=== PATIENT | male | born 1935 | race Caucasian/White ===

== ENCOUNTER 2018-05-31 12:31 | Day surgery (SDC) | payer MEDICARE, OTHER, SELFPAY ==
[2018-05-31] MEDS: PROPARACAINE 0.5% OPHTH SOL 2 DROPS EYE-OP (13:33)
[2018-05-31] MEDS: CATARACT EYE COMPOUND (10 DROPS/SYRINGE) 3 DROPS EYE-OP (13:35)
[2018-05-31 13:36] VITALS: BP 156/86; PULSE 64; RESP 16; TEMP 36.4; O2SAT 100; BMI 28.7
--- NOTE | 2018-05-31 13:58 | PM.PREOP ---
Pre-operative Note Interval Note Pre-op Check: Yes History & Physical Reviewed by Physician Changes: No
[2018-05-31] MEDS: CHONDROIDTIN/SOD HYALURONATE 1.05 ML SYRINGE INTRAOCULA (14:28)
[2018-05-31] MEDS: MOXIFLOXACIN OPHTH DROPS 3 ML BOTTLE 2 DROPS INJ (14:28)
[2018-05-31] MEDS: BALANCED SALT IRRIG SOLN NO.2 500 ML, EPINEPHrine 1 MG IRR (14:29)
[2018-05-31] MEDS: PHENYLEPHRINE/LIDOCAINE VIAL (OR) 0.2 ML EYE-OP (14:29)
--- NOTE | 2018-05-31 14:58 | PM.OP.1 ---
Procedure & Clinicians Procedure: Cataract extraction with intraocular lens implant, right Same procedure as scheduled: Yes Surgeon: Javier Tran Click Yes if Unassisted: Yes Anesthesia Type: MAC +/- Operative Notes Procedure in detail: The patient was brought to the operating suite. The correct patient, surgical site and lens were confirmed. 0.5 % tetracaine drops were placed in the right eye. Corneal markings were placed with a reference marker. The patient was prepped and draped in the typical sterile manner. A lid speculum was placed in the eye. A paracentesis port was created with a side-port blade. 0.1 mL of 1% preservative free lidocaine was injected into the anterior chamber. Viscoelastic was injected into the anterior chamber. A 2.6mm keratome was used to create a clear corneal temporal incision. Cystotome and Utrata forceps were used to create a continuous curvilinear capsulorrhexis. Balanced salt solution was used to hydrodissect the nucleus. Phacoemulsification was used to remove the lens. The capsular bag was inflated with viscoelastic. A Em [id number] +25.0 lens was inserted into the capsule and aligned at 005 degrees. Viscoelastic was removed. The edge of the iris prolapsed out of the wound. It was gently reduced. A 10-0 nylon suture was placed at the wound. The wound was found to be leak free and the eye was assessed to be at normal physiologic pressure. 0.1mL Vigamox was injected into the anterior chamber. The lid speculum was removed and the patient left the operating room in excellent condition. Complications: none Condition: stable Disposition: observation
[2018-05-31 15:02] VITALS: BP 152/73; PULSE 55; RESP 15; TEMP 36.1; O2SAT 99
--- NOTE | 2018-05-31 15:03 | P.OP_ITS ---
Procedure & Clinicians Procedure: Cataract extraction with intraocular lens implant, right Same procedure as scheduled: Yes Surgeon: Javier Tran Click Yes if Unassisted: Yes Anesthesia Type: MAC +/- Operative Notes Procedure in detail: The patient was brought to the operating suite. The correct patient, surgical site and lens were confirmed. 0.5 % tetracaine drops were placed in the right eye. Corneal markings were placed with a reference marker. The patient was prepped and draped in the typical sterile manner. A lid speculum was placed in the eye. A paracentesis port was created with a side- port blade. 0.1 mL of 1% preservative free lidocaine was injected into the anterior chamber. Viscoelastic was injected into the anterior chamber. A 2.6mm keratome was used to create a clear corneal temporal incision. Cystotome and Utrata forceps were used to create a continuous curvilinear capsulorrhexis. Balanced salt solution was used to hydrodissect the nucleus. Phacoemulsification was used to remove the lens. The capsular bag was inflated with viscoelastic. A Em [id number] +25.0 lens was inserted into the capsule and aligned at 005 degrees. Viscoelastic was removed. The edge of the iris prolapsed out of the wound. It was gently reduced. A 10-0 nylon suture was placed at the wound. The wound was found to be leak free and the eye was assessed to be at normal physiologic pressure. 0.1mL Vigamox was injected into the anterior chamber. The lid speculum was removed and the patient left the operating room in excellent condition. Complications: none Condition: stable Disposition: observation
[2018-05-31 15:20] VITALS: BP 162/72; PULSE 52; RESP 15; TEMP 36.1; O2SAT 99
== END 2018-05-31 15:35 ==
PROVIDERS: PCP Internal Medicine; Visit Provider Ophthalmology
DX: H25.11 Age-related nuclear cataract, right eye (principal); E11.9 Type 2 diabetes mellitus without complications; Z79.84 Long term (current) use of oral hypoglycemic drugs; I10 Essential (primary) hypertension; Z86.73 Personal history of transient ischemic attack (TIA), and cerebral infarction without residual deficits
CPT/HCPCS: J0171; J2250; J2704; V2787

== ENCOUNTER 2018-06-21 11:39 | Day surgery (SDC) | payer MEDICARE, OTHER, SELFPAY ==
[2018-06-21] MEDS: PROPARACAINE 0.5% OPHTH SOL 2 DROPS EYE-OP (12:02)
--- NOTE | 2018-06-21 12:08 | PM.PREOP ---
Pre-operative Note Interval Note Pre-op Check: Yes History & Physical Reviewed by Physician Changes: No
--- NOTE | 2018-06-21 12:09 | PM.OP.1 ---
Procedure & Clinicians Procedure: Cataract extraction with intraocular lens implant, left Same procedure as scheduled: Yes Indications: Visually significant cataract, Nuclear sclerosis, left Surgeon: Javier Tran Click Yes if Unassisted: Yes Anesthesia Type: MAC +/- Operative Notes Procedure in detail: The patient was brought to the operating suite. The correct patient, surgical site and lens were confirmed. 0.5 % tetracaine drops were placed in the left eye. The cornea was marked with a corneal reference marker. The patient was prepped and draped in the typical sterile manner. A lid speculum was placed in the eye. 3.5% lidocaine gel was placed on the eye. A paracentesis port was created with a side-port blade. 0.1 mL of 1% preservative free lidocaine was injected into the anterior chamber. Viscoelastic was injected into the anterior chamber. A 2.6mm keratome was used to create a clear corneal temporal incision. Cystotome and Utrata forceps were used to create a continuous curvilinear capsulorrhexis. Balanced salt solution was used to hydrodissect the nucleus. Phacoemulsification was used to remove the lens. At this point the iris began to contract. A Malyugin 6.2mm ring was inserted. The capsular bag was inflated with viscoelastic. A Em ACT [id number] +24.5 D lens was inserted into the capsule and rotated to 0 degrees. The Malyugin ring was removed. Viscoelastic was removed and the iris was found to prolapse out of the main wound. A 10-0 nylon suture was placed and knot burried. Myostat was injected into the anterior chamber. A second sideport incision was made to the right of the main wound. The iris was swept out of the wound through this incision and resure glue was used on the main wound and left sideport wound. The wounds were found to be leak free and the eye was assessed to be at normal physiologic pressure. 0.1mL Vigamox was injected into the anterior chamber. The lid speculum was removed and the patient left the operating room in excellent condition. Complications: none Condition: stable Disposition: same day surgery
[2018-06-21] MEDS: CATARACT EYE COMPOUND (10 DROPS/SYRINGE) 3 DROPS EYE-OP (12:10)
[2018-06-21 12:12] VITALS: BP 162/75; PULSE 49; RESP 16; TEMP 36.3; O2SAT 98; BMI 29.6
[2018-06-21] MEDS: CHONDROIDTIN/SOD HYALURONATE 1.05 ML SYRINGE INTRAOCULA (13:21)
[2018-06-21] MEDS: MOXIFLOXACIN OPHTH DROPS 3 ML BOTTLE 2 DROPS INJ (13:23)
[2018-06-21] MEDS: PHENYLEPHRINE/LIDOCAINE VIAL (OR) 0.2 ML EYE-OP (13:23)
[2018-06-21] MEDS: BALANCED SALT IRRIG SOLN NO.2 500 ML, EPINEPHrine 1 MG IRR (13:24)
[2018-06-21] MEDS: TETRACAINE 0.5% OPHTH DROPS 15 ML 2 DROPS EYE-LEFT (13:30)
[2018-06-21] MEDS: LIDOCAINE 2% INJ SDV 0.5 ML TOP (13:31)
[2018-06-21] MEDS: CARBACHOL 1.5 ML VIAL INJ (14:06)
[2018-06-21 14:52] VITALS: BP 171/80; PULSE 58; RESP 20; TEMP 36.7; O2SAT 97
== END 2018-06-21 14:55 | disposition home or self-care (01) ==
LOC: OR 11:40
PROVIDERS: PCP Internal Medicine; Visit Provider Ophthalmology
DX: H25.12 Age-related nuclear cataract, left eye (principal); E11.9 Type 2 diabetes mellitus without complications; Z79.84 Long term (current) use of oral hypoglycemic drugs; I10 Essential (primary) hypertension
CPT/HCPCS: J0171; J2250; J3010; V2787

== ENCOUNTER → 2018-08-17 13:07 | Outpatient (CLI) | payer MEDICARE, OTHER, SELFPAY ==
--- NOTE | 2018-08-17 | DI.RAD.S_ITS ---
PROCEDURE: FL BARIUM SWALLOW W SPEECH INDICATIONS: DYSPHAGIA TECHNIQUE: Examination was conducted in conjunction with speech pathology per standard protocol. In the lateral projection, filming was performed of the patient swallowing. AP projection filming may also be performed with patient swallowing. COMPARISON: None. FINDINGS: Function: The oral preparatory phase appears normal, with proper containment. The subsequent oral propulsive phase and pharyngeal phase demonstrated slight delay in transit of proffered substances. The esophageal phase of swallowing appeared normal with all proffered substances. There were episodes of laryngotracheal penetration with thin and nectar consistency liquids with delayed aspiration with thin and thick liquids. There was persistent vallecular pooling of contrast. Morphology: No cricopharyngeal bar is identified. No cervical esophageal webs. No Zenker's diverticulum. No strictures. IMPRESSION: Slight delay in transit of proferred substances during oral propulsive and pharyngeal phases with occasional episodes of laryngotracheal penetration and aspiration. Please see speech pathology report for further details. Dictated by: Everette Tay M.D. on 08/17/2018 at 14:38 Approved by: Everette Tay M.D. on 08/17/2018 at 14:44
== END ==
PROVIDERS: PCP Internal Medicine; Visit Provider Internal Medicine
DX: R13.10 Dysphagia, unspecified (principal)
CPT/HCPCS: 74230; 92611

== ENCOUNTER 2018-11-09 11:51 | Inpatient (IN) | payer MEDICARE, OTHER, SELFPAY ==
[2018-11-09] VITALS (13 sets, daily range): BP systolic 93–171; BP diastolic 52–81; PULSE 56–80; RESP 11–21; TEMP 36.3–36.4; O2SAT 95–99; BMI 20.6
--- NOTE | 2018-11-09 | DI.MRI.S_ITS ---
PROCEDURE: MR STROKE Pre- and post-contrast brain MRI, non-contrast brain MR angiogram, pre- and postcontrast neck MR angiogram INDICATIONS: TIA, prior CVA TECHNIQUE: Brain: Noncontrast axial T1 spin echo, axial T2 fast spin echo, sagittal and axial FLAIR, coronal T2 fast spin echo, axial gradient echo, axial diffusion and ADC through the brain. After the administration of contrast, axial 3D VIBE of the cranial vasculature and brain. Brain MRA: Non-contrast 3-D time of flight MR angiogram, with multiple sbjeprr-baaheztot-ahlxymecqp (MIP) reformats performed. Neck MRA: Axial and sagittal TruFISP through the neck. Coronal dynamic MR angiogram during administration of contrast in the arterial and venous phases, with 3-dimenstional hfklfdr-swtpijybx-glricztppg (MIP) reformats constructed from subtraction images. COMPARISON: None. FINDINGS: Image quality: Excellent. BRAIN: CSF spaces: Ventricles are prominent in size consistent with ex vacuo dilatation secondary to diffuse cerebral volume loss. Stable configuration of the ventricles.. Basal cisterns are patent. No extra-axial fluid collections. Brain: No intracranial bleeds or mass effects. Grey-white matter interface is normal. There are several small foci of diffusion restriction abnormalities with corresponding low signal on ADC map consistent with small foci of acute infarctions. There are 2 foci noted in the right parietal lobe near the centrum semi-ovale. The largest measures approximately 5 mm in size. A 7 mm focal infarction is noted in the left frontal lobe. There are 2 adjacent subcentimeter foci noted in the left cerebellar hemisphere. Brainstem appears normal. Normal intravascular flow voids are present. Numerous scattered T2/flair hyperintensities are noted in the bilateral periventricular white matter and subcortical white matter of the bilateral cerebral hemispheres compatible with sequela of chronic small vessel ischemic disease. No abnormal intracranial enhancement. Skull and face: Calvarial marrow signal is normal. Orbits appear normal. Sinuses: Sinuses and mastoids are clear. BRAIN MR ANGIOGRAM: Anterior circulation: Intracranial internal carotid arteries are normal in size and enhancement. Flow within the anterior cerebral artery is patent. There is normal variant diminutive versus absent right A1 segment. The anterior communicating artery appears to originate from the left A1 segment. The flow within the middle cerebral arteries is normal and symmetric. The anterior communicating artery is seen. No stenoses, occlusions, or aneurysms of the. Posterior circulation: The visualized portions of the vertebral arteries demonstrate normal caliber, and join to form a normal appearing basilar artery. The flow within the posterior cerebral arteries is normal and symmetric. No stenoses, occlusions, or aneurysms. NECK MR ANGIOGRAM: Carotids: Great vessels demonstrate a conventional anatomy as they arise from the aortic arch. The origins of the common carotid arteries appear patent. The calibers and courses of both common carotid arteries are normal. The bifurcation regions appear normal bilaterally. The internal carotid arteries demonstrate normal course and caliber. Posterior circulation: The origins of the right vertebral artery is patent. There is mild-moderate narrowing at the origin of the left vertebral artery. More superior portions of both vertebral arteries demonstrate normal course and caliber, and join to form a normal appearing basilar artery. Miscellaneous: Subclavian arteries appear patent. Pre-contrast images through the neck show no soft tissue abnormalities. There is a small superficial intradermal benign-appearing lesion in the left anterior scalp. 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 No evidence for adjacent vasogenic edema. No mass effect or midline shift of structures. No suspicious areas of enhancement. BRAIN MR ANGIOGRAM: Negative brain MRA for hemodynamically significant stenosis, occlusion, or aneurysm. NECK MR ANGIOGRAM: Mild-moderate stenosis at the origin of the left vertebral artery. Otherwise, negative MRA of the neck vessels for hemodynamically significant stenosis, occlusion, or aneurysm. Findings were relayed to the inpatient clinical team. Dictated by: Everette Tay M.D. on 11/10/2018 9:55 Approved by: Everette Tay M.D. on 11/10/2018 at 10:33
--- NOTE | 2018-11-09 12:07 | DI.RAD.S_ITS ---
PROCEDURE: XR CHEST 1V INDICATIONS: weakness TECHNIQUE: One view of the chest was acquired. COMPARISON: None. FINDINGS: Surgical changes and devices: None. Lungs and pleura: Lungs are clear. No pleural effusions or pneumothorax. Mediastinum: Mediastinal contours appear normal. Heart size is normal. Bones and chest wall: No suspicious bony lesions. Overlying soft tissues appear unremarkable. IMPRESSION: Normal for age, source of current weakness symptoms is not seen. Dictated by: Armen Guadarrama M.D. on 11/09/2018 at 12:41 Approved by: Armen Guadarrama M.D. on 11/09/2018 at 12:41
[2018-11-09 12:14] LABS: Hematocrit 39.8 % (41-53); Hemoglobin 13.1 g/dL (13.5-17.5); INR 1.1 (0.9-1.3); Mean Corpuscular Hemoglobin 28.4 PG (26-34); Platelet Count 340 X10^3/uL (150-400); Prothrombin Time 12.4 SECONDS (10.1-12.7); Red Blood Cell Count 4.63 X10^6/uL (4.5-5.9); Red Cell Distribution Width 13.4 % (11.6-14.8); White Blood Cell Count 10.3 X10^3/uL (4.5-11.0)
[2018-11-09 12:20] LABS: Alanine Aminotransferase 22 IU/L (21-72); Albumin 4.5 g/dL (3.5-5.0); Albumin Globulin Ratio 1.3 (1.0-2.8); Alkaline Phosphatase 111 U/L (38-126); Aspartate Aminotransferase 35 IU/L (17-59); BUN Creatinine Ratio 30.7 (6-22); Bilirubin Total 0.8 mg/dL (0.2-1.3); Blood Urea Nitrogen 43 mg/dL (9-20); Calcium 9.9 mg/dL (8.4-10.2); Carbon Dioxide 27 mmol/L (22-32); Chloride 99 mmol/L (98-107); Estimated Glomerular Filt Rate 48.6 mL/min (>60); Globulin 3.4 g/dL (1.7-4.1); Glucose 172 mg/dL (80-110); HEMOLYSIS < 15 (0-50); Potassium 4.9 mmol/L (3.4-5.1); Sodium 141 mmol/L (137-145); Total Protein 7.9 g/dL (6.3-8.2)
--- NOTE | 2018-11-09 12:35 | PC.NURSE ---
Patient states he woke in the middle of the night to urinate and felt mild chest pain 1/10 nothing I would take my medications for Patient was able to go back to sleep but states he slept poorly. Patient woke this morning feeling generalized weakness, SOB with exertion. Reports SOB at rest. states he didn't eat or dress himself like he normally does and was clammy and cool but states he felt hot. Patient denies chest pain at this time. reports pain at buttocks. Patient has known pressure ulcers that home health nurse changes 3x week
[2018-11-09 12:46] LABS: Neutrophils Absolute Manual 6592 /uL (3000-5900); Total Cells Counted 100
[2018-11-09 12:47] LABS: RBC Morphology Normal Morphology
[2018-11-09 12:51] LABS: Creatine Kinase 44 U/L (55-170)
[2018-11-09 13:02] LABS: B Type Natriuretic Peptide 181 (<100); Troponin I 0.032 ng/mL (0.01-0.034)
--- NOTE | 2018-11-09 14:48 | ED.WEAKNESS ---
HPI - Weakness General Chief complaint: Weakness Stated complaint: General Weakness Time Seen by Provider: 11/09/18 14:33 Source: patient and family Mode of arrival: EMS Limitations: no limitations History of Present Illness HPI Narrative: This is an 83-year-old male comes to the emergency department after not feeling well. Patient states that this morning when he got up he had gotten up to change his depends, he just sort of sat on the chair and did move or do much. His states that she noticed that he was very sweaty and clammy. He states that he was not able to get his words out for a period of time and could not talk. They both stated that he seemed a little bit weaker on his left side. He has known left-sided deficit from a prior stroke. They both state he seems like he is doing better at this time. He was feeling a little short of breath. He denies any active chest pain. They are both unclear if he had any episode of chest pain or pressure earlier today or last night. Patient denies any nausea, no vomiting. he has not been eating well for the last several days. He has not had a bowel movement for 2 or 3 days. Patient is on Plavix. His primary care physician is Dr. Duran. Related Data Home Medications Medication Instructions Recorded Confirmed clopidogrel [Plavix] 75 mg PO DAILY 05/31/18 11/09/18 lisinopril 10 mg PO BEDTIME 05/31/18 11/09/18 metformin 500 mg PO BID 05/31/18 11/09/18 tamsulosin [Flomax] 0.4 mg PO DAILY 05/31/18 11/09/18 Vitamin C 1 tab PO DAILY 11/09/18 11/09/18 Vitamin D3 1 cap PO DAILY 11/09/18 11/09/18 acetaminophen [Tylenol] 1 dose PO DAILY 11/09/18 11/09/18 atorvastatin 40 mg PO BEDTIME 11/09/18 11/09/18 fluoride (sodium) [PreviDent 5000 1 applic DENTAL DIRECTED 11/09/18 11/09/18 Dry Mouth] metoprolol tartrate 25 mg PO BID 11/09/18 11/09/18 multivitamin 1 tab PO DAILY 11/09/18 11/09/18 nitroglycerin 0.4 mg SUBLINGUAL PRN PRN 11/09/18 11/09/18 vit C,B-Yi-oxfuv-lutein-zeaxan 1 cap PO BID 11/09/18 11/09/18 [PreserVision AREDS-2] Allergies Allergy/AdvReac Type Severity Reaction Status Date / Time No Known Allergies Allergy Uncoded 11/09/18 12:04 Review of Systems Review of Systems ROS Unobtainable: All systems reviewed & are unremarkable except as noted in HPI and below Constitutional Denies chills, Reports fatigue, Denies fever(s), Denies headache(s), Denies lethargy and Denies weakness ENT Ears, Nose, Mouth, and Throat: Denies headache(s) Cardiovascular Reports chest pain (maybe, pt unclear), Denies syncope, Denies irregular heart rhythm, Denies lightheadedness, Denies palpitations, Reports dyspnea and Denies orthopnea Respiratory Denies chest congestion, Denies cough, Reports dyspnea and Denies wheezing Gastrointestinal Gastrointestinal: Denies abdominal pain, Denies change in bowel habits, Reports constipation, Denies diarrhea, Denies nausea and Denies vomiting Musculoskeletal Reports muscle weakness and Denies numbness Neurologic Reports as per HPI, Reports abnormal speech, Denies confusion, Denies syncope, Denies headache(s), Reports focal weakness (Worse from usable left-sided weakness), Denies numbness and Denies weakness Psychiatric Denies confusion Endocrine Reports fatigue and Denies palpitations Allergic/Immunologic Denies wheezing [facility] Medical History (Updated 11/09/18 @ 19:48 by Beatriz Anguiano RN) Oral cancer (Acute) CVA (cerebral vascular accident) (Chronic) Dyslipidemia (Chronic) Hypertension (Chronic) Social History household members: spouse Smoking Status: Never smoker alcohol intake: former Social History household members: spouse Smoking Status: Never smoker alcohol intake: former Exam Narrative Exam Narrative: GEN: well nourished, well appearing elderly male, alert and oriented x 3, patient appears to be in mild distress. HEENT: Atraumatic, pupils are equal round reactive to light, extraocular movements are intact, no clear facial droop HEART: Regular rate and rhythm without murmur, clicks, rubs. No carotid bruits, pulses are equal in upper and lower extremities LUNGS:Lungs clear to auscultation, no wheezes, rales, crackles, chest moves symmetrically ABD:bowel sounds normal, soft, non-tender, no guarding, rebound, rigidity, no masses noted, no hepatosplenomegaly :No CVA tenderness MSCL: Non-tender, no muscle atrophy, see NIH NEURO:CN 2-12 intact, sensation normal, gmzwih-akxy-vrilag test normal bilaterally, heel-baeza patient has more difficulty with his left foot. No dysarthria or aphasia. Initial Vital Signs Initial Vital Signs: Vital Signs Temperature 97.5 F L 11/09/18 11:57 Pulse Rate 69 11/09/18 11:57 Respiratory Rate 16 11/09/18 11:57 Blood Pressure 121/66 11/09/18 11:57 Pulse Oximetry 95 11/09/18 11:57 Scores NIH Stroke Scale Level of Conciousness: Alert, keenly responsive Ask month/age: Answers both questions correctly. Open/close eyes, close hand: Performs both tasks correctly Best gaze horizontal: Normal Visual tillman: No visual loss Facial palsy: Minor paralysis, flattened nasolabial fold, asymmetry on smiling (very mild) Left arm drift: No drift for full 10 sec Right arm drift: No drift for full 10 sec Left leg drift: No drift for full 10 sec Right leg drift: No drift for full 10 sec Limb ataxia: Present in one limb Sensory on face/arms/legs: Normal, no sensory loss Best language: No aphasia, normal Dysarthria: Normal Extinction or inattention: No abnormality Total NIH Stroke scale score: 2 Course Orders Ordered: ED Orders 11/09/18 12:07 Chest [XR chest 1V] Stat 11/09/18 12:10 BNP [B Type Natriuretic Peptide] Stat Troponin & CK Cardiac Panel Stat 11/09/18 15:07 CT head/brain wo con Stat 11/09/18 15:08 Urine Microscopic Stat 11/09/18 15:38 EKG-12 Lead Stat 11/09/18 15:45 Troponin & CK Cardiac Panel Stat 11/09/18 19:08 Consult to Dietitian, Adult Routine 11/09/18 19:15 Consult to Dietitian, Adult Routine Discontinued Medications Aspirin (Aspirin Chew) 324 mg PO NOW ONE Stop: 11/09/18 18:22 Vital Signs - 8 hr 11/09/18 12:45 11/09/18 13:00 11/09/18 13:30 Temperature Pulse Rate 56 L 65 74 Respiratory Rate 11 L 15 21 Blood Pressure Blood Pressure [Left Arm] 93/52 L 100/64 122/54 L Pulse Oximetry 98 99 97 11/09/18 14:00 11/09/18 14:30 11/09/18 15:00 Temperature Pulse Rate 69 70 76 Respiratory Rate 21 21 18 Blood Pressure Blood Pressure [Left Arm] 129/68 138/68 144/71 H Pulse Oximetry 95 96 99 11/09/18 16:10 11/09/18 16:30 11/09/18 17:00 Temperature Pulse Rate 75 73 71 Respiratory Rate 15 18 Blood Pressure Blood Pressure [Left Arm] 128/70 125/73 144/71 H Pulse Oximetry 97 98 97 11/09/18 17:40 11/09/18 18:19 11/09/18 18:35 Temperature 97.3 F L Pulse Rate 80 72 76 Respiratory Rate 18 17 Blood Pressure 141/65 H 163/81 H Blood Pressure [Left Arm] 171/80 H Pulse Oximetry 99 98 97 MDM - Weakness Lab Data Attestation: I reviewed the patient's lab results. Result diagrams: 11/09/18 Unknown 11/09/18 Unknown Lab Results 11/09/18 11/09/18 11/09/18 Range/Units 12:10 12:10 15:08 WBC (4.5-11.0) X10^3/uL RBC (4.5-5.9) X10^6/uL Hgb (13.5-17.5) g/dL Hct (41-53) % MCV (80-100) fL MCH (26-34) PG MCHC (30-36) % RDW (11.6-14.8) % Plt Count (150-400) X10^3/uL Total Counted Seg Neutrophils % (38-70) % Band Neutrophils % (3-7) % Lymphocytes % (Manual) (25-45) % Monocytes % (Manual) (2-11) % Eosinophils % (Manual) (2-4) % Basophils % (Manual) (0-1) % Neutrophils # (Manual) (6089-4852) /uL RBC Morphology PT (10.1-12.7) SECONDS INR (0.9-1.3) Sodium (137-145) mmol/L Potassium (3.4-5.1) mmol/L Chloride (98-107) mmol/L Carbon Dioxide (22-32) mmol/L BUN (9-20) mg/dL Creatinine (0.66-1.25) mg/dL Estimated GFR (>60) mL/min BUN/Creatinine Ratio (6-22) Glucose (80-110) mg/dL Calcium (8.4-10.2) mg/dL Total Bilirubin (0.2-1.3) mg/dL AST (17-59) IU/L ALT (21-72) IU/L Alkaline Phosphatase (38-126) U/L Total Creatine Kinase 44 L (55-170) U/L CK-MB (CK-2) TNP CK-MB (CK-2) Rel Index TNP Troponin I 0.032 (0.01-0.034) ng/mL B-Natriuretic Peptide 181 H (<100) Total Protein (6.3-8.2) g/dL Albumin (3.5-5.0) g/dL Globulin (1.7-4.1) g/dL Albumin/Globulin Ratio (1.0-2.8) Urine Color Cancelled Urine Appearance Cancelled Urine pH Cancelled Ur Specific [place] Cancelled Urine Protein Cancelled Urine Glucose (UA) Cancelled Urine Ketones Cancelled Urine Occult Blood Cancelled Urine Nitrate Cancelled Urine Bilirubin Cancelled Urine Urobilinogen Cancelled Ur Leukocyte Esterase Cancelled Urine RBC None seen (0-5/HPF) Urine WBC None seen (0-5/HPF) Urine Bacteria None seen (None) Hyaline Casts 1-5/lpf (None) Ur Culture Indicated? Cult not indicated 11/09/18 11/09/18 11/09/18 Range/Units 15:45 Unknown Unknown WBC 10.3 (4.5-11.0) X10^3/uL RBC 4.63 (4.5-5.9) X10^6/uL Hgb 13.1 L (13.5-17.5) g/dL Hct 39.8 L (41-53) % MCV 86.0 (80-100) fL MCH 28.4 (26-34) PG MCHC 33.0 (30-36) % RDW 13.4 (11.6-14.8) % Plt Count 340 (150-400) X10^3/uL Total Counted 100 Seg Neutrophils % 63.0 (38-70) % Band Neutrophils % 1.0 L (3-7) % Lymphocytes % (Manual) 25.0 (25-45) % Monocytes % (Manual) 7.0 (2-11) % Eosinophils % (Manual) 3.0 (2-4) % Basophils % (Manual) 1.0 (0-1) % Neutrophils # (Manual) 6592 H (9700-6012) /uL RBC Morphology Normal morphology PT 12.4 (10.1-12.7) SECONDS INR 1.1 (0.9-1.3) Sodium (137-145) mmol/L Potassium (3.4-5.1) mmol/L Chloride (98-107) mmol/L Carbon Dioxide (22-32) mmol/L BUN (9-20) mg/dL Creatinine (0.66-1.25) mg/dL Estimated GFR (>60) mL/min BUN/Creatinine Ratio (6-22) Glucose (80-110) mg/dL Calcium (8.4-10.2) mg/dL Total Bilirubin (0.2-1.3) mg/dL AST (17-59) IU/L ALT (21-72) IU/L Alkaline Phosphatase (38-126) U/L Total Creatine Kinase 41 L (55-170) U/L CK-MB (CK-2) TNP CK-MB (CK-2) Rel Index TNP Troponin I 0.034 (0.01-0.034) ng/mL B-Natriuretic Peptide (<100) Total Protein (6.3-8.2) g/dL Albumin (3.5-5.0) g/dL Globulin (1.7-4.1) g/dL Albumin/Globulin Ratio (1.0-2.8) Urine Color Urine Appearance Urine pH Ur Specific [place] Urine Protein Urine Glucose (UA) Urine Ketones Urine Occult Blood Urine Nitrate Urine Bilirubin Urine Urobilinogen Ur Leukocyte Esterase Urine RBC (0-5/HPF) Urine WBC (0-5/HPF) Urine Bacteria (None) Hyaline Casts (None) Ur Culture Indicated? 11/09/18 Range/Units Unknown WBC (4.5-11.0) X10^3/uL RBC (4.5-5.9) X10^6/uL Hgb (13.5-17.5) g/dL Hct (41-53) % MCV (80-100) fL MCH (26-34) PG MCHC (30-36) % RDW (11.6-14.8) % Plt Count (150-400) X10^3/uL Total Counted Seg Neutrophils % (38-70) % Band Neutrophils % (3-7) % Lymphocytes % (Manual) (25-45) % Monocytes % (Manual) (2-11) % Eosinophils % (Manual) (2-4) % Basophils % (Manual) (0-1) % Neutrophils # (Manual) (1629-7730) /uL RBC Morphology PT (10.1-12.7) SECONDS INR (0.9-1.3) Sodium 141 (137-145) mmol/L Potassium 4.9 (3.4-5.1) mmol/L Chloride 99 (98-107) mmol/L Carbon Dioxide 27 (22-32) mmol/L BUN 43 H (9-20) mg/dL Creatinine 1.40 H (0.66-1.25) mg/dL Estimated GFR 48.6 L (>60) mL/min BUN/Creatinine Ratio 30.7 H (6-22) Glucose 172 H (80-110) mg/dL Calcium 9.9 (8.4-10.2) mg/dL Total Bilirubin 0.8 (0.2-1.3) mg/dL AST 35 (17-59) IU/L ALT 22 (21-72) IU/L Alkaline Phosphatase 111 (38-126) U/L Total Creatine Kinase (55-170) U/L CK-MB (CK-2) CK-MB (CK-2) Rel Index Troponin I (0.01-0.034) ng/mL B-Natriuretic Peptide (<100) Total Protein 7.9 (6.3-8.2) g/dL Albumin 4.5 (3.5-5.0) g/dL Globulin 3.4 (1.7-4.1) g/dL Albumin/Globulin Ratio 1.3 (1.0-2.8) Urine Color Urine Appearance Urine pH Ur Specific [place] Urine Protein Urine Glucose (UA) Urine Ketones Urine Occult Blood Urine Nitrate Urine Bilirubin Urine Urobilinogen Ur Leukocyte Esterase Urine RBC (0-5/HPF) Urine WBC (0-5/HPF) Urine Bacteria (None) Hyaline Casts (None) Ur Culture Indicated? Urine Dip Bedside Urine Glucose Negative Bedside Urine Bilirubin - Negative Bedside Urine Ketone - Negative Urine Specific [place] 1.020 Bedside Urine Occult Blood - Negative Bedside Urine pH 6.0 Bedside Urine Protein + 30 Bedside Urine Urobilinogen - Negative Bedside Urine Nitrite - Negative Bedside Urine Leukocytes - Negative Esterase Imaging Data Chest x-ray: Radiologist's impression: MauricioShania sanchez Gary Koki M [address] [address] XRay Report Signed Patient: Shania Mauricio RMR#: [id number] : 1935cct:[id number] Age/Sex: 83 / MDate of Service: 11/09/18 Loc: ED Accession Number: [id number] Procedure: XR chest 1V Ordering Provider: Kenia Echeverria D.O. PROCEDURE: XR CHEST 1V INDICATIONS: weakness TECHNIQUE: One view of the chest was acquired. COMPARISON: None. FINDINGS: Surgical changes and devices: None. Lungs and pleura: Lungs are clear. No pleural effusions or pneumothorax. Mediastinum: Mediastinal contours appear normal. Heart size is normal. Bones and chest wall: No suspicious bony lesions. Overlying soft tissues appear unremarkable. IMPRESSION: Normal for age, source of current weakness symptoms is not seen. Dictated by: Armen Guadarrama M.D. on 11/09/2018 at 12:41 Approved by: Armen Guadarrama M.D. on 11/09/2018 at 12:41 CT scan - head: Radiologist's impression: [facility] DATE TYPE STATUS AUTHOR Hx 11/09/18 15:07 Armen Guadarrama 11/09/18 12:07 Armen Guadarrama 08/17/18 00:00 Everette Tay Jeralex Vega 83, 1935 ADM [facility], ED.LOC - Main ED: R05 182.88cm 69kg BMI: 20.6kg/m? Search Chart NF - Not included in interaction checking ONSET Today 18:19 Shania Mauricio 83 M [address] [address] [address] Scan Report Signed Patient: Shania Mauricio RMR#: [id number] : 7Acct:[id number] Age/Sex: 83 / MDate of Service: 11/09/18 Loc: ED Accession Number: [id number] Procedure: CT head/brain wo con Ordering Provider: Kenia Echeverria D.O. PROCEDURE: CT HEAD/BRAIN WO CON INDICATIONS: ? left sided weakness recurred, not sure if new/old hx cva TECHNIQUE: Noncontrast 4.5 mm thick angled axial sections acquired from the foramen magnum to the vertex, with coronal and sagittal reformats. For radiation dose reduction, the following was used: automated exposure control, adjustment of mA and/or kV according to patient size. COMPARISON: [facility], CT, HEAD WITHOUT CONTRAST, 11/08/2017, 12:51. FINDINGS: Image quality: Excellent. CSF spaces: Basal cisterns are patent. No extra-axial fluid collections. The ventricles are symmetric in size and shape. Brain: No intracranial bleeds or masses. There is cerebral volume loss for age, with resultant ventricular and sulcal prominence. There are periventricular and deep white matter chronic small vessel ischemic changes. There is intracranial internal carotid artery atherosclerosis. Skull and face: Calvarium and visualized facial bones appear intact, without suspicious lesions. Sinuses: Visualized sinuses and mastoids are clear. IMPRESSION: Moderate brain parenchymal atrophy, no hemorrhage or mass is seen. Dictated by: Armen Guadarrama M.D. on 11/09/2018 at 15:49 Approved by: Armen Guadarrama M.D. on 11/09/2018 at 15:49 ECG Data Attestation: I personally reviewed and interpreted this ECG as follows: Prior ECG tracings: not available for review Interpretation: A EKG shows sinus rhythm rate of 74 P are 0202 QRS of 114 QTC of 405. Patient has Q-wave in 3 and AVF. EKG number shows a sinus rhythm with 1st degree AV block, rate of 68 P are 211, QRS of 117 and QTC of 412. Patient continues to have Q-wave, no other ST elevation appreciated. [facility] Narrative Medical decision making narrative: 83-year-old male who comes in with complaint of increased weakness and some expressive aphasia which has resolved. Patient has some chronic left-sided weakness/deficit from prior stroke. He never admits to chest pain clearly but states ?something may have happened?. Some I do not have any prior EKGs for comparison but he does have Q-waves and some ST change on EKG 1 and Q-waves on EKG 2. Patient's troponin is negative x2 but on the high end of normal with a slight increased from 0.032-0.034. He has not had any chest pain or shortness of breath in the ED. Head CT is negative for acute change. He is on Plavix daily. His lab work does show that his renal function has decreased and his BUN is elevated, hemoglobin has a baseline at 13 glucose is 172. BNP is 181 but with no acute shortness of breath or major changes to chest x-ray CHF is unlikely. Patient was apprehensive about observation overnight in the hospital asked for an ambulation trial and had some further discussion. Patient is a little bit more willing to be observed overnight. I think this would be prudent with his history. Aspirin Spoke with Dr. Ram who accepts for observation. Discharge Plan Departure Patient Disposition: Admitted as Observation Clinical Impression: Brain TIA Discharge Date/Time: 11/09/18 18:19 Interventions: ED Discharge Assessment Last Done: 11/09/18 18:19 Referrals: Lex Duran MD [Primary Care Provider] - Admit Date/Time: 11/09/18 18:30 Admit Provider: Genny Ram
--- NOTE | 2018-11-09 15:09 | ED_ITS ---
HPI - Weakness General Chief complaint: Weakness Stated complaint: General Weakness Time Seen by Provider: 11/09/18 14:33 Source: patient and family Mode of arrival: EMS Limitations: no limitations History of Present Illness HPI Narrative: This is an 83-year-old male comes to the emergency department after not feeling well. Patient states that this morning when he got up he had gotten up to change his depends, he just sort of sat on the chair and did move or do much. His states that she noticed that he was very sweaty and clammy. He states that he was not able to get his words out for a period of time and could not talk. They both stated that he seemed a little bit weaker on his left side. He has known left-sided deficit from a prior stroke. They both state he seems like he is doing better at this time. He was feeling a little short of breath. He denies any active chest pain. They are both unclear if he had any episode of chest pain or pressure earlier today or last night. Patient denies any nausea, no vomiting. he has not been eating well for the last several days. He has not had a bowel movement for 2 or 3 days. Patient is on Plavix. His primary care physician is Dr. Duran. Related Data Home Medications Medication Instructions Recorded Confirmed clopidogrel [Plavix] 75 mg PO DAILY 05/31/18 11/09/18 lisinopril 10 mg PO BEDTIME 05/31/18 11/09/18 metformin 500 mg PO BID 05/31/18 11/09/18 tamsulosin [Flomax] 0.4 mg PO DAILY 05/31/18 11/09/18 Vitamin C 1 tab PO DAILY 11/09/18 11/09/18 Vitamin D3 1 cap PO DAILY 11/09/18 11/09/18 acetaminophen [Tylenol] 1 dose PO DAILY 11/09/18 11/09/18 atorvastatin 40 mg PO BEDTIME 11/09/18 11/09/18 fluoride (sodium) [PreviDent 5000 1 applic DENTAL DIRECTED 11/09/18 11/09/18 Dry Mouth] metoprolol tartrate 25 mg PO BID 11/09/18 11/09/18 multivitamin 1 tab PO DAILY 11/09/18 11/09/18 nitroglycerin 0.4 mg SUBLINGUAL PRN PRN 11/09/18 11/09/18 vit C,C-Vv-hyvvm-lutein-zeaxan 1 cap PO BID 11/09/18 11/09/18 [PreserVision AREDS-2] Allergies Allergy/AdvReac Type Severity Reaction Status Date / Time No Known Allergies Allergy Uncoded 11/09/18 12:04 Review of Systems Review of Systems ROS Unobtainable: All systems reviewed & are unremarkable except as noted in HPI and below Constitutional Denies chills, Reports fatigue, Denies fever(s), Denies headache(s), Denies lethargy and Denies weakness ENT Ears, Nose, Mouth, and Throat: Denies headache(s) Cardiovascular Reports chest pain (maybe, pt unclear), Denies syncope, Denies irregular heart rhythm, Denies lightheadedness, Denies palpitations, Reports dyspnea and Denies orthopnea Respiratory Denies chest congestion, Denies cough, Reports dyspnea and Denies wheezing Gastrointestinal Gastrointestinal: Denies abdominal pain, Denies change in bowel habits, Reports constipation, Denies diarrhea, Denies nausea and Denies vomiting Musculoskeletal Reports muscle weakness and Denies numbness Neurologic Reports as per HPI, Reports abnormal speech, Denies confusion, Denies syncope, Denies headache(s), Reports focal weakness (Worse from usable left-sided weakness), Denies numbness and Denies weakness Psychiatric Denies confusion Endocrine Reports fatigue and Denies palpitations Allergic/Immunologic Denies wheezing [facility] Medical History (Updated 11/09/18 @ 19:48 by Beatriz Anguiano RN) Oral cancer (Acute) CVA (cerebral vascular accident) (Chronic) Dyslipidemia (Chronic) Hypertension (Chronic) Social History household members: spouse Smoking Status: Never smoker alcohol intake: former Social History household members: spouse Smoking Status: Never smoker alcohol intake: former Exam Narrative Exam Narrative: GEN: well nourished, well appearing elderly male, alert and oriented x 3, patient appears to be in mild distress. HEENT: Atraumatic, pupils are equal round reactive to light, extraocular movements are intact, no clear facial droop HEART: Regular rate and rhythm without murmur, clicks, rubs. No carotid bruits, pulses are equal in upper and lower extremities LUNGS:Lungs clear to auscultation, no wheezes, rales, crackles, chest moves symmetrically ABD:bowel sounds normal, soft, non-tender, no guarding, rebound, rigidity, no masses noted, no hepatosplenomegaly :No CVA tenderness MSCL: Non-tender, no muscle atrophy, see NIH NEURO:CN 2-12 intact, sensation normal, rpgqha-hqoj-qoebor test normal bilaterally, heel-baeza patient has more difficulty with his left foot. No dysarthria or aphasia. Initial Vital Signs Initial Vital Signs: Vital Signs Temperature 97.5 F L 11/09/18 11:57 Pulse Rate 69 11/09/18 11:57 Respiratory Rate 16 11/09/18 11:57 Blood Pressure 121/66 11/09/18 11:57 Pulse Oximetry 95 11/09/18 11:57 Scores NIH Stroke Scale Level of Conciousness: Alert, keenly responsive Ask month/age: Answers both questions correctly. Open/close eyes, close hand: Performs both tasks correctly Best gaze horizontal: Normal Visual tillman: No visual loss Facial palsy: Minor paralysis, flattened nasolabial fold, asymmetry on smiling (very mild) Left arm drift: No drift for full 10 sec Right arm drift: No drift for full 10 sec Left leg drift: No drift for full 10 sec Right leg drift: No drift for full 10 sec Limb ataxia: Present in one limb Sensory on face/arms/legs: Normal, no sensory loss Best language: No aphasia, normal Dysarthria: Normal Extinction or inattention: No abnormality Total NIH Stroke scale score: 2 Course Orders Ordered: ED Orders 11/09/18 12:07 Chest [XR chest 1V] Stat 11/09/18 12:10 BNP [B Type Natriuretic Peptide] Stat Troponin & CK Cardiac Panel Stat 11/09/18 15:07 CT head/brain wo con Stat 11/09/18 15:08 Urine Microscopic Stat 11/09/18 15:38 EKG-12 Lead Stat 11/09/18 15:45 Troponin & CK Cardiac Panel Stat 11/09/18 19:08 Consult to Dietitian, Adult Routine 11/09/18 19:15 Consult to Dietitian, Adult Routine Discontinued Medications Aspirin (Aspirin Chew) 324 mg PO NOW ONE Stop: 11/09/18 18:22 Vital Signs - 8 hr 11/09/18 12:45 11/09/18 13:00 11/09/18 13:30 Temperature Pulse Rate 56 L 65 74 Respiratory Rate 11 L 15 21 Blood Pressure Blood Pressure [Left Arm] 93/52 L 100/64 122/54 L Pulse Oximetry 98 99 97 11/09/18 14:00 11/09/18 14:30 11/09/18 15:00 Temperature Pulse Rate 69 70 76 Respiratory Rate 21 21 18 Blood Pressure Blood Pressure [Left Arm] 129/68 138/68 144/71 H Pulse Oximetry 95 96 99 11/09/18 16:10 11/09/18 16:30 11/09/18 17:00 Temperature Pulse Rate 75 73 71 Respiratory Rate 15 18 Blood Pressure Blood Pressure [Left Arm] 128/70 125/73 144/71 H Pulse Oximetry 97 98 97 11/09/18 17:40 11/09/18 18:19 11/09/18 18:35 Temperature 97.3 F L Pulse Rate 80 72 76 Respiratory Rate 18 17 Blood Pressure 141/65 H 163/81 H Blood Pressure [Left Arm] 171/80 H Pulse Oximetry 99 98 97 MDM - Weakness Lab Data Attestation: I reviewed the patient's lab results. Result diagrams: 11/09/18 Unknown 11/09/18 Unknown Lab Results 11/09/18 11/09/18 11/09/18 Range/Units 12:10 12:10 15:08 WBC (4.5-11.0) X10^3/uL RBC (4.5-5.9) X10^6/uL Hgb (13.5-17.5) g/dL Hct (41-53) % MCV (80-100) fL MCH (26-34) PG MCHC (30-36) % RDW (11.6-14.8) % Plt Count (150-400) X10^3/uL Total Counted Seg Neutrophils % (38-70) % Band Neutrophils % (3-7) % Lymphocytes % (Manual) (25-45) % Monocytes % (Manual) (2-11) % Eosinophils % (Manual) (2-4) % Basophils % (Manual) (0-1) % Neutrophils # (Manual) (0143-5488) /uL RBC Morphology PT (10.1-12.7) SECONDS INR (0.9-1.3) Sodium (137-145) mmol/L Potassium (3.4-5.1) mmol/L Chloride (98-107) mmol/L Carbon Dioxide (22-32) mmol/L BUN (9-20) mg/dL Creatinine (0.66-1.25) mg/dL Estimated GFR (>60) mL/min BUN/Creatinine Ratio (6-22) Glucose (80-110) mg/dL Calcium (8.4-10.2) mg/dL Total Bilirubin (0.2-1.3) mg/dL AST (17-59) IU/L ALT (21-72) IU/L Alkaline Phosphatase (38-126) U/L Total Creatine Kinase 44 L (55-170) U/L CK-MB (CK-2) TNP CK-MB (CK-2) Rel Index TNP Troponin I 0.032 (0.01-0.034) ng/mL B-Natriuretic Peptide 181 H (<100) Total Protein (6.3-8.2) g/dL Albumin (3.5-5.0) g/dL Globulin (1.7-4.1) g/dL Albumin/Globulin Ratio (1.0-2.8) Urine Color Cancelled Urine Appearance Cancelled Urine pH Cancelled Ur Specific [place] Cancelled Urine Protein Cancelled Urine Glucose (UA) Cancelled Urine Ketones Cancelled Urine Occult Blood Cancelled Urine Nitrate Cancelled Urine Bilirubin Cancelled Urine Urobilinogen Cancelled Ur Leukocyte Esterase Cancelled Urine RBC None seen (0-5/HPF) Urine WBC None seen (0-5/HPF) Urine Bacteria None seen (None) Hyaline Casts 1-5/lpf (None) Ur Culture Indicated? Cult not indicated 11/09/18 11/09/18 11/09/18 Range/Units 15:45 Unknown Unknown WBC 10.3 (4.5-11.0) X10^3/uL RBC 4.63 (4.5-5.9) X10^6/uL Hgb 13.1 L (13.5-17.5) g/dL Hct 39.8 L (41-53) % MCV 86.0 (80-100) fL MCH 28.4 (26-34) PG MCHC 33.0 (30-36) % RDW 13.4 (11.6-14.8) % Plt Count 340 (150-400) X10^3/uL Total Counted 100 Seg Neutrophils % 63.0 (38-70) % Band Neutrophils % 1.0 L (3-7) % Lymphocytes % (Manual) 25.0 (25-45) % Monocytes % (Manual) 7.0 (2-11) % Eosinophils % (Manual) 3.0 (2-4) % Basophils % (Manual) 1.0 (0-1) % Neutrophils # (Manual) 6592 H (3452-3979) /uL RBC Morphology Normal morphology PT 12.4 (10.1-12.7) SECONDS INR 1.1 (0.9-1.3) Sodium (137-145) mmol/L Potassium (3.4-5.1) mmol/L Chloride (98-107) mmol/L Carbon Dioxide (22-32) mmol/L BUN (9-20) mg/dL Creatinine (0.66-1.25) mg/dL Estimated GFR (>60) mL/min BUN/Creatinine Ratio (6-22) Glucose (80-110) mg/dL Calcium (8.4-10.2) mg/dL Total Bilirubin (0.2-1.3) mg/dL AST (17-59) IU/L ALT (21-72) IU/L Alkaline Phosphatase (38-126) U/L Total Creatine Kinase 41 L (55-170) U/L CK-MB (CK-2) TNP CK-MB (CK-2) Rel Index TNP Troponin I 0.034 (0.01-0.034) ng/mL B-Natriuretic Peptide (<100) Total Protein (6.3-8.2) g/dL Albumin (3.5-5.0) g/dL Globulin (1.7-4.1) g/dL Albumin/Globulin Ratio (1.0-2.8) Urine Color Urine Appearance Urine pH Ur Specific [place] Urine Protein Urine Glucose (UA) Urine Ketones Urine Occult Blood Urine Nitrate Urine Bilirubin Urine Urobilinogen Ur Leukocyte Esterase Urine RBC (0-5/HPF) Urine WBC (0-5/HPF) Urine Bacteria (None) Hyaline Casts (None) Ur Culture Indicated? 11/09/18 Range/Units Unknown WBC (4.5-11.0) X10^3/uL RBC (4.5-5.9) X10^6/uL Hgb (13.5-17.5) g/dL Hct (41-53) % MCV (80-100) fL MCH (26-34) PG MCHC (30-36) % RDW (11.6-14.8) % Plt Count (150-400) X10^3/uL Total Counted Seg Neutrophils % (38-70) % Band Neutrophils % (3-7) % Lymphocytes % (Manual) (25-45) % Monocytes % (Manual) (2-11) % Eosinophils % (Manual) (2-4) % Basophils % (Manual) (0-1) % Neutrophils # (Manual) (0813-0487) /uL RBC Morphology PT (10.1-12.7) SECONDS INR (0.9-1.3) Sodium 141 (137-145) mmol/L Potassium 4.9 (3.4-5.1) mmol/L Chloride 99 (98-107) mmol/L Carbon Dioxide 27 (22-32) mmol/L BUN 43 H (9-20) mg/dL Creatinine 1.40 H (0.66-1.25) mg/dL Estimated GFR 48.6 L (>60) mL/min BUN/Creatinine Ratio 30.7 H (6-22) Glucose 172 H (80-110) mg/dL Calcium 9.9 (8.4-10.2) mg/dL Total Bilirubin 0.8 (0.2-1.3) mg/dL AST 35 (17-59) IU/L ALT 22 (21-72) IU/L Alkaline Phosphatase 111 (38-126) U/L Total Creatine Kinase (55-170) U/L CK-MB (CK-2) CK-MB (CK-2) Rel Index Troponin I (0.01-0.034) ng/mL B-Natriuretic Peptide (<100) Total Protein 7.9 (6.3-8.2) g/dL Albumin 4.5 (3.5-5.0) g/dL Globulin 3.4 (1.7-4.1) g/dL Albumin/Globulin Ratio 1.3 (1.0-2.8) Urine Color Urine Appearance Urine pH Ur Specific [place] Urine Protein Urine Glucose (UA) Urine Ketones Urine Occult Blood Urine Nitrate Urine Bilirubin Urine Urobilinogen Ur Leukocyte Esterase Urine RBC (0-5/HPF) Urine WBC (0-5/HPF) Urine Bacteria (None) Hyaline Casts (None) Ur Culture Indicated? Urine Dip Bedside Urine Glucose Negative Bedside Urine Bilirubin - Negative Bedside Urine Ketone - Negative Urine Specific [place] 1.020 Bedside Urine Occult Blood - Negative Bedside Urine pH 6.0 Bedside Urine Protein + 30 Bedside Urine Urobilinogen - Negative Bedside Urine Nitrite - Negative Bedside Urine Leukocytes - Negative Esterase Imaging Data Chest x-ray: Radiologist's impression: MauricioShania sanchez Gary Koki M [address] [address] XRay Report Signed Patient: Shania Mauricio RMR#: [id number] : 1935cct:[id number] Age/Sex: 83 / MDate of Service: 11/09/18 Loc: ED Accession Number: [id number] Procedure: XR chest 1V Ordering Provider: Kenia Echeverria D.O. PROCEDURE: XR CHEST 1V INDICATIONS: weakness TECHNIQUE: One view of the chest was acquired. COMPARISON: None. FINDINGS: Surgical changes and devices: None. Lungs and pleura: Lungs are clear. No pleural effusions or pneumothorax. Mediastinum: Mediastinal contours appear normal. Heart size is normal. Bones and chest wall: No suspicious bony lesions. Overlying soft tissues appear unremarkable. IMPRESSION: Normal for age, source of current weakness symptoms is not seen. Dictated by: Armen Guadarrama M.D. on 11/09/2018 at 12:41 Approved by: Armen Guadarrama M.D. on 11/09/2018 at 12:41 CT scan - head: Radiologist's impression: [facility] DATE TYPE STATUS AUTHOR Hx 11/09/18 15:07 Armen Guadarrama 11/09/18 12:07 Armen Guadarrama 08/17/18 00:00 Everette Tay Jeralex Vega 83, 1935 ADM [facility], ED.LOC - Main ED: R05 182.88cm 69kg BMI: 20.6kg/m? Search Chart NF - Not included in interaction checking ONSET Today 18:19 Shania Mauricio 83 M [address] [address] [address] Scan Report Signed Patient: Shania Mauricio RMR#: [id number] : 7Acct:[id number] Age/Sex: 83 / MDate of Service: 11/09/18 Loc: ED Accession Number: [id number] Procedure: CT head/brain wo con Ordering Provider: Kenia Echeverria D.O. PROCEDURE: CT HEAD/BRAIN WO CON INDICATIONS: ? left sided weakness recurred, not sure if new/old hx cva TECHNIQUE: Noncontrast 4.5 mm thick angled axial sections acquired from the foramen magnum to the vertex, with coronal and sagittal reformats. For radiation dose reduction, the following was used: automated exposure control, adjustment of mA and/or kV according to patient size. COMPARISON: [facility], CT, HEAD WITHOUT CONTRAST, 11/08/2017, 12:51. FINDINGS: Image quality: Excellent. CSF spaces: Basal cisterns are patent. No extra-axial fluid collections. The ventricles are symmetric in size and shape. Brain: No intracranial bleeds or masses. There is cerebral volume loss for age, with resultant ventricular and sulcal prominence. There are periventricular and deep white matter chronic small vessel ischemic changes. There is intracranial internal carotid artery atherosclerosis. Skull and face: Calvarium and visualized facial bones appear intact, without suspicious lesions. Sinuses: Visualized sinuses and mastoids are clear. IMPRESSION: Moderate brain parenchymal atrophy, no hemorrhage or mass is seen. Dictated by: Armen Guadarrama M.D. on 11/09/2018 at 15:49 Approved by: Armen Guadarrama M.D. on 11/09/2018 at 15:49 ECG Data Attestation: I personally reviewed and interpreted this ECG as follows: Prior ECG tracings: not available for review Interpretation: A EKG shows sinus rhythm rate of 74 P are 0202 QRS of 114 QTC of 405. Patient has Q-wave in 3 and AVF. EKG number shows a sinus rhythm with 1st degree AV block, rate of 68 P are 211, QRS of 117 and QTC of 412. Patient continues to have Q-wave, no other ST elevation appreciated. [facility] Narrative Medical decision making narrative: 83-year-old male who comes in with complaint of increased weakness and some expressive aphasia which has resolved. Patient has some chronic left-sided weakness/deficit from prior stroke. He never admits to chest pain clearly but states ?something may have happened?. Some I do not have any prior EKGs for comparison but he does have Q-waves and some ST change on EKG 1 and Q-waves on EKG 2. Patient's troponin is negative x2 but on the high end of normal with a slight increased from 0.032-0.034. He has not had any chest pain or shortness of breath in the ED. Head CT is negative for acute change. He is on Plavix daily. His lab work does show that his renal function has decreased and his BUN is elevated, hemoglobin has a baseline at 13 glucose is 172. BNP is 181 but with no acute shortness of breath or major changes to chest x-ray CHF is unlikely. Patient was apprehensive about observation overnight in the hospital asked for an ambulation trial and had some further discussion. Patient is a little bit more willing to be observed overnight. I think this would be prudent with his history. Aspirin Spoke with Dr. Ram who accepts for observation. Discharge Plan Departure Patient Disposition: Admitted as Observation Clinical Impression: Brain TIA Discharge Date/Time: 11/09/18 18:19 Interventions: ED Discharge Assessment Last Done: 11/09/18 18:19 Referrals: Lex Duran MD [Primary Care Provider] - Admit Date/Time: 11/09/18 18:30 Admit Provider: Genny Ram
[2018-11-09 15:35] LABS: Bacteria Urine None Seen; RBC Urine None Seen (0-5/HPF); WBC Urine None Seen (0-5/HPF)
[2018-11-09 15:43] LABS: Culture Indicated Urine Cult Not Indicated; Hyaline Casts Urine 1-5/LPF
[2018-11-09 16:01] LABS: Creatine Kinase 41 U/L (55-170)
[2018-11-09 16:14] LABS: Troponin I 0.034 ng/mL (0.01-0.034)
--- NOTE | 2018-11-09 17:40 | PC.NURSE ---
Patient tolerated ambulation well. Denied dizziness. Denies SOB reports feeling much better than this morning.
[2018-11-09 21:22] LABS: Cholesterol 122 mg/dL (140-199); HDL Cholesterol 24 mg/dL (40-60); LDL Cholesterol Calculated 54 mg/dL (<100); Triglycerides 221 mg/dL (35-150)
[2018-11-09] MEDS: SODIUM CHLORIDE 0.9% 1,000 ML 84 ML IV (21:32)
[2018-11-09] MEDS: SENNOSIDES 8.6 MG TABLET 17.2 MG PO (21:42)
[2018-11-09] MEDS: DOCUSATE 100 MG CAPSULE PO (21:42)
[2018-11-09 22:20] LABS: Hemoglobin A1C% w Est Avg Glu 5.9 % (4.0-6.0)
--- NOTE | 2018-11-09 23:07 | PM.HP.1 ---
History of Present Illness Date Patient Seen: 11/09/18 Time Patient Seen: 19:39 Chief complaint: General Weakness Narrative: Shania Mauricio is an 83-year-old male patient with a history hypertension, hyperlipidemia, diabetes, BPH, prior CVA with left hemiparesis who presents today for complaints of acute onset of weakness. The patient reports that he got up this morning sat in a chair when he became diaphoretic and felt weak and was unable to speak. He reports associated shortness of breath at rest but denies chest pain or palpitations. Does acknowledge that he had had some left chest discomfort last night that reports as related to indigestion for which he does not typically take his nitroglycerin. The patient has had prior CVA 1 year ago with resultant left leg weakness followed by recurrent episodes of neurological deficits in May of 2018 and then again last month. He has had intermittent shortness of breath and has a known history dysphagia and has had recent swallow evaluation demonstrating motility dysfunction and will cough when eating and on liquids. Patient has been using thickener at home which he does not like using and therefore consumes little liquid. He reports a poor appetite. He currently is receiving care from [facility]. Patient denies headaches or dizziness and has no visual changes. Denies cold or flu symptoms and has had no fevers how ever he will report episodic episodes of diaphoresis. Denies complaints of chest pain or palpitations and does not report dyspnea on exertion ambulates minimally using a walker. He can all edges heartburn which he takes Tums but reports no nausea or vomiting. Denies diarrhea but it currently has constipation not having a bowel movement for the last 2-3 days. Reports no difficulty urinating in the ER the patient underwent CT exam weight was negative demonstrating cerebral atrophy without hemorrhage or mass. His chest x-ray was negative and described as normal for age without evidence of aspiration pneumonia. His CBC is unremarkable as is his electrolytes. On renal function has a BUN of 43 and a creatinine of 1.4 with an EGFR of 48.6 and BUN creatinine ratio of 30.7. The patient is admitted for further evaluation and neurological and physiological monitoring. Patient History Medical History (Updated 11/09/18 @ 23:38 by DEDRA Alfaro) Diabetes (Acute) Hyperlipidemia (Acute) Oral cancer (Acute) Presence of stent in coronary artery in patient with coronary artery disease (Acute) Prostate cancer (Acute) CVA (cerebral vascular accident) (Chronic) Dyslipidemia (Chronic) Hypertension (Chronic) Surgical History History of back surgery (Acute) History of prostate surgery (Acute) History of repair of aneurysm of abdominal aorta (Acute) History of surgical procedure on mouth (Acute) S/P total knee arthroplasty (Acute) Social History household members: spouse Smoking Status: Never smoker alcohol intake: former Family & Social History Social History: household members spouse Prior Living Arrangements House Safety & Behavioral: Feels Safe in Current Yes Environment Been Physically Hurt or No Threatened By a Person Suicidal Ideation Description None Suicide Plan Description No Plan Tobacco & Substance use: Smoking Status Never smoker alcohol intake former alcohol intake frequency 0-2 drinks per day Substance Use Type does not use Comment: The patient lives in a single family home with his to whom he has been for 25 years. The patient has been 2 times previously. His parents are both both the passing away from myocardial infarction. He has 2 daughters who are in good health. Smoking: Patient smoked 1-2 packs per day for 50 years and quit 15 years ago Alcohol: Patient had been a daily drinker and quit 1 year ago. Substance use: Patient denies recreation pharmaceuticals herbal or cannabis products Advanced directive patient states he has to be DO NOT RESUSCITATE. He designates his to be surrogate decision maker. [facility] Home Medications Medication Instructions Recorded Confirmed Type clopidogrel [Plavix] 75 mg PO DAILY 05/31/18 11/09/18 History lisinopril 10 mg PO BEDTIME 05/31/18 11/09/18 History metformin 500 mg PO BID 05/31/18 11/09/18 History tamsulosin [Flomax] 0.4 mg PO DAILY 05/31/18 11/09/18 History Vitamin C 1 tab PO DAILY 11/09/18 11/09/18 History Vitamin D3 1 cap PO DAILY 11/09/18 11/09/18 History acetaminophen [Tylenol] 1 dose PO DAILY 11/09/18 11/09/18 History atorvastatin 40 mg PO BEDTIME 11/09/18 11/09/18 History fluoride (sodium) [PreviDent 5000 1 applic DENTAL DIRECTED 11/09/18 11/09/18 History Dry Mouth] metoprolol tartrate 25 mg PO BID 11/09/18 11/09/18 History multivitamin 1 tab PO DAILY 11/09/18 11/09/18 History nitroglycerin 0.4 mg SUBLINGUAL PRN PRN 11/09/18 11/09/18 History vit C,Q-Kj-xnske-lutein-zeaxan 1 cap PO BID 11/09/18 11/09/18 History [PreserVision AREDS-2] Allergies Allergy/AdvReac Type Severity Reaction Status Date / Time No Known Drug Allergies Allergy Verified 11/09/18 20:53 Review of Systems Review of Systems All systems reviewed & are unremarkable except as noted in HPI and below Exam Vital Signs (past 8 hours): - 11/09/18 16:10 11/09/18 16:30 11/09/18 17:00 Temperature Pulse Rate 75 73 71 Respiratory Rate 15 18 Blood Pressure Blood Pressure [Left Arm] 128/70 125/73 144/71 H Pulse Oximetry 97 98 97 11/09/18 17:40 11/09/18 18:19 11/09/18 18:35 Temperature 97.3 F L Pulse Rate 80 72 76 Respiratory Rate 18 17 Blood Pressure 141/65 H 163/81 H Blood Pressure [Left Arm] 171/80 H Pulse Oximetry 99 98 97 Oxygen Delivery Method Room Air Narrative Exam Narrative: GENERAL APPEARANCE: well developed, well nourished, in no acute distress. HEAD: Normocephalic, atraumatic, no scalp lesions. EYES: pupils equal, round, reactive to light and accommodation, sclera non-icteric, extraocular movement intact without nystagmus . EARS: normal external structures, no ear pain NOSE: sinuses non tender to percussion, no rhinorrhea ORAL CAVITY: mucosa dry without lesions or exudate, palate normal, tongue in midline. THROAT: Mild dysarthria (residual from prior stroke), no erythema, no exudate, uvula midline. NECK/THYROID: Well-healed low left anterior surgical scar, neck supple, no jugular venous distention, no carotid bruit, no thyromegaly, trachea midline. LYMPH NODES: no cervical or supraclavicular lymphadenopathy. SKIN: warm and dry, no suspicious lesions, no rashes HEART: regular rate and rhythm, S1-S2, 1/6 systolic murmur, no rubs or gallops, brisk capillary refill, no edema LUNGS: clear to auscultation bilaterally, no coarseness crackles or wheezing, no cough present CHEST: Symmetrical movement, no accessory muscle use, no pain to AP and lateral compression. ABDOMEN: Well-healed low midline abdominal surgical scar, soft, no distention, no epigastric or abdominal tenderness on palpation, no guarding or peritoneal signs, no organomegaly, no flank or suprapubic tenderness BACK: Normal curvature, nontender to palpation, no CVA tenderness on percussion EXTREMITIES: moves all extremities, strength is 5/5, slightly reduced strength left leg, no drift, well perfused. NEUROLOGIC: AAO x4, slight left facial droop (reported as residual affective prior CVA), no ptosis, motor strength is 5/5 bilateral upper extremities, hands 5/5 bilateral lower extremities however asymmetry noted with weakness left leg, sensory exam intact to light touch PSYCH: alert, cognitive function intact, good eye contact, stable mood with congruent affect, patient does report thoughts of suicide and does have guns in the house. Objective Labs Result Diagrams: 11/09/18 Unknown 11/09/18 Unknown Labs: Laboratory Results - last 24 hr 11/09/18 11/09/18 11/09/18 12:10 12:10 12:10 WBC RBC Hgb Hct MCV MCH MCHC RDW Plt Count Total Counted Seg Neutrophils % Band Neutrophils % Lymphocytes % (Manual) Monocytes % (Manual) Eosinophils % (Manual) Basophils % (Manual) Neutrophils # (Manual) RBC Morphology PT INR Sodium Potassium Chloride Carbon Dioxide BUN Creatinine Estimated GFR BUN/Creatinine Ratio Glucose Hemoglobin A1c 5.9 Calcium Total Bilirubin AST ALT Alkaline Phosphatase Total Creatine Kinase 44 L CK-MB (CK-2) TNP CK-MB (CK-2) Rel Index TNP Troponin I 0.032 B-Natriuretic Peptide 181 H Total Protein Albumin Globulin Albumin/Globulin Ratio Triglycerides Cholesterol LDL Cholesterol, Calc HDL Cholesterol Urine Color Urine Appearance Urine pH Ur Specific [place] Urine Protein Urine Glucose (UA) Urine Ketones Urine Occult Blood Urine Nitrate Urine Bilirubin Urine Urobilinogen Ur Leukocyte Esterase Urine RBC Urine WBC Urine Bacteria Hyaline Casts Ur Culture Indicated? 11/09/18 11/09/18 11/09/18 15:08 15:45 15:45 WBC RBC Hgb Hct MCV MCH MCHC RDW Plt Count Total Counted Seg Neutrophils % Band Neutrophils % Lymphocytes % (Manual) Monocytes % (Manual) Eosinophils % (Manual) Basophils % (Manual) Neutrophils # (Manual) RBC Morphology PT INR Sodium Potassium Chloride Carbon Dioxide BUN Creatinine Estimated GFR BUN/Creatinine Ratio Glucose Hemoglobin A1c Calcium Total Bilirubin AST ALT Alkaline Phosphatase Total Creatine Kinase 41 L CK-MB (CK-2) TNP CK-MB (CK-2) Rel Index TNP Troponin I 0.034 B-Natriuretic Peptide Total Protein Albumin Globulin Albumin/Globulin Ratio Triglycerides 221 H Cholesterol 122 L LDL Cholesterol, Calc 54 HDL Cholesterol 24 L Urine Color Cancelled Urine Appearance Cancelled Urine pH Cancelled Ur Specific [place] Cancelled Urine Protein Cancelled Urine Glucose (UA) Cancelled Urine Ketones Cancelled Urine Occult Blood Cancelled Urine Nitrate Cancelled Urine Bilirubin Cancelled Urine Urobilinogen Cancelled Ur Leukocyte Esterase Cancelled Urine RBC None seen Urine WBC None seen Urine Bacteria None seen Hyaline Casts 1-5/lpf Ur Culture Indicated? Cult not indicated 11/09/18 11/09/18 11/09/18 Unknown Unknown Unknown WBC 10.3 RBC 4.63 Hgb 13.1 L Hct 39.8 L MCV 86.0 MCH 28.4 MCHC 33.0 RDW 13.4 Plt Count 340 Total Counted 100 Seg Neutrophils % 63.0 Band Neutrophils % 1.0 L Lymphocytes % (Manual) 25.0 Monocytes % (Manual) 7.0 Eosinophils % (Manual) 3.0 Basophils % (Manual) 1.0 Neutrophils # (Manual) 6592 H RBC Morphology Normal morphology PT 12.4 INR 1.1 Sodium 141 Potassium 4.9 Chloride 99 Carbon Dioxide 27 BUN 43 H Creatinine 1.40 H Estimated GFR 48.6 L BUN/Creatinine Ratio 30.7 H Glucose 172 H Hemoglobin A1c Calcium 9.9 Total Bilirubin 0.8 AST 35 ALT 22 Alkaline Phosphatase 111 Total Creatine Kinase CK-MB (CK-2) CK-MB (CK-2) Rel Index Troponin I B-Natriuretic Peptide Total Protein 7.9 Albumin 4.5 Globulin 3.4 Albumin/Globulin Ratio 1.3 Triglycerides Cholesterol LDL Cholesterol, Calc HDL Cholesterol Urine Color Urine Appearance Urine pH Ur Specific Denison Urine Protein Urine Glucose (UA) Urine Ketones Urine Occult Blood Urine Nitrate Urine Bilirubin Urine Urobilinogen Ur Leukocyte Esterase Urine RBC Urine WBC Urine Bacteria Hyaline Casts Ur Culture Indicated? Assessment & Plan Assessment & Plan narrative: Mr. Mauricio is an 83 year old male with recurrent neurological events starting with CVA 1 year ago with residual left weakness. 1. Transitory ischemic attack, not present on admission, acute -patient describes symptoms of increased weakness left side, dysarthria and diaphoresis this morning. Symptoms have resolved and patient reports being at baseline at time of exam -head CT is negative finding only atrophy and no hemorrhage or mass -patient has been on anti hyperlipidemic therapy with atorvastatin 40 mg daily with lipid panel showing total cholesterol of 122, triglycerides of 221, LDL 54, HDL 24. -history of hypertension adequately controlled with blood pressure on arrival in the ER 121/66. -continue lisinopril 10 mg and metoprolol 25 mg twice daily -continue patient's clopidogrel 75 mg daily -will obtain an echocardiogram and MR stroke protocol -residual dysphagia, patient is on diabetic dysphagia diet, nectar consistency 2. Chronic kidney disease stage 3, present on admission, unknown if acute or chronic -last available renal function testing was July of 2017 feeling a creatinine of 0.7, BUN creatinine ratio is 30.7:1. -patient does endorse little oral fluid intake related to dysphagia and use of thickener to prevent aspiration -elevated creatinine appears to be related to dehydration, will rehydrate the patient with normal saline at 84 cc/hour. -will re-evaluate renal function in the morning 3. Hypertension, chronic -blood pressure adequately controlled on home medications of lisinopril 10 mg of metoprolol 25 mg twice daily. 4. Diabetes type 2 without complications, chronic -patient is taking metformin 500 mg twice daily. Glucose on admission was 172. -patient reports drinking orange juice in the morning demonstrating knowledge deficits of diabetes. -will check glucose ACHS and cover with sliding scale insulin low range. -will obtain hemoglobin A1c to identify adequacy of management -request dietary consult to address food content as well as ways to improve oral fluid intake 5. Suicidal statement, acute -patient casually endorses thoughts of suicide also stating that he has multiple firearms in the house, denies prior suicidal gestures -will request addiction social worker consult 6. Hyperlipidemia, chronic -lipids are adequately controlled, continue atorvastatin 40 mg daily. Patient is admitted to the hospital due to severity symptoms and risk complications. Patient is admitted as observation status expected length of stay less than 2 midnights. Quality VTE Deep Vein Thrombosis/Pulmonary Embolism Present on Admission: No
[2018-11-10] VITALS (12 sets, daily range): BP systolic 124–151; BP diastolic 69–85; PULSE 56–81; RESP 16–18; TEMP 36.1–36.8; O2SAT 93–98
--- NOTE | 2018-11-10 | DI.ECHO.S_ITS ---
[facility] +---------+ : : [address] [place] : : : : [id number] : : : : Phone: [phone]+ Echocardiogram Report + + :Name: SABINE SERNA Study Date: 11/10/2018 Height: 72 in : :[facility] Weight: 152 lb : : Gender: Male BSA: 1.9 m2 : :: 1935 Age: 83 yrs BP: 161/83 mmHg: :Reason For Study: TIA : :Ordering Physician: Monika : :Hospitalist Performed By: Mark Suero : :Referring: ROBIN HERRERA : + + Interpretation Summary The left ventricle is normal in size. Left ventricular systolic function is normal without focal wall motion abnormalities. The ejection fraction is estimated to be 65-70%. The right ventricle is normal in size and function. The right ventricular systolic pressure is estimated to be at least 27 mmHg based on an estimated right atrial pressure of 3 mm Hg. The left atrium is mildly dilated. The right atrium is normal in size. There is mild to moderate mitral annular calcification. There is mild mitral regurgitation. The aortic root is normal size. No obvious source for TIA. Procedure: A two-dimensional transthoracic echocardiogram with color flow and Doppler was performed. The study quality was technically adequate. There is no prior echocardiogram noted for this patient. The patient was in normal sinus rhythm during the exam. The heart rate ranged between 56-68 bpm during the study. Left Ventricle: The left ventricle is normal in size. There is normal left ventricular wall thickness. Left ventricular systolic function is normal without focal wall motion abnormalities. The ejection fraction is estimated to be 65-70%. Right Ventricle: The right ventricle is normal in size and function. Atria: The left atrium is mildly dilated. The right atrium is normal in size. There is no Doppler evidence for an interatrial shunt. Mitral Valve: The mitral valve leaflets are mildly calcified. There is mild to moderate mitral annular calcification. The mitral valve chordae are thickened and/or calcified. There is mild mitral regurgitation. Aortic Valve: The aortic valve is trileaflet. The aortic valve is moderately calcified. There is no hemodynamically significant valvular aortic stenosis. No aortic regurgitation is present. Tricuspid Valve: The tricuspid valve is normal. There is mild tricuspid regurgitation. The right ventricular systolic pressure is estimated to be at least 27 mmHg based on an estimated right atrial pressure of 3 mm Hg. Pulmonic Valve: The pulmonic valve is not well visualized. There is mild pulmonic regurgitation. Great Vessels: The aortic root is normal size. The ascending aorta could not be visualized. The pulmonary artery is not well visualized, but is probably normal size. The IVC is of normal diameter and collapses greater than 50% with a sniff. This suggests a low right atrial pressure of 3 mm Hg. Pericardium/ Pleura There is no pericardial effusion. There is no pleural effusion. MMode/2D Measurements & Calculations LA A2 area: 20.8 cm2 RA long axis: 4.8 cm LA A4 area: 22.8 cm2 RA area: 13.1 cm2 LA length (vol): 5.4 cm RA vol: 30.3 ml LA vol: 74.5 ml RA : 16.0 ml/m2 LA vol index: 39.3 ml/m2 TAPSE: 2.5 cm Doppler Measurements & Calculations Ao V2 max: 194.2 cm/sec LVOT Max Raphael: 84.6 cm/sec Ao V2 mean: 138.0 cm/sec LV V1 max P.9 mmHg Ao max P.1 mmHg LV V1 VTI: 16.5 cm Ao mean P.3 mmHg sev ratio: 0.45 Ao V2 VTI: 36.7 cm MV E max raphael: 74.8 cm/sec TR max raphael: 246.8 cm/sec MV A max raphael: 69.8 cm/sec TR max P.4 mmHg MV E/A: 1.1 Med Peak E' Raphael: 4.0 cm/sec E/E' med: 18.7 Lat Peak E' Raphael: 5.6 cm/sec E/E' lat: 13.4 E/e' average: 16.0 MV dec time: 0.21 sec Reading Physician:01:12 PM
[2018-11-10] MEDS: LISINOPRIL 10 MG TABLET PO ×2 (00:30→21:41)
[2018-11-10] MEDS: ATORVASTATIN 20 MG TABLET 40 MG PO ×2 (00:30→21:40)
[2018-11-10] MEDS: METOPROLOL IR 25 MG TABLET PO ×3 (00:31→21:42)
--- NOTE | 2018-11-10 00:52 | PC.NURSE ---
Patient is alert and oriented with NIH of 2 for weakness in left extremities (drift in left leg) and slight slurring of words which he states is residual from previous CVA. Breath sounds CTA with RA sat of 93%. HRR and was SR on 0000 telemetry reading. BP elevated at 148/82; administered ordered Metoprolol and Lisinopril. Denies nausea. BT present and abdomen is soft. Up to BSC with 1-2 assist + walker and was continent/incontinent of loose stool + urine. Allevyn dressing to stage 2 pressure area on coccyx. Is able to assist in repositioning; waffle cushion being used to relieve pressure. Wearing bilateral SCD's. Denies pain. Fall risk score is high and bed alarm is activated. At baseline is on dysphagia diet with nectar thick liquids and able to use straw; no difficulty noted with swallowing, no coughing when taking meds/thickened water.
[2018-11-10 06:23] LABS: BUN Creatinine Ratio 30.9 (6-22); Blood Urea Nitrogen 34 mg/dL (9-20); Carbon Dioxide 26 mmol/L (22-32); Chloride 105 mmol/L (98-107); Estimated Glomerular Filt Rate > 60.0 mL/min (>60); Glucose 105 mg/dL (80-110); HEMOLYSIS < 15 (0-50); Potassium 4.2 mmol/L (3.4-5.1); Sodium 141 mmol/L (137-145)
--- NOTE | 2018-11-10 08:08 | PC.NURSE ---
Patient alert, oriented, denies pain. Speech is clear, NIH 1. Patient one assist to chair, alarm placed. Pt taken to MRI.
[2018-11-10] MEDS: DOCUSATE 100 MG CAPSULE PO (08:53)
[2018-11-10] MEDS: CLOPIDOGREL 75 MG TABLET PO (08:53)
[2018-11-10] MEDS: TAMSULOSIN 0.4 MG CAPSULE PO (08:53)
[2018-11-10] MEDS: VIT C/E/ZN/COPPR/LUTEIN/ZEAXAN CAPSULE 1 CAP PO ×2 (08:53→21:42)
--- NOTE | 2018-11-10 11:08 | CM.IDA ---
Addendum entered by DINORA Zamora 11/10/18 16:17: Pt being DC on Citalopram Original Note: Addendum entered by Sheridan Gage NUT ROASTER HELPER 11/10/18 16:04: Dr Calhoun is discharging pt home this evening, he would like [facility] for pt (new order needed). RN/PT/OT/MANAGER UROLOGY/SHUTDOWN COORDINATOR/NUT ROASTER HELPER. Pt and spouse are agreeable to this plan. This NUT ROASTER HELPER able to ask pt about suicidal ideation and he denies stating he would never use his guns on himself, he states he was talking about Physician Assisted Suicide. Denies suicidal ideation today and feels safe returning home w/spouse Faxed referral packet to [facility], alerting them that pt was going home today. JW Original Note: Initial DCP Assessment Note: Pt is an 83 yo resident of [facility] under obs today for presenting w/symptoms of a TIA vs CVA. PCP: Dr Lex Duran Payer: Medicare/[facility] According to Dr Calhoun, pt may be able to DC back home today w/outpt f/u. SW consult requested d/t statements from patient last night that he had firearms in the house and wanted to use them to kill himself. No h/o attempts per H+P. Visited room to find spouse Marissa ordering lunch, pt sleeping soundly. Pt did not stir during our lengthy conversation. According to our discussion: Pt and spouse have been for 21 years. They have both had multiple prior marriages and have 6 daughters between them, no children together. Pt and spouse retired at 52 and have traveled the world. 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 Marissa explains pt has been in a slow functional decline for quite some time and subsequently, his quality of life has diminished. Pt remains mentally sharp w/some short term memory loss . Pt rarely leaves their home and spends most of his time watching TV and uses a FWW to slowly get around their [address] home. Pt has [facility] home [facility]. Marissa admits pt has stated many times he doesn't feel he has meaning or purpose in his life. He denies being depressed . Pt does not like to eat out w/his or family any longer because he has swallowing issues and has a tendency to choke and also drool at times. Marissa has heard pt say he just wants to be shot but he denies a suicidal plan. Pt has stated interest in Physician Assisted Suicide. Pt does have firearms located in his home, Marissa says pt tells her I'm too chicken to use those (to kill myself). Marissa is not concerned about the firearms in her home and risk of pt using them on himself. No h/o suicidal ideation, depression/anxiety or suicidal attempts. Marissa further explains that she, pt and pt's two dtrs have decided on pt moving into [facility] starting November 21 next month into an indp. apt. w/some assist. Marissa will stay in their home. After much deliberation, they decided on this because they felt pt's quality of life might improve w/more socialization and more physical assistance to get up and be more active. Marissa admits this will be a huge adjustment for both of them but she hopes it will bring pt more nav in life. Upon finishing up this note: learned from spouse Marissa that Dr Calhoun has confirmed pt suffered from 3 strokes yesterday and will remain here tonight. NUT ROASTER HELPER able to introduce self to pt but pt explains he is very exhausted and hoping to get some sleep now. NUT ROASTER HELPER team will follow closely, address suicidal ideation w/pt directly before DC, and further assess DC needs as medical POC is clarified. DINORA Zamora Discharge Planning/Care Management CM Discharge Assessment Start: 11/10/18 11:05 Freq: Status: Active Protocol: Document 11/10/18 11:05 ALESSANDRA (Rec: 11/10/18 11:08 ALESSANDRA [id number]) Discharge Planning Assessment Assigned Admissions Clinician DINORA Lora DPOA/Assigned Designee Name Marissa Mauricio, spouse Contact Information [phone] Advance Directives? No: Directive to Physicians History Provided By Significant Other Medical Record Prior Living Arrangements House Household Members spouse Type of transporation used prior to Relies on Others admit Independent with ADL's No Is patient alert and oriented? Yes Barriers to Discharge No Discharge Plan Home Transportation Arrangement Spouse Referrals Initiated None needed Whiteboard Updated in Patient Room with Yes name and ext. # of Admissions Clinician Review Status In Process
[2018-11-10] MEDS: INSULIN ASPART 100 UNIT/ML INSULN PEN SUBCUT (12:26)
--- NOTE | 2018-11-10 15:27 | PT.IIE ---
Surgical History (Last Reviewed 11/09/18 @ 23:41 by DEDRA Alfaro) History of back surgery (Acute) History of prostate surgery (Acute) History of repair of aneurysm of abdominal aorta (Acute) History of surgical procedure on mouth (Acute) S/P total knee arthroplasty (Acute) Medical History (Last Updated 11/09/18 @ 23:38 by DEDRA Alfaro) Diabetes (Acute) Hyperlipidemia (Acute) Oral cancer (Acute) Presence of stent in coronary artery in patient with coronary artery disease (Acute) Prostate cancer (Acute) CVA (cerebral vascular accident) (Chronic) Dyslipidemia (Chronic) Hypertension (Chronic) Physical Therapy Inpatient Evaluation/Re-Eval M1 PT/OT-IP Prior Functional Status Start: 11/10/18 14:46 Freq: NEEDED Status: Active Protocol: Document 11/10/18 14:47 NFW (Rec: 11/10/18 15:27 NFW [id number]) Medical Review Prior Functional Status Medical History Reviewed Yes Mobility and Gait Prior to recent admittance patient utilized a FWW for ambulation around his home. He seldom went outside of the house but had another FWW in the trunk of their car. Previously he used two canes in ambulation but fell x2 then switched to using FWW. Activities of Daily Living and IADL's Patient reports independence in dressing with the exception of his socks. He chooses not to wear socks and wears slip on shoes. He receives assist with bathing from home health BIW. Prior Functional Level (Other details) Patient states that his activity level is quite limited and mainly stays within the house. He requires assist from friend or neighbors to get into his house due to the five steps to get in. Social History Household Members spouse Living Arrangements House Number of Floors (Floors) One Floor Number of Stairs To Enter/Railing? 5 stairs to enter home with handrail on right. Calls for help from friends or neighbors for assistance into the house . Patient is planning on moving into a half-way home in [facility] on 11/19/18. His will stay in their home and hopefully move in with him at a later date. Home Environment High Toilet Walk in Shower Home Equipment Front Wheel Walker Straight Cane Raised Toilet Seat w/Armrests Hand Held Shower Grab Bars Near Toilet Grab Bars In Shower Employment Status Retired M2 PT-IP Current Condition Start: 11/10/18 14:46 Freq: NEEDED Status: Active Protocol: Document 11/10/18 14:47 NFW (Rec: 11/10/18 15:27 NFW [id number]) Physical Therapy Current Condition Current Condition Evaluation Date 11/10/18 Treatment Diagnosis Generalized weakness secondary to TIA, multiple medical complications Weight Bearing Status Weight Bearing Status Full Weight Bearing M3 PT-IP Subjective Start: 11/10/18 14:46 Freq: NEEDED Status: Active Protocol: Document 11/10/18 14:47 NFW (Rec: 11/10/18 15:27 NFW [id number]) Subjective Physical Therapy Visit Type Type Initial Evaluation Visit Start Time 14:07 Visit Stop Time 14:45 Total Visit Minutes 38 Number of CONCRETE LABORER Visits 0 Physical Therapy Visit Comments Patient Comments Patient in urgent need of using urninal. Patient Goals Plan to go to [facility] in [facility] on 11/19/18. Therapy Pain Assessment Pain When Pain Assessed After Treatment Pain Present Pain Present Denied Pain M4 PT-IP Mobility and Gait Start: 11/10/18 14:46 Freq: NEEDED Status: Active Protocol: Document 11/10/18 14:47 NFW (Rec: 11/10/18 15:27 NFW [id number]) PT-Bed Mobility Assessment Rolling Type of Rolling Roll to Left Level of Assist Minimal Assistance 1 Person Assistance Supine to Sit Supine to Sit Moderate Assistance 1 Person Assistance Sit to Supine Sit to Supine Minimal Assistance 1 Person Assistance Scooting Scooting to Edge of Bed Minimal Assistance PT-Transfer Assessment Sit to and From Stand Sit to and from Stand Minimal Assistance 1 Person Assistance Equipment Transfer Assistive Device Gait Belt Front Wheeled Walker Orthotic/Prosthetic Devices or Brace: No Transfers Transfer Destination Bed Chair Transfer Technique Stand Step Pivot Transfer Ability Level of Assist Minimal Assistance 1 Person Assistance Comments Mobility Comments Patient weak with low endurance. Cuing needed for proper sequence in going from supine to sitting. Gait Assessment Gait Gait Assistance Required: Minimum Assistance Distance (Feet) 16 Able to Maintain Weight Bearing Status Yes During Gait Assistive Devices Assistive Device Gait Belt Front Wheeled Walker Orthotic/Prosthetic Devices or Brace: No Gait Deviations General Gait Pattern Ataxic Decreased Stride Length Decreased Feet Clearance Festinating Flexed Trunk Narrow Based Gait Factors Limiting Gait Function Factors Limiting Gait Function Abnormal Tonal Influences Decreased Activity Tolerance Decreased Strength Incoordination Poor Balance Poor Safety Awareness Comments Gait Comments Cuing for upright posture as patient progressively flexes forward in ambulation. Cuing to stay with task. BP at end of treatment 139/78, Pulse 71, O2 96. PT-Balance Assessment Sitting Balance and Reactions Static Sitting Balance Ability Good Dynamic Sitting Balance Ability Good Standing Balance and Reactions Static Standing Balance Ability Good Dynamic Standing Balance Ability Poor M5 PT-IP Objective Assessments Start: 11/10/18 14:46 Freq: NEEDED Status: Active Protocol: Document 11/10/18 14:47 NFW (Rec: 11/10/18 15:27 NF [id number]) Orientation Orientation/Cognition Level of Alertness Alert Orientation Name Date Place Situation Language Function Ability Garbled Speech Safety Awareness Decreased Safety Awareness Comments Patient pleasant offering information of home life. Answered questions appropriately. Gross Range of Motion Upper Extremity ROM Assessment Bilaterally Impaired Impairments Has a previous rotator cuff injury right. LOM R GHJ by 75 %. LOM L by 40%. Lower Extremity ROM Assessment Left Impaired Strength Lower Extremity Strength Assessment Left Impaired Comments Strength Comments L EHL and AT decreased compared to R. Grade 4/5 Coordination Assessment Assessment Coordination Comments Decrease coordination LLE compared to RLE. Muscle Tone Muscle Tone WNL Yes M7 PT-IP Assessment and Plan Start: 11/10/18 14:46 Freq: NEEDED Status: Active Protocol: Document 11/10/18 14:47 NFW (Rec: 11/10/18 15:27 NF [id number]) PT Summary Assessment and Plan Potential Rehabilitation Potential Excellent Status of Condition at Evaluation Evolving Summary Impairments ROM Strength Balance Coordination Bed Mobility Transfers Gait Activity Tolerance Progress Towards Goals Progressing Toward Goals Assessment Summary Patient with recent decrease of strength and associated decrease in balance and coordination. Endurance also limited and needs cuing to remain at task. Goals Bed Mobility Goal Independent Transfer Goal Contact Guard Assistance Gait Goal Standby Assistance Front Wheel Walker Days to Meet Goals 2 Frequency of Treatment Frequency Of Treatment Twice a Day Treatment Plan Physical Therapy Treatment Plan Bed Mobility Training Transfer Training Gait Training Therapeutic Exercise Balance Retraining Neuromuscular Re-ed Coordination Retraining Recommendations To Nursing Amount of Assist Needed 1 Person Assist Discharge Recommendations PT Discharge Recommendations Home with Assistance Other Discharge Recommendations Patient will be moving into a half-way center in [facility] on 11/19/18. If discharged prior to that time and sent home will need to resume assist with bathing.
--- NOTE | 2018-11-10 15:53 | PM.DS.1 ---
History of Present Illness Date Patient Seen: 11/10/18 Time Patient Seen: 15:54 Chief complaint: General Weakness Narrative: Shania Mauricio is an 83-year-old male patient with a history hypertension, hyperlipidemia, diabetes, BPH, prior CVA with left hemiparesis who presents today for complaints of acute onset of weakness. The patient reports that he got up this morning sat in a chair when he became diaphoretic and felt weak and was unable to speak. He reports associated shortness of breath at rest but denies chest pain or palpitations. Does acknowledge that he had had some left chest discomfort last night that reports as related to indigestion for which he does not typically take his nitroglycerin. The patient has had prior CVA 1 year ago with resultant left leg weakness followed by recurrent episodes of neurological deficits in May of 2018 and then again last month. He has had intermittent shortness of breath and has a known history dysphagia and has had recent swallow evaluation demonstrating motility dysfunction and will cough when eating and on liquids. Patient has been using thickener at home which he does not like using and therefore consumes little liquid. He reports a poor appetite. He currently is receiving care from [facility]. Patient denies headaches or dizziness and has no visual changes. Denies cold or flu symptoms and has had no fevers how ever he will report episodic episodes of diaphoresis. Denies complaints of chest pain or palpitations and does not report dyspnea on exertion ambulates minimally using a walker. He can all edges heartburn which he takes Tums but reports no nausea or vomiting. Denies diarrhea but it currently has constipation not having a bowel movement for the last 2-3 days. Reports no difficulty urinating in the ER the patient underwent CT exam weight was negative demonstrating cerebral atrophy without hemorrhage or mass. His chest x-ray was negative and described as normal for age without evidence of aspiration pneumonia. His CBC is unremarkable as is his electrolytes. On renal function has a BUN of 43 and a creatinine of 1.4 with an EGFR of 48.6 and BUN creatinine ratio of 30.7. The patient is admitted for further evaluation and neurological and physiological monitoring. Discharge Providers Date of admission: 11/09/18 18:30 Primary care physician: Lex Duran MD Consults: 11/09/18 19:08 Consult to Dietitian, Adult Routine Comment: Dysphagia, poor oral fluid intake, dehydration Reason For Exam: weight loss, poor appetite, swallowing issues,DMT2 11/09/18 19:15 Consult to Dietitian, Adult Routine Comment: Reason For Exam: weight loss, poor appetite, swallow issues. 11/09/18 20:48 Consult to Occupational Therapy Evaluate & Treat Comment: TIA, prior CVA, left salomon w/general weakness Physician Instructions: Evaluate and treat Consult to Physical Therapy Evaluate & Treat Comment: TIA, prior CVA, left salomon w/general weakness Physician Instructions: Evaluate and Treat 11/09/18 20:49 Consult to Commercial Airline Pilot Routine Comment: Thoughs of suicide, requests info on Adv Directive 11/10/18 08:46 Consult to Speech Therapy Evaluate & Treat Comment: Physician Instructions: Evaluate and treat Discharge provider: Meghna Calhoun MD Summary Discharge Diagnosis: 1. Transitory ischemic attack, not present on admission, acute -patient describes symptoms of increased weakness left side, dysarthria and diaphoresis this morning. Symptoms have resolved and patient reports being at baseline at time of exam -head CT is negative finding only atrophy and no hemorrhage or mass -patient has been on anti hyperlipidemic therapy with atorvastatin 40 mg daily with lipid panel showing total cholesterol of 122, triglycerides of 221, LDL 54, HDL 24. -history of hypertension adequately controlled with blood pressure on arrival in the ER 121/66. -continue lisinopril 10 mg and metoprolol 25 mg twice daily -continue patient's clopidogrel 75 mg daily -will obtain an echocardiogram and MR stroke protocol -residual dysphagia, patient is on diabetic dysphagia diet, nectar consistency 2. Chronic kidney disease stage 3, present on admission, unknown if acute or chronic -last available renal function testing was July of 2017 feeling a creatinine of 0.7, BUN creatinine ratio is 30.7:1. -patient does endorse little oral fluid intake related to dysphagia and use of thickener to prevent aspiration -elevated creatinine appears to be related to dehydration, will rehydrate the patient with normal saline at 84 cc/hour. -will re-evaluate renal function in the morning 3. Hypertension, chronic -blood pressure adequately controlled on home medications of lisinopril 10 mg of metoprolol 25 mg twice daily. 4. Diabetes type 2 without complications, chronic -patient is taking metformin 500 mg twice daily. Glucose on admission was 172. -patient reports drinking orange juice in the morning demonstrating knowledge deficits of diabetes. -will check glucose ACHS and cover with sliding scale insulin low range. -will obtain hemoglobin A1c to identify adequacy of management -request dietary consult to address food content as well as ways to improve oral fluid intake 5. Depression -patient casually endorses thoughts of suicide also stating that he has multiple firearms in the house, denies prior suicidal gestures -will request social science instructor consult 6. Hyperlipidemia, chronic -lipids are adequately controlled, continue atorvastatin 40 mg daily. Hospital Course: 1. Transitory ischemic attack, not present on admission, acute -patient describes symptoms of increased weakness left side, dysarthria and diaphoresis this morning. Symptoms have resolved and patient reports being at baseline at time of exam -head CT is negative finding only atrophy and no hemorrhage or mass -patient has been on anti hyperlipidemic therapy with atorvastatin 40 mg daily with lipid panel showing total cholesterol of 122, triglycerides of 221, LDL 54, HDL 24. -history of hypertension adequately controlled with blood pressure on arrival in the ER 121/66. -continue lisinopril 10 mg and metoprolol 25 mg twice daily -continue patient's clopidogrel 75 mg daily -will obtain an echocardiogram and MR stroke protocol -residual dysphagia, patient is on diabetic dysphagia diet, nectar consistency 2. Chronic kidney disease stage 3, present on admission, unknown if acute or chronic -last available renal function testing was July of 2017 feeling a creatinine of 0.7, BUN creatinine ratio is 30.7:1. -patient does endorse little oral fluid intake related to dysphagia and use of thickener to prevent aspiration -elevated creatinine appears to be related to dehydration, will rehydrate the patient with normal saline at 84 cc/hour. -will re-evaluate renal function in the morning 3. Hypertension, chronic -blood pressure adequately controlled on home medications of lisinopril 10 mg of metoprolol 25 mg twice daily. 4. Diabetes type 2 without complications, chronic -patient is taking metformin 500 mg twice daily. Glucose on admission was 172. -patient reports drinking orange juice in the morning demonstrating knowledge deficits of diabetes. -will check glucose ACHS and cover with sliding scale insulin low range. -will obtain hemoglobin A1c to identify adequacy of management -request dietary consult to address food content as well as ways to improve oral fluid intake 5. Depression -patient casually endorses thoughts of suicide also stating that he has multiple firearms in the house, denies prior suicidal gestures -will request social science instructor consult 6. Hyperlipidemia, chronic -lipids are adequately controlled, continue atorvastatin 40 mg daily. Exam Vital Signs (past 8 hours): - 11/10/18 08:00 11/10/18 08:36 11/10/18 12:00 Temperature 97.2 F L 98.1 F Pulse Rate 69 59 L Respiratory Rate 17 16 Blood Pressure 124/77 138/69 Pulse Oximetry 98 98 98 11/10/18 13:26 Temperature Pulse Rate 74 Respiratory Rate Blood Pressure Pulse Oximetry Oxygen Delivery Method Room Air Oxygen Flow Rate 0 Objective Labs Result Diagrams: 11/09/18 Unknown 11/10/18 05:40 Labs: Laboratory Results - last 24 hr 11/09/18 11/09/18 11/09/18 12:10 15:45 15:45 Sodium Potassium Chloride Carbon Dioxide BUN Creatinine Estimated GFR BUN/Creatinine Ratio Glucose Hemoglobin A1c 5.9 Calcium Total Creatine Kinase 41 L CK-MB (CK-2) TNP CK-MB (CK-2) Rel Index TNP Troponin I 0.034 Triglycerides 221 H Cholesterol 122 L LDL Cholesterol, Calc 54 HDL Cholesterol 24 L 11/10/18 05:40 Sodium 141 Potassium 4.2 Chloride 105 Carbon Dioxide 26 BUN 34 H Creatinine 1.10 Estimated GFR > 60.0 BUN/Creatinine Ratio 30.9 H Glucose 105 Hemoglobin A1c Calcium 9.0 Total Creatine Kinase CK-MB (CK-2) CK-MB (CK-2) Rel Index Troponin I Triglycerides Cholesterol LDL Cholesterol, Calc HDL Cholesterol Discharge Plan Discharge Plan Patient Disposition: Home Discharge comment: Resume Home Health Nurse and PT visits for this new Stroke Follow up with Dr. Duran next week Take the new Depression medicine please Remember that thickened liquids are best for you. Use the swallowing techniques that the Speech Therapist taught you today. Discharge Med Rec/Prescriptions Prescriptions: New citalopram 10 mg tablet 10 mg PO DAILY Qty: 30 RF: 0 Continued metformin 500 mg Tablet 500 mg PO BID RF: 0 tamsulosin [Flomax] 0.4 mg Capsule 0.4 mg PO DAILY RF: 0 lisinopril 10 mg Tablet 10 mg PO BEDTIME RF: 0 clopidogrel [Plavix] 75 mg Tablet 75 mg PO DAILY RF: 0 atorvastatin 40 mg tablet 40 mg PO BEDTIME RF: 0 nitroglycerin 0.4 mg tablet, sublingual 0.4 mg Sublingual PRN PRN (Reason: Chest Pain) RF: 0 fluoride (sodium) 1.1 % gel 1 applic Dental DIRECTED RF: 0 metoprolol tartrate 25 mg tablet 25 mg PO BID RF: 0 acetaminophen [Tylenol] 325 mg Tablet 1 dose PO DAILY RF: 0 multivitamin Tablet 1 tab PO DAILY RF: 0 PreserVision AREDS-2 [id number] Capsule 1 cap PO BID RF: 0 Vitamin C 1 tab PO DAILY RF: 0 Vitamin D3 1 cap PO DAILY RF: 0 Follow up/Referrals: Lex Duran MD [Primary Care Provider] - Discharge Data Primary Care Provider: Lex Duran Attending Provider: Genny Ram Admit Date/Time: 11/09/18 18:30 Quality VTE Deep Vein Thrombosis/Pulmonary Embolism Present on Admission: No
--- NOTE | 2018-11-10 16:48 | PM.PN.1 ---
Subjective Date Patient Seen: 11/10/18 Time Patient Seen: 16:56 Interval history: He is seen multiple times today to follow-up his new parietal stroke, evident depression, hyperlipidemia, hypertension and progressive weakness. The echocardiogram is relatively normal without signs of arrhythmia or vegetation to cause this somewhat odd bilateral parietal stroke. The MRI shows several subcentimeter foci of acute infarction involving the right parietal lobe, left parietal lobe and left cerebellar hemisphere. He initially thought that he was strong enough to go home and physical therapy/occupational therapy and speech therapy worked with him this afternoon to try to assess that. At 1st it appeared that he was back to his baseline of walking around his home but then his described that he would need to climb 5 steps to get into the home, something that he does not even do at baseline. Usually he has friends come over and lift him up. Physical therapy and occupational therapy tried to work with him on steps and found very quickly that he was unable to navigate steps. He will now need to be admitted as an inpatient and then undergo further rehab with potential for [facility] rehab/another attempt to return home with reinforcements, friends, relatives who can help him up those 5 steps. That is his current wish/plan. His is more realistic. He also exhibited significant dysphagia, choking with thin liquids but refused to modify his diet as recommended by speech therapy. Exam Vital Signs (past 8 hours): - 11/10/18 12:00 11/10/18 13:26 11/10/18 15:00 Temperature 98.1 F Pulse Rate 59 L 74 Respiratory Rate 16 Blood Pressure 138/69 Pulse Oximetry 98 95 11/10/18 15:40 Temperature 97.0 F L Pulse Rate 69 Respiratory Rate 18 Blood Pressure 142/85 H Pulse Oximetry 95 Oxygen Delivery Method Room Air Oxygen Flow Rate 0 Narrative Exam Narrative: He is alert and oriented x3. No apparent distress. He is globally weak and exhibits choking with thin liquids in my presence and in front of the speech therapist. He had earlier mentioned being suicidal and having guns at home. His encouraged him when I suggest that he take an antidepressant and it sounds like he may agree. Heart is regular rate and rhythm with a 2/6 systolic ejection murmur. Lungs are clear to auscultation bilaterally. Extremities have no ankle edema. There is no lateralizing deficits. He is globally weak at 3/5. Objective Labs Result Diagrams: 11/09/18 Unknown 11/10/18 05:40 Labs: Laboratory Results - last 24 hr 11/09/18 11/09/18 11/10/18 12:10 15:45 05:40 Sodium 141 Potassium 4.2 Chloride 105 Carbon Dioxide 26 BUN 34 H Creatinine 1.10 Estimated GFR > 60.0 BUN/Creatinine Ratio 30.9 H Glucose 105 Hemoglobin A1c 5.9 Calcium 9.0 Triglycerides 221 H Cholesterol 122 L LDL Cholesterol, Calc 54 HDL Cholesterol 24 L Assessment & Plan Assessment & Plan narrative: 1. Right Parietal, Left Parietal, Left Cerebellar Stroke -patient describes symptoms of increased weakness left side, dysarthria and diaphoresis yesterday. Symptoms have resolved and patient reports being at baseline today. -head CT is negative finding only atrophy and no hemorrhage or mass -patient has been on anti hyperlipidemic therapy with atorvastatin 40 mg daily with lipid panel showing total cholesterol of 122, triglycerides of 221, LDL 54, HDL 24. -history of hypertension adequately controlled with blood pressure on arrival in the ER 121/66. -continue lisinopril 10 mg and metoprolol 25 mg twice daily -continue patient's clopidogrel 75 mg daily -the MRI scan confirmed the acute CVA. The echocardiogram shows no explanatory abnormality. -residual dysphagia, patient is on diabetic dysphagia diet, nectar consistency, which he says he will refuse to follow at home. 2. Chronic kidney disease stage 3, present on admission, unknown if acute or chronic -last available renal function testing was July of 2017 a creatinine of 0.7, BUN creatinine ratio is 30.7:1. -patient does endorse little oral fluid intake related to dysphagia and use of thickener to prevent aspiration -resolving back to baseline. 3. Hypertension, chronic -blood pressure adequately controlled on home medications of lisinopril 10 mg and metoprolol 25 mg twice daily. 4. Diabetes type 2 without complications, chronic -patient is taking metformin 500 mg twice daily. Glucose on admission was 172. -patient reports drinking orange juice in the morning demonstrating knowledge deficits of diabetes. -continue glucose ACHS and cover with sliding scale insulin low range. -still pending hemoglobin A1c to identify adequacy of management -request dietary consult to address food content as well as ways to improve oral fluid intake 5. Depression -Start on Citalopram -patient casually endorses thoughts of suicide also stating that he has multiple firearms in the house, denies prior suicidal gestures, denies depression -transition social worker consult was limited today due to the patient sleeping whenever therapy was not in the room working with him quite a bit of the time 6. Hyperlipidemia, chronic -lipids are adequately controlled, continue atorvastatin 40 mg daily Total time today of 50 minutes. Disposition. Early this afternoon the patient was actually going to be discharged until it became clear that because of the steps he could not get into his own home and so would have to return to the hospital anyway. He is now admitted based on his recent stroke and will undergo further evaluation/strengthening in the hospital and potential transfer to [facility]. He is still hopeful that he will have some friends and relatives come over and help him up the stairs to his house as soon as tomorrow. Quality VTE Deep Vein Thrombosis/Pulmonary Embolism Present on Admission: No
--- NOTE | 2018-11-10 17:13 | PT.IIE ---
Surgical History (Last Reviewed 11/09/18 @ 23:41 by DEDRA Alfaro) History of back surgery (Acute) History of prostate surgery (Acute) History of repair of aneurysm of abdominal aorta (Acute) History of surgical procedure on mouth (Acute) S/P total knee arthroplasty (Acute) Medical History (Last Updated 11/09/18 @ 23:38 by DEDRA Alfaro) Diabetes (Acute) Hyperlipidemia (Acute) Oral cancer (Acute) Presence of stent in coronary artery in patient with coronary artery disease (Acute) Prostate cancer (Acute) CVA (cerebral vascular accident) (Chronic) Dyslipidemia (Chronic) Hypertension (Chronic) Physical Therapy Inpatient Evaluation/Re-Eval M1 PT/OT-IP Prior Functional Status Start: 11/10/18 14:46 Freq: NEEDED Status: Active Protocol: Document 11/10/18 14:47 NFW (Rec: 11/10/18 15:27 NFW [id number]) Medical Review Prior Functional Status Medical History Reviewed Yes Mobility and Gait Prior to recent admittance patient utilized a FWW for ambulation around his home. He seldom went outside of the house but had another FWW in the trunk of their car. Previously he used two canes in ambulation but fell x2 then switched to using FWW. Activities of Daily Living and IADL's Patient reports independence in dressing with the exception of his socks. He chooses not to wear socks and wears slip on shoes. He receives assist with bathing from home health BIW. Prior Functional Level (Other details) Patient states that his activity level is quite limited and mainly stays within the house. He requires assist from friend or neighbors to get into his house due to the five steps to get in. Social History Household Members spouse Living Arrangements House Number of Floors (Floors) One Floor Number of Stairs To Enter/Railing? 5 stairs to enter home with handrail on right. Calls for help from friends or neighbors for assistance into the house . Patient is planning on moving into a skilled nursing home in [facility] on 11/19/18. His will stay in their home and hopefully move in with him at a later date. Home Environment High Toilet Walk in Shower Home Equipment Front Wheel Walker Straight Cane Raised Toilet Seat w/Armrests Hand Held Shower Grab Bars Near Toilet Grab Bars In Shower Employment Status Retired M2 PT-IP Current Condition Start: 11/10/18 14:46 Freq: NEEDED Status: Active Protocol: Document 11/10/18 14:47 NFW (Rec: 11/10/18 15:27 NFW [id number]) Physical Therapy Current Condition Current Condition Evaluation Date 11/10/18 Treatment Diagnosis Generalized weakness secondary to TIA, multiple medical complications Weight Bearing Status Weight Bearing Status Full Weight Bearing M3 PT-IP Subjective Start: 11/10/18 14:46 Freq: NEEDED Status: Active Protocol: Document 11/10/18 14:47 NFW (Rec: 11/10/18 15:27 NFW [id number]) Subjective Physical Therapy Visit Type Type Initial Evaluation Visit Start Time 14:07 Visit Stop Time 14:45 Total Visit Minutes 38 Number of FILM SPLICER Visits 0 Physical Therapy Visit Comments Patient Comments Patient in urgent need of using urninal. Patient Goals Plan to go to [facility] in [facility] on 11/19/18. Therapy Pain Assessment Pain When Pain Assessed After Treatment Pain Present Pain Present Denied Pain M4 PT-IP Mobility and Gait Start: 11/10/18 14:46 Freq: NEEDED Status: Active Protocol: Document 11/10/18 14:47 NFW (Rec: 11/10/18 15:27 NFW [id number]) PT-Bed Mobility Assessment Rolling Type of Rolling Roll to Left Level of Assist Minimal Assistance 1 Person Assistance Supine to Sit Supine to Sit Moderate Assistance 1 Person Assistance Sit to Supine Sit to Supine Minimal Assistance 1 Person Assistance Scooting Scooting to Edge of Bed Minimal Assistance PT-Transfer Assessment Sit to and From Stand Sit to and from Stand Minimal Assistance 1 Person Assistance Equipment Transfer Assistive Device Gait Belt Front Wheeled Walker Orthotic/Prosthetic Devices or Brace: No Transfers Transfer Destination Bed Chair Transfer Technique Stand Step Pivot Transfer Ability Level of Assist Minimal Assistance 1 Person Assistance Comments Mobility Comments Patient weak with low endurance. Cuing needed for proper sequence in going from supine to sitting. Gait Assessment Gait Gait Assistance Required: Minimum Assistance Distance (Feet) 16 Able to Maintain Weight Bearing Status Yes During Gait Assistive Devices Assistive Device Gait Belt Front Wheeled Walker Orthotic/Prosthetic Devices or Brace: No Gait Deviations General Gait Pattern Ataxic Decreased Stride Length Decreased Feet Clearance Festinating Flexed Trunk Narrow Based Gait Factors Limiting Gait Function Factors Limiting Gait Function Abnormal Tonal Influences Decreased Activity Tolerance Decreased Strength Incoordination Poor Balance Poor Safety Awareness Comments Gait Comments Cuing for upright posture as patient progressively flexes forward in ambulation. Cuing to stay with task. BP at end of treatment 139/78, Pulse 71, O2 96. PT-Balance Assessment Sitting Balance and Reactions Static Sitting Balance Ability Good Dynamic Sitting Balance Ability Good Standing Balance and Reactions Static Standing Balance Ability Good Dynamic Standing Balance Ability Poor M5 PT-IP Objective Assessments Start: 11/10/18 14:46 Freq: NEEDED Status: Active Protocol: Document 11/10/18 14:47 NFW (Rec: 11/10/18 15:27 NF [id number]) Orientation Orientation/Cognition Level of Alertness Alert Orientation Name Date Place Situation Language Function Ability Garbled Speech Safety Awareness Decreased Safety Awareness Comments Patient pleasant offering information of home life. Answered questions appropriately. Gross Range of Motion Upper Extremity ROM Assessment Bilaterally Impaired Impairments Has a previous rotator cuff injury right. LOM R GHJ by 75 %. LOM L by 40%. Lower Extremity ROM Assessment Left Impaired Strength Lower Extremity Strength Assessment Left Impaired Comments Strength Comments L EHL and AT decreased compared to R. Grade 4/5 Coordination Assessment Assessment Coordination Comments Decrease coordination LLE compared to RLE. Muscle Tone Muscle Tone WNL Yes M7 PT-IP Assessment and Plan Start: 11/10/18 14:46 Freq: NEEDED Status: Active Protocol: Document 11/10/18 14:47 NFW (Rec: 11/10/18 15:27 NF [id number]) PT Summary Assessment and Plan Potential Rehabilitation Potential Excellent Status of Condition at Evaluation Evolving Summary Impairments ROM Strength Balance Coordination Bed Mobility Transfers Gait Activity Tolerance Progress Towards Goals Progressing Toward Goals Assessment Summary Patient with recent decrease of strength and associated decrease in balance and coordination. Endurance also limited and needs cuing to remain at task. Goals Bed Mobility Goal Independent Transfer Goal Contact Guard Assistance Gait Goal Standby Assistance Front Wheel Walker Days to Meet Goals 2 Frequency of Treatment Frequency Of Treatment Twice a Day Treatment Plan Physical Therapy Treatment Plan Bed Mobility Training Transfer Training Gait Training Therapeutic Exercise Balance Retraining Neuromuscular Re-ed Coordination Retraining Recommendations To Nursing Amount of Assist Needed 1 Person Assist Discharge Recommendations PT Discharge Recommendations SNF Rehab Other Discharge Recommendations Patient has plans to move to a skilled nursing center in [facility] on 11/19/18.
--- NOTE | 2018-11-10 17:23 | OT.IP.EVAL ---
Past Medical History (Last Updated 11/09/18 @ 23:38 by DEDRA Alfaro) Diabetes (Acute) Hyperlipidemia (Acute) Oral cancer (Acute) Presence of stent in coronary artery in patient with coronary artery disease (Acute) Prostate cancer (Acute) CVA (cerebral vascular accident) (Chronic) Dyslipidemia (Chronic) Hypertension (Chronic) Surgical History (Last Reviewed 11/09/18 @ 23:41 by DEDRA Alfaro) History of back surgery (Acute) History of prostate surgery (Acute) History of repair of aneurysm of abdominal aorta (Acute) History of surgical procedure on mouth (Acute) S/P total knee arthroplasty (Acute) Occupational Therapy Inpatient Evaluation/Re-Eval M1 PT/OT-IP Prior Functional Status Start: 11/10/18 14:46 Freq: NEEDED Status: Active Protocol: Document 11/10/18 17:02 CGR (Rec: 11/10/18 17:23 CGR [email or web address]) Medical Review Prior Functional Status Medical History Reviewed Yes Mobility and Gait Prior to recent admittance patient utilized a FWW for ambulation around his home. He seldom went outside of the house but had another FWW in the trunk of their car. Previously he used two canes in ambulation but fell x2 then switched to using FWW. Activities of Daily Living and IADL's Patient reports independence in dressing with the exception of his socks. He chooses not to wear socks and wears slip on shoes. He receives assist with bathing from home health BIW. Prior Functional Level (Other details) Patient states that his activity level is quite limited and mainly stays within the house. He requires assist from friend or neighbors to get into his house due to the five steps to get in. Social History Household Members spouse Living Arrangements House Number of Floors (Floors) 3 or More Floors Number of Stairs To Enter/Railing? 3 story home but pt is able to stay on the main floor. 5 stairs to enter home with B handrail. Calls for help from friends or neighbors for assistance into the house. Patient is planning on moving into a long term home in [facility] on 11/19/18. His will stay in their home and hopefully move in with him at a later date. Home Environment High Toilet Walk in Shower Home Equipment Four Wheel Walker Straight Cane Raised Toilet Seat w/Armrests Hand Held Shower Grab Bars Near Toilet Grab Bars In Shower Employment Status Retired Additional Social History Comment Pt has a flat bed with rail to assist with getting up and down. M2 OT-IP Current Condition Start: 11/10/18 17:02 Freq: Status: Active Protocol: Document 11/10/18 17:02 CGR (Rec: 11/10/18 17:23 CGR [email or web address]) Occupational Therapy Current Condition Current Condition Evaluation Date 11/10/18 Treatment Diagnosis New onset CVA Diagnosis Onset Date 11/09/18 M3 OT- IP Subjective and Pain Start: 11/10/18 17:02 Freq: Status: Active Protocol: Document 11/10/18 17:02 CGR (Rec: 11/10/18 17:23 CGR [email or web address]) OT- Subjective Occupational Therapy Visit Type Type Initial Evaluation Visit Start Time 15:50 Visit Stop Time 16:45 Total Visit Minutes 55 Notes Partial co-treat with P.T. Occupational Therapy Visit Comments Patient Comments I can get up the stairs at home but I can't do them here. Patient/Caregiver Goals : He works really hard but I am worried that he wont be able to do things on his own anymore. OT Pain Assessment Pain Present Pain Present Denied Pain M4 OT- IP ADL's Start: 11/10/18 17:02 Freq: Status: Active Protocol: Document 11/10/18 17:02 CGR (Rec: 11/10/18 17:23 CGR [email or web address]) OT ADL-Grooming Comments OT Grooming Comments Not performed OT ADL-Oral Care Comments Oral Care Comments Pt declined OT ADL-Dressing General Eval Lower Body Dressing Ability Moderate Assistance Maximum Assistance Areas Needing Assistance Underpants/Brief Socks OT ADL-Toileting General Evaluation Toileting Ability Moderate Assistance Areas Needing Assistance Manage Clothing Devices Toileting Assistive Devices Grab Bars Comments OT Toileting Comments Pt stood at toilet for urination. Pt urinated on brief and floor requiring clothing change. Pt needed help with management of brief and VC for safety. M5 OT- IP IADL's Start: 11/10/18 17:02 Freq: Status: Active Protocol: Document 11/10/18 17:02 CGR (Rec: 11/10/18 17:23 CGR [email or web address]) OT-Instrumental Activities of Daily Living Home Safety Awareness Awareness of Need for Assistance at Home Decreased Awareness Home Safety Comments Pt states that the fire house is close by if he has a fall. M6 OT- IP Functional Cognition Start: 11/10/18 17:02 Freq: Status: Active Protocol: Document 11/10/18 17:02 CGR (Rec: 11/10/18 17:23 CGR [email or web address]) Cognitive Factors Limiting Selfcare Function Cognitive Ability Level of Alertness Alert Patient Orientation Name Age Birthday Month Date Year Day of Week Place Situation Attention Span Ability Capable of Focused Attention Ability to Follow Commands Able to Follow One Step Commands with Repetition Memory Description No Deficits Noted Safety Awareness Underestimates Need for Assistance OT- Vision and Hearing OT- Hearing Assessment OT- Hearing Assessment WFL OT- Vision Assessment Visual Acuity WFL M7 OT- IP Mobility and Balance Start: 11/10/18 17:02 Freq: Status: Active Protocol: Document 11/10/18 17:02 CGR (Rec: 11/10/18 17:23 CGR [email or web address]) OT- Bed Mobility Assessment Rolling Type of Rolling Roll to Right Level of Assistance Moderate Assistance Supine to Sit Supine to Sit Assist Moderate Assistance Sit to Supine Sit to Supine Assist Minimal Assistance OT-Transfer Assessment Sit to and From Stand Sit to and from Stand Minimal Assistance Transfers Transfer Ability Minimal Assistance Technique Transfer Destination Bed Chair Devices Transfer Assistive Devices Gait Belt Front Wheeled Walker Comments Mobility Comments Pt needs VC for proper use of walker and for safe transfers. OT- Gait Assessment Gait Gait Assistance Required: Minimum Assistance Assistive Devices Assistive Device Front Wheeled Walker OT- Balance Assessment Sitting Balance and Reactions Static Sitting Balance Ability Normal Dynamic Sitting Balance Ability Fair M8 OT- IP Objective Assessments Start: 11/10/18 17:02 Freq: Status: Active Protocol: Document 11/10/18 17:02 CGR (Rec: 11/10/18 17:23 CGR [email or web address]) OT Gross Range of Motion Upper Extremity Range of Motion ROM Impairments Pt with B shld restrictions. Pt states at baseline. OT Strength Upper Extremity Strength Assessment Within Functional Limits Comments Strength Comments WFL except shlds. OT- Coordination Assessment Upper Extremity Finger to Nose Test Within Functional Limits Finger Tapping Test Within Functional Limits Comments Coordination Comments Slow but WFL for every day ADLs. OT Sensation Assessment Comments Summary Comments Pt states typical sensation. Edema Edema Absent M9 OT- IP Assessment and Plan Start: 04/20/19 17:02 Freq: Status: Active Protocol: Document 11/10/18 17:02 CGR (Rec: 11/10/18 17:23 CGR [email or web address]) OT Summary Assessment and Plan Potential Rehabilitation Potential Good Analytic Complexity at Evaluation Moderate Summary OT Impairments Strength Balance Coordination Functional Mobility Grooming Dressing Toileting Bathing Toilet Transfers Shower Transfers Assessment Summary Pt presents below his baseline for functional mobility and ADLs. Pt will benefit from continued OT services. Goals Grooming Goal Independent Dressing Goal Minimal Assistance Toileting Goal Independent Bathing Goal Moderate Assistance Grab Bars Toilet Transfer Goal Independent Shower Transfer Goal Minimal Assistance Days to Meet Goals 5 Frequency of Treatment Frequency Of Treatment Once a Day Treatment Plan OT Treatment Plan ADL Training Functional Mobility IADL Training Patient/Family Education Discharge Planning Discharge Recommendations OT Discharge Recommendations Home with 13/02 Assist Other Discharge Recommendations Pt planned for moving into an assisted living 11/19/18. Will need increased care at home or increased strength before discharge home. Home Equipment Needs TBD
--- NOTE | 2018-11-10 17:35 | ST.IPCSEOM ---
Care Team Visit Care Team Role Provider Type Lex Duran MD Primary Care Provider Physician Specialty: Internal Medicine Address: [address] [place] [address], [id number] Email: Kenia Echeverria DO Emergency Provider Physician Specialty: Emergency Medicine Address: [address] [place] [address], [id number] Email: Genny Ram DO Admit Provider Physician Attending Provider Specialty: Internal Medicine Address: [address] [place] [address], [id number] Email: Past Medical History (Last Updated 11/09/18 @ 23:38 by DEDRA Alfaro) Diabetes (Acute Medical) Hyperlipidemia (Acute Medical) Oral cancer (Acute Medical) 2014 Surgery followed by radiation therapy. Presence of stent in coronary artery in patient with coronary artery disease (Acute Medical) Prostate cancer (Acute Medical) CVA (cerebral vascular accident) (Chronic Medical) Dyslipidemia (Chronic Medical) Hypertension (Chronic Medical) Speech-Language Pathology Swallow Evaluation MANAGER MOTOR Clinical Swallow Evaluation Start: 11/10/18 16:50 Freq: Status: Active Protocol: Document 11/10/18 16:50 LNK (Rec: 11/10/18 17:34 LNK [email or web address]) Clinical Swallow Evaluation Session Time Visit Start Time 15:00 Visit Stop Time 15:45 Total Visit Minutes 45 Referral Referring Physician Yo Setting Assessment Location Acute Care Visit Type Note Type Initial Evaluation Patient Information Identification Type Name ID Wristband History Shania Mauricio is an 83-year- old male patient with a history hypertension, hyperlipidemia, diabetes, BPH, prior CVA with left hemiparesis who presents today for complaints of acute onset of weakness. The patient reports that he got up this morning sat in a chair when he became diaphoretic and felt weak and was unable to speak. He reports associated shortness of breath at rest but denies chest pain or palpitations. Does acknowledge that he had had some left chest discomfort last night that reports as related to indigestion for which he does not typically take his nitroglycerin. The patient has had prior CVA 1 year ago with resultant left leg weakness followed by recurrent episodes of neurological deficits in May of 2018 and then again last month. He has had intermittent shortness of breath and has a known history dysphagia and has had recent swallow evaluation demonstrating motility dysfunction and will cough when eating and on liquids. Patient has been using thickener at home which he does not like using and therefore consumes little liquid. He reports a poor appetite. He currently is receiving care from [facility]. BRAIN MRI: Several subcentimeter foci of acute infarction involving the right parietal lobe, left parietal lobe, and left cerebellar hemisphere. No evidence for adjacent vasogenic edema. No mass effect or midline shift of structures. No suspicious areas of enhancement. Subjective Observations Pt was in his bed alert and oriented. was not present Evaluation Liquids Trialed Ice Chips Thin Solids Trialed Dysphagia Advanced Mechanical Soft Regular Administration Type Tea Spoon Cup Single Sip Controlled Cup Sip Straw Self-Feeding Dependent Feeding Oral Impairment Mildly Impaired Oral Strategies Upright at 90 degrees Double Swallow Controlled Bite/Sip Size Oral Phase Comments Oral phase was mildly impaired . Dentition was in good condition and adequate for mastication. OME demonstrated good lip and jaw strength and ROM. Weakened tongue strength and reduced ROM. Bolus formation and control was reduced with all textures trialed. As a result, the pt's swallow response was delayed with tongue rocking indicating reduced A-P transition of the bolus to the pharyngeal cavity . However there was minimal oral residue observed post- swallow. Pharyngeal Impairment Moderately Impaired Pharyngeal Strategies Sitting Upright (90 deg) Chin Tuck Double Swallow Effortful Swallow Supraglottic Swallow Small Bites and Sips Pharyngeal Phase Comments Pt's hyolaryngeal elevation and forward excursion was limited. As a result, pt's swallow was audible with liquids indicating poor airway seal. Pt coughed and choked on thin liquids with a wedt vocal quality following swallows of liquids. Safe swallow strategies were trialed as pt is refusing recommended nectarn thick liquids (based on MBS July 2018). Reduced cough/choke were observed with Supraglottic swallow strategy ( hold breath, push tongue up to roof of mouth swallow hard, swallow second time) combined with a chin tuck. These strategies were practiced several time with the pt to this MANAGER MOTOR's satisfaction. Findings Dysphagia Type Charly-pharyngeal dysphagia Rehabilitation Potential Poor Impressions Pt would cough/choke with thin liquids. He has made it clear he will not drink nectar thick liquids as was recommended following his MBS in July 2018. Safe swallow strategies were prescribed and practiced by the pt (as described above). He was able to complete the strategies with a reduction of choke/cough/wet voicing. He remains a very high risk for aspiration. This ST spent a lot of time with the pt and his discussing the risks of continuing to drink thin liquids: risk for aspiration, risk for choking on liquids/ solids, risk of recurrent aspiration pneumonia, etc. The patient indicated he was aware of these risks and still wanted to eat and drink what he wants. His was in attendance and noted that she also understands the risks and has been unable to get him to follow the recommended nectar thick liquids at home. informed of the above discussion between this ST and the pt/his . Diet Recommendations Liquids Order Thin Diet Order Regular Medication Recommendations As Tolerated Comments Pt's diet as listed are based on pt request despite risk for aspiration Aspiration Precautions Recommended Precautions Upright at 90 Degrees Small Bites/Sips Chin Tuck Effortful Swallow Double Swallow Supraglottic Swallow Treatment Plan Placement Recommendations after Home with Home Health Discharge Appropriate for Therapy No: Pt refusal to comply with ST recommendations
[2018-11-10] MEDS: ASPIRIN EC 81 MG TABLET PO (21:40)
[2018-11-11] VITALS (8 sets, daily range): BP systolic 149–169; BP diastolic 72–97; PULSE 51–76; RESP 17–18; TEMP 35.9–36.8; O2SAT 96–98
--- NOTE | 2018-11-11 01:29 | PC.NURSE ---
Patient is oriented. NIH currently 4 for increased slurred speech and increased left LE weakness/ataxia; DEDRA Aeyrs, informed with no change in orders. Breath sounds CTA with RA sat of 96%. HRR but bradycardic in 50's; telemetry reading was SB (rate 51) with 1st degree AVB and occasional PVC's. BP also still elevated at 148/76. Denies nausea. BT present and abdomen is soft. Has been getting up at bedside with 1 assist and walker to use urinal; denies dysuria, frequency or urgency. Can assist to reposition; staff turning q2h. Allevyn dressing to coccyx/right inner buttock is CDI. Denies pain. Wearing bilateral SCD's. Fall risk score is high and bed alarm is activated
[2018-11-11] MEDS: CLOPIDOGREL 75 MG TABLET PO (08:24)
[2018-11-11] MEDS: TAMSULOSIN 0.4 MG CAPSULE PO (08:24)
[2018-11-11] MEDS: DOCUSATE 100 MG CAPSULE PO ×2 (08:24→21:04)
[2018-11-11] MEDS: ASPIRIN EC 81 MG TABLET PO (08:24)
[2018-11-11] MEDS: CITALOPRAM 10 MG TABLET PO (08:24)
[2018-11-11] MEDS: SODIUM CHLORIDE 0.9% FLUSH 10 ML IV ×2 (08:25→21:09)
[2018-11-11] MEDS: VIT C/E/ZN/COPPR/LUTEIN/ZEAXAN CAPSULE 1 CAP PO ×2 (08:25→21:04)
--- NOTE | 2018-11-11 12:35 | PT.IPTN ---
Physical Therapy Treatment Note M2 PT-IP Current Condition Start: 11/10/18 14:46 Freq: NEEDED Status: Active Protocol: Document 11/10/18 14:47 NFW (Rec: 11/10/18 15:27 NFW [id number]) Physical Therapy Current Condition Current Condition Evaluation Date 11/10/18 Treatment Diagnosis Generalized weakness secondary to TIA, multiple medical complications Weight Bearing Status Weight Bearing Status Full Weight Bearing M3 PT-IP Subjective Start: 11/10/18 14:46 Freq: NEEDED Status: Active Protocol: Document 11/11/18 11:40 CLB (Rec: 11/11/18 12:35 CLB [id number]) Subjective Physical Therapy Visit Type Type Treatment Note Visit Start Time 11:40 Visit Stop Time 12:05 Total Visit Minutes 25 Number of BRACELET AND BROOCH MAKER Visits 1 Therapy Pain Assessment Pain Present Pain Present Denied Pain M4 PT-IP Mobility and Gait Start: 11/10/18 14:46 Freq: NEEDED Status: Active Protocol: Document 11/11/18 11:40 CLB (Rec: 11/11/18 12:35 CLB [id number]) PT-Bed Mobility Assessment Rolling Type of Rolling Roll to Left Level of Assist Minimal Assistance 1 Person Assistance Supine to Sit Supine to Sit Moderate Assistance 1 Person Assistance Scooting Scooting to Edge of Bed Moderate Assistance PT-Transfer Assessment Sit to and From Stand Sit to and from Stand Minimal Assistance 1 Person Assistance Equipment Transfer Assistive Device Gait Belt Front Wheeled Walker Orthotic/Prosthetic Devices or Brace: No Transfers Transfer Destination Bed Chair Transfer Technique Stand Step Pivot Transfer Ability Level of Assist Minimal Assistance 1 Person Assistance Comments Mobility Comments Pt continues to require cues for sequencing log roll and Mod A supine to sit. Gait Assessment Gait Gait Assistance Required: Minimum Assistance Distance (Feet) 25 Able to Maintain Weight Bearing Status Yes During Gait Assistive Devices Assistive Device Gait Belt Front Wheeled Walker Orthotic/Prosthetic Devices or Brace: No Gait Deviations General Gait Pattern Ataxic Decreased Stride Length Decreased Feet Clearance Festinating Flexed Trunk Narrow Based Gait Factors Limiting Gait Function Factors Limiting Gait Function Abnormal Tonal Influences Decreased Activity Tolerance Decreased Strength Incoordination Poor Balance Poor Safety Awareness Comments Gait Comments Pt requires cues for jose c during gait. M5 PT-IP Objective Assessments Start: 11/10/18 14:46 Freq: NEEDED Status: Active Protocol: Document 11/10/18 14:47 NFW (Rec: 11/10/18 15:27 NFW [id number]) Orientation Orientation/Cognition Level of Alertness Alert Orientation Name Date Place Situation Language Function Ability Garbled Speech Safety Awareness Decreased Safety Awareness Comments Patient pleasant offering information of home life. Answered questions appropriately. Gross Range of Motion Upper Extremity ROM Assessment Bilaterally Impaired Impairments Has a previous rotator cuff injury right. LOM R GHJ by 75 %. LOM L by 40%. Lower Extremity ROM Assessment Left Impaired Strength Lower Extremity Strength Assessment Left Impaired Comments Strength Comments L EHL and AT decreased compared to R. Grade 4/5 Coordination Assessment Assessment Coordination Comments Decrease coordination LLE compared to RLE. Muscle Tone Muscle Tone WNL Yes M7 PT-IP Assessment and Plan Start: 11/10/18 14:46 Freq: NEEDED Status: Active Protocol: Document 11/11/18 11:40 CLB (Rec: 11/11/18 12:35 CLB [id number]) PT Summary Assessment and Plan Summary Impairments ROM Strength Balance Coordination Bed Mobility Transfers Gait Activity Tolerance Progress Towards Goals Progressing Toward Goals Assessment Summary Pt continues to need cues to remain on task during ambulation. Pt required Mod A supine-sit. Pt able to increase gait distance to ~ 25ft in room. May be able to ambulate further with chair follow. Goals Bed Mobility Goal Independent Transfer Goal Contact Guard Assistance Gait Goal Standby Assistance Front Wheel Walker Days to Meet Goals 2 Frequency of Treatment Frequency Of Treatment Twice a Day Treatment Plan Physical Therapy Treatment Plan Bed Mobility Training Transfer Training Gait Training Therapeutic Exercise Balance Retraining Neuromuscular Re-ed Coordination Retraining Recommendations To Nursing Amount of Assist Needed 1 Person Assist Discharge Recommendations PT Discharge Recommendations SNF Rehab
--- NOTE | 2018-11-11 12:55 | CM.DPC ---
DCP SNF Planning Per MD, pt became more unsteady as the day went on yesterday and was not able to participate with PT/OT later in the day yesterday and therefore his discharge home with HH was cancelled. Pt met medical criteria for Inpt Status 11/10/18 and current recommendation is SNF due to CVA. Per MD, pt and spouse now agreeable to SNF rehab prior to safe return home. Pt discussed becoming more frustrated with his increasing limits to his independence as he was previously very active in traveling and participating in community events. Pt motivated to participate in therapies to increase his independence. KIANNA met bedside with pt, spouse, and close friend and explained role and discussed current SNF recommendation. Pt and spouse confirm that they do not have any hx with SNF and SW provided the SNF Choice List and discussed MCR coverage at [facility]. Pt and spouse state that their first preference is [facility] even though they are in [place] [facility] [place] [facility]. Pt and spouse agreeable to referral to [facility] to see if they can accept when pt medically stable to discharge. KIANNA faxed pt referral to [facility] and left ms requesting review. PASRR done. Plan: SW to follow for [facility] review to determine if [facility] can accept at d/c. DINORA Root
--- NOTE | 2018-11-11 15:02 | PM.PN.1 ---
Subjective Date Patient Seen: 11/11/18 Interval history: Patient is 83-year-old male admitted with bilateral acute CVA. He feels quite weak in general, unable to stand or walk unassisted, and not at his previous baseline. Also endorses lack of hope, requests physician assisted suicide? and apparently has been depressed for significant length of time prior to admission. Exam Vital Signs (past 8 hours): - 11/11/18 08:00 11/11/18 08:39 11/11/18 11:48 Temperature 96.7 F L 97.4 F L Pulse Rate 54 L 51 L Respiratory Rate 18 18 Blood Pressure 149/72 H 160/84 H Pulse Oximetry 96 97 96 Oxygen Delivery Method Room Air Oxygen Flow Rate 0 Narrative Exam Narrative: GENERAL: Patient is in no acute distress HEENT: Pupils equal and reactive CHEST: Clear to auscultation bilaterally. CARDIAC: Regular rate and rhythm. ABDOMEN: Nondistended, soft, nontender EXTREMITIES: no edema. NEUROLOGICAL: Diminished affect, well oriented, no facial droop, no pronator drift, right of way appraiser 3/5 bilaterally, finger to nose okay bilaterally, lower extremity strength 4-out of 5 bilaterally, per PT unable to sit, stand or walk unassisted SKIN: Warm, dry, no petechiae, no rash Objective Labs Result Diagrams: 11/09/18 Unknown 11/10/18 05:40 Assessment & Plan Assessment & Plan narrative: 1. Acute CVA, ischemic, multi focal -requires SNF rehab due to impaired balance, coordination, gait, requiring assist to sit, stand and ambulate which is all worse from his prior baseline -on MRI has acute ischemia and distribution of right parietal x1 foci, left parietal x 1 foci and left cerebellar x 1 foci -MRA not significant except 50% left vertebral occlusion -echo unremarkable, normal LV and RV, mild MR -telemetry without evidence of AFib -patient presented with acute weakness, diaphoresis and unable to speak -patient has history of prior CVA and has been on anti hyperlipidemic therapy with atorvastatin 40 mg daily with lipid panel showing total cholesterol of 122, triglycerides of 221, LDL 54, HDL 24. -history of hypertension adequately controlled with blood pressure on arrival in the ER 121/66. -continue lisinopril 10 mg and metoprolol 12.5 mg twice daily -continue patient's clopidogrel 75 mg daily -added aspirin 81 mg daily which should be continued for a month for dual anti-platelet therapy -diet regular, thin liquids with aspiration precautions per ST -continue PT, OT and ST 2. Acute kidney injury, resolved -BUN 43, creatinine 1.40 on admit--improved with IV fluids to BUN 34 and creatinine 1.10 indicating some dehydration 3. Hypertension, chronic -blood pressure adequately controlled on home medications of lisinopril 10 mg and metoprolol 12.5 mg twice daily. 4. Diabetes type 2 without complications, chronic -well controlled, A1c 5.9 -patient is taking metformin 500 mg twice daily. Glucose on admission was 172. -patient reports drinking orange juice in the morning demonstrating knowledge deficits of diabetes. -continue glucose ACHS and cover with sliding scale insulin low range. -request dietary consult to address food content as well as ways to improve oral fluid intake 5. Depression, severe -started on Citalopram this admission -patient with firearms at home, vague suicidal ideation, no clear intent or plan to harm self at this time -spouse present in room and has been very supportive and endorses patient has been depressed for a long time but has not accepted treatment until now Patient with acute CVA with significant impairment of mobility. We are arranging alf rehab, likely discharge on MondayNovember 13. Discharge medications have been reconciled but need to be reviewed once more prior to discharge. Quality VTE Deep Vein Thrombosis/Pulmonary Embolism Present on Admission: No
--- NOTE | 2018-11-11 15:23 | P.PN_ITS ---
Subjective Date Patient Seen: 11/11/18 Interval history: Patient is 83-year-old male admitted with bilateral acute CVA. He feels quite weak in general, unable to stand or walk unassisted, and not at his previous baseline. Also endorses lack of hope, requests physician assisted suicide? and apparently has been depressed for significant length of time prior to admission. Exam Vital Signs (past 8 hours): - 11/11/18 08:00 11/11/18 08:39 11/11/18 11:48 Temperature 96.7 F L 97.4 F L Pulse Rate 54 L 51 L Respiratory Rate 18 18 Blood Pressure 149/72 H 160/84 H Pulse Oximetry 96 97 96 Oxygen Delivery Method Room Air Oxygen Flow Rate 0 Narrative Exam Narrative: GENERAL: Patient is in no acute distress HEENT: Pupils equal and reactive CHEST: Clear to auscultation bilaterally. CARDIAC: Regular rate and rhythm. ABDOMEN: Nondistended, soft, nontender EXTREMITIES: no edema. NEUROLOGICAL: Diminished affect, well oriented, no facial droop, no pronator drift, abstract manager 3/5 bilaterally, finger to nose okay bilaterally, lower extremity strength 4-out of 5 bilaterally, per PT unable to sit, stand or walk unassisted SKIN: Warm, dry, no petechiae, no rash Objective Labs Result Diagrams: 11/09/18 Unknown 11/10/18 05:40 Assessment & Plan Assessment & Plan narrative: 1. Acute CVA, ischemic, multi focal -requires SNF rehab due to impaired balance, coordination, gait, requiring assist to sit, stand and ambulate which is all worse from his prior baseline -on MRI has acute ischemia and distribution of right parietal x1 foci, left parietal x 1 foci and left cerebellar x 1 foci -MRA not significant except 50% left vertebral occlusion -echo unremarkable, normal LV and RV, mild MR -telemetry without evidence of AFib -patient presented with acute weakness, diaphoresis and unable to speak -patient has history of prior CVA and has been on anti hyperlipidemic therapy with atorvastatin 40 mg daily with lipid panel showing total cholesterol of 122, triglycerides of 221, LDL 54, HDL 24. -history of hypertension adequately controlled with blood pressure on arrival in the ER 121/66. -continue lisinopril 10 mg and metoprolol 12.5 mg twice daily -continue patient's clopidogrel 75 mg daily -added aspirin 81 mg daily which should be continued for a month for dual anti- platelet therapy -diet regular, thin liquids with aspiration precautions per ST -continue PT, OT and ST 2. Acute kidney injury, resolved -BUN 43, creatinine 1.40 on admit--improved with IV fluids to BUN 34 and creatinine 1.10 indicating some dehydration 3. Hypertension, chronic -blood pressure adequately controlled on home medications of lisinopril 10 mg and metoprolol 12.5 mg twice daily. 4. Diabetes type 2 without complications, chronic -well controlled, A1c 5.9 -patient is taking metformin 500 mg twice daily. Glucose on admission was 172. -patient reports drinking orange juice in the morning demonstrating knowledge deficits of diabetes. -continue glucose ACHS and cover with sliding scale insulin low range. -request dietary consult to address food content as well as ways to improve oral fluid intake 5. Depression, severe -started on Citalopram this admission -patient with firearms at home, vague suicidal ideation, no clear intent or plan to harm self at this time -spouse present in room and has been very supportive and endorses patient has been depressed for a long time but has not accepted treatment until now Patient with acute CVA with significant impairment of mobility. We are arranging [facility] rehab, likely discharge on MondayNovember 13. Discharge medications have been reconciled but need to be reviewed once more prior to discharge. Quality VTE Deep Vein Thrombosis/Pulmonary Embolism Present on Admission: No
--- NOTE | 2018-11-11 16:08 | PT.IPTN ---
Physical Therapy Treatment Note M2 PT-IP Current Condition Start: 11/10/18 14:46 Freq: NEEDED Status: Active Protocol: Document 11/11/18 15:57 NFW (Rec: 11/11/18 16:08 NFW [id number]) Physical Therapy Current Condition Current Condition Evaluation Date 11/11/18 M3 PT-IP Subjective Start: 11/10/18 14:46 Freq: NEEDED Status: Active Protocol: Document 11/11/18 15:57 NFW (Rec: 11/11/18 16:08 NFW [id number]) Subjective Physical Therapy Visit Type Type Treatment Note Visit Start Time 15:39 Visit Stop Time 15:58 Total Visit Minutes 19 Number of BID MANAGER Visits 0 Physical Therapy Visit Comments Patient Comments Patient seen resting in bed and sleeping at window bed. Patient commenting that he feels weak. Therapy Pain Assessment Pain Present Pain Present Denied Pain M4 PT-IP Mobility and Gait Start: 11/10/18 14:46 Freq: NEEDED Status: Active Protocol: Document 11/11/18 15:57 NFW (Rec: 11/11/18 16:08 NFW [id number]) PT-Bed Mobility Assessment Rolling Type of Rolling Roll to Right Level of Assist Minimal Assistance 1 Person Assistance Supine to Sit Supine to Sit Moderate Assistance 1 Person Assistance Scooting Scooting to Edge of Bed Minimal Assistance PT-Transfer Assessment Sit to and From Stand Sit to and from Stand Minimal Assistance 1 Person Assistance Equipment Transfer Assistive Device Gait Belt Front Wheeled Walker Orthotic/Prosthetic Devices or Brace: No Transfers Transfer Destination Chair Transfer Ability Level of Assist Minimal Assistance 1 Person Assistance Comments Mobility Comments Verbal cuing for log roll right then to sitting. Mod assist of 1 for sitting from sd lying. Gait Assessment Gait Gait Assistance Required: Minimum Assistance Distance (Feet) 120 Able to Maintain Weight Bearing Status Yes During Gait Assistive Devices Assistive Device Gait Belt Front Wheeled Walker Orthotic/Prosthetic Devices or Brace: No Gait Deviations General Gait Pattern Ataxic Decreased Stride Length Decreased Feet Clearance Festinating Flexed Trunk Narrow Based Gait Factors Limiting Gait Function Factors Limiting Gait Function Abnormal Tonal Influences Decreased Activity Tolerance Decreased Strength Incoordination Poor Balance Poor Safety Awareness Comments Gait Comments Patient ambulated 60' with wc follow, rested then 60' back to his room. Improved posture with ambulation. Cuing for pacing of his walk. Improved turning to sit at chair. M5 PT-IP Objective Assessments Start: 11/10/18 14:46 Freq: NEEDED Status: Active Protocol: Document 11/10/18 14:47 NFW (Rec: 11/10/18 15:27 NFW [id number]) Orientation Orientation/Cognition Level of Alertness Alert Orientation Name Date Place Situation Language Function Ability Garbled Speech Safety Awareness Decreased Safety Awareness Comments Patient pleasant offering information of home life. Answered questions appropriately. Gross Range of Motion Upper Extremity ROM Assessment Bilaterally Impaired Impairments Has a previous rotator cuff injury right. LOM R GHJ by 75 %. LOM L by 40%. Lower Extremity ROM Assessment Left Impaired Strength Lower Extremity Strength Assessment Left Impaired Comments Strength Comments L EHL and AT decreased compared to R. Grade 4/5 Coordination Assessment Assessment Coordination Comments Decrease coordination LLE compared to RLE. Muscle Tone Muscle Tone WNL Yes M7 PT-IP Assessment and Plan Start: 11/10/18 14:46 Freq: NEEDED Status: Active Protocol: Document 11/11/18 15:57 NFW (Rec: 11/11/18 16:08 NFW [id number]) PT Summary Assessment and Plan Summary Impairments ROM Strength Balance Coordination Bed Mobility Transfers Gait Activity Tolerance Progress Towards Goals Progressing Toward Goals Assessment Summary Patient required less assistance in going between sitting and standing. Followed instructions nicely with transition activities. Determined to walk a longer distance and succeeded. Goals Bed Mobility Goal Independent Transfer Goal Contact Guard Assistance Gait Goal Standby Assistance Front Wheel Walker Days to Meet Goals 2 Frequency of Treatment Frequency Of Treatment Twice a Day Treatment Plan Physical Therapy Treatment Plan Bed Mobility Training Transfer Training Gait Training Therapeutic Exercise Balance Retraining Neuromuscular Re-ed Coordination Retraining Recommendations To Nursing Amount of Assist Needed 1 Person Assist Discharge Recommendations PT Discharge Recommendations SNF Rehab
[2018-11-11] MEDS: INSULIN ASPART 100 UNIT/ML INSULN PEN SUBCUT (17:17)
[2018-11-11] MEDS: ATORVASTATIN 20 MG TABLET 40 MG PO (21:04)
[2018-11-11] MEDS: SENNOSIDES 8.6 MG TABLET 17.2 MG PO (21:04)
[2018-11-11] MEDS: METOPROLOL IR 25 MG TABLET 12.5 MG PO (21:06)
[2018-11-11] MEDS: LISINOPRIL 10 MG TABLET PO (21:06)
[2018-11-12] VITALS (10 sets, daily range): BP systolic 135–149; BP diastolic 72–92; PULSE 57–84; RESP 15–18; TEMP 36.3–36.7; O2SAT 94–97; BMI 25.9
[2018-11-12] MEDS: ASPIRIN EC 81 MG TABLET PO (09:25)
[2018-11-12] MEDS: CITALOPRAM 10 MG TABLET PO (09:26)
[2018-11-12] MEDS: CLOPIDOGREL 75 MG TABLET PO (09:26)
[2018-11-12] MEDS: DOCUSATE 100 MG CAPSULE PO (09:27)
[2018-11-12] MEDS: TAMSULOSIN 0.4 MG CAPSULE PO (09:28)
[2018-11-12] MEDS: SODIUM CHLORIDE 0.9% FLUSH 10 ML IV ×2 (09:28→20:36)
[2018-11-12] MEDS: METOPROLOL IR 25 MG TABLET 12.5 MG PO ×2 (09:28→20:35)
[2018-11-12] MEDS: VIT C/E/ZN/COPPR/LUTEIN/ZEAXAN CAPSULE 1 CAP PO ×2 (09:29→20:35)
--- NOTE | 2018-11-12 10:52 | PC.NURSE ---
Day shift: Pt weak but improving. One person assist w/ FWW to BSC. Pt has a small Allyven patch on his upper inner rt coccyx area. Need to ask MD for dressing change orders. Spouse at bedside for spport. Pt did eat his breakfast. Also went over the swallow precautions with Pt and spouse.
--- NOTE | 2018-11-12 11:32 | CM.DPC ---
DCP/continued: Received notification from Brie at [facility] that they can accept patient tomorrow 11-13-18. P: [facility] when medically stable. DINORA Leo
--- NOTE | 2018-11-12 11:33 | PC.NURSE ---
Day shift: Pt had small BM and it looked like there could be some blood. Guiac performed and positive for blood. Will inform MD.
[2018-11-12] MEDS: INSULIN ASPART 100 UNIT/ML INSULN PEN SUBCUT ×2 (11:40→17:01)
--- NOTE | 2018-11-12 11:42 | PT.IPTN ---
Physical Therapy Treatment Note M2 PT-IP Current Condition Start: 11/10/18 14:46 Freq: NEEDED Status: Active Protocol: Document 11/11/18 15:57 NFW (Rec: 11/11/18 16:08 NFW [id number]) Physical Therapy Current Condition Current Condition Evaluation Date 11/11/18 M3 PT-IP Subjective Start: 11/10/18 14:46 Freq: NEEDED Status: Active Protocol: Document 11/12/18 11:42 CLB (Rec: 11/12/18 11:42 CLB [id number]) Subjective Physical Therapy Visit Type Type Patient Unavailable Notes Pt unavailable due to visit from [facility] at this time. Will check back with pt later today . M4 PT-IP Mobility and Gait Start: 11/10/18 14:46 Freq: NEEDED Status: Active Protocol: Document 11/11/18 15:57 NFW (Rec: 11/11/18 16:08 NFW [id number]) PT-Bed Mobility Assessment Rolling Type of Rolling Roll to Right Level of Assist Minimal Assistance 1 Person Assistance Supine to Sit Supine to Sit Moderate Assistance 1 Person Assistance Scooting Scooting to Edge of Bed Minimal Assistance PT-Transfer Assessment Sit to and From Stand Sit to and from Stand Minimal Assistance 1 Person Assistance Equipment Transfer Assistive Device Gait Belt Front Wheeled Walker Orthotic/Prosthetic Devices or Brace: No Transfers Transfer Destination Chair Transfer Ability Level of Assist Minimal Assistance 1 Person Assistance Comments Mobility Comments Verbal cuing for log roll right then to sitting. Mod assist of 1 for sitting from sd lying. Gait Assessment Gait Gait Assistance Required: Minimum Assistance Distance (Feet) 120 Able to Maintain Weight Bearing Status Yes During Gait Assistive Devices Assistive Device Gait Belt Front Wheeled Walker Orthotic/Prosthetic Devices or Brace: No Gait Deviations General Gait Pattern Ataxic Decreased Stride Length Decreased Feet Clearance Festinating Flexed Trunk Narrow Based Gait Factors Limiting Gait Function Factors Limiting Gait Function Abnormal Tonal Influences Decreased Activity Tolerance Decreased Strength Incoordination Poor Balance Poor Safety Awareness Comments Gait Comments Patient ambulated 60' with wc follow, rested then 60' back to his room. Improved posture with ambulation. Cuing for pacing of his walk. Improved turning to sit at chair. M5 PT-IP Objective Assessments Start: 11/10/18 14:46 Freq: NEEDED Status: Active Protocol: Document 11/10/18 14:47 NFW (Rec: 11/10/18 15:27 [facility] [id number]) Orientation Orientation/Cognition Level of Alertness Alert Orientation Name Date Place Situation Language Function Ability Garbled Speech Safety Awareness Decreased Safety Awareness Comments Patient pleasant offering information of home life. Answered questions appropriately. Gross Range of Motion Upper Extremity ROM Assessment Bilaterally Impaired Impairments Has a previous rotator cuff injury right. LOM R GHJ by 75 %. LOM L by 40%. Lower Extremity ROM Assessment Left Impaired Strength Lower Extremity Strength Assessment Left Impaired Comments Strength Comments L EHL and AT decreased compared to R. Grade 4/5 Coordination Assessment Assessment Coordination Comments Decrease coordination LLE compared to RLE. Muscle Tone Muscle Tone WNL Yes M7 PT-IP Assessment and Plan Start: 11/10/18 14:46 Freq: NEEDED Status: Active Protocol: Document 11/11/18 15:57 [facility] (Rec: 11/11/18 16:08 [facility] [id number]) PT Summary Assessment and Plan Summary Impairments ROM Strength Balance Coordination Bed Mobility Transfers Gait Activity Tolerance Progress Towards Goals Progressing Toward Goals Assessment Summary Patient required less assistance in going between sitting and standing. Followed instructions nicely with transition activities. Determined to walk a longer distance and succeeded. Goals Bed Mobility Goal Independent Transfer Goal Contact Guard Assistance Gait Goal Standby Assistance Front Wheel Walker Days to Meet Goals 2 Frequency of Treatment Frequency Of Treatment Twice a Day Treatment Plan Physical Therapy Treatment Plan Bed Mobility Training Transfer Training Gait Training Therapeutic Exercise Balance Retraining Neuromuscular Re-ed Coordination Retraining Recommendations To Nursing Amount of Assist Needed 1 Person Assist Discharge Recommendations PT Discharge Recommendations SNF Rehab
--- NOTE | 2018-11-12 11:54 | ST.IPDYTX ---
Care Team Visit Care Team Role Provider Type Lex Duran MD Primary Care Provider Physician Specialty: Internal Medicine Address: [address] [place] [address], [id number] Email: Kenia Echeverria DO Emergency Provider Physician Specialty: Emergency Medicine Address: [address] [place] [address], [id number] Email: Genny Ram DO Admit Provider Physician Attending Provider Specialty: Internal Medicine Address: [address] [place] [address], [id number] Email: AUTOMATIC BUFFING WHEEL FORMER Dysphagia Treatment AUTOMATIC BUFFING WHEEL FORMER Dysphagia Treatment Start: 11/10/18 16:50 Freq: Status: Active Protocol: Document 11/12/18 11:42 LNK (Rec: 11/12/18 11:53 LNK [id number]) Dysphagia Treatment Session Time Visit Start Time 10:00 Visit Stop Time 10:20 Visit Information Visit Number 20 Setting Assessment Location Acute Care Visit Type Note Type Discharge Summary Patient Information Identification Type Name ID Wristband Subjective Observations Pt was seated in his bedside chair eating breakfast. His is also present. Treatment Liquids Trialed Thin Solids Trialed Regular Administration Type Self-Feeding Oral Strategies Upright at 90 degrees Double Swallow Controlled Bite/Sip Size Pharyngeal Strategies Sitting Upright (90 deg) Double Swallow Supraglottic Swallow Small Bites and Sips Assessment Patient Response to Treatment Good Rehab Potential Fair Assessment of Improvement Pt was observed drinking coffee and eating eggs. He was observed to use the supraglottic swallow strategy with a double swallow while eating/drinking without cuing. Instructions are posted in pt 's room under the TV. Pt and pt's reported that he seems to be coughing less using this safe swallow strategy. Reviewed risks and potential consequences of continuing his current diet despite the aspiration risk. Pt again indicated he is aware and wants to stay with current diet. ST to discharge skilled services at this time. Diet Recommendations Recommendations Continue Current Diet Liquids Order Thin Diet Order Regular Medication Recommendations As Tolerated Aspiration Precautions Recommended Precautions Upright at 90 Degrees Effortful Swallow Double Swallow Supraglottic Swallow Treatment Plan Placement Recommendation after Discharge Assisted Facility
--- NOTE | 2018-11-12 12:10 | PC.NURSE ---
Day shift: Dr Dodson informed about blood in stool. Verbal order to change dressing buttox area PRN placed.
--- NOTE | 2018-11-12 12:23 | OT.IP.TRT ---
Occupational Therapy Treatment Note M2 OT-IP Current Condition Start: 11/10/18 17:02 Freq: Status: Active Protocol: Document 11/10/18 17:02 CGR (Rec: 11/10/18 17:23 CGR [id number]) Occupational Therapy Current Condition Current Condition Evaluation Date 11/10/18 Treatment Diagnosis New onset CVA Diagnosis Onset Date 11/09/18 M3 OT- IP Subjective and Pain Start: 11/10/18 17:02 Freq: Status: Active Protocol: Document 11/10/18 17:02 CGR (Rec: 11/10/18 17:23 CGR [id number]) OT- Subjective Occupational Therapy Visit Type Type Initial Evaluation Visit Start Time 15:50 Visit Stop Time 16:45 Total Visit Minutes 55 Notes Partial co-treat with P.T. Occupational Therapy Visit Comments Patient Comments I can get up the stairs at home but I can't do them here. Patient/Caregiver Goals : He works really hard but I am worried that he wont be able to do things on his own anymore. OT Pain Assessment Pain Present Pain Present Denied Pain M4 OT- IP ADL's Start: 11/10/18 17:02 Freq: Status: Active Protocol: Document 11/12/18 12:17 CCC (Rec: 11/12/18 12:23 CCC [email or web address]) OT OIL-Tvhn-Aywzmfb General Evaluation Self-Feeding Ability Standby Assistance Comments OT Self-Feeding Comments Occasional vc to swallow hrad but overall doing well for self feeding. OT ADL-Dressing General Eval Lower Body Dressing Ability Maximum Assistance Areas Needing Assistance Socks M5 OT- IP IADL's Start: 11/10/18 17:02 Freq: Status: Active Protocol: Document 11/10/18 17:02 CGR (Rec: 11/10/18 17:23 CGR [email or web address]) OT-Instrumental Activities of Daily Living Home Safety Awareness Awareness of Need for Assistance at Home Decreased Awareness Home Safety Comments Pt states that the fire house is close by if he has a fall. M6 OT- IP Functional Cognition Start: 11/10/18 17:02 Freq: Status: Active Protocol: Document 11/12/18 12:17 CCC (Rec: 11/12/18 12:23 CCC [email or web address]) Cognitive Factors Limiting Selfcare Function Cognitive Ability Level of Alertness Alert Patient Orientation Name Age Birthday Month Date Year Day of Week Place Situation Attention Span Ability Capable of Focused Attention Ability to Follow Commands Able to Follow One Step Commands Memory Description No Deficits Noted Safety Awareness Underestimates Need for Assistance Cognitive Comments Cognitive Assessment Comments Pt able to follow commands but needing increased time to follow directions. M7 OT- IP Mobility and Balance Start: 11/10/18 17:02 Freq: Status: Active Protocol: Document 11/12/18 12:17 [facility] (Rec: 11/12/18 12:23 [facility] [email or web address]) OT- Bed Mobility Assessment Rolling Type of Rolling Roll to Left Supine to Sit Supine to Sit Assist Minimal Assistance OT-Transfer Assessment Sit to and From Stand Sit to and from Stand Minimal Assistance Transfers Transfer Ability Minimal Assistance Technique Transfer Destination Chair Devices Transfer Assistive Devices Gait Belt Front Wheeled Walker M8 OT- IP Objective Assessments Start: 11/10/18 17:02 Freq: Status: Active Protocol: Document 11/10/18 17:02 CGR (Rec: 11/10/18 17:23 CGR [email or web address]) OT Gross Range of Motion Upper Extremity Range of Motion ROM Impairments Pt with B shld restrictions. Pt states at baseline. OT Strength Upper Extremity Strength Assessment Within Functional Limits Comments Strength Comments WFL except shlds. OT- Coordination Assessment Upper Extremity Finger to Nose Test Within Functional Limits Finger Tapping Test Within Functional Limits Comments Coordination Comments Slow but WFL for every day ADLs. OT Sensation Assessment Comments Summary Comments Pt states typical sensation. Edema Edema Absent M9 OT- IP Assessment and Plan Start: 11/10/18 17:02 Freq: Status: Active Protocol: Document 11/12/18 12:17 [facility] (Rec: 11/12/18 12:23 [facility] [email or web address]) OT Summary Assessment and Plan Potential Rehabilitation Potential Good Summary OT Impairments Strength Balance Coordination Functional Mobility Grooming Dressing Toileting Bathing Toilet Transfers Shower Transfers Progress Towards Goals Progressing Toward Goals Assessment Summary Pt will continue to benefit from skilled rehab to help get back to baseline prior to going home. Goals Grooming Goal Independent Dressing Goal Minimal Assistance Toileting Goal Independent Bathing Goal Moderate Assistance Grab Bars Toilet Transfer Goal Independent Shower Transfer Goal Minimal Assistance Days to Meet Goals 4 Frequency of Treatment Frequency Of Treatment Once a Day Treatment Plan OT Treatment Plan ADL Training Functional Mobility IADL Training Patient/Family Education Discharge Planning Other Treatment Recommendations and Next shower Treatment Focus Discharge Recommendations OT Discharge Recommendations SNF Rehab
--- NOTE | 2018-11-12 14:54 | PT.IPTN ---
Physical Therapy Treatment Note M2 PT-IP Current Condition Start: 11/10/18 14:46 Freq: NEEDED Status: Active Protocol: Document 11/11/18 15:57 NFW (Rec: 11/11/18 16:08 NFW [id number]) Physical Therapy Current Condition Current Condition Evaluation Date 11/11/18 M3 PT-IP Subjective Start: 11/10/18 14:46 Freq: NEEDED Status: Active Protocol: Document 11/12/18 11:58 CLB (Rec: 11/12/18 14:54 CLB [id number]) Subjective Physical Therapy Visit Type Type Treatment Note Visit Start Time 11:58 Visit Stop Time 12:10 Number of CEMENT FINISHER HELPER Visits 1 Physical Therapy Visit Comments Patient Comments Pt in bed willing to transfer to chair for lunch. Therapy Pain Assessment Pain Present Pain Present Denied Pain M4 PT-IP Mobility and Gait Start: 11/10/18 14:46 Freq: NEEDED Status: Active Protocol: Document 11/12/18 11:58 CLB (Rec: 11/12/18 14:54 CLB [id number]) PT-Bed Mobility Assessment Supine to Sit Supine to Sit Minimal Assistance 1 Person Assistance Head of Bed Elevated Bedrails Scooting Scooting to Edge of Bed Moderate Assistance PT-Transfer Assessment Sit to and From Stand Sit to and from Stand Minimal Assistance 1 Person Assistance Equipment Transfer Assistive Device Gait Belt Front Wheeled Walker Orthotic/Prosthetic Devices or Brace: No Transfers Transfer Destination Chair Transfer Ability Level of Assist Minimal Assistance 1 Person Assistance M5 PT-IP Objective Assessments Start: 11/10/18 14:46 Freq: NEEDED Status: Active Protocol: Document 11/10/18 14:47 NFW (Rec: 11/10/18 15:27 NFW [id number]) Orientation Orientation/Cognition Level of Alertness Alert Orientation Name Date Place Situation Language Function Ability Garbled Speech Safety Awareness Decreased Safety Awareness Comments Patient pleasant offering information of home life. Answered questions appropriately. Gross Range of Motion Upper Extremity ROM Assessment Bilaterally Impaired Impairments Has a previous rotator cuff injury right. LOM R GHJ by 75 %. LOM L by 40%. Lower Extremity ROM Assessment Left Impaired Strength Lower Extremity Strength Assessment Left Impaired Comments Strength Comments L EHL and AT decreased compared to R. Grade 4/5 Coordination Assessment Assessment Coordination Comments Decrease coordination LLE compared to RLE. Muscle Tone Muscle Tone WNL Yes M7 PT-IP Assessment and Plan Start: 11/10/18 14:46 Freq: NEEDED Status: Active Protocol: Document 11/12/18 11:58 CLB (Rec: 11/12/18 14:54 CLB [id number]) PT Summary Assessment and Plan Summary Progress Towards Goals Progressing Toward Goals Assessment Summary Pt transferred to chair for lunch requiring less assistance for supine-sit. Goals Bed Mobility Goal Independent Transfer Goal Contact Guard Assistance Gait Goal Standby Assistance Front Wheel Walker Days to Meet Goals 2 Frequency of Treatment Frequency Of Treatment Twice a Day Treatment Plan Physical Therapy Treatment Plan Bed Mobility Training Transfer Training Gait Training Therapeutic Exercise Balance Retraining Neuromuscular Re-ed Coordination Retraining Recommendations To Nursing Amount of Assist Needed 1 Person Assist Discharge Recommendations PT Discharge Recommendations SNF Rehab
--- NOTE | 2018-11-12 16:17 | PT.IPTN ---
Physical Therapy Treatment Note M2 PT-IP Current Condition Start: 11/10/18 14:46 Freq: NEEDED Status: Active Protocol: Document 11/11/18 15:57 NFW (Rec: 11/11/18 16:08 NFW [id number]) Physical Therapy Current Condition Current Condition Evaluation Date 11/11/18 M3 PT-IP Subjective Start: 11/10/18 14:46 Freq: NEEDED Status: Active Protocol: Document 11/12/18 15:30 CLB (Rec: 11/12/18 16:17 CLB [id number]) Subjective Physical Therapy Visit Type Type Treatment Note Visit Start Time 15:30 Visit Stop Time 15:55 Total Visit Minutes 25 Number of COAL HANDLER Visits 2 Physical Therapy Visit Comments Patient Comments Pt eager to ambulate in cuellar. Therapy Pain Assessment Pain Present Pain Present Denied Pain M4 PT-IP Mobility and Gait Start: 11/10/18 14:46 Freq: NEEDED Status: Active Protocol: Document 11/12/18 15:30 CLB (Rec: 11/12/18 16:17 CLB [id number]) PT-Bed Mobility Assessment Supine to Sit Supine to Sit Minimal Assistance 1 Person Assistance Head of Bed Elevated Bedrails Scooting Scooting to Edge of Bed Moderate Assistance PT-Transfer Assessment Sit to and From Stand Sit to and from Stand Minimal Assistance 1 Person Assistance Equipment Transfer Assistive Device Gait Belt Front Wheeled Walker Orthotic/Prosthetic Devices or Brace: No Transfers Transfer Destination Chair Transfer Ability Level of Assist Minimal Assistance 1 Person Assistance Comments Mobility Comments Pt able to sit up in bed but requires Min A to scoot to EOB with use of draw sheet. Gait Assessment Gait Gait Assistance Required: Minimum Assistance Distance (Feet) 120 Able to Maintain Weight Bearing Status Yes During Gait Assistive Devices Assistive Device Gait Belt Front Wheeled Walker Gait Deviations General Gait Pattern Ataxic Decreased Stride Length Decreased Feet Clearance Festinating Flexed Trunk Narrow Based Gait Factors Limiting Gait Function Factors Limiting Gait Function Abnormal Tonal Influences Decreased Activity Tolerance Decreased Strength Incoordination Poor Balance Poor Safety Awareness Comments Gait Comments Pt ambulated in cuellar ~120ft with wc follow. Pt required one standing rest break. Pt required cues for pacing and foot clearance. M5 PT-IP Objective Assessments Start: 11/10/18 14:46 Freq: NEEDED Status: Active Protocol: Document 11/10/18 14:47 NFW (Rec: 11/10/18 15:27 NF [id number]) Orientation Orientation/Cognition Level of Alertness Alert Orientation Name Date Place Situation Language Function Ability Garbled Speech Safety Awareness Decreased Safety Awareness Comments Patient pleasant offering information of home life. Answered questions appropriately. Gross Range of Motion Upper Extremity ROM Assessment Bilaterally Impaired Impairments Has a previous rotator cuff injury right. LOM R GHJ by 75 %. LOM L by 40%. Lower Extremity ROM Assessment Left Impaired Strength Lower Extremity Strength Assessment Left Impaired Comments Strength Comments L EHL and AT decreased compared to R. Grade 4/5 Coordination Assessment Assessment Coordination Comments Decrease coordination LLE compared to RLE. Muscle Tone Muscle Tone WNL Yes M7 PT-IP Assessment and Plan Start: 11/10/18 14:46 Freq: NEEDED Status: Active Protocol: Document 11/12/18 15:30 CLB (Rec: 11/12/18 16:17 CLB [id number]) PT Summary Assessment and Plan Summary Progress Towards Goals Progressing Toward Goals Assessment Summary Pt continues to improve with bed mobility needing less assist. Pt able to ambulate 120ft w/FWW/Min A with one standing rest break. Pt is motivated to do therapy and will benefit from SNF rehab to improve overall strength and function. Goals Bed Mobility Goal Independent Transfer Goal Contact Guard Assistance Gait Goal Standby Assistance Front Wheel Walker Days to Meet Goals 2 Frequency of Treatment Frequency Of Treatment Twice a Day Treatment Plan Physical Therapy Treatment Plan Bed Mobility Training Transfer Training Gait Training Therapeutic Exercise Balance Retraining Neuromuscular Re-ed Coordination Retraining Recommendations To Nursing Amount of Assist Needed 1 Person Assist Discharge Recommendations PT Discharge Recommendations SNF Rehab
--- NOTE | 2018-11-12 17:11 | PM.PN.1 ---
Subjective Date Patient Seen: 11/12/18 Interval history: The patient is an 83-year-old male with a history of a CVA who presented with confusion and found to have multiple infarcts involving the parietal temporal and cerebellar lobes. His echocardiogram did not reveal any embolic focus. His telemetry here has not shown any evidence of arrhythmia. The patient is unsteady on his feet. He will require rehab following admission. The patient's is somewhat concerned about transferring to soon. We discussed the possibility of an event monitor at discharge and whether a WAGNER will be needed. I will discuss with Cardiology and make further recommendations. Exam Vital Signs (past 8 hours): - 11/12/18 13:29 11/12/18 16:00 Temperature 97.6 F 98.0 F Pulse Rate 68 76 Respiratory Rate 18 15 Blood Pressure 135/72 143/91 H Pulse Oximetry 95 97 Oxygen Delivery Method Room Air Oxygen Flow Rate 0 Narrative Exam Narrative: Ill appearing elderly male Lungs: Clear to auscultation Cardiac exam: Regular rate and rhythm normal S1-S2 Abdomen: Soft nontender nondistended Extremities: No edema Objective Labs Result Diagrams: 11/09/18 Unknown 11/10/18 05:40 Quality VTE Deep Vein Thrombosis/Pulmonary Embolism Present on Admission: No
[2018-11-12] MEDS: ATORVASTATIN 20 MG TABLET 40 MG PO (20:34)
[2018-11-12] MEDS: LISINOPRIL 10 MG TABLET PO (20:34)
[2018-11-13 00:20] VITALS: BP 146/86; PULSE 70; RESP 20; TEMP 36.2; O2SAT 96
[2018-11-13 04:50] VITALS: BP 152/85; PULSE 78; RESP 18; TEMP 36.6; O2SAT 92
[2018-11-13 07:25] VITALS: BP 148/91; PULSE 73; RESP 16; TEMP 36.6; O2SAT 94
[2018-11-13 08:20] VITALS: O2SAT 95
[2018-11-13] MEDS: CITALOPRAM 10 MG TABLET PO (09:28)
[2018-11-13] MEDS: ASPIRIN EC 81 MG TABLET PO (09:28)
[2018-11-13] MEDS: CLOPIDOGREL 75 MG TABLET PO (09:28)
[2018-11-13] MEDS: METOPROLOL IR 25 MG TABLET 12.5 MG PO (09:29)
[2018-11-13] MEDS: TAMSULOSIN 0.4 MG CAPSULE PO (09:30)
[2018-11-13] MEDS: VIT C/E/ZN/COPPR/LUTEIN/ZEAXAN CAPSULE 1 CAP PO (09:30)
[2018-11-13] MEDS: SODIUM CHLORIDE 0.9% FLUSH 10 ML IV (09:31)
--- NOTE | 2018-11-13 11:12 | PC.NURSE ---
Day shift: Pt to d/c to [facility] today at 1530. Pt to remain on tele until he leaves today. Will also leave IV in place just prior to Pt leaving.
[2018-11-13 11:44] VITALS: BP 101/60; PULSE 69; RESP 18
--- NOTE | 2018-11-13 11:45 | CM.DPC ---
DCP/continued: Reviewed chart. Received notification from MD that patient okay to transfer to SNF today. First SNF choice is [facility] and they have accepted. PUBLIC ADDRESS SYSTEM OPERATOR called admit at [facility] informing them that patient will discharge today. Asked MIKA/Patricia to fax clinicals, orders, and PASRR to facility. process control supervisor scheduled for approximately 3:30pm. RN updated and patient, family aware and agreeable. P: [facility] today. DINORA Leo
[2018-11-13] MEDS: INSULIN ASPART 100 UNIT/ML INSULN PEN SUBCUT (12:04)
--- NOTE | 2018-11-13 12:23 | PC.NURSE ---
Day shift: report given to Leslie at [facility].
--- NOTE | 2018-11-13 14:22 | PT.IPTN ---
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 (11/10/18) Physical Therapy Treatment Note M2 PT-IP Current Condition Start: 11/10/18 14:46 Freq: NEEDED Status: Active Protocol: Document 11/11/18 15:57 NFW (Rec: 11/11/18 16:08 NFW [id number]) Physical Therapy Current Condition Current Condition Evaluation Date 11/11/18 M3 PT-IP Subjective Start: 11/10/18 14:46 Freq: NEEDED Status: Active Protocol: Document 11/13/18 11:25 CLB (Rec: 11/13/18 14:22 CLB [id number]) Subjective Physical Therapy Visit Type Type Treatment Note Visit Start Time 11:25 Visit Stop Time 12:05 Total Visit Minutes 30 Number of [employer] Visits 3 Physical Therapy Visit Comments Patient Comments Pt willing to work with therapy. Therapy Pain Assessment Pain Present Pain Present Denied Pain M4 PT-IP Mobility and Gait Start: 11/10/18 14:46 Freq: NEEDED Status: Active Protocol: Document 11/13/18 11:25 CLB (Rec: 11/13/18 14:22 CLB [id number]) PT-Transfer Assessment Sit to and From Stand Sit to and from Stand Minimal Assistance 1 Person Assistance Equipment Transfer Assistive Device Gait Belt Front Wheeled Walker Orthotic/Prosthetic Devices or Brace: No Transfers Transfer Destination Chair Transfer Ability Level of Assist Minimal Assistance 1 Person Assistance Comments Mobility Comments Pt performed sit<>stand x3 with good control of descent. Gait Assessment Gait Gait Assistance Required: Minimum Assistance Distance (Feet) 60 Able to Maintain Weight Bearing Status Yes During Gait Assistive Devices Assistive Device Gait Belt Front Wheeled Walker Gait Deviations General Gait Pattern Ataxic Decreased Stride Length Decreased Feet Clearance Festinating Flexed Trunk Narrow Based Gait Factors Limiting Gait Function Factors Limiting Gait Function Abnormal Tonal Influences Decreased Activity Tolerance Decreased Strength Incoordination Poor Balance Poor Safety Awareness Comments Gait Comments Pt fatigued quickly today requiring seated rest break for 4 minutes before wanting to ambulate back to room. M5 PT-IP Objective Assessments Start: 11/10/18 14:46 Freq: NEEDED Status: Active Protocol: Document 11/10/18 14:47 NFW (Rec: 11/10/18 15:27 NFW [id number]) Orientation Orientation/Cognition Level of Alertness Alert Orientation Name Date Place Situation Language Function Ability Garbled Speech Safety Awareness Decreased Safety Awareness Comments Patient pleasant offering information of home life. Answered questions appropriately. Gross Range of Motion Upper Extremity ROM Assessment Bilaterally Impaired Impairments Has a previous rotator cuff injury right. LOM R GHJ by 75 %. LOM L by 40%. Lower Extremity ROM Assessment Left Impaired Strength Lower Extremity Strength Assessment Left Impaired Comments Strength Comments L EHL and AT decreased compared to R. Grade 4/5 Coordination Assessment Assessment Coordination Comments Decrease coordination LLE compared to RLE. Muscle Tone Muscle Tone WNL Yes M6 PT-IP Treatment Start: 11/10/18 14:46 Freq: NEEDED Status: Active Protocol: Document 11/13/18 11:25 CLB (Rec: 11/13/18 14:22 CLB [id number]) Physical Therapy Treatment Other Treatments Other Treatment Performed sit-stand x4 M7 PT-IP Assessment and Plan Start: 11/10/18 14:46 Freq: NEEDED Status: Active Protocol: Document 11/13/18 11:25 CLB (Rec: 11/13/18 14:22 CLB [id number]) PT Summary Assessment and Plan Summary Assessment Summary Pt improving with sit<>stand but had increased fatigue with ambulation and was unable to ambulate as far today. Pt continues to require Min A with gait and cues for jose c and walker use. Goals Bed Mobility Goal Independent Transfer Goal Contact Guard Assistance Gait Goal Standby Assistance Front Wheel Walker Days to Meet Goals 2 Frequency of Treatment Frequency Of Treatment Twice a Day Treatment Plan Physical Therapy Treatment Plan Bed Mobility Training Transfer Training Gait Training Therapeutic Exercise Balance Retraining Neuromuscular Re-ed Coordination Retraining Recommendations To Nursing Amount of Assist Needed 1 Person Assist Discharge Recommendations PT Discharge Recommendations SNF Rehab
--- NOTE | 2018-11-13 14:39 | OT.IP.TRT ---
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 (11/10/18) Occupational Therapy Treatment Note M2 OT-IP Current Condition Start: 11/10/18 17:02 Freq: Status: Active Protocol: Document 11/10/18 17:02 [facility] (Rec: 11/10/18 17:23 [facility] [id number]) Occupational Therapy Current Condition Current Condition Evaluation Date 11/10/18 Treatment Diagnosis New onset CVA Diagnosis Onset Date 11/09/18 M3 OT- IP Subjective and Pain Start: 11/10/18 17:02 Freq: Status: Active Protocol: Document 11/13/18 14:28 [facility] (Rec: 11/13/18 14:39 [facility] [id number]) OT- Subjective Occupational Therapy Visit Type Type Treatment Note Visit Start Time 13:35 Visit Stop Time 14:22 Total Visit Minutes 47 Occupational Therapy Visit Comments Patient Comments Pt wanting to shower. OT Pain Assessment Pain When Pain Assessed At Rest Pain Present Pain Present Denied Pain M4 OT- IP ADL's Start: 11/10/18 17:02 Freq: Status: Active Protocol: Document 11/13/18 14:28 [facility] (Rec: 11/13/18 14:39 [facility] [id number]) OT ADL-Dressing General Eval Lower Body Dressing Ability Moderate Assistance Areas Needing Assistance Underpants/Brief Socks Comments OT Dressing Comments Pt able to doff socks and brief, needing assist to kaylan socks and brief initially over his hips. OT ADL-Bathing Bathing Type Bathing Type Shower General Evaluation Bathing Ability Moderate Assistance Areas Needing Assistance Wash/Dry Back Wash/Dry Lower Extremities Comments OT Bathing Comments Pt able to stand with use of grab bars to wash pericare areas and CGA for balance at times, otherwise able to sit for the rest of the shower. Pt mainly needing assist to for his feet and back. M5 OT- IP IADL's Start: 11/10/18 17:02 Freq: Status: Active Protocol: Document 11/10/18 17:02 [facility] (Rec: 11/10/18 17:23 [facility] [id number]) OT-Instrumental Activities of Daily Living Home Safety Awareness Awareness of Need for Assistance at Home Decreased Awareness Home Safety Comments Pt states that the fire house is close by if he has a fall. M6 OT- IP Functional Cognition Start: 11/10/18 17:02 Freq: Status: Active Protocol: Document 11/13/18 14:28 [facility] (Rec: 11/13/18 14:39 [facility] [id number]) Cognitive Factors Limiting Selfcare Function Cognitive Ability Level of Alertness Alert Patient Orientation Name Age Birthday Month Date Year Day of Week Place Situation Attention Span Ability Capable of Focused Attention Unable to Sustain Attention Ability to Follow Commands Able to Follow One Step Commands Safety Awareness Underestimates Need for Assistance Cognitive Comments Cognitive Assessment Comments Pt needs cues to help initiate task and continue task for shower, vc and cues to wash next body part. M7 OT- IP Mobility and Balance Start: 11/10/18 17:02 Freq: Status: Active Protocol: Document 11/13/18 14:28 [facility] (Rec: 11/13/18 14:39 [facility] [id number]) OT-Transfer Assessment Sit to and From Stand Sit to and from Stand Contact Guard Assistance Transfers Transfer Ability Contact Guard Assistance Minimal Assistance Technique Transfer Destination Bed Chair Shower Stall Devices Transfer Assistive Devices Gait Belt Front Wheeled Walker Comments Mobility Comments [place] with FWW over threshold of the shower. pt states wants to be able to use cane, educated pt on the importance of getting his strength and balance back before progressing to a cane and that skilled PT would help him during rehab as pt progresses. OT- Balance Assessment Sitting Balance and Reactions Static Sitting Balance Ability Normal Dynamic Sitting Balance Ability Good Standing Balance and Reactions Static Standing Balance Ability Fair M8 OT- IP Objective Assessments Start: 11/10/18 17:02 Freq: Status: Active Protocol: Document 11/10/18 17:02 [facility] (Rec: 11/10/18 17:23 [facility] [id number]) OT Gross Range of Motion Upper Extremity Range of Motion ROM Impairments Pt with B shld restrictions. Pt states at baseline. OT Strength Upper Extremity Strength Assessment Within Functional Limits Comments Strength Comments WFL except shlds. OT- Coordination Assessment Upper Extremity Finger to Nose Test Within Functional Limits Finger Tapping Test Within Functional Limits Comments Coordination Comments Slow but WFL for every day ADLs. OT Sensation Assessment Comments Summary Comments Pt states typical sensation. Edema Edema Absent M9 OT- IP Assessment and Plan Start: 11/10/18 17:02 Freq: Status: Active Protocol: Document 11/13/18 14:28 [facility] (Rec: 11/13/18 14:39 [facility] [id number]) OT Summary Assessment and Plan Potential Rehabilitation Potential Good Summary OT Impairments Strength Balance Coordination Functional Mobility Grooming Dressing Toileting Bathing Toilet Transfers Shower Transfers Progress Towards Goals Progressing Toward Goals Assessment Summary Pt going to skilled rehab this afternoon. Discharge Recommendations OT Discharge Recommendations SNF Rehab
--- NOTE | 2018-11-13 15:45 | DS_ITS ---
ADDENDUM This discharge is for November 13, 2018 Addendum Documented By: Bronwyn Dodson MD 12/06/18 1121 Addendum Signed By: <Electronically signed by Bronwyn Dodson MD > 12/06/18 1121 History of Present Illness Date Patient Seen: 11/13/18 Chief complaint: Confusion Narrative: Shania Mauricio is an 83-year-old male patient with a history hypertension, hyperlipidemia, diabetes, BPH, prior CVA with left hemiparesis who presents today for complaints of acute onset of weakness. The patient reports that he got up this morning sat in a chair when he became diaphoretic and felt weak and was unable to speak. He reports associated shortness of breath at rest but denies chest pain or palpitations. Does acknowledge that he had had some left chest discomfort last night that reports as related to indigestion for which he does not typically take his nitroglycerin. The patient has had prior CVA 1 year ago with resultant left leg weakness followed by recurrent episodes of neurological deficits in May of 2018 and then again last month. He has had intermittent shortness of breath and has a known history dysphagia and has had recent swallow evaluation demonstrating motility dysfunction and will cough when eating and on liquids. Patient has been using thickener at home which he does not like using and therefore consumes little liquid. He reports a poor appetite. He currently is receiving care from [facility]. Patient denies headaches or dizziness and has no visual changes. Denies cold or flu symptoms and has had no fevers how ever he will report episodic episodes of diaphoresis. Denies complaints of chest pain or palpitations and does not report dyspnea on exertion ambulates minimally using a walker. He can all edges heartburn which he takes Tums but reports no nausea or vomiting. Denies diarrhea but it currently has constipation not having a bowel movement for the last 2-3 days. Reports no difficulty urinating in the ER the patient underwent CT exam weight was negative demonstrating cerebral atrophy without hemorrhage or mass. His chest x-ray was negative and described as normal for age without evidence of aspiration pneumonia. His CBC is unremarkable as is his electrolytes. On renal function has a BUN of 43 and a creatinine of 1.4 with an EGFR of 48.6 and BUN creatinine ratio of 30.7. The patient is admitted for further evaluation and neurological and physiological monitoring. Discharge Providers Date of admission: 12/04/18 14:51 Discharge Date: 12/13/18 Primary care physician: Lex Duran MD Consults: 12/04/18 17:20 Consult to General Surgery Routine Comment: Consulting Provider: Rocio Reyes Reason for consultation: GI bleed Has provider been notified: Yes 12/05/18 16:05 Consult to Dietitian, Adult Routine Comment: Reason For Exam: H/o CVA Discharge provider: Bronwyn Dodson MD Summary Discharge Diagnosis: Bilateral CVA, Multifocal Acute Kidney Injury Hypertension Diabetes Depression Hospital Course: Patient was admitted to the hospital for evaluation of confusion. He underwent Head MRI which revealed multiple acute CVA's. Given the multiple events it was discussed with Teleneurology the need for further work up. They recommended arranging for an event monitor and WAGNER. Unfortunately, we were unable to arrange for the WAGNER but discharged the patient to follow up with Cardiology for the event monitor. The patient had improvement in his clinical symptoms and was deemed appropriate for discharge home. Status at Discharge Cognitive/behavioral status at discharge: oriented Functional status at discharge: uses cane/walker Overall status at discharge: patient is back to baseline Time Spent with Patient Less than 30 minutes Exam Vital Signs (past 8 hours): - 12/06/18 00:08 12/06/18 06:20 Temperature 97.7 F 97.9 F Pulse Rate 50 L 78 Respiratory Rate 16 16 Blood Pressure 130/68 185/95 H Pulse Oximetry 95 92 Oxygen Delivery Method Room Air Oxygen Flow Rate 0 Narrative Exam Narrative: pleasant male Lungs: clear to auscultation CV: RRR nl Sl S2 2/6 MARGRET Abd: Soft/ non tender/ non distended Ext: no edema Objective Labs Result Diagrams: 12/05/18 02:40 12/05/18 18:45 Labs: Laboratory Results - last 24 hr 12/05/18 12/05/18 14:05 18:45 Sodium 138 Potassium 4.0 Chloride 102 Carbon Dioxide 26 BUN 18 Creatinine 0.90 Estimated GFR > 60.0 BUN/Creatinine Ratio 20.0 Glucose 130 H Calcium 9.1 Magnesium 1.8 Troponin I 0.261 H* Discharge Plan Discharge Med Rec/Prescriptions Prescriptions: No Action metformin 500 mg Tablet 500 mg PO BID RF: 0 tamsulosin [Flomax] 0.4 mg Capsule 0.4 mg PO DAILY RF: 0 lisinopril 10 mg Tablet 10 mg PO BEDTIME RF: 0 clopidogrel [Plavix] 75 mg Tablet 75 mg PO DAILY RF: 0 atorvastatin 40 mg tablet 40 mg PO BEDTIME RF: 0 nitroglycerin 0.4 mg tablet, sublingual 0.4 mg Sublingual PRN PRN (Reason: Chest Pain) RF: 0 metoprolol tartrate 25 mg tablet 12.5 mg PO BID RF: 0 acetaminophen [Tylenol] 325 mg Tablet 650 mg PO Q6H PRN (Reason: Fever Or Pain) RF: 0 multivitamin Tablet 1 tab PO DAILY RF: 0 ascorbic acid (vitamin C) 500 mg Tablet 500 mg PO DAILY Qty: 0 RF: 0 PreserVision AREDS-2 [id number]-[id number]-mg Capsule 1 cap PO BID RF: 0 citalopram 10 mg tablet 10 mg PO DAILY Qty: 30 RF: 0 fluoride (sodium) 1.1 % gel 1 applic Dental QPM RF: 0 sennosides [senna] 8.6 mg Tablet 8.6 mg PO BID RF: 0 loperamide 2 mg Capsule 2 mg PO Q4H PRN (Reason: Diarrhea) RF: 0 magnesium hydroxide [Milk of Magnesia] 400 mg/5 mL Suspension 30 ml PO PRN PRN (Reason: Constipation) RF: 0 bisacodyl 10 mg Suppository 10 mg TX PRN PRN (Reason: Constipation) RF: 0 Fleet Enema 19-7 gram/118 mL Enema 1 ea TX PRN PRN (Reason: Constipation) RF: 0 nystatin 100,000 unit/gram Powder 1 applic topical BID RF: 0 Lactobacillus acidophilus [Acidophilus] Capsule 1 cap PO DAILY PRN (Reason: rebuild gut stephanie) RF: 0 simethicone 80 mg Tablet,Chewable 80 mg PO BID RF: 0 bisacodyl 5 mg Tablet 5 - 10 mg PO PRN PRN (Reason: Constipation) RF: 0 Boost 0.04 gram- 1 kcal/mL Liquid 1 ea PO PC RF: 0 pantoprazole 40 mg Tablet,Delayed Release (Dr/Ec) 40 mg PO 0700 Qty: 30 RF: 0 Follow up/Referrals: Lex Duran MD [Primary Care Provider] - Discharge Orders: Discharge (Order); Ordered 12/06/18 Ordered By: Bronwyn Dodson Discharge Data Primary Care Provider: Lex Duran Attending Provider: Genny Ram Admit Date/Time: 12/04/18 14:51 Quality VTE Deep Vein Thrombosis/Pulmonary Embolism Present on Admission: No Signed By:<Electronically signed by Bronwyn Dodson MD>12/06/18 0819
--- NOTE | 2018-11-13 20:18 | PC.NURSE ---
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 VSS. All documentation/DC packet given to [facility] transporter. All belongings given to pt and pt. assisted pt to WC.
== END 2018-11-13 15:45 | DRG 65 ==
LOC: ED 18:03 → AC 18:31
PROVIDERS: Nurse Practitioner Adult Health; Admitting Provider Internal Medicine; Emergency Provider Emergency Medicine; PCP Internal Medicine; Visit Provider Internal Medicine
DX: I63.512 Cerebral infarction due to unspecified occlusion or stenosis of left middle cerebral artery (principal); G81.94 Hemiplegia, unspecified affecting left nondominant side; R45.851 Suicidal ideations; N17.9 Acute kidney failure, unspecified; Z86.73 Personal history of transient ischemic attack (TIA), and cerebral infarction without residual deficits; F32.9 Major depressive disorder, single episode, unspecified; R47.1 Dysarthria and anarthria; I10 Essential (primary) hypertension; E78.5 Hyperlipidemia, unspecified; E11.9 Type 2 diabetes mellitus without complications; N40.0 Benign prostatic hyperplasia without lower urinary tract symptoms; Z87.891 Personal history of nicotine dependence; Z79.84 Long term (current) use of oral hypoglycemic drugs
CPT/HCPCS: 36415; 70450; 70548; 70553; 71045; 80048; 80053; 80061; 81003; 81015; 82550; 82962; 83036; 83880; 84484; 85025; 85610; 92526; 92610; 93005; 93010; 93041; 93306; 97110; 97116; 97162; 97166; 97530; 97535; 99285; G0378

== ENCOUNTER → 2018-11-16 09:29 | Outpatient (REF) | payer MEDICARE, OTHER, SELFPAY ==
[2018-11-09 18:46] VITALS: BMI 20.6
== END ==
LOC: LAB 09:29
PROVIDERS: PCP Internal Medicine; Visit Provider Hospitalist
DX: E11.9 Type 2 diabetes mellitus without complications (principal)
CPT/HCPCS: 83036

== ENCOUNTER 2018-11-28 12:39 | Inpatient (IN) | payer MEDICARE, OTHER, SELFPAY ==
[2018-11-09 18:46] VITALS: BMI 20.6
[2018-11-28] VITALS (11 sets, daily range): BP systolic 112–135; BP diastolic 48–79; PULSE 53–91; RESP 13–18; TEMP 36.5–36.9; O2SAT 93–98; BMI 25.7
--- NOTE | 2018-11-28 | DI.RAD.S_ITS ---
PROCEDURE: XR ABDOMEN 1V INDICATIONS: Abdominal pain, fecal impaction TECHNIQUE: One view of the abdomen acquired. COMPARISON: None. FINDINGS: Surgical changes and devices: None. Bowel: Bowel gas pattern is normal. Mild rectal fecal debris. Moderate right colonic fecal debris. Soft tissues: No suspicious abdominal calcifications. Visualized solid organ contours appear normal in size. Left renal artery stent. Bilateral common iliac artery stents. Bones: No suspicious bony lesions. IMPRESSION: Mild amount of fecal debris in the rectum. Normal bowel gas pattern. Dictated by: Rakesh Woodward M.D. on 11/28/2018 at 20:40 Approved by: Rakesh Woodward M.D. on 11/28/2018 at 20:41
--- NOTE | 2018-11-28 13:21 | ED_ITS ---
HPI - GI Bleed <Kenia Belcher, SPORTS INTERN-BC - Last Filed: 11/28/18 18:15> General Chief complaint: GI Bleed Stated complaint: Lower GI bleed Time Seen by Provider: 11/28/18 12:43 Source: patient and EMS Mode of arrival: EMS Limitations: no limitations History of Present Illness HPI Narrative: Patient is an 83-year-old male resident of [facility] who presents with a chief complaint of bright red blood per rectum combined with multiple black tarry stools over the past month. He was inpatient at this facility for CVA, started on Plavix and since then noted black tarry stools. He complains of generalized weakness. He states that I should stop his blood thinner and then he will feel better. He denies any fevers, nausea vomiting. he states he was up all last night with bloody stools. He denies any chest pain shortness of breath. he denies any abdominal pain. he denies any falls or trauma. he denies any abdominal pain. he states that he has had black tarry stools before, even prior to his CVAs, but they generally resolve if he stops blood thinners. Upon inquiry of records from [facility], it was found that the patient has received double dose of Plavix for several days. Related Data Home Medications Medication Instructions Recorded Confirmed clopidogrel [Plavix] 75 mg PO DAILY 05/31/18 11/28/18 lisinopril 10 mg PO BEDTIME 05/31/18 11/28/18 metformin 500 mg PO BID 05/31/18 11/28/18 tamsulosin [Flomax] 0.4 mg PO DAILY 05/31/18 11/28/18 PreserVision AREDS-2 1 cap PO BID 11/09/18 11/28/18 acetaminophen [Tylenol] 650 mg PO Q6H PRN 11/09/18 11/28/18 ascorbic acid (vitamin C) 500 mg PO DAILY #0 11/09/18 11/28/18 atorvastatin 40 mg PO BEDTIME 11/09/18 11/28/18 cholecalciferol (vitamin D3) 1,000 unit PO DAILY #0 11/09/18 11/28/18 [Vitamin D3] metoprolol tartrate 12.5 mg PO BID 11/09/18 11/28/18 multivitamin 1 tab PO DAILY 11/09/18 11/28/18 nitroglycerin 0.4 mg SUBLINGUAL PRN PRN 11/09/18 11/28/18 Lactobacillus acidophilus 1 cap PO DAILY PRN 11/28/18 11/28/18 [Acidophilus] bisacodyl 5 - 10 mg PO PRN PRN 11/28/18 11/28/18 bisacodyl 10 mg MD PRN PRN 11/28/18 11/28/18 fluoride (sodium) [PreviDent 5000 1 applic DENTAL QPM 11/28/18 11/28/18 Dry Mouth] food supplemt, lactose-reduced 1 ea PO PC 11/28/18 11/28/18 [Boost] loperamide 2 mg PO Q4H PRN 11/28/18 11/28/18 magnesium hydroxide [Milk of 30 ml PO PRN PRN 11/28/18 11/28/18 Magnesia] nystatin 1 applic TOPICAL BID 11/28/18 11/28/18 omeprazole 20 mg PO DAILY 11/28/18 11/28/18 sennosides [senna] 8.6 mg PO BID 11/28/18 11/28/18 simethicone 80 mg PO BID 11/28/18 11/28/18 sodium phosphates [Fleet Enema] 1 ea MD PRN PRN 11/28/18 11/28/18 Previous Rx's Medication Instructions Recorded aspirin 81 mg PO DAILY #30 tab 11/11/18 citalopram 10 mg PO DAILY #30 tab 11/11/18 Allergies Allergy/AdvReac Type Severity Reaction Status Date / Time No Known Drug Allergies Allergy Verified 11/09/18 20:53 Review of Systems <CHIDI Ernst - Last Filed: 11/28/18 18:15> Review of Systems GENERAL: See HPI HEENT: Denies sinus pain, ear pain, sore throat, difficulty swallowing, dizziness. RESPIRATORY: Denies dyspnea, cough, wheezing, hemoptysis, sputum. CARDIOVASCULAR: Denies chest pain, palpitations, orthopnea, edema, GASTROINTESTINAL: See HPI : Denies dysuria, frequency, incontinence, hematuria, urinary retention. MUSCULOSKELETAL: denies weakness, joint pain, or bony pain SKIN: Denies rash, skin lesions, or other NEUROLOGIC: Denies weakness, headache, numbness, change in speech, confusion, seizures, incoordination. PSYCHIATRIC: No concerning psychosocial issues. 12 point review of systems is negative except for those stated above PFSH <Kenia Belcher NEYMAR-SEPIDEH - Last Filed: 11/28/18 18:15> Medical History Diabetes (Acute) Hyperlipidemia (Acute) Oral cancer (Acute) Presence of stent in coronary artery in patient with coronary artery disease (Acute) Prostate cancer (Acute) CVA (cerebral vascular accident) (Chronic) Dyslipidemia (Chronic) Hypertension (Chronic) Social History household members: spouse Smoking Status: Never smoker alcohol intake: former Exam <Kenia BelcherCHIDI - Last Filed: 11/28/18 18:15> Narrative Exam Narrative: GENERAL: Chronically ill elderly male lying on stretcher HEAD: Atraumatic. Normocephalic. No temporal or scalp tenderness. EYES: Pupils equal round and reactive. Extraocular motions intact. No scleral icterus. No injection or drainage. ENT: Nose without bleeding, purulent drainage or septal hematoma. Throat without erythema, tonsillar hypertrophy or exudate. Uvula midline. Airway patent. NECK: Trachea midline. No JVD or lymphadenopathy. Supple, nontender, no meningeal signs. CARDIOVASCULAR: Regular rate and rhythm RESPIRATORY: Clear to auscultation. Breath sounds equal bilaterally. No wheezes, rales, or rhonchi. No cough. No increased respiratory effort. GASTROINTESTINAL: Abdomen soft, non-tender, nondistended. No hepato- splenomegaly, or palpable masses. No guarding. active bowel sounds all 4 quadrants EXTREMITIES: No clubbing, cyanosis, or edema. No joint tenderness, effusion, or edema noted. BACK: Nontender without deformity or crepitance. No flank tenderness. NEURO: AOx3. SKIN: No rash or erythema. Rectal exam performed with Yumiko COLMENARES as principal accounts clerk. Bloody stool per rectum. Heme occult positive. Initial Vital Signs Initial Vital Signs: Vital Signs Temperature 97.7 F 11/28/18 12:38 Pulse Rate 57 L 11/28/18 12:38 Respiratory Rate 18 11/28/18 12:38 Blood Pressure 129/65 11/28/18 12:38 Pulse Oximetry 94 11/28/18 12:38 <Sukhdev Gamble DO - Last Filed: 11/29/18 08:47> Initial Vital Signs Initial Vital Signs: Vital Signs Temperature 97.7 F 11/28/18 12:38 Pulse Rate 57 L 11/28/18 12:38 Respiratory Rate 18 11/28/18 12:38 Blood Pressure 129/65 11/28/18 12:38 Pulse Oximetry 94 11/28/18 12:38 Procedures <CHIDI Ernst - Last Filed: 11/28/18 18:15> Stool Hemoccult Procedural Steps Taken: stool placed in appropriate test area, developer placed on stool and control areas and controls appropriately positive and negative Hemoccult result: positive Course <CHIDI Ernst - Last Filed: 11/28/18 18:15> Orders Ordered: ED Orders 11/29/18 00:35 GI Panel (Film Array) Urgent 11/29/18 05:26 Basic Metabolic Panel Routine Complete Blood Count AUTO DIFF Routine Magnesium Routine Acetaminophen (Tylenol) 650 mg PO Q6HR PRN PRN Reason: As Needed for Fever/Mild Pain Atorvastatin Calcium (Lipitor) 40 mg PO BEDTIME [facility] Last Admin: 11/28/18 21:13 Dose: 40 mg Citalopram Hydrobromide (Celexa) 10 mg PO DAILY [facility] Dextrose (D50w) 25 gm IV PRN PRN; Protocol PRN Reason: Hypoglycemia Sodium Chloride (Normal Saline 0.9%) 1,000 mls @ 100 mls/hr IV CONT [facility] Last Admin: 11/29/18 00:40 Dose: 100 mls/hr Infusion: 11/29/18 00:40 Dose: 100 mls/hr Admin: 11/28/18 20:52 Dose: 100 mls/hr Insulin Aspart (Novolog Flexpen) 0 unit SUBCUT ACHS [facility]; Protocol Last Admin: 11/28/18 22:30 Dose: Not Given Lisinopril (Zestril) 10 mg PO BEDTIME [facility] Last Admin: 11/28/18 21:10 Dose: 10 mg Lutein (Ocuvite/Lutein) 1 cap PO BID [facility] Last Admin: 11/28/18 21:13 Dose: Not Given Metoprolol Tartrate (Lopressor) 12.5 mg PO BID [facility] Last Admin: 11/28/18 21:11 Dose: 12.5 mg Nitroglycerin (Nitrostat) 0.4 mg SL PRN PRN PRN Reason: Chest Pain Pantoprazole Sodium (Protonix) 40 mg IV DAILY [facility] Tamsulosin HCl (Flomax) 0.4 mg PO DAILY [facility] Discontinued Medications Sodium Chloride (Normal Saline 0.9%) 1,000 mls @ 150 mls/hr IV CONT [facility] Last Admin: 11/28/18 16:20 Dose: Not Given Sodium Chloride (Normal Saline 0.9%) 1,000 mls @ 125 mls/hr IV CONT [facility] Last Admin: 11/28/18 16:20 Dose: 125 mls/hr Non-Formulary Medication (Fluoride (Sodium)) 1 applictn Dental QPM [facility] Nystatin (Nystop) 1 applic TOP BID [facility] Last Admin: 11/28/18 21:12 Dose: 1 applic Pantoprazole Sodium (Protonix) 40 mg IV NOW ONE Stop: 11/28/18 16:06 Last Admin: 11/28/18 16:20 Dose: 40 mg Pantoprazole Sodium (Protonix) 20 mg PO 0600 [facility] Consultations Consultation #1: Spoke with Dr. Flanagan who states that the patient needs to be admitted on the medical service. Time: 14:10 Consultation #2: Dr. Yo gillette Consultation #3: I spoke with Dr. lara, who kindly accepted the patient for admission at 16:45 Patient is were updated. Agree with plan of care. Vital Signs - 8 hr 11/29/18 04:41 11/29/18 07:46 Temperature 97.4 F L 98.4 F Pulse Rate 71 73 Respiratory Rate 16 17 Blood Pressure 138/83 141/75 H Pulse Oximetry 95 98 <Sukhdev Gamble, DO - Last Filed: 11/29/18 08:47> Orders Ordered: ED Orders 11/29/18 00:35 GI Panel (Film Array) Urgent 11/29/18 05:26 Basic Metabolic Panel Routine Complete Blood Count AUTO DIFF Routine Magnesium Routine Acetaminophen (Tylenol) 650 mg PO Q6HR PRN PRN Reason: As Needed for Fever/Mild Pain Atorvastatin Calcium (Lipitor) 40 mg PO BEDTIME [facility] Last Admin: 11/28/18 21:13 Dose: 40 mg Citalopram Hydrobromide (Celexa) 10 mg PO DAILY [facility] Dextrose (D50w) 25 gm IV PRN PRN; Protocol PRN Reason: Hypoglycemia Sodium Chloride (Normal Saline 0.9%) 1,000 mls @ 100 mls/hr IV CONT [facility] Last Admin: 11/29/18 00:40 Dose: 100 mls/hr Infusion: 11/29/18 00:40 Dose: 100 mls/hr Admin: 11/28/18 20:52 Dose: 100 mls/hr Insulin Aspart (Novolog Flexpen) 0 unit SUBCUT ACHS [facility]; Protocol Last Admin: 11/28/18 22:30 Dose: Not Given Lisinopril (Zestril) 10 mg PO BEDTIME [facility] Last Admin: 11/28/18 21:10 Dose: 10 mg Lutein (Ocuvite/Lutein) 1 cap PO BID [facility] Last Admin: 11/28/18 21:13 Dose: Not Given Metoprolol Tartrate (Lopressor) 12.5 mg PO BID [facility] Last Admin: 11/28/18 21:11 Dose: 12.5 mg Nitroglycerin (Nitrostat) 0.4 mg SL PRN PRN PRN Reason: Chest Pain Pantoprazole Sodium (Protonix) 40 mg IV DAILY [facility] Tamsulosin HCl (Flomax) 0.4 mg PO DAILY [facility] Discontinued Medications Sodium Chloride (Normal Saline 0.9%) 1,000 mls @ 150 mls/hr IV CONT [facility] Last Admin: 11/28/18 16:20 Dose: Not Given Sodium Chloride (Normal Saline 0.9%) 1,000 mls @ 125 mls/hr IV CONT [facility] Last Admin: 11/28/18 16:20 Dose: 125 mls/hr Non-Formulary Medication (Fluoride (Sodium)) 1 applictn Dental QPM [facility] Nystatin (Nystop) 1 applic TOP BID [facility] Last Admin: 11/28/18 21:12 Dose: 1 applic Pantoprazole Sodium (Protonix) 40 mg IV NOW ONE Stop: 11/28/18 16:06 Last Admin: 11/28/18 16:20 Dose: 40 mg Pantoprazole Sodium (Protonix) 20 mg PO 0600 [facility] Vital Signs - 8 hr 11/29/18 04:41 11/29/18 07:46 Temperature 97.4 F L 98.4 F Pulse Rate 71 73 Respiratory Rate 16 17 Blood Pressure 138/83 141/75 H Pulse Oximetry 95 98 MDM - GI Bleed <Kenia Belcher, SPORTS INTERN-BC - Last Filed: 11/28/18 18:15> Lab Data Result diagrams: 11/29/18 05:26 11/29/18 05:26 Lab Results 11/28/18 11/28/18 11/28/18 Range/Units 12:55 12:55 12:55 WBC 10.1 (4.5-11.0) X10^3/uL RBC 3.96 L (4.5-5.9) X10^6/uL Hgb 11.1 L (13.5-17.5) g/dL Hct 33.8 L (41-53) % MCV 85.5 (80-100) fL MCH 28.1 (26-34) PG MCHC 32.8 (30-36) % RDW 13.7 (11.6-14.8) % Plt Count 288 (150-400) X10^3/uL Neut % (Auto) 71.6 (50-75) % Lymph % (Auto) 17.1 L (25-40) % [place] % (Auto) 7.9 (3-14) % Eos % (Auto) 2.5 (2-4) % Baso % (Auto) 0.9 (0-2) % Neut # (Auto) 7200 H (9219-6118) /uL Lymph # (Auto) 1700 (1992-5188) /uL [place] # (Auto) 800 (0-900) /uL Eos # (Auto) 300 (0-450) /uL Baso # (Auto) 100 (0-100) /uL PT 11.8 (10.1-12.7) SECONDS INR 1.0 (0.9-1.3) APTT 24 L (26.4-36.2) SECONDS Sodium 139 (137-145) mmol/L Potassium 4.9 (3.4-5.1) mmol/L Chloride 101 (98-107) mmol/L Carbon Dioxide 28 (22-32) mmol/L BUN 43 H (9-20) mg/dL Creatinine 1.10 (0.66-1.25) mg/dL Estimated GFR > 60.0 (>60) mL/min BUN/Creatinine Ratio 39.1 H (6-22) Glucose 107 (80-110) mg/dL Calcium 9.6 (8.4-10.2) mg/dL Magnesium (1.6-2.3) mg/dL Total Bilirubin 0.7 (0.2-1.3) mg/dL AST 48 (17-59) IU/L ALT 33 (21-72) IU/L Alkaline Phosphatase 156 H (38-126) U/L Total Protein 7.7 (6.3-8.2) g/dL Albumin 4.1 (3.5-5.0) g/dL Globulin 3.6 (1.7-4.1) g/dL Albumin/Globulin Ratio 1.1 (1.0-2.8) Blood Type Antibody Screen 11/28/18 11/28/18 11/29/18 Range/Units 12:55 22:00 05:26 WBC (4.5-11.0) X10^3/uL RBC (4.5-5.9) X10^6/uL Hgb 10.5 L (13.5-17.5) g/dL Hct 32.1 L (41-53) % MCV (80-100) fL MCH (26-34) PG MCHC (30-36) % RDW (11.6-14.8) % Plt Count (150-400) X10^3/uL Neut % (Auto) (50-75) % Lymph % (Auto) (25-40) % [place] % (Auto) (3-14) % Eos % (Auto) (2-4) % Baso % (Auto) (0-2) % Neut # (Auto) (9074-4316) /uL Lymph # (Auto) (1049-9488) /uL [place] # (Auto) (0-900) /uL Eos # (Auto) (0-450) /uL Baso # (Auto) (0-100) /uL PT (10.1-12.7) SECONDS INR (0.9-1.3) APTT (26.4-36.2) SECONDS Sodium 138 (137-145) mmol/L Potassium 4.7 (3.4-5.1) mmol/L Chloride 105 (98-107) mmol/L Carbon Dioxide 25 (22-32) mmol/L BUN 36 H (9-20) mg/dL Creatinine 1.00 (0.66-1.25) mg/dL Estimated GFR > 60.0 (>60) mL/min BUN/Creatinine Ratio 36.0 H (6-22) Glucose 87 (80-110) mg/dL Calcium 9.1 (8.4-10.2) mg/dL Magnesium (1.6-2.3) mg/dL Total Bilirubin (0.2-1.3) mg/dL AST (17-59) IU/L ALT (21-72) IU/L Alkaline Phosphatase (38-126) U/L Total Protein (6.3-8.2) g/dL Albumin (3.5-5.0) g/dL Globulin (1.7-4.1) g/dL Albumin/Globulin Ratio (1.0-2.8) Blood Type A Positive Antibody Screen Negative 11/29/18 11/29/18 Range/Units 05:26 05:26 WBC 9.2 (4.5-11.0) X10^3/uL RBC 3.68 L (4.5-5.9) X10^6/uL Hgb 10.4 L (13.5-17.5) g/dL Hct 31.9 L (41-53) % MCV 86.7 (80-100) fL MCH 28.3 (26-34) PG MCHC 32.7 (30-36) % RDW 13.5 (11.6-14.8) % Plt Count 279 (150-400) X10^3/uL Neut % (Auto) 73.4 (50-75) % Lymph % (Auto) 14.3 L (25-40) % [place] % (Auto) 8.5 (3-14) % Eos % (Auto) 3.1 (2-4) % Baso % (Auto) 0.7 (0-2) % Neut # (Auto) 6700 (2662-2481) /uL Lymph # (Auto) 1300 (3845-5426) /uL [place] # (Auto) 800 (0-900) /uL Eos # (Auto) 300 (0-450) /uL Baso # (Auto) 100 (0-100) /uL PT (10.1-12.7) SECONDS INR (0.9-1.3) APTT (26.4-36.2) SECONDS Sodium (137-145) mmol/L Potassium (3.4-5.1) mmol/L Chloride (98-107) mmol/L Carbon Dioxide (22-32) mmol/L BUN (9-20) mg/dL Creatinine (0.66-1.25) mg/dL Estimated GFR (>60) mL/min BUN/Creatinine Ratio (6-22) Glucose (80-110) mg/dL Calcium (8.4-10.2) mg/dL Magnesium 1.8 (1.6-2.3) mg/dL Total Bilirubin (0.2-1.3) mg/dL AST (17-59) IU/L ALT (21-72) IU/L Alkaline Phosphatase (38-126) U/L Total Protein (6.3-8.2) g/dL Albumin (3.5-5.0) g/dL Globulin (1.7-4.1) g/dL Albumin/Globulin Ratio (1.0-2.8) Blood Type Antibody Screen Point of Care Testing Glucose POC 93 MDM Narrative Medical decision making narrative: The patient is an 83-year-old male who presents with GI bleed. He is Hemoccult positive. his hemoglobin and hematocrit are slowly downtrending since his previous admission here. The patient was given PPI. Given that the patient is having a GI bleed, is on Plavix the patient was accepted for admission by Dr. lara. Patient is were in accordance a plan of care. He remained hemodynamically stable throughout his stay in the emergency department. <Sukhdev Gamble DO - Last Filed: 11/29/18 08:47> Lab Data Lab Results 11/28/18 11/28/18 11/28/18 Range/Units 12:55 12:55 12:55 WBC 10.1 (4.5-11.0) X10^3/uL RBC 3.96 L (4.5-5.9) X10^6/uL Hgb 11.1 L (13.5-17.5) g/dL Hct 33.8 L (41-53) % MCV 85.5 (80-100) fL MCH 28.1 (26-34) PG MCHC 32.8 (30-36) % RDW 13.7 (11.6-14.8) % Plt Count 288 (150-400) X10^3/uL Neut % (Auto) 71.6 (50-75) % Lymph % (Auto) 17.1 L (25-40) % [place] % (Auto) 7.9 (3-14) % Eos % (Auto) 2.5 (2-4) % Baso % (Auto) 0.9 (0-2) % Neut # (Auto) 7200 H (1233-3444) /uL Lymph # (Auto) 1700 (5080-3078) /uL [place] # (Auto) 800 (0-900) /uL Eos # (Auto) 300 (0-450) /uL Baso # (Auto) 100 (0-100) /uL PT 11.8 (10.1-12.7) SECONDS INR 1.0 (0.9-1.3) APTT 24 L (26.4-36.2) SECONDS Sodium 139 (137-145) mmol/L Potassium 4.9 (3.4-5.1) mmol/L Chloride 101 (98-107) mmol/L Carbon Dioxide 28 (22-32) mmol/L BUN 43 H (9-20) mg/dL Creatinine 1.10 (0.66-1.25) mg/dL Estimated GFR > 60.0 (>60) mL/min BUN/Creatinine Ratio 39.1 H (6-22) Glucose 107 (80-110) mg/dL Calcium 9.6 (8.4-10.2) mg/dL Magnesium (1.6-2.3) mg/dL Total Bilirubin 0.7 (0.2-1.3) mg/dL AST 48 (17-59) IU/L ALT 33 (21-72) IU/L Alkaline Phosphatase 156 H (38-126) U/L Total Protein 7.7 (6.3-8.2) g/dL Albumin 4.1 (3.5-5.0) g/dL Globulin 3.6 (1.7-4.1) g/dL Albumin/Globulin Ratio 1.1 (1.0-2.8) Blood Type Antibody Screen 11/28/18 11/28/18 11/29/18 Range/Units 12:55 22:00 05:26 WBC (4.5-11.0) X10^3/uL RBC (4.5-5.9) X10^6/uL Hgb 10.5 L (13.5-17.5) g/dL Hct 32.1 L (41-53) % MCV (80-100) fL MCH (26-34) PG MCHC (30-36) % RDW (11.6-14.8) % Plt Count (150-400) X10^3/uL Neut % (Auto) (50-75) % Lymph % (Auto) (25-40) % [place] % (Auto) (3-14) % Eos % (Auto) (2-4) % Baso % (Auto) (0-2) % Neut # (Auto) (9639-6575) /uL Lymph # (Auto) (0791-5161) /uL [place] # (Auto) (0-900) /uL Eos # (Auto) (0-450) /uL Baso # (Auto) (0-100) /uL PT (10.1-12.7) SECONDS INR (0.9-1.3) APTT (26.4-36.2) SECONDS Sodium 138 (137-145) mmol/L Potassium 4.7 (3.4-5.1) mmol/L Chloride 105 (98-107) mmol/L Carbon Dioxide 25 (22-32) mmol/L BUN 36 H (9-20) mg/dL Creatinine 1.00 (0.66-1.25) mg/dL Estimated GFR > 60.0 (>60) mL/min BUN/Creatinine Ratio 36.0 H (6-22) Glucose 87 (80-110) mg/dL Calcium 9.1 (8.4-10.2) mg/dL Magnesium (1.6-2.3) mg/dL Total Bilirubin (0.2-1.3) mg/dL AST (17-59) IU/L ALT (21-72) IU/L Alkaline Phosphatase (38-126) U/L Total Protein (6.3-8.2) g/dL Albumin (3.5-5.0) g/dL Globulin (1.7-4.1) g/dL Albumin/Globulin Ratio (1.0-2.8) Blood Type A Positive Antibody Screen Negative 11/29/18 11/29/18 Range/Units 05:26 05:26 WBC 9.2 (4.5-11.0) X10^3/uL RBC 3.68 L (4.5-5.9) X10^6/uL Hgb 10.4 L (13.5-17.5) g/dL Hct 31.9 L (41-53) % MCV 86.7 (80-100) fL MCH 28.3 (26-34) PG MCHC 32.7 (30-36) % RDW 13.5 (11.6-14.8) % Plt Count 279 (150-400) X10^3/uL Neut % (Auto) 73.4 (50-75) % Lymph % (Auto) 14.3 L (25-40) % [place] % (Auto) 8.5 (3-14) % Eos % (Auto) 3.1 (2-4) % Baso % (Auto) 0.7 (0-2) % Neut # (Auto) 6700 (5094-0401) /uL Lymph # (Auto) 1300 (0060-0277) /uL [place] # (Auto) 800 (0-900) /uL Eos # (Auto) 300 (0-450) /uL Baso # (Auto) 100 (0-100) /uL PT (10.1-12.7) SECONDS INR (0.9-1.3) APTT (26.4-36.2) SECONDS Sodium (137-145) mmol/L Potassium (3.4-5.1) mmol/L Chloride (98-107) mmol/L Carbon Dioxide (22-32) mmol/L BUN (9-20) mg/dL Creatinine (0.66-1.25) mg/dL Estimated GFR (>60) mL/min BUN/Creatinine Ratio (6-22) Glucose (80-110) mg/dL Calcium (8.4-10.2) mg/dL Magnesium 1.8 (1.6-2.3) mg/dL Total Bilirubin (0.2-1.3) mg/dL AST (17-59) IU/L ALT (21-72) IU/L Alkaline Phosphatase (38-126) U/L Total Protein (6.3-8.2) g/dL Albumin (3.5-5.0) g/dL Globulin (1.7-4.1) g/dL Albumin/Globulin Ratio (1.0-2.8) Blood Type Antibody Screen Point of Care Testing Glucose POC 93 Discharge Plan Departure Patient Disposition: Admitted as Observation Clinical Impression: Acute GI bleeding Discharge Date/Time: 11/28/18 17:50 Interventions: ED Discharge Assessment Last Done: 11/28/18 17:47 Admit Date/Time: 11/28/18 16:11 Admit Provider: Genny Lara <Sukhdev Gamble DO - Last Filed: 11/29/18 08:47> Cosign ED Attending Yani Attestation: I was immediately available in the department for consultation. Documentation has been reviewed. I agree with assessment and plan.
[2018-11-28 13:25] LABS: Add Manual Diff / Slide Review NO; Basophils Absolute Auto 100 /uL (0-100); Basophils Percent Auto 0.9 % (0-2); Eosinophils Absolute Auto 300 /uL (0-450); Eosinophils Percent Auto 2.5 % (2-4); Hematocrit 33.8 % (41-53); Hemoglobin 11.1 g/dL (13.5-17.5); Lymphocytes Absolute Auto 1700 /uL (1100-4500); Lymphocytes Percent Auto 17.1 % (25-40); Mean Corpuscular HGB Conc 32.8 % (30-36); Mean Corpuscular Hemoglobin 28.1 PG (26-34); Mean Corpuscular Volume 85.5 fL (80-100); Monocytes Absolute Auto 800 /uL (0-900); Monocytes Percent Auto 7.9 % (3-14); Neutrophils Absolute Auto 7200 /uL (1500-7000); Neutrophils Percent Auto 71.6 % (50-75); Platelet Count 288 X10^3/uL (150-400); Red Blood Cell Count 3.96 X10^6/uL (4.5-5.9); Red Cell Distribution Width 13.7 % (11.6-14.8); White Blood Cell Count 10.1 X10^3/uL (4.5-11.0)
[2018-11-28 13:26] LABS: Prothrombin Time 11.8 SECONDS (10.1-12.7)
[2018-11-28 13:29] LABS: PTT Partial Thromboplastin Tim 24 SECONDS (26.4-36.2)
[2018-11-28 13:30] LABS: Alanine Aminotransferase 33 IU/L (21-72); Albumin 4.1 g/dL (3.5-5.0); Albumin Globulin Ratio 1.1 (1.0-2.8); Alkaline Phosphatase 156 U/L (38-126); Aspartate Aminotransferase 48 IU/L (17-59); BUN Creatinine Ratio 39.1 (6-22); Bilirubin Total 0.7 mg/dL (0.2-1.3); Blood Urea Nitrogen 43 mg/dL (9-20); Calcium 9.6 mg/dL (8.4-10.2); Carbon Dioxide 28 mmol/L (22-32); Chloride 101 mmol/L (98-107); Estimated Glomerular Filt Rate > 60.0 mL/min (>60); Globulin 3.6 g/dL (1.7-4.1); Glucose 107 mg/dL (80-110); HEMOLYSIS < 15 (0-50); Potassium 4.9 mmol/L (3.4-5.1); Sodium 139 mmol/L (137-145); Total Protein 7.7 g/dL (6.3-8.2)
[2018-11-28] MEDS: PANTOPRAZOLE 40 MG VIAL IV (16:20)
[2018-11-28] MEDS: SODIUM CHLORIDE 0.9% 1,000 ML 125 ML IV (16:20)
--- NOTE | 2018-11-28 17:28 | PC.NURSE ---
Report given to Rn at [facility].
--- NOTE | 2018-11-28 17:36 | PC.NURSE ---
Urinalysis not completed at this time as patient is incontinent and has not provided a urine specimen. Per Ye COLMENARES, no in and out catheter is to be done due to bleeding from plavix and the non necessary nature of the urinalysis vs risk of infection. If patient is able to provide urine specimen at a later time it can be sent to lab for testing.
[2018-11-28] MEDS: SODIUM CHLORIDE 0.9% 1,000 ML 100 ML IV (20:52)
[2018-11-28] MEDS: LISINOPRIL 10 MG TABLET PO (21:10)
[2018-11-28] MEDS: METOPROLOL IR 25 MG TABLET 12.5 MG PO (21:11)
--- NOTE | 2018-11-28 21:11 | PM.HP.1 ---
History of Present Illness Date Patient Seen: 11/28/18 Time Patient Seen: 19:00 Chief complaint: Lower GI bleed Narrative: Shania Mauricio is an 83-year-old male patient with a history hypertension, hyperlipidemia, diabetes, BPH, prior CVA with left hemiparesis who presents today for complaints of acute onset of bright red blood per rectum. The patient was recently discharged from [facility] to [facility] post CVA now involving both temporal lobes and cerebellum. The patient had been on aspirin and Plavix at the facility and there is a question or the patient inadvertently received double doses of Plavix. The patient further reports melena stool while taking aspirin and Plavix prior to his recent admission that has continued since. The patient reports having frequent loose stool that today contained red blood. He has also experienced increasing weakness since being at [facility]. At time of discharge he was able to walk a very short distance with a walker and now is unable to ambulate. He has a history of oral surgery which is impaired his swallowing and has been intolerant of dysphagia diet and opts not to drink water due to the thickening agent. He denies recent fevers or chills, headaches or dizziness. Does report soreness on the left side of his mouth but no change in his chewing or swallowing. Denies chest pain or palpitations, shortness of breath and has a chronic cough related to upper airway phlegm. He denies abdominal pain, nausea vomiting and has had frequent diarrhea as above. He is nonambulatory at this time. In the ER the patient is found to be afebrile with temperature 97.7?, heart rate of 57, blood pressure of 129/65, respiratory rate of 18 with a room air saturation 94%. He has a normal white count and his H&H is 11.1 and 33.8 with adequate platelets of 288. His INR is normal and he has a low APTT at 24. His electrolytes are within normal range and his renal function is consistent with dehydration with a BUN of 43 and creatinine 1.1 with a BUN creatinine ratio of 39.1:1. Dr. Pandya was called by the ER provider and he referred the patient to the medicine service. Patient History Medical History Diabetes (Acute) Hyperlipidemia (Acute) Oral cancer (Acute) Presence of stent in coronary artery in patient with coronary artery disease (Acute) Prostate cancer (Acute) CVA (cerebral vascular accident) (Chronic) Dyslipidemia (Chronic) Hypertension (Chronic) Family & Social History Social History: household members spouse Safety & Behavioral: Feels Safe in Current Yes Environment Been Physically Hurt or No Threatened By a Person Suicidal Ideation Description None Suicide Plan Description No Plan Tobacco & Substance use: Smoking Status Never smoker alcohol intake former alcohol intake frequency 0-2 drinks per day Substance Use Type does not use Comment: Comment: The patient has been for 25 years and is presently residing at [facility] for rehabilitation. The patient has been 2 times previously. His parents are both both the passing away from myocardial infarction. He has 2 daughters who are in good health. Smoking: Patient smoked 1-2 packs per day for 50 years and quit 15 years ago Alcohol: Patient had been a daily drinker and quit 1 year ago. Substance use: Patient denies recreation pharmaceuticals herbal or cannabis products Advanced directive patient states he has to be DO NOT RESUSCITATE. He designates his to be surrogate decision maker. [facility] Home Medications Medication Instructions Recorded Confirmed Type clopidogrel [Plavix] 75 mg PO DAILY 05/31/18 11/28/18 History lisinopril 10 mg PO BEDTIME 05/31/18 11/28/18 History metformin 500 mg PO BID 05/31/18 11/28/18 History tamsulosin [Flomax] 0.4 mg PO DAILY 05/31/18 11/28/18 History PreserVision AREDS-2 1 cap PO BID 11/09/18 11/28/18 History acetaminophen [Tylenol] 650 mg PO Q6H PRN 11/09/18 11/28/18 History ascorbic acid (vitamin C) 500 mg PO DAILY #0 11/09/18 11/28/18 History atorvastatin 40 mg PO BEDTIME 11/09/18 11/28/18 History cholecalciferol (vitamin D3) 1,000 unit PO DAILY #0 11/09/18 11/28/18 History [Vitamin D3] metoprolol tartrate 12.5 mg PO BID 11/09/18 11/28/18 History multivitamin 1 tab PO DAILY 11/09/18 11/28/18 History nitroglycerin 0.4 mg SUBLINGUAL PRN PRN 11/09/18 11/28/18 History aspirin 81 mg PO DAILY #30 tab 11/11/18 11/28/18 Rx citalopram 10 mg PO DAILY #30 tab 11/11/18 11/28/18 Rx Lactobacillus acidophilus 1 cap PO DAILY PRN 11/28/18 11/28/18 History [Acidophilus] bisacodyl 5 - 10 mg PO PRN PRN 11/28/18 11/28/18 History bisacodyl 10 mg TX PRN PRN 11/28/18 11/28/18 History fluoride (sodium) [PreviDent 5000 1 applic DENTAL QPM 11/28/18 11/28/18 History Dry Mouth] food supplemt, lactose-reduced 1 ea PO PC 11/28/18 11/28/18 History [Boost] loperamide 2 mg PO Q4H PRN 11/28/18 11/28/18 History magnesium hydroxide [Milk of 30 ml PO PRN PRN 11/28/18 11/28/18 History Magnesia] nystatin 1 applic TOPICAL BID 11/28/18 11/28/18 History omeprazole 20 mg PO DAILY 11/28/18 11/28/18 History sennosides [senna] 8.6 mg PO BID 11/28/18 11/28/18 History simethicone 80 mg PO BID 11/28/18 11/28/18 History sodium phosphates [Fleet Enema] 1 ea TX PRN PRN 11/28/18 11/28/18 History Allergies Allergy/AdvReac Type Severity Reaction Status Date / Time No Known Drug Allergies Allergy Verified 11/09/18 20:53 Review of Systems Review of Systems All systems reviewed & are unremarkable except as noted in HPI and below Exam Vital Signs (past 8 hours): - 11/28/18 14:00 11/28/18 15:01 11/28/18 16:00 Temperature Pulse Rate 73 73 85 Respiratory Rate 16 13 16 Blood Pressure Blood Pressure [Left Arm] 112/61 125/48 L 124/60 Blood Pressure [Right Arm] Pulse Oximetry 98 93 11/28/18 17:08 11/28/18 17:30 11/28/18 18:10 Temperature 98.4 F Pulse Rate 91 H 82 87 Respiratory Rate 16 14 18 Blood Pressure 135/68 Blood Pressure [Left Arm] 120/54 L Blood Pressure [Right Arm] 126/56 L Pulse Oximetry 98 95 96 Oxygen Delivery Method Room Air Oxygen Flow Rate 0 Narrative Exam Narrative: GENERAL APPEARANCE: well developed, well nourished, in no acute distress. HEAD: Normocephalic, atraumatic, no scalp lesions. EYES: pupils equal, round, reactive to light and accommodation, sclera non-icteric, extraocular movement intact without nystagmus . EARS: normal external structures, no ear pain NOSE: sinuses non tender to percussion, no rhinorrhea ORAL CAVITY: mucosa dry without lesions or exudate, stomatitis base left tongue, tongue in midline. THROAT: Mild dysarthria (residual from prior stroke), no erythema, no exudate NECK/THYROID: Well-healed low left anterior surgical scar, neck supple, no jugular venous distention, no carotid bruit, no thyromegaly, trachea midline. LYMPH NODES: no cervical or supraclavicular lymphadenopathy. SKIN: warm and dry, no suspicious lesions, no rashes HEART: regular rate and rhythm, S1-S2, 1/6 systolic murmur, no rubs or gallops, brisk capillary refill, no edema LUNGS: clear to auscultation bilaterally, no coarseness crackles or wheezing, no cough present CHEST: Symmetrical movement, no accessory muscle use, no retractions ABDOMEN: Well-healed low midline abdominal surgical scar, soft, no distention, mild epigastric tenderness and left side abdominal tenderness on palpation, no guarding or peritoneal signs, no flank or suprapubic tenderness BACK: Normal curvature, nontender to palpation EXTREMITIES: moves all extremities, left leg weaker than right, strength is 4-5/5, well perfused. NEUROLOGIC: AAO x4, slight left facial droop (reported as residual affective prior CVA), no ptosis, motor strength is 5/5 bilateral upper extremities, tree and shrub technician equal, sensory exam intact to light touch PSYCH: alert, cognitive function intact, good eye contact, stable mood with congruent affect Objective Labs Result Diagrams: 11/28/18 12:55 11/28/18 12:55 Labs: Laboratory Results - last 24 hr 11/28/18 11/28/18 11/28/18 12:55 12:55 12:55 WBC 10.1 RBC 3.96 L Hgb 11.1 L Hct 33.8 L MCV 85.5 MCH 28.1 MCHC 32.8 RDW 13.7 Plt Count 288 Neut % (Auto) 71.6 Lymph % (Auto) 17.1 L [place] % (Auto) 7.9 Eos % (Auto) 2.5 Baso % (Auto) 0.9 Neut # (Auto) 7200 H Lymph # (Auto) 1700 [place] # (Auto) 800 Eos # (Auto) 300 Baso # (Auto) 100 PT 11.8 INR 1.0 APTT 24 L Sodium 139 Potassium 4.9 Chloride 101 Carbon Dioxide 28 BUN 43 H Creatinine 1.10 Estimated GFR > 60.0 BUN/Creatinine Ratio 39.1 H Glucose 107 Calcium 9.6 Total Bilirubin 0.7 AST 48 ALT 33 Alkaline Phosphatase 156 H Total Protein 7.7 Albumin 4.1 Globulin 3.6 Albumin/Globulin Ratio 1.1 Blood Type Antibody Screen 11/28/18 12:55 WBC RBC Hgb Hct MCV MCH MCHC RDW Plt Count Neut % (Auto) Lymph % (Auto) [place] % (Auto) Eos % (Auto) Baso % (Auto) Neut # (Auto) Lymph # (Auto) [place] # (Auto) Eos # (Auto) Baso # (Auto) PT INR APTT Sodium Potassium Chloride Carbon Dioxide BUN Creatinine Estimated GFR BUN/Creatinine Ratio Glucose Calcium Total Bilirubin AST ALT Alkaline Phosphatase Total Protein Albumin Globulin Albumin/Globulin Ratio Blood Type A Positive Antibody Screen Negative Assessment & Plan Assessment & Plan narrative: Mr. Mauricio is an 83 year old male with recurrent neurological events starting with CVA 1 year ago with residual left weakness. 1. Gastrointestinal bleeding, present on admission, acute -reports melena for over a month previously resolved with stopping anticoagulant therapy of Plavix and aspirin. -report of new onset bright red blood per rectum at [facility] today -possible question of receiving double dosing of clopidogrel, facility reports only 1 medication card for clopidogrel indicating low likelihood of dosing error. -H&H on admission is 11.1 and 33.8 with platelets of 288 -patient with a decrease in hemoglobin of 0.5 g in 2 days, hemoglobin likely lower related to state of dehydration -aspirin and Plavix are held -Protonix 40 mg IV daily -normal saline at 100 mL per hour -thank you Dr. Pandya, general surgery, for your consult. -patient is NPO pending possible EGD tomorrow afternoon. -patient is NPO 2. Left-sided abdominal pain, present on admission, acute -identified left-sided abdominal pain on exam elicited by palpation -patient with history of diarrhea -will obtain an abdominal x-ray to rule out fecal impaction -will obtain a GI panel 2. Generalized Weakness, present on admission, acute. -multifactorial including bitemporal and cerebellar CVA and acute dehydration. -patient does endorse little oral fluid intake related to dysphagia and use of thickener to prevent aspiration. -dry oral mucous membranes, BUN creatinine ratio is 39.1:1, will rehydrate the patient with normal saline at 100 cc/hour. -PT, OT, ST to consult. -will follow chemistries. 3. Hypertension, chronic -blood pressure adequately controlled on home medications of lisinopril 10 mg of metoprolol 25 mg twice daily. 4. Diabetes type 2 without complications, chronic -patient is taking metformin 500 mg twice daily. Glucose on admission was 172. -patient reports drinking orange juice in the morning demonstrating knowledge deficits of diabetes. -will check glucose ACHS and cover with sliding scale insulin low range. -will obtain hemoglobin A1c to identify adequacy of management. -request dietary consult to address food content as well as ways to improve oral fluid intake. 5. Hyperlipidemia, chronic -lipids are adequately controlled, continue atorvastatin 40 mg daily. Patient is admitted to the hospital due to severity symptoms and risk complications. Patient is admitted as observation status expected length of stay less than 2 midnights. Time Spent With Patient Time with patient: 25 - 35 minutes Scores GCS [place] coma scale eye opening: Spontaneous [place] coma scale verbal response: Orientated [place] coma scale motor response: Obey commands Janay coma scale total score: 15 CHADS-VASc Congestive heart failure: no Hypertension: yes Age 75 years or older: yes Diabetes mellitus: yes Stroke, TIA, or TE: yes Vascular disease: yes Age 65 to 74 years: yes Sex category (female): Male CHADS-VASc Score: 8 Quality VTE Deep Vein Thrombosis/Pulmonary Embolism Present on Admission: No
[2018-11-28] MEDS: NYSTATIN POWDER 30 GM 1 APPLIC TOP (21:12)
[2018-11-28] MEDS: ATORVASTATIN 20 MG TABLET 40 MG PO (21:13)
--- NOTE | 2018-11-28 21:26 | P.HP_ITS ---
History of Present Illness Date Patient Seen: 11/28/18 Time Patient Seen: 19:00 Chief complaint: Lower GI bleed Narrative: Shania Mauricio is an 83-year-old male patient with a history hyperten jorden, hyperlipidemia, diabetes, BPH, prior CVA with left hemiparesis who presents today for complaints of acute onset of bright red blood per rectum. The patient was recently discharged from [facility] to [facility] post CVA now involving both temporal lobes and cerebellum. The patient had been on aspirin and Plavix at the facility and there is a question or the patient inadvertently received double doses of Plavix. The patient further reports melena stool while taking aspirin and Plavix prior to his recent admission that has continued since. The patient reports having frequent loose stool that today contained red blood. He has also experienced increasing weakness since being at [facility]. At time of discharge he was able to walk a very short distance with a walker and now is unable to ambulate. He has a history of oral surgery which is impaired his swallowing and has been intolerant of dysphagia diet and opts not to drink water due to the thickening agent. He denies recent fevers or chills, headaches or dizziness. Does report soreness on the left side of his mouth but no change in his chewing or swallowing. Denies chest pain or palpitations, shortness of breath and has a chronic cough related to upper airway phlegm. He denies abdominal pain, nausea vomiting and has had frequent diarrhea as above. He is nonambulatory at this time. In the ER the patient is found to be afebrile with temperature 97.7?, heart rate of 57, blood pressure of 129/65, respiratory rate of 18 with a room air saturation 94%. He has a normal white count and his H&H is 11.1 and 33.8 with adequate platelets of 288. His INR is normal and he has a low APTT at 24. His electrolytes are within normal range and his renal function is consistent with dehydration with a BUN of 43 and creatinine 1.1 with a BUN creatinine ratio of 39.1:1. Dr. Pandya was called by the ER provider and he referred the patient to the medicine service. Patient History Medical History Diabetes (Acute) Hyperlipidemia (Acute) Oral cancer (Acute) Presence of stent in coronary artery in patient with coronary artery disease (Acute) Prostate cancer (Acute) CVA (cerebral vascular accident) (Chronic) Dyslipidemia (Chronic) Hypertension (Chronic) Family & Social History Social History: household members spouse Safety & Behavioral: Feels Safe in Current Yes Environment Been Physically Hurt or No Threatened By a Person Suicidal Ideation Description None Suicide Plan Description No Plan Tobacco & Substance use: Smoking Status Never smoker alcohol intake former alcohol intake frequency 0-2 drinks per day Substance Use Type does not use Comment: Comment: The patient has been for 25 years and is presently residing at [facility] for rehabilitation. The patient has been mar ried 2 times previously. His parents are both both the passing away from myocardial infarction. He has 2 daughters who are in good health. Smoking: Patient smoked 1-2 packs per day for 50 years and quit 15 years ago Alcohol: Patient had been a daily drinker and quit 1 year ago. Substance use: Patient denies recreation pharmaceuticals herbal or cannabis products Advanced directive patient states he has to be DO NOT RESUSCITATE. He designates his to be surrogate decision maker. [facility] Home Medications Medication Instructions Recorded Confirmed Type clopidogrel [Plavix] 75 mg PO DAILY 05/31/18 11/28/18 History lisinopril 10 mg PO BEDTIME 05/31/18 11/28/18 History metformin 500 mg PO BID 05/31/18 11/28/18 History tamsulosin [Flomax] 0.4 mg PO DAILY 05/31/18 11/28/18 History PreserVision AREDS-2 1 cap PO BID 11/09/18 11/28/18 History acetaminophen [Tylenol] 650 mg PO Q6H PRN 11/09/18 11/28/18 History ascorbic acid (vitamin C) 500 mg PO DAILY #0 11/09/18 11/28/18 History atorvastatin 40 mg PO BEDTIME 11/09/18 11/28/18 History cholecalciferol (vitamin D3) 1,000 unit PO DAILY #0 11/09/18 11/28/18 History [Vitamin D3] metoprolol tartrate 12.5 mg PO BID 11/09/18 11/28/18 History multivitamin 1 tab PO DAILY 11/09/18 11/28/18 History nitroglycerin 0.4 mg SUBLINGUAL PRN PRN 11/09/18 11/28/18 History aspirin 81 mg PO DAILY #30 tab 11/11/18 11/28/18 Rx citalopram 10 mg PO DAILY #30 tab 11/11/18 11/28/18 Rx Lactobacillus acidophilus 1 cap PO DAILY PRN 11/28/18 11/28/18 History [Acidophilus] bisacodyl 5 - 10 mg PO PRN PRN 11/28/18 11/28/18 History bisacodyl 10 mg SC PRN PRN 11/28/18 11/28/18 History fluoride (sodium) [PreviDent 5000 1 applic DENTAL QPM 11/28/18 11/28/18 History Dry Mouth] food supplemt, lactose-reduced 1 ea PO PC 11/28/18 11/28/18 History [Boost] loperamide 2 mg PO Q4H PRN 11/28/18 11/28/18 History magnesium hydroxide [Milk of 30 ml PO PRN PRN 11/28/18 11/28/18 History Magnesia] nystatin 1 applic TOPICAL BID 11/28/18 11/28/18 History omeprazole 20 mg PO DAILY 11/28/18 11/28/18 History sennosides [senna] 8.6 mg PO BID 11/28/18 11/28/18 History simethicone 80 mg PO BID 11/28/18 11/28/18 History sodium phosphates [Fleet Enema] 1 ea SC PRN PRN 11/28/18 11/28/18 History Allergies Allergy/AdvReac Type Severity Reaction Status Date / Time No Known Drug Allergies Allergy Verified 11/09/18 20:53 Review of Systems Review of Systems All systems reviewed & are unremarkable except as noted in HPI and below Exam Vital Signs (past 8 hours): - 11/28/18 14:00 11/28/18 15:01 11/28/18 16:00 Temperature Pulse Rate 73 73 85 Respiratory Rate 16 13 16 Blood Pressure Blood Pressure [Left Arm] 112/61 125/48 L 124/60 Blood Pressure [Right Arm] Pulse Oximetry 98 93 11/28/18 17:08 11/28/18 17:30 11/28/18 18:10 Temperature 98.4 F Pulse Rate 91 H 82 87 Respiratory Rate 16 14 18 Blood Pressure 135/68 Blood Pressure [Left Arm] 120/54 L Blood Pressure [Right Arm] 126/56 L Pulse Oximetry 98 95 96 Oxygen Delivery Method Room Air Oxygen Flow Rate 0 Narrative Exam Narrative: GENERAL APPEARANCE: well developed, well nourished, in no acute distress. HEAD: Normocephalic, atraumatic, no scalp lesions. EYES: pupils equal, round, reactive to light and accommodation, sclera non- icteric, extraocular movement intact without nystagmus . EARS: normal external structures, no ear pain NOSE: sinuses non tender to percussion, no rhinorrhea ORAL CAVITY: mucosa dry without lesions or exudate, stomatitis base left tongue, tongue in midline. THROAT: Mild dysarthria (residual from prior stroke), no erythema, no exudate NECK/THYROID: Well-healed low left anterior surgical scar, neck supple, no ju gular venous distention, no carotid bruit, no thyromegaly, trachea midline. LYMPH NODES: no cervical or supraclavicular lymphadenopathy. SKIN: warm and dry, no suspicious lesions, no rashes HEART: regular rate and rhythm, S1-S2, 1/6 systolic murmur, no rubs or gallops, brisk capillary refill, no edema LUNGS: clear to auscultation bilaterally, no coarseness crackles or wheezing, no cough present CHEST: Symmetrical movement, no accessory muscle use, no retractions ABDOMEN: Well-healed low midline abdominal surgical scar, soft, no distention, mild epigastric tenderness and left side abdominal tenderness on palpation, no guarding or peritoneal signs, no flank or suprapubic tenderness BACK: Normal curvature, nontender to palpation EXTREMITIES: moves all extremities, left leg weaker than right, strength is 4- 5/5, well perfused. NEUROLOGIC: AAO x4, slight left facial droop (reported as residual affective prior CVA), no ptosis, motor strength is 5/5 bilateral upper extremities, dye feeder equal, sensory exam intact to light touch PSYCH: alert, cognitive function intact, good eye contact, stable mood with congruent affect Objective Labs Result Diagrams: 11/28/18 12:55 11/28/18 12:55 Labs: Laboratory Results - last 24 hr 11/28/18 11/28/18 11/28/18 12:55 12:55 12:55 WBC 10.1 RBC 3.96 L Hgb 11.1 L Hct 33.8 L MCV 85.5 MCH 28.1 MCHC 32.8 RDW 13.7 Plt Count 288 Neut % (Auto) 71.6 Lymph % (Auto) 17.1 L [place] % (Auto) 7.9 Eos % (Auto) 2.5 Baso % (Auto) 0.9 Neut # (Auto) 7200 H Lymph # (Auto) 1700 [place] # (Auto) 800 Eos # (Auto) 300 Baso # (Auto) 100 PT 11.8 INR 1.0 APTT 24 L Sodium 139 Potassium 4.9 Chloride 101 Carbon Dioxide 28 BUN 43 H Creatinine 1.10 Estimated GFR > 60.0 BUN/Creatinine Ratio 39.1 H Glucose 107 Calcium 9.6 Total Bilirubin 0.7 AST 48 ALT 33 Alkaline Phosphatase 156 H Total Protein 7.7 Albumin 4.1 Globulin 3.6 Albumin/Globulin Ratio 1.1 Blood Type Antibody Screen 11/28/18 12:55 WBC RBC Hgb Hct MCV MCH MCHC RDW Plt Count Neut % (Auto) Lymph % (Auto) [place] % (Auto) Eos % (Auto) Baso % (Auto) Neut # (Auto) Lymph # (Auto) [place] # (Auto) Eos # (Auto) Baso # (Auto) PT INR APTT Sodium Potassium Chloride Carbon Dioxide BUN Creatinine Estimated GFR BUN/Creatinine Ratio Glucose Calcium Total Bilirubin AST ALT Alkaline Phosphatase Total Protein Albumin Globulin Albumin/Globulin Ratio Blood Type A Positive Antibody Screen Negative Assessment & Plan Assessment & Plan narrative: Mr. Mauricio is an 83 year old male with recurrent neurological events starting with CVA 1 year ago with residual left weakness. 1. Gastrointestinal bleeding, present on admission, acute -reports melena for over a month previously resolved with stopping anticoagulant therapy of Plavix and aspirin. -report of new onset bright red blood per rectum at [facility] today -possible question of receiving double dosing of clopidogrel, facility reports only 1 medication card for clopidogrel indicating low likelihood of dosing error. -H&H on admission is 11.1 and 33.8 with platelets of 288 -patient with a decrease in hemoglobin of 0.5 g in 2 days, hemoglobin likely lower related to state of dehydration -aspirin and Plavix are held -Protonix 40 mg IV daily -normal saline at 100 mL per hour -thank you Dr. Pandya, general surgery, for your consult. -patient is NPO pending possible EGD tomorrow afternoon. -patient is NPO 2. Left-sided abdominal pain, present on admission, acute -identified left-sided abdominal pain on exam elicited by palpation -patient with history of diarrhea -will obtain an abdominal x-ray to rule out fecal impaction -will obtain a GI panel 2. Generalized Weakness, present on admission, acute. -multifactorial including bitemporal and cerebellar CVA and acute dehydration. -patient does endorse little oral fluid intake related to dysphagia and use of thickener to prevent aspiration. -dry oral mucous membranes, BUN creatinine ratio is 39.1:1, will rehydrate the patient with normal saline at 100 cc/hour. -PT, OT, ST to consult. -will follow chemistries. 3. Hypertension, chronic -blood pressure adequately controlled on home medications of lisinopril 10 mg of metoprolol 25 mg twice daily. 4. Diabetes type 2 without complications, chronic -patient is taking metformin 500 mg twice daily. Glucose on admission was 172. -patient reports drinking orange juice in the morning demonstrating knowledge deficits of diabetes. -will check glucose ACHS and cover with sliding scale insulin low range. -will obtain hemoglobin A1c to identify adequacy of management. -request dietary consult to address food content as well as ways to improve oral fluid intake. 5. Hyperlipidemia, chronic -lipids are adequately controlled, continue atorvastatin 40 mg daily. Patient is admitted to the hospital due to severity symptoms and risk compl ications. Patient is admitted as observation status expected length of stay less than 2 midnights. Time Spent With Patient Time with patient: 25 - 35 minutes Scores GCS Baldwin coma scale eye opening: Spontaneous Baldwin coma scale verbal response: Orientated Baldwin coma scale motor response: Obey commands Baldwin coma scale total score: 15 CHADS-VASc Congestive heart failure: no Hypertension: yes Age 75 years or older: yes Diabetes mellitus: yes Stroke, TIA, or TE: yes Vascular disease: yes Age 65 to 74 years: yes Sex category (female): Male CHADS-VASc Score: 8 Quality VTE Deep Vein Thrombosis/Pulmonary Embolism Present on Admission: No
--- NOTE | 2018-11-28 22:11 | PC.NURSE ---
Pt admitted from ER at 1800. Pt is alert and oriented, but weak, talks with a soft voice. History of recent CVA (two weeks ago and was transferred from [facility] to [facility] for rehab). When pt left , he was able to walk but now too weak to do so. C/of blood in stool for last few days. Sent to ER for work up. Only a smear of stool observed this shift - noted yang reddishpurple colored stool. Pt is diabetic - last CBG = 145. Pt is NPO and is able to take meds with sips of water. Pt has history of oral cancer treated with radiation and surgery. Has swallowing difficulties and was placed on a dysphagia diet. However spouse states this was not adhered to as her does not like it. Dawit is aware of need to sit up straight, take small bites and double swallow his food. O2 sats = 96% on RA. Lungs sound clear. Noted that on taking sips of water with meds, he had a wet sounding cough but was able to clear it. ST ordered for the am. Pt has reddened sacrum but no skin breakdown observed. Estela-care and barrier cream applied. Pt keep off back by turning from side to side. Pt remains NPO for now - states that he is not hungry. Dawit needs help using the urinal but can maintain continence if assistance is there. He is able to use the call light. Spouse lives in [facility] [place] and has gone home for the evening - able to assist in providing information.
[2018-11-28 22:30] LABS: Hematocrit 32.1 % (41-53); Hemoglobin 10.5 g/dL (13.5-17.5)
[2018-11-29] VITALS (9 sets, daily range): BP systolic 115–142; BP diastolic 63–83; PULSE 63–84; RESP 15–18; TEMP 36.3–37.3; O2SAT 91–98
--- NOTE | 2018-11-29 | DI.RAD.S_ITS ---
PROCEDURE: XR CHEST 1V INDICATIONS: h/o aspiration TECHNIQUE: One view of the chest was acquired. COMPARISON: [facility], CR, XR CHEST 1V, 11/09/2018, 12:17. FINDINGS: Surgical changes and devices: None. Lungs and pleura: Lungs are clear. No pleural effusions or pneumothorax. Mediastinum: Mediastinal contours appear normal. Heart size is normal. Bones and chest wall: No suspicious bony lesions. Overlying soft tissues appear unremarkable. IMPRESSION: No acute cardiopulmonary findings. Dictated by: Kimberly Sheets M.D. on 11/29/2018 at 12:44 Approved by: Kimberly Sheets M.D. on 11/29/2018 at 12:45
[2018-11-29] MEDS: SODIUM CHLORIDE 0.9% 1,000 ML 100 ML IV ×3 (00:40→20:41)
[2018-11-29 05:59] LABS: Blood Urea Nitrogen 36 mg/dL (9-20); Calcium 9.1 mg/dL (8.4-10.2); Carbon Dioxide 25 mmol/L (22-32); Chloride 105 mmol/L (98-107); Estimated Glomerular Filt Rate > 60.0 mL/min (>60); Glucose 87 mg/dL (80-110); HEMOLYSIS < 15 (0-50); Potassium 4.7 mmol/L (3.4-5.1); Sodium 138 mmol/L (137-145)
[2018-11-29 06:06] LABS: Add Manual Diff / Slide Review NO; Basophils Absolute Auto 100 /uL (0-100); Basophils Percent Auto 0.7 % (0-2); Eosinophils Absolute Auto 300 /uL (0-450); Eosinophils Percent Auto 3.1 % (2-4); Hematocrit 31.9 % (41-53); Hemoglobin 10.4 g/dL (13.5-17.5); Lymphocytes Absolute Auto 1300 /uL (1100-4500); Lymphocytes Percent Auto 14.3 % (25-40); Mean Corpuscular HGB Conc 32.7 % (30-36); Mean Corpuscular Hemoglobin 28.3 PG (26-34); Mean Corpuscular Volume 86.7 fL (80-100); Monocytes Absolute Auto 800 /uL (0-900); Monocytes Percent Auto 8.5 % (3-14); Neutrophils Absolute Auto 6700 /uL (1500-7000); Neutrophils Percent Auto 73.4 % (50-75); Platelet Count 279 X10^3/uL (150-400); Red Blood Cell Count 3.68 X10^6/uL (4.5-5.9); Red Cell Distribution Width 13.5 % (11.6-14.8); White Blood Cell Count 9.2 X10^3/uL (4.5-11.0)
[2018-11-29 06:17] LABS: Magnesium 1.8 mg/dL (1.6-2.3)
[2018-11-29] MEDS: TAMSULOSIN 0.4 MG CAPSULE PO (09:17)
[2018-11-29] MEDS: CITALOPRAM 10 MG TABLET PO (09:17)
[2018-11-29] MEDS: VIT C/E/ZN/COPPR/LUTEIN/ZEAXAN CAPSULE 1 CAP PO ×2 (09:18→20:41)
[2018-11-29] MEDS: METOPROLOL IR 25 MG TABLET 12.5 MG PO ×2 (09:22→20:42)
[2018-11-29] MEDS: PANTOPRAZOLE 40 MG VIAL IV (09:25)
--- NOTE | 2018-11-29 09:33 | P.CONS_ITS ---
History of Present Illness Date Patient Seen: 11/29/18 Time Patient Seen: 09:28 Chief complaint: Lower GI bleed Reason for consult: GI bleeding probable upper GI. Narrative: 83-year-old white male has had 3 strokes and is on Plavix in the long term. There is some confusion as to whether he may have been receiving double dose Plavix with confusion over the generic nomenclature and proprietary nomenclature. He has had melena for the last month intermittently. This is happened to him before and stops when he stops his Plavix. Patient is totally asymptomatic. 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 Mother Heart disease Daughter In good health Social History household members: spouse Smoking Status: Never smoker alcohol intake: former Family History Father No problems noted. Mother Heart disease Daughter In good health Social History household members: spouse Smoking Status: Never smoker alcohol intake: former Meds Home Medications Medication Instructions Recorded Confirmed Type clopidogrel [Plavix] 75 mg PO DAILY 05/31/18 11/28/18 History lisinopril 10 mg PO BEDTIME 05/31/18 11/28/18 History metformin 500 mg PO BID 05/31/18 11/28/18 History tamsulosin [Flomax] 0.4 mg PO DAILY 05/31/18 11/28/18 History PreserVision AREDS-2 1 cap PO BID 11/09/18 11/28/18 History acetaminophen [Tylenol] 650 mg PO Q6H PRN 11/09/18 11/28/18 History ascorbic acid (vitamin C) 500 mg PO DAILY #0 11/09/18 11/28/18 History atorvastatin 40 mg PO BEDTIME 11/09/18 11/28/18 History cholecalciferol (vitamin D3) 1,000 unit PO DAILY #0 11/09/18 11/28/18 History [Vitamin D3] metoprolol tartrate 12.5 mg PO BID 11/09/18 11/28/18 History multivitamin 1 tab PO DAILY 11/09/18 11/28/18 History nitroglycerin 0.4 mg SUBLINGUAL PRN PRN 11/09/18 11/28/18 History aspirin 81 mg PO DAILY #30 tab 11/11/18 11/28/18 Rx citalopram 10 mg PO DAILY #30 tab 11/11/18 11/28/18 Rx Lactobacillus acidophilus 1 cap PO DAILY PRN 11/28/18 11/28/18 History [Acidophilus] bisacodyl 5 - 10 mg PO PRN PRN 11/28/18 11/28/18 History bisacodyl 10 mg NC PRN PRN 11/28/18 11/28/18 History fluoride (sodium) [PreviDent 5000 1 applic DENTAL QPM 11/28/18 11/28/18 History Dry Mouth] food supplemt, lactose-reduced 1 ea PO PC 11/28/18 11/28/18 History [Boost] loperamide 2 mg PO Q4H PRN 11/28/18 11/28/18 History magnesium hydroxide [Milk of 30 ml PO PRN PRN 11/28/18 11/28/18 History Magnesia] nystatin 1 applic TOPICAL BID 11/28/18 11/28/18 History omeprazole 20 mg PO DAILY 11/28/18 11/28/18 History sennosides [senna] 8.6 mg PO BID 11/28/18 11/28/18 History simethicone 80 mg PO BID 11/28/18 11/28/18 History sodium phosphates [Fleet Enema] 1 ea NC PRN PRN 11/28/18 11/28/18 History Allergies Allergy/AdvReac Type Severity Reaction Status Date / Time No Known Drug Allergies Allergy Verified 11/09/18 20:53 Exam Vital Signs (past 8 hours): - 11/29/18 04:41 11/29/18 07:46 Temperature 97.4 F L 98.4 F Pulse Rate 71 73 Respiratory Rate 16 17 Blood Pressure 138/83 141/75 H Pulse Oximetry 95 98 Oxygen Delivery Method Room Air Oxygen Flow Rate 0 Narrative Exam Narrative: Patient is alert and oriented hemodynamically stable. Heart rate in the 70s. Blood pressure normal. Abdominal exam reveals no tenderness no masses. Rectal was done in the emergency room which showed no masses but does show guaiac-positive melena. Objective Labs Result Diagrams: 11/29/18 05:26 11/29/18 05:26 Labs: Laboratory Results - last 24 hr 11/28/18 11/28/18 11/28/18 12:55 12:55 12:55 WBC 10.1 RBC 3.96 L Hgb 11.1 L Hct 33.8 L MCV 85.5 MCH 28.1 MCHC 32.8 RDW 13.7 Plt Count 288 Neut % (Auto) 71.6 Lymph % (Auto) 17.1 L [place] % (Auto) 7.9 Eos % (Auto) 2.5 Baso % (Auto) 0.9 Neut # (Auto) 7200 H Lymph # (Auto) 1700 [place] # (Auto) 800 Eos # (Auto) 300 Baso # (Auto) 100 PT 11.8 INR 1.0 APTT 24 L Sodium 139 Potassium 4.9 Chloride 101 Carbon Dioxide 28 BUN 43 H Creatinine 1.10 Estimated GFR > 60.0 BUN/Creatinine Ratio 39.1 H Glucose 107 Calcium 9.6 Magnesium Total Bilirubin 0.7 AST 48 ALT 33 Alkaline Phosphatase 156 H Total Protein 7.7 Albumin 4.1 Globulin 3.6 Albumin/Globulin Ratio 1.1 Blood Type Antibody Screen 11/28/18 11/28/18 11/29/18 12:55 22:00 05:26 WBC RBC Hgb 10.5 L Hct 32.1 L MCV MCH MCHC RDW Plt Count Neut % (Auto) Lymph % (Auto) [place] % (Auto) Eos % (Auto) Baso % (Auto) Neut # (Auto) Lymph # (Auto) [place] # (Auto) Eos # (Auto) Baso # (Auto) PT INR APTT Sodium 138 Potassium 4.7 Chloride 105 Carbon Dioxide 25 BUN 36 H Creatinine 1.00 Estimated GFR > 60.0 BUN/Creatinine Ratio 36.0 H Glucose 87 Calcium 9.1 Magnesium Total Bilirubin AST ALT Alkaline Phosphatase Total Protein Albumin Globulin Albumin/Globulin Ratio Blood Type A Positive Antibody Screen Negative 11/29/18 11/29/18 05:26 05:26 WBC 9.2 RBC 3.68 L Hgb 10.4 L Hct 31.9 L MCV 86.7 MCH 28.3 MCHC 32.7 RDW 13.5 Plt Count 279 Neut % (Auto) 73.4 Lymph % (Auto) 14.3 L [place] % (Auto) 8.5 Eos % (Auto) 3.1 Baso % (Auto) 0.7 Neut # (Auto) 6700 Lymph # (Auto) 1300 [place] # (Auto) 800 Eos # (Auto) 300 Baso # (Auto) 100 PT INR APTT Sodium Potassium Chloride Carbon Dioxide BUN Creatinine Estimated GFR BUN/Creatinine Ratio Glucose Calcium Magnesium 1.8 Total Bilirubin AST ALT Alkaline Phosphatase Total Protein Albumin Globulin Albumin/Globulin Ratio Blood Type Antibody Screen Assessment & Plan Assessment & Plan narrative: Patient has what would appear to be upper GI bleeding. hemoglobin has drifted down from 11-1/2 to 10. He is not hemodynamically affected. He has no pain. he may be on double dose Plavix We are not certain of that. Patient is also on low-dose aspirin. Have discussed this case with the hospitalist who agrees that he would be important to do an upper endoscopy however that we should wait a few days for the Plavix to dissipate particularly since he may have had double dosing. Patient is very stable. Furthermore when endoscopy is done it should be done with the anesthesiologist present because the patient has had previous oral cancer and likely has some alteration of his anatomy. Has also had radiation to the oropharynx.
--- NOTE | 2018-11-29 10:46 | PT.IIE ---
Surgical History (Last Reviewed 11/29/18 @ 09:30 by Pierce Pandya MD) History of back surgery (Acute) History of prostate surgery (Acute) History of repair of aneurysm of abdominal aorta (Acute) History of surgical procedure on mouth (Acute) S/P total knee arthroplasty (Acute) Medical History (Last Reviewed 11/29/18 @ 09:30 by Pierce Pandya MD) Diabetes (Acute) Hyperlipidemia (Acute) Oral cancer (Acute) Presence of stent in coronary artery in patient with coronary artery disease (Acute) Prostate cancer (Acute) CVA (cerebral vascular accident) (Chronic) Dyslipidemia (Chronic) Hypertension (Chronic) Physical Therapy Inpatient Evaluation/Re-Eval M1 PT/OT-IP Prior Functional Status Start: 11/29/18 12:05 Freq: NEEDED Status: Active Protocol: Document 11/29/18 10:46 AB (Rec: 11/29/18 12:16 AB [id number]) Medical Review Prior Functional Status Medical History Reviewed Yes Communication able to make needs known Mobility and Gait prior to recent CVA: pt stated that he was mod I with all mobilities and occasionally uses a SPC Prior Functional Level (Other details) pt with recent CVA last october 2018 and was d/c'd to [facility] for rehab. pt admitted again here in the hospital for GI bleed Social History Number of Stairs To Enter/Railing? pt stated that he is plans to go to [facility] after SNF rehab. pt does not know his apartment set up and available assistance for him. 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 M2 PT-IP Current Condition Start: 11/29/18 12:05 Freq: NEEDED Status: Active Protocol: Document 11/29/18 10:46 AB (Rec: 11/29/18 12:16 AB [id number]) Physical Therapy Current Condition Current Condition Evaluation Date 11/29/18 Treatment Diagnosis GI bleed; difficulty in walking Onset Date 11/28/18 Precautions Other Precautions Falls M3 PT-IP Subjective Start: 11/29/18 12:05 Freq: NEEDED Status: Active Protocol: Document 11/29/18 10:46 AB (Rec: 11/29/18 12:16 AB [id number]) Subjective Physical Therapy Visit Type Type Initial Evaluation Visit Start Time 10:46 Visit Stop Time 11:20 Total Visit Minutes 34 Number of LEAD INFORMATICA DEVELOPER Visits 0 Physical Therapy Visit Comments Patient Comments I cannot walk M4 PT-IP Mobility and Gait Start: 11/29/18 12:05 Freq: NEEDED Status: Active Protocol: Document 11/29/18 10:46 AB (Rec: 11/29/18 12:16 AB [id number]) PT-Bed Mobility Assessment Supine to Sit Supine to Sit Maximum Assistance 1 Person Assistance Scooting Scooting to Edge of Bed Maximum Assistance PT-Transfer Assessment Sit to and From Stand Sit to and from Stand Maximum Assistance 1 Person Assistance 2 Person Assistance Use of Upper Extremities Equipment Transfer Assistive Device Gait Belt Front Wheeled Walker Orthotic/Prosthetic Devices or Brace: No Transfers Transfer Destination Chair Transfer Technique Stand Step Pivot Transfer Ability Level of Assist Maximum Assistance 2 Person Assistance Use of Upper Extremities Gait Assessment Gait Gait Assistance Required: Maximum Assistance 1 Person Assist 2 Person Assist Distance (Feet) 5 Able to Maintain Weight Bearing Status Yes During Gait Assistive Devices Assistive Device Gait Belt Front Wheeled Walker Orthotic/Prosthetic Devices or Brace: No Gait Deviations General Gait Pattern Antalgic Decreased Stride Length Decreased Feet Clearance Step-to Gait Factors Limiting Gait Function Factors Limiting Gait Function Decreased Activity Tolerance Decreased Strength Difficulty Following Directions Limited Range of Motion Poor Balance Poor Safety Awareness PT-Balance Assessment Sitting Balance and Reactions Static Sitting Balance Ability Good Dynamic Sitting Balance Ability Fair Standing Balance and Reactions Static Standing Balance Ability Poor Dynamic Standing Balance Ability Poor Device Used FWW M5 PT-IP Objective Assessments Start: 11/29/18 12:05 Freq: NEEDED Status: Active Protocol: Document 11/29/18 10:46 AB (Rec: 11/29/18 12:16 AB [id number]) Orientation Orientation/Cognition Level of Alertness Alert Orientation Name Place Situation Memory Description Short Term Impaired Gross Range of Motion Lower Extremity ROM Assessment Within Functional Limits Strength Lower Extremity Strength Assessment Bilaterally Impaired Comments Strength Comments LLE: 3-/5 RLE: 3+/5 Muscle Tone Muscle Tone WNL Yes M6 PT-IP Treatment Start: 11/29/18 12:05 Freq: NEEDED Status: Active Protocol: Document 11/29/18 10:46 AB (Rec: 11/29/18 12:16 AB [id number]) Physical Therapy Treatment Education Education Provided Precautions Weight Bearing Status Safety M7 PT-IP Assessment and Plan Start: 11/29/18 12:05 Freq: NEEDED Status: Active Protocol: Document 11/29/18 10:46 AB (Rec: 11/29/18 12:16 AB [id number]) PT Summary Assessment and Plan Potential Rehabilitation Potential Fair Status of Condition at Evaluation Evolving Summary Impairments Pain ROM Strength Balance Coordination Sensation Tone Cognition Bed Mobility Transfers Gait Activity Tolerance Assessment Summary pt requiring 2 person assist with mobility and unable to tolerate much activity. pt will require SNF rehab to improve strength and function. Goals Bed Mobility Goal Minimal Assistance Transfer Goal Minimal Assistance Front Wheeled Walker Gait Goal Minimal Assistance Front Wheel Walker Gait Distance 100 Days to Meet Goals 5 Frequency of Treatment Frequency Of Treatment Twice a Day Treatment Plan Physical Therapy Treatment Plan Bed Mobility Training Transfer Training Gait Training Therapeutic Exercise Balance Retraining Discharge Planning Hot or Cold Pack Neuromuscular Re-ed Coordination Retraining Manual Therapy Recommendations To Nursing Amount of Assist Needed 2 Person Assist Discharge Recommendations PT Discharge Recommendations SNF Rehab
--- NOTE | 2018-11-29 10:56 | PC.NURSE ---
Patient A+O, denies ABD pain, continues to have small amounts of blood in stool. Denies dizziness. BG 107, held AM insulin per protocol. Coarse in right lower lobe per auscultation, a-febrile. 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 Also states has had difficulty with swallow and im supposed to put thickner in my fluid but I do not, and often get fluid in my lung. Alerted Dr. Ram with Primary RN Julianna.
[2018-11-29 12:52] LABS: Procalcitonin 0.07 ng/mL (<0.5)
--- NOTE | 2018-11-29 13:39 | PC.NURSE ---
Pt is A&Ox3. He denies pain. Had a small bloody stool. He is incontinent of stool and dribbles in brief. Up with 2 person max assist. Sat up in chair for a couple of hours and tolerated well. Pt was npo for breakfast and lunch. He is now on a regular diet with thin liquids per speech therapist. Pt does not have pnuemonia after xray done earlier. Visiting with now. BS 101. Pt given a protein shake and is comfortable after being changed.
--- NOTE | 2018-11-29 14:52 | OT.IP.EVAL ---
Surgery Performed Operation Date: 11/30/18 07:45 <No data on this case meets the specified criteria> Past Medical History (Last Reviewed 11/29/18 @ 09:30 by Pierce Pandya MD) Diabetes (Acute) Hyperlipidemia (Acute) Oral cancer (Acute) Presence of stent in coronary artery in patient with coronary artery disease (Acute) Prostate cancer (Acute) CVA (cerebral vascular accident) (Chronic) Dyslipidemia (Chronic) Hypertension (Chronic) Surgical History (Last Reviewed 11/29/18 @ 09:30 by Pierce Pandya MD) History of back surgery (Acute) History of prostate surgery (Acute) History of repair of aneurysm of abdominal aorta (Acute) History of surgical procedure on mouth (Acute) S/P total knee arthroplasty (Acute) Occupational Therapy Inpatient Evaluation/Re-Eval M1 PT/OT-IP Prior Functional Status Start: 11/29/18 12:05 Freq: NEEDED Status: Active Protocol: Document 11/29/18 14:52 MARTY (Rec: 11/29/18 17:37 LEIDY [id number]) Medical Review Prior Functional Status Medical History Reviewed Yes Communication able to make needs known Mobility and Gait prior to recent stroke 10/2018, pt stated that he was mod I with all mobilities and occasionally uses a SPC Activities of Daily Living and IADL's prior to recent stroke, pt was independent with self care Prior Functional Level (Other details) Pt S/P recent CVA 10/2018 with d/c to [facility] for rehab services. Pt re-admitted here for GI bleed with general weakness. Social History Household Members spouse Living Arrangements House Number of Floors (Floors) 3 or More Floors Number of Stairs To Enter/Railing? Pt/ state that plan is for pt to go to [facility] after SNF rehab. 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 M2 OT-IP Current Condition Start: 11/29/18 17:11 Freq: Status: Active Protocol: Document 11/29/18 14:52 MARTY (Rec: 11/29/18 17:37 LEIDY [email or web address]) Occupational Therapy Current Condition Current Condition Evaluation Date 11/29/18 Treatment Diagnosis decreased functional mobility, self care s/p recent stroke , GI bleed Diagnosis Onset Date 11/28/18 Post Operative Precautions Other Precautions 2 PA with mobility/transfers, fall risk M3 OT- IP Subjective and Pain Start: 11/29/18 17:11 Freq: Status: Active Protocol: Document 11/29/18 14:52 PJM (Rec: 11/29/18 17:37 PJ [id number]) OT- Subjective Occupational Therapy Visit Type Type Initial Evaluation Visit Start Time 14:31 Visit Stop Time 14:52 Total Visit Minutes 21 Notes providing some hx re: prior level of function this session. Occupational Therapy Visit Comments Patient Comments I am really tired. I can't get up again. Patient/Caregiver Goals to go back to rehab and eventually get to [facility] (?[facility]) OT Pain Assessment Pain When Pain Assessed After Treatment Pain Present Pain Present Denied Pain M4 OT- IP ADL's Start: 11/29/18 17:11 Freq: Status: Active Protocol: Document 11/29/18 14:52 PJM (Rec: 11/29/18 17:37 PJ [id number]) OT CPA-[id number]-[id number] General Evaluation Self-Feeding Ability Independent Areas Needing Assistance Cutting Food Opening Containers Comments OT Self-Feeding Comments Pt independent with self feeding after set up by his/ 's report. OT ADL-Grooming General Evaluation Grooming Ability Minimal Assistance Areas Needing Assistance Face Washing Comments OT Grooming Comments for thoroughness, pt reports L facial numbness from radiation tx for mouth CA OT ADL-Oral Care Comments Oral Care Comments did not occur this session, to be assessed OT ADL-Dressing General Eval Upper Body Dressing Ability Maximum Assistance Lower Body Dressing Ability Total Assistance OT ADL-Toileting General Evaluation Toileting Ability Total Assistance OT ADL-Bathing Bathing Type Bathing Type Bed Bath General Evaluation Bathing Ability Maximal Assistance M5 OT- IP IADL's Start: 11/29/18 17:11 Freq: Status: Active Protocol: Document 11/29/18 14:52 PJM (Rec: 11/29/18 17:37 [facility] [id number]) OT-Instrumental Activities of Daily Living Deficits IADL Deficits Identified Deficits Medication Management Medication Management Caregiver Administers Medication Management Comments total assist Money Management Money Management Caregiver Provides Assistance Money Management Comments managing finances Meal Preparation Meal Preparation Comments total assist Technical Administrative Assistant Technical Administrative Assistant Comments total assist Driving Driving Comments pt no longer drives M6 OT- IP Functional Cognition Start: 11/29/18 17:11 Freq: Status: Active Protocol: Document 11/29/18 14:52 PJM (Rec: 11/29/18 17:37 PJM [id number]) Cognitive Factors Limiting Selfcare Function Cognitive Ability Level of Alertness Drowsy Patient Orientation Name Month Date Year Place Attention Span Ability Capable of Focused Attention Unable to Sustain Attention Ability to Follow Commands Able to Follow One Step Commands Cognitive Comments Cognitive Assessment Comments Pt drowsy this session due to fatigue but oriented and follows one step commands consistently. Further observations to follow. reports that pt recalls day to day events. OT- Vision and Hearing OT- Hearing Assessment OT- Hearing Assessment WFL OT- Vision Assessment Visual Acuity WFL Glasses For Reading Occular Pursuits WFL Vision Assessment Comments Pt s/p B cataract sx 06/2018 and wears reading glasses only . M7 OT- IP Mobility and Balance Start: 11/29/18 17:11 Freq: Status: Active Protocol: Document 11/29/18 14:52 PJM (Rec: 11/29/18 17:37 PJM [id number]) OT-Transfer Assessment Comments Mobility Comments Pt declined OOB due to fatigue this session, he requires 2 person assist for mobility per P.T. notes. OT- Gait Assessment Comments Gait Ability Comments pt non ambulatory at present due to weakness OT- Balance Assessment Comments Other Balance Tests/Deviations/Treatment see P.T. notes : M8 OT- IP Objective Assessments Start: 11/29/18 17:11 Freq: Status: Active Protocol: Document 11/29/18 14:52 PJM (Rec: 11/29/18 17:37 PJ [id number]) OT Gross Range of Motion Upper Extremity Range of Motion Assessment Right Impaired ROM Impairments RUE active scaption limited to 45 degrees by old rotator cuff tear per pt. PROM to 90 scaption without pain. Distal AROM WFL LUE WFL except scaption to 90 due to stiffness. OT Strength Upper Extremity Strength Assessment Bilaterally Impaired Shoulder L 3+/5 R 3-/5 Elbow L 4/5 R 4/5 flex/ext Wrist L 4-/5 R 4-/5 ext Hand L canal boat operator 3+/5 R canal boat operator 3+/5 Hand Welder Boilermaker Strength Hand Dominance Right Comments Strength Comments generalized weakness in BUE's OT- Coordination Assessment Comments Coordination Comments WFL in BUE OT-Muscle Tone Assessment Muscle Tone WNL Yes OT Sensation Assessment Comments Summary Comments Pt denies sensory deficits in BUE's Edema Edema Absent Edema Comments in BUE's M9 OT- IP Assessment and Plan Start: 11/29/18 17:11 Freq: Status: Active Protocol: Document 11/29/18 14:52 PJJayme (Rec: 11/29/18 17:37 PJM [id number]) OT Summary Assessment and Plan Potential Analytic Complexity at Evaluation Moderate Summary OT Impairments Strength Balance Functional Mobility Grooming Dressing Toileting Bathing Toilet Transfers Shower Transfers Assessment Summary Moderate complexity OT assessment completed due to multiple comorbidities on this 83 yr old pt admitted with GI bleed after recent stroke 2018. Pt came from [facility] where he was receiving rehab services. Pt currently has very low activity tolerance and requires 2 person assist with bed mobility and transfers. He was unable to ambulate with P.T. today. Pt can participate in seated self feeding and grooming after set up but requires max to total assist with dressing, bathing and toileting. Pt will need further rehab services at SNF when medically stable with termite control technician goal of transition to [facility] per . See acute care OT goals below. Goals Grooming Goal Standby Assistance Dressing Goal Minimal Assistance Moderate Assistance Toileting Goal Moderate Assistance Bathing Goal Minimal Assistance Toilet Transfer Goal Moderate Assistance Bedside Commode Patient/Caregiver Education Goal Demonstrate Energy Conservation and Pacing OT-Other Goals Pt to be min assist with upper body dressing and mod assist with lower body dressing. Pt to be min assist with seated upper body sponge bath. Days to Meet Goals 7 Frequency of Treatment Frequency Of Treatment Once a Day Treatment Plan OT Treatment Plan ADL Training Functional Mobility Patient/Family Education Discharge Planning Discharge Recommendations OT Discharge Recommendations SNF Rehab
--- NOTE | 2018-11-29 15:05 | ST.IPCSEOM ---
Care Team Visit Care Team Role Provider Type Lex Duran MD Primary Care Provider Physician Specialty: Internal Medicine Address: [address] [place] [address], [facility] Email: Pierce Pandya MD Other Providers Physician Specialty: General Surgery Address: [address] [place] [address] Email: Kenia Belcher [facility] Emergency Provider Advanced Leather Shaver Specialty: Emergency Medicine Address: [address] [place] [address], [phone] Email: Genny Ram DO Admit Provider Physician Attending Provider Specialty: Internal Medicine Address: [address] [place] [address] Email: Past Medical History (Last Reviewed 11/29/18 @ 09:30 by Pierce Pandya MD) Diabetes (Acute Medical) Hyperlipidemia (Acute Medical) Oral cancer (Acute Medical) 2015 Surgery followed by radiation therapy. Presence of stent in coronary artery in patient with coronary artery disease (Acute Medical) Prostate cancer (Acute Medical) CVA (cerebral vascular accident) (Chronic Medical) Dyslipidemia (Chronic Medical) Hypertension (Chronic Medical) Speech-Language Pathology Swallow Evaluation SALES ORDER COORDINATOR Clinical Swallow Evaluation Start: 11/29/18 13:43 Freq: Status: Active Protocol: Document 11/29/18 14:23 SALINAK (Rec: 11/29/18 15:04 SARA [email or web address]) Clinical Swallow Evaluation Session Time Visit Start Time 12:00 Visit Stop Time 13:00 Total Visit Minutes 60 Setting Assessment Location Acute Care Visit Type Note Type Initial Evaluation Next Note Type Next Note Type Treatment Note Patient Information Identification Type Name ID Wristband History Shania Mauricio is an 83-year- old male patient with a history hypertension, hyperlipidemia, diabetes, BPH, prior CVA with left hemiparesis who presents today for complaints of acute onset of bright red blood per rectum. The patient was recently discharged from [facility] to [facility] post CVA now involving both temporal lobes and cerebellum. Pt has a history of oral surgery which is impaired his swallowing and has been intolerant of dysphagia diet and opts not to drink water due to the thickening agent. Pt had a MBS on 08/17/18 and was also seen last on 11/12/18 for swallowing therapy. Pt has been adamantly refusing thickened liquids or any altered diet textures. He is well known to this ST. Reviewed risks and potential consequences of continuing his current diet despite the aspiration risk. Pt again indicated he is aware and wants to stay with current diet of Regular texture, thin liquids. Subjective Observations Pt in bedside chair in room. Pt's was not present. Pt remembered me and greeted me. Evaluation Liquids Trialed Thin Solids Trialed Regular Administration Type Self-Feeding Oral Impairment Mildly Impaired Oral Strategies Upright at 90 degrees Oral Phase Comments pt continues to demonstrate mild oral phase dysphagia with slow mastication, reduced lingual ROM and tongue-rocking pre swallow. Minimal oral residue observed after swallowing. Pharyngeal Phase Comments Limited elevation of the hyolaryngeal structures with delayed swallow initiation continues. Pt was able to demonstrate the Supraglottic safe swallow strategy (hold breath , take sip, push tongue against palate and swallow hard) taught at last admit. pt did not cough or choke. Mild wet voicing observed. Pt was able to clear with subsequent swallow. Pt and report that the pt is using safe swallow strategy and following aspiration precautions consistently at home. Chest x-ray today indicated that lungs are clear. WBC was WNL. Findings Impressions pt has a history of dysphagia as well as refusal of recommended diet. he has been on a regular diet and thin liquids and is using safe swallow strategy and following aspiration precautions at home. No further therapy is recommended at this time. Diet Recommendations Liquids Order Thin Diet Order Regular Medication Recommendations As Tolerated Additional Dietary Needs Reminders to Use Strategies Aspiration Precautions Recommended Precautions Upright at 90 Degrees Supraglottic Swallow Treatment Plan Placement Recommendations after Home Discharge Appropriate for Therapy No
--- NOTE | 2018-11-29 15:36 | PT.IPTN ---
Surgery Performed Operation Date: 11/30/18 07:45 <No data on this case meets the specified criteria> Physical Therapy Treatment Note M2 PT-IP Current Condition Start: 11/29/18 12:05 Freq: NEEDED Status: Active Protocol: Document 11/29/18 10:46 AB (Rec: 11/29/18 12:16 AB [id number]) Physical Therapy Current Condition Current Condition Evaluation Date 11/29/18 Treatment Diagnosis GI bleed; difficulty in walking Onset Date 11/28/18 Precautions Other Precautions Falls M3 PT-IP Subjective Start: 11/29/18 12:05 Freq: NEEDED Status: Active Protocol: Document 11/29/18 15:36 AB (Rec: 11/29/18 15:36 AB [id number]) Subjective Physical Therapy Visit Type Type Patient Refusal Notes checked on pt multiple time but pt refused PT. stated that he just tired and weak but agrees to try again tomorrow.
--- NOTE | 2018-11-29 20:01 | PM.PN.1 ---
Subjective Date Patient Seen: 11/29/18 Interval history: Shania Mauricio is an 83-year-old male patient with a past medical history significant for hypertension, hyperlipidemia, diabetes mellitus type 2, non-insulin using, BPH, prior CVA with left hemiparesis who presented for complaints of acute onset of bright red blood per rectum. The patient is resting in bed comfortably. He reports he had a bowel movement. When the WOOD FUEL PELLETIZER came to change patient there was bright red blood per rectum personally viewed. He endorses weak cough. When he is asked to cough he is able to expectorate some sputum, however, he then swallowed it. Encouraged patient to spit sputum out. He has no complaints and denies headache, vision changes, lightheadedness or dizziness, chest pain, shortness of breath, abdominal pain, nausea, vomiting, fever, chills, dysuria, or constipation. He has had chronic diarrhea for the last month likely related to indolent GI bleed. He is voiding and eliminating without difficulty. Patient has declined in his ambulatory status at group home facility and is predominantly bed bound. Exam Vital Signs (past 8 hours): - 11/29/18 15:25 11/29/18 16:12 11/29/18 19:26 Temperature 98.5 F 99.1 F Pulse Rate 78 84 Respiratory Rate 18 15 Blood Pressure 115/63 140/74 Pulse Oximetry 91 93 Oxygen Delivery Method Room Air Oxygen Flow Rate 0 Narrative Exam Narrative: General: Elderly gentleman lying in bed and in no acute distress, well-developed, well-nourished, slow mentation likely due to stroke with flat affect but appropriately interactive. HEENT: Normocephalic, atraumatic. External ears without defect. Pupils equal, round, and reactive to light. Anicteric sclerae, moist conjunctivae, and no lid lag. Neck: Supple with full range of motion. No jugular venous distension. No bruits. No lymphadenopathy or thyromegaly. Cardiovascular: Regular rate and rhythm without murmurs, rubs, or gallops appreciated Pulmonary: Clear to auscultation bilaterally with upper airway rhonchi. No crackles or wheezes. Normal respiratory effort with no use of accessory muscles. Abdomen: Soft, bowel sounds present, nontender, nondistended. No hepatosplenomegaly or masses appreciated. Genitourinary: Patient had bright red blood per rectum visualized with mild sacral/coccyx superficial skin breakdown. Extremities: No clubbing, cyanosis, or edema. Mild left-sided hemiparesis. Skin: Normal temperature, turgor, and texture; no rash, ulcers, or subcutaneous nodules appreciated. Neurological: Cranial nerves grossly intact. Psychiatric: Flat affect with blank stare. Slow mentation. Appears alert and oriented x3. Objective Labs Result Diagrams: 11/29/18 05:26 11/29/18 05:26 Labs: Laboratory Results - last 24 hr 11/28/18 11/29/18 11/29/18 22:00 05:26 05:26 WBC 9.2 RBC 3.68 L Hgb 10.5 L 10.4 L Hct 32.1 L 31.9 L MCV 86.7 MCH 28.3 MCHC 32.7 RDW 13.5 Plt Count 279 Neut % (Auto) 73.4 Lymph % (Auto) 14.3 L [place] % (Auto) 8.5 Eos % (Auto) 3.1 Baso % (Auto) 0.7 Neut # (Auto) 6700 Lymph # (Auto) 1300 [place] # (Auto) 800 Eos # (Auto) 300 Baso # (Auto) 100 Sodium 138 Potassium 4.7 Chloride 105 Carbon Dioxide 25 BUN 36 H Creatinine 1.00 Estimated GFR > 60.0 BUN/Creatinine Ratio 36.0 H Glucose 87 Calcium 9.1 Magnesium Procalcitonin 11/29/18 11/29/18 05:26 05:26 WBC RBC Hgb Hct MCV MCH MCHC RDW Plt Count Neut % (Auto) Lymph % (Auto) [place] % (Auto) Eos % (Auto) Baso % (Auto) Neut # (Auto) Lymph # (Auto) [place] # (Auto) Eos # (Auto) Baso # (Auto) Sodium Potassium Chloride Carbon Dioxide BUN Creatinine Estimated GFR BUN/Creatinine Ratio Glucose Calcium Magnesium 1.8 Procalcitonin 0.07 Assessment & Plan Assessment & Plan narrative: Shania Mauricio is an 83-year-old male patient with a past medical history significant for hypertension, hyperlipidemia, diabetes mellitus type 2, non-insulin using, BPH, prior CVA with left hemiparesis who presented for complaints of acute onset of bright red blood per rectum. 1. Acute GI bleed, present on admission. Active. -[facility] now episode of hematochezia and bright red blood per rectum also witnessed today. Previously resolved with stopping of anticoagulant therapy of Plavix and aspirin. -Patient had left-sided abdominal pain on admitting providers exam that was not apparent today. Abdominal film demonstrated mild amount of fecal debris in the rectum with normal bowel gas pattern. -Possible question of receiving double dosing of clopidogrel, facility reports only 1 medication card but documentation lists clopidogrel and Plavix dosed. -Initial H&H on admission is 11.1 and 33.8. Review of medical records demonstrate slow drifting down over the last month. -Held aspirin and Plavix. -Continue Protonix 40 mg IV daily. -Continue normal saline at 100 mL/hr. -Dr. Padnya, of general surgery has been consulted and plans to perform EGD tomorrow morning. Patient is NPO at midnight. 2. Acute on chronic generalized weakness, present on admission. Active. -Multifactorial including bitemporal and cerebellar CVA and acute dehydration. -Patient does endorse little oral fluid intake related to dysphagia and use of thickener as he does not like to use this to prevent aspiration. -Continue normal saline at 100 mL/hr. -Continue physical, occupational, and speech evaluation and treatment. 3. Hypertension, chronic, present on admission. Stable. -Continue home medications of lisinopril 10 mg of metoprolol 25 mg twice daily. 4. Diabetes mellitus type 2, non-insulin using, present on admission. Stable. -Hemoglobin A1c 6.0% 11/09. -Held metformin. -Continue blood glucose checks ACHS and low-dose correctional scale insulin. -Request dietary consult to address food content as well as ways to improve oral fluid intake. 5. Hyperlipidemia, chronic, present on admission. Stable. -Continue atorvastatin 40 mg daily. Disposition: Likely to discharge in 1-2 days depending upon identification of GI bleed and management. Quality VTE Deep Vein Thrombosis/Pulmonary Embolism Present on Admission: No
--- NOTE | 2018-11-29 20:04 | P.PN_ITS ---
Subjective Date Patient Seen: 11/29/18 Interval history: Shania Mauricio is an 83-year-old male patient with a past medical history significant for hypertension, hyperlipidemia, diabetes mellitus type 2, non-insulin using, BPH, prior CVA with left hemiparesis who presented for complaints of acute onset of bright red blood per rectum. The patient is resting in bed comfortably. He reports he had a bowel movement. When the AGENT BASED MODELER came to change patient there was bright red blood per rectum personally viewed. He endorses weak cough. When he is asked to cough he is able to expectorate some sputum, however, he then swallowed it. Encouraged patient to spit sputum out. He has no complaints and denies headache, vision changes, lightheadedness or dizziness, chest pain, shortness of breath, abdominal pain, nausea, vomiting, fever, chills, dysuria, or constipation. He has had chronic diarrhea for the last month likely related to indolent GI bleed. He is voiding and eliminating without difficulty. Patient has declined in his ambulatory status at custodial facility and is predominantly bed bound. Exam Vital Signs (past 8 hours): - 11/29/18 15:25 11/29/18 16:12 11/29/18 19:26 Temperature 98.5 F 99.1 F Pulse Rate 78 84 Respiratory Rate 18 15 Blood Pressure 115/63 140/74 Pulse Oximetry 91 93 Oxygen Delivery Method Room Air Oxygen Flow Rate 0 Narrative Exam Narrative: General: Elderly gentleman lying in bed and in no acute distress, well- developed, well-nourished, slow mentation likely due to stroke with flat affect but appropriately interactive. HEENT: Normocephalic, atraumatic. External ears without defect. Pupils equal, round, and reactive to light. Anicteric sclerae, moist conjunctivae, and no lid lag. Neck: Supple with full range of motion. No jugular venous distension. No bruits. No lymphadenopathy or thyromegaly. Cardiovascular: Regular rate and rhythm without murmurs, rubs, or gallops appreciated Pulmonary: Clear to auscultation bilaterally with upper airway rhonchi. No crackles or wheezes. Normal respiratory effort with no use of accessory muscles. Abdomen: Soft, bowel sounds present, nontender, nondistended. No hepatosplenomegaly or masses appreciated. Genitourinary: Patient had bright red blood per rectum visualized with mild sacral/coccyx superficial skin breakdown. Extremities: No clubbing, cyanosis, or edema. Mild left-sided hemiparesis. Skin: Normal temperature, turgor, and texture; no rash, ulcers, or subcutaneous nodules appreciated. Neurological: Cranial nerves grossly intact. Psychiatric: Flat affect with blank stare. Slow mentation. Appears alert and oriented x3. Objective Labs Result Diagrams: 11/29/18 05:26 11/29/18 05:26 Labs: Laboratory Results - last 24 hr 11/28/18 11/29/18 11/29/18 22:00 05:26 05:26 WBC 9.2 RBC 3.68 L Hgb 10.5 L 10.4 L Hct 32.1 L 31.9 L MCV 86.7 MCH 28.3 MCHC 32.7 RDW 13.5 Plt Count 279 Neut % (Auto) 73.4 Lymph % (Auto) 14.3 L [place] % (Auto) 8.5 Eos % (Auto) 3.1 Baso % (Auto) 0.7 Neut # (Auto) 6700 Lymph # (Auto) 1300 [place] # (Auto) 800 Eos # (Auto) 300 Baso # (Auto) 100 Sodium 138 Potassium 4.7 Chloride 105 Carbon Dioxide 25 BUN 36 H Creatinine 1.00 Estimated GFR > 60.0 BUN/Creatinine Ratio 36.0 H Glucose 87 Calcium 9.1 Magnesium Procalcitonin 11/29/18 11/29/18 05:26 05:26 WBC RBC Hgb Hct MCV MCH MCHC RDW Plt Count Neut % (Auto) Lymph % (Auto) [place] % (Auto) Eos % (Auto) Baso % (Auto) Neut # (Auto) Lymph # (Auto) [place] # (Auto) Eos # (Auto) Baso # (Auto) Sodium Potassium Chloride Carbon Dioxide BUN Creatinine Estimated GFR BUN/Creatinine Ratio Glucose Calcium Magnesium 1.8 Procalcitonin 0.07 Assessment & Plan Assessment & Plan narrative: Shania Mauricio is an 83-year-old male patient with a past medical history signif icant for hypertension, hyperlipidemia, diabetes mellitus type 2, non-insulin using, BPH, prior CVA with left hemiparesis who presented for complaints of acute onset of bright red blood per rectum. 1. Acute GI bleed, present on admission. Active. -[facility] now episode of hematochezia and bright red blood per rectum also witnessed today. Previously resolved with stopping of anticoagulant therapy of Plavix and aspirin. -Patient had left-sided abdominal pain on admitting providers exam that was not apparent today. Abdominal film demonstrated mild amount of fecal debris in the rectum with normal bowel gas pattern. -Possible question of receiving double dosing of clopidogrel, facility reports only 1 medication card but documentation lists clopidogrel and Plavix dosed. -Initial H&H on admission is 11.1 and 33.8. Review of medical records demonstrate slow drifting down over the last month. -Held aspirin and Plavix. -Continue Protonix 40 mg IV daily. -Continue normal saline at 100 mL/hr. -Dr. Pandya, of general surgery has been consulted and plans to perform EGD tomorrow morning. Patient is NPO at midnight. 2. Acute on chronic generalized weakness, present on admission. Active. -Multifactorial including bitemporal and cerebellar CVA and acute dehydration. -Patient does endorse little oral fluid intake related to dysphagia and use of thickener as he does not like to use this to prevent aspiration. -Continue normal saline at 100 mL/hr. -Continue physical, occupational, and speech evaluation and treatment. 3. Hypertension, chronic, present on admission. Stable. -Continue home medications of lisinopril 10 mg of metoprolol 25 mg twice daily. 4. Diabetes mellitus type 2, non-insulin using, present on admission. Stable. -Hemoglobin A1c 6.0% 11/09. -Held metformin. -Continue blood glucose checks ACHS and low-dose correctional scale insulin. -Request dietary consult to address food content as well as ways to improve oral fluid intake. 5. Hyperlipidemia, chronic, present on admission. Stable. -Continue atorvastatin 40 mg daily. Disposition: Likely to discharge in 1-2 days depending upon identification of GI bleed and management. Quality VTE Deep Vein Thrombosis/Pulmonary Embolism Present on Admission: No
[2018-11-29] MEDS: ATORVASTATIN 20 MG TABLET 40 MG PO (20:41)
[2018-11-29] MEDS: LISINOPRIL 10 MG TABLET PO (20:42)
[2018-11-29 21:15] LABS: Hematocrit 29.4 % (41-53); Hemoglobin 9.4 g/dL (13.5-17.5)
[2018-11-30] VITALS (23 sets, daily range): BP systolic 119–160; BP diastolic 59–80; PULSE 51–107; RESP 12–20; TEMP 36.2–38.1; O2SAT 91–98; BMI 25.7
[2018-11-30 06:13] LABS: Add Manual Diff / Slide Review NO; Basophils Absolute Auto 100 /uL (0-100); Basophils Percent Auto 0.8 % (0-2); Eosinophils Absolute Auto 200 /uL (0-450); Eosinophils Percent Auto 2.9 % (2-4); Hematocrit 29.4 % (41-53); Hemoglobin 9.7 g/dL (13.5-17.5); Lymphocytes Absolute Auto 1400 /uL (1100-4500); Mean Corpuscular HGB Conc 33.1 % (30-36); Mean Corpuscular Hemoglobin 28.5 PG (26-34); Mean Corpuscular Volume 86.2 fL (80-100); Monocytes Absolute Auto 900 /uL (0-900); Monocytes Percent Auto 10.4 % (3-14); Neutrophils Absolute Auto 6000 /uL (1500-7000); Neutrophils Percent Auto 69.9 % (50-75); Platelet Count 253 X10^3/uL (150-400); Red Blood Cell Count 3.41 X10^6/uL (4.5-5.9); Red Cell Distribution Width 13.8 % (11.6-14.8); White Blood Cell Count 8.5 X10^3/uL (4.5-11.0)
[2018-11-30] MEDS: SODIUM CHLORIDE 0.9% 1,000 ML 75 ML IV ×2 (07:21→12:17)
--- NOTE | 2018-11-30 08:16 | P.OP.ENDO_ITS ---
Operative Date/Time/Diagnoses Date of procedure: 11/30/18 Time of procedure: 08:11 Pre-op diagnosis: Upper GI bleeding secondary to Plavix overdose possible peptic ulcer disease Post-op diagnosis: same Procedure & Clinicians Study performed: Esophagogastroduodenoscopy Same procedure as scheduled: Yes Indications: Patient admitted with melena and falling hemoglobin Surgeon: Pierce Pandya Procedure Notes Procedure in detail: Patient given conscious sedation by anesthesiologist. 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 Therefore an anesthesiolo gist was required to provide safe airway protection. The patient was properly identified during surgical pause flexible fiberoptic gastroscope inserted trans orally from the hypopharynx into the 2nd portion the duodenum the esophagus is essentially normal. there is no bleeding noted in the pharynx in the esophagus or actually in the stomach itself. Numerous photographs were taken. The EG junction is normal. On both sides. The pyloric channel was very edematous inflamed and there are superficial ulcerations noted in the duodenal bulb.. there is no bleeding now. The 1st and 2nd portion the duodenum were unremarkable. There was no blood encountered in the upper GI tract. Procedure was well tolerated. Scope withdrawal time: 10 Sedation minutes: 20 Findings: duodenal ulcer Specimen(s): none sent Complications: none Impression: Upper GI bleeding secondary to duodenitis and superficial duodenal ulcers in the bulb Follow up: as needed Disposition: PACU
[2018-11-30] MEDS: NYSTATIN POWDER 30 GM 1 APPLIC TOP (09:10)
[2018-11-30] MEDS: VIT C/E/ZN/COPPR/LUTEIN/ZEAXAN CAPSULE 1 CAP PO ×2 (09:11→22:30)
[2018-11-30] MEDS: PANTOPRAZOLE 40 MG VIAL IV (09:12)
[2018-11-30] MEDS: TAMSULOSIN 0.4 MG CAPSULE PO (09:12)
[2018-11-30] MEDS: CITALOPRAM 10 MG TABLET PO (09:12)
[2018-11-30] MEDS: METOPROLOL IR 25 MG TABLET 12.5 MG PO ×2 (09:19→22:30)
--- NOTE | 2018-11-30 10:18 | PC.NURSE ---
Addendum entered by Sobeida Sarabia R.N. 11/30/18 12:52: GI - when spouse returned, discussed wet cough with full liq, pt again stated he won't do any thickner, spouse verified he has worked with speech in past and continues with thin liq, performs chin tuck after swallow Original Note: AM NOTE - PACU arrived 7 am and pt taken for egd, returned 8am, drowsy, easily awakens, speech is slow, appropriate, 2l 94%, per pacu was incont stool, raphael care performed now w/small opening l groin, cleaned, barrier cream applied, buttock redness around anus, no breakdown noted, addl barrier cream, brief changed, per spouse, pt had hx pressure ulcer buttocks, discussed q2 turning, scd's on, hr 62, per spouse, pt refuses nectar thick, does take his medications with water and tucks chin w/swallow reminders, some throat clearing, oral care provided, cbg 125 in pacu. tele replaced.
--- NOTE | 2018-11-30 10:47 | P.PN_ITS ---
Subjective Date Patient Seen: 11/30/18 Time Patient Seen: 10:47 Interval history: He is seen today to follow up the anemia, GI bleed, post stroke weakness, hypertension, dysphagia. Overnight he was reported to have an 8 beat run of V-tach. He is do not resuscitate. His says that he has been losing weight and strength while trying to undergo rehab in the last month. The hemoglobin has stabilized at 9.7. The EGD shows duodenitis and superficial duodenal ulcers in the bulb. Exam Vital Signs (past 8 hours): - 11/30/18 06:22 11/30/18 07:11 11/30/18 08:00 Temperature 97.6 F 97.8 F Pulse Rate 68 69 Respiratory Rate 16 15 Blood Pressure 147/79 H 160/76 H Pulse Oximetry 94 94 94 11/30/18 08:14 11/30/18 08:20 11/30/18 08:25 Temperature 97.2 F L Pulse Rate 71 68 70 Respiratory Rate 12 12 12 Blood Pressure 119/65 126/65 129/65 Pulse Oximetry 92 95 94 11/30/18 08:30 11/30/18 08:35 11/30/18 08:40 Temperature 97.4 F L 97.7 F Pulse Rate 66 71 68 Respiratory Rate 12 12 12 Blood Pressure 142/69 H 137/69 126/59 L Pulse Oximetry 94 95 94 11/30/18 08:55 11/30/18 09:30 11/30/18 10:00 Temperature 97.9 F 98.0 F 97.6 F Pulse Rate 70 64 51 L Respiratory Rate 14 14 12 Blood Pressure 140/71 138/74 133/68 Pulse Oximetry 94 93 98 Oxygen Delivery Method Nasal Cannula Oxygen Flow Rate 2 Narrative Exam Narrative: He is alert, although still somewhat sedated from his EGD. Heart is regular rate and rhythm without murmur. Lungs are clear to auscultation bilaterally. Abdomen is soft bowel sounds positive, nontender, no organomegaly. Extremities have no ankle edema. Objective Labs Result Diagrams: 11/30/18 05:37 11/29/18 05:26 Labs: Laboratory Results - last 24 hr 11/29/18 11/29/18 11/30/18 05:26 21:05 05:37 WBC 8.5 RBC 3.41 L Hgb 9.4 L 9.7 L Hct 29.4 L 29.4 L MCV 86.2 MCH 28.5 MCHC 33.1 RDW 13.8 Plt Count 253 Neut % (Auto) 69.9 Lymph % (Auto) 16.0 L [place] % (Auto) 10.4 Eos % (Auto) 2.9 Baso % (Auto) 0.8 Neut # (Auto) 6000 Lymph # (Auto) 1400 [place] # (Auto) 900 Eos # (Auto) 200 Baso # (Auto) 100 Procalcitonin 0.07 Assessment & Plan Assessment & Plan narrative: 1. Acute GI bleed, present on admission. Active. -[facility] with a new episode of bright red blood per rectum. Previously this same issue had resolved with stopping of anticoagulant therapy of Plavix and aspirin. -Possible question of receiving double dosing of clopidogrel, facility reports only 1 medication card but documentation lists clopidogrel and Plavix dosed. -Initial H&H on admission is 11.1 and 33.8. Review of medical records demonstrate slow drifting down over the last month. -Will need to stop aspirin and Plavix. -Continue Protonix 40 mg IV daily. -resume normal saline at 100 mL/hr if oral intake continues to be inadequate.. -Per EGD today: Impression: Upper GI bleeding secondary to duodenitis and superficial duodenal ulcers in the bulb 2. Acute on chronic generalized weakness, present on admission. Active. -Multifactorial including bitemporal and cerebellar CVA and acute dehydration. -Patient does endorse little oral fluid intake related to dysphagia and use of thickener as he does not like to use this to prevent aspiration. -Continue physical, occupational, and speech evaluation and treatment. 3. Hypertension, chronic, present on admission. Stable. -Continue home medications of lisinopril 10 mg and metoprolol 25 mg twice daily. 4. Diabetes mellitus type 2, non-insulin using, present on admission. Stable. -Hemoglobin A1c 6.0% 11/09. -Holding metformin. -Continue blood glucose checks ACHS and low-dose correctional scale insulin. -dietary consult to address food content as well as ways to improve oral fluid intake. 5. Hyperlipidemia, chronic, present on admission. Stable. -Continue atorvastatin 40 mg daily. Disposition: Likely to discharge in 1-2 days back to [facility]. Quality VTE Deep Vein Thrombosis/Pulmonary Embolism Present on Admission: No
--- NOTE | 2018-11-30 11:04 | PT.IPTN ---
Surgery Performed Operation Date: 11/30/18 07:45 Actual Procedures p Esophagogastroduodenoscopy - Pierce Pandya MD Physical Therapy Treatment Note M2 PT-IP Current Condition Start: 11/29/18 12:05 Freq: NEEDED Status: Active Protocol: Document 11/29/18 10:46 AB (Rec: 11/29/18 12:16 AB [id number]) Physical Therapy Current Condition Current Condition Evaluation Date 11/29/18 Treatment Diagnosis GI bleed; difficulty in walking Onset Date 11/28/18 Precautions Other Precautions Falls M3 PT-IP Subjective Start: 11/29/18 12:05 Freq: NEEDED Status: Active Protocol: Document 11/30/18 11:02 GGD (Rec: 11/30/18 11:04 GGD [id number]) Subjective Physical Therapy Visit Type Type Patient Refusal Notes Pt refused states he is tired and weak after the procedure this AM. Will see in PM. M4 PT-IP Mobility and Gait Start: 11/29/18 12:05
[2018-11-30] MEDS: INSULIN ASPART 100 UNIT/ML INSULN PEN SUBCUT ×3 (12:13→22:25)
--- NOTE | 2018-11-30 12:15 | CM.DANOTE ---
Addendum entered by Olga Rodriguez LPN 11/30/18 13:24: Met with Marissa when she arrived. She confirms plan for return to [facility] and does say her has elected to not have thickened fluids. She says she is hoping to understand the full diagnosis and POC for her . She says he had some blood in stools at the [facility] and they were holding the blood thinner and giving him a stool softener but that was not working. He started having lots of stools and just kept getting weaker. I am hoping the hospital can figure out what is wrong with him. She said she did talk with Dr. Calhoun just briefly this morning but she is hoping for an update this afternoon from him. P: remains [facility] when stable for same. Original Note: Discharge Planning/Care Management Case received, EMR reviewed and met with pt. Introduced self and role. Pt is an 83 year old male who admitted 11/28 afternoon to care of the hospitalist team. Payer: Medicare and [facility] PCP: Dr. Kenroy Duran. Pt is found sitting up in bed with his lunch tray, attempting to berry picker machine operator a spoon. He reports that he does need some assist as it's hard for me to eat with my left hand if everything is not set up for me and I can't use my right hand. CAROL ANN Vidales is updated and following up with BOG WORKER. Did check in with therapy team to confirm that OT and PT are seeing him. ATM SERVICER has seen him and given diet recommendations. Pt confirms he has been at [facility] receiving rehab with PT, OT and ATM SERVICER since his d/c from 11/13/18 after CVA. Pt says he plans to return there to continue this treatment. He says his Marisas is currently at a painting class but will be returning to the hospital later today. (have also left a for her). Reviewed EMR from prior stay but do not see a d/c summary. Have spoken with [facility] and she says pt was not close to a d/c home. He is not bedbound and is actively participating in therapy. They are keeping the bed for him. Dr. Calhoun is updated. P: return to [facility] when stable for same. Admissions status: remains OBS: confirmed by UR CAROL ANN Page. Discharge Assessment Start: 11/30/18 12:11 Freq: Status: Active Protocol: Document 11/30/18 12:11 ITV (Rec: 11/30/18 12:15 ITV [id number]) Discharge Planning Assessment Advance Directives? No: Directive to Physicians History Provided By Patient Family Member Medical Record Has Patient been admitted in last 30 Yes days? Comment pt was admitted to November 10 and with a d/c to [facility] for rehab/recovery under Medicare benefit on November 13. He re-admitted November 28 under OBS admission status and remains here at this time. Facility Name Admitted From: [facility] Willing to Return to Facility? Yes Discharge Plan Assisted Facility Transportation Arrangement Spouse Whiteboard Updated in Patient Room with Yes name and ext. # of Order Expediter Review Status In Process Next Review Type Continued Stay Review
--- NOTE | 2018-11-30 13:59 | PT.IPTN ---
Surgery Performed Operation Date: 11/30/18 07:45 Actual Procedures p Esophagogastroduodenoscopy - Pierce Pandya MD Physical Therapy Treatment Note M2 PT-IP Current Condition Start: 11/29/18 12:05 Freq: NEEDED Status: Active Protocol: Document 11/29/18 10:46 AB (Rec: 11/29/18 12:16 AB [id number]) Physical Therapy Current Condition Current Condition Evaluation Date 11/29/18 Treatment Diagnosis GI bleed; difficulty in walking Onset Date 11/28/18 Precautions Other Precautions Falls M3 PT-IP Subjective Start: 11/29/18 12:05 Freq: NEEDED Status: Active Protocol: Document 11/30/18 13:58 GGD (Rec: 11/30/18 13:59 GGD [id number]) Subjective Physical Therapy Visit Type Type Patient Refusal Notes Pt refused, states that he is to tired and didn't sleep last night. Amount of Assist Needed 2 Person Assist Discharge Recommendations PT Discharge Recommendations SNF Rehab
--- NOTE | 2018-11-30 14:30 | OT.IP.TRT ---
Surgery Performed Operation Date: 11/30/18 07:45 Actual Procedures p Esophagogastroduodenoscopy - Pierce Pandya MD Occupational Therapy Treatment Note M2 OT-IP Current Condition Start: 11/29/18 17:11 Freq: Status: Active Protocol: Document 11/29/18 14:52 PJM (Rec: 11/29/18 17:37 PJM [id number]) Occupational Therapy Current Condition Current Condition Evaluation Date 11/29/18 Treatment Diagnosis decreased functional mobility, self care s/p recent stroke , GI bleed Diagnosis Onset Date 11/28/18 Post Operative Precautions Other Precautions 2 PA with mobility/transfers, fall risk M3 OT- IP Subjective and Pain Start: 11/29/18 17:11 Freq: Status: Active Protocol: Document 11/30/18 14:11 CCC (Rec: 11/30/18 14:30 [facility] [id number]) OT- Subjective Occupational Therapy Visit Type Type Treatment Note Visit Start Time 12:15 Visit Stop Time 12:35 Total Visit Minutes 20 Occupational Therapy Visit Comments Patient Comments Pt states having difficulty to self feed himself. OT Pain Assessment Pain When Pain Assessed At Rest Pain Present Pain Present Denied Pain M4 OT- IP ADL's Start: 11/29/18 17:11 Freq: Status: Active Protocol: Document 11/30/18 14:11 [facility] (Rec: 11/30/18 14:30 [facility] [id number]) OT IIM-Jgje-Jnoizno General Evaluation Self-Feeding Ability Standby Assistance Areas Needing Assistance Opening Containers Comments OT Self-Feeding Comments Pt needing pillows underneath his elbow to help support his arms so able to drink from straw in cup and also needing assist with set-up. Pt may need supervision at times due to his weakness for eating. Pt noted coughing while drinking liquids when asked if he saw TANK PUMPER PANELBOARD or may need to have liquids thickened. Pt open to idea, however after talking to nurse and nurse spoke with and pt , does not want any nectar liquids. TANK PUMPER PANELBOARD did eval pt, charted that pt and states refusing diet recommendations and feel that they are able to do swallow strategies independently. Also had to raise head of bed upright, still pt having wet coughs while drinking liquids. M5 OT- IP IADL's Start: 11/29/18 17:11 Freq: Status: Active Protocol: Document 11/29/18 14:52 PJM (Rec: 11/29/18 17:37 [facility] [id number]) OT-Instrumental Activities of Daily Living Deficits IADL Deficits Identified Deficits Medication Management Medication Management Caregiver Administers Medication Management Comments total assist Money Management Money Management Caregiver Provides Assistance Money Management Comments managing finances Meal Preparation Meal Preparation Comments total assist Tool And Die Technician Tool And Die Technician Comments total assist Driving Driving Comments pt no longer drives M6 OT- IP Functional Cognition Start: 11/29/18 17:11 Freq: Status: Active Protocol: Document 11/29/18 14:52 MARTY (Rec: 11/29/18 17:37 [facility] [id number]) Cognitive Factors Limiting Selfcare Function Cognitive Ability Level of Alertness Drowsy Patient Orientation Name Month Date Year Place Attention Span Ability Capable of Focused Attention Unable to Sustain Attention Ability to Follow Commands Able to Follow One Step Commands Cognitive Comments Cognitive Assessment Comments Pt drowsy this session due to fatigue but oriented and follows one step commands consistently. Further observations to follow. reports that pt recalls day to day events. OT- Vision and Hearing OT- Hearing Assessment OT- Hearing Assessment WFL OT- Vision Assessment Visual Acuity WFL Glasses For Reading Occular Pursuits WFL Vision Assessment Comments Pt s/p B cataract sx 06/2018 and wears reading glasses only . M7 OT- IP Mobility and Balance Start: 11/29/18 17:11 Freq: Status: Active Protocol: Document 11/29/18 14:52 MARTY (Rec: 11/29/18 17:37 [facility] [id number]) OT-Transfer Assessment Comments Mobility Comments Pt declined OOB due to fatigue this session, he requires 2 person assist for mobility per P.T. notes. OT- Gait Assessment Comments Gait Ability Comments pt non ambulatory at present due to weakness OT- Balance Assessment Comments Other Balance Tests/Deviations/Treatment see P.T. notes : M8 OT- IP Objective Assessments Start: 11/29/18 17:11 Freq: Status: Active Protocol: Document 11/29/18 14:52 MARTY (Rec: 11/29/18 17:37 [facility] [id number]) OT Gross Range of Motion Upper Extremity Range of Motion Assessment Right Impaired ROM Impairments RUE active scaption limited to 45 degrees by old rotator cuff tear per pt. PROM to 90 scpation. Distal AROM WFL LUE WFL except scaption to 90 due to stiffness. OT Strength Upper Extremity Strength Assessment Bilaterally Impaired Shoulder L 3+/5 R 3-/5 Elbow L 4/5 R 4/5 flex/ext Wrist L 4-/5 R 4-/5 ext Hand L jet ski mechanic 3+/5 R jet ski mechanic 3+/5 Hand Field Superintendent Strength Hand Dominance Right Comments Strength Comments generalized weakness in KAILASH's OT- Coordination Assessment Comments Coordination Comments WFL in BUE OT-Muscle Tone Assessment Muscle Tone WNL Yes OT Sensation Assessment Comments Summary Comments Pt denies sensory deficits in BUE's Edema Edema Absent Edema Comments in BUE's M9 OT- IP Assessment and Plan Start: 11/29/18 17:11 Freq: Status: Active Protocol: Document 11/30/18 14:11 [facility] (Rec: 11/30/18 14:30 [facility] [id number]) OT Summary Assessment and Plan Potential Analytic Complexity at Evaluation Moderate Summary OT Impairments Strength Balance Functional Mobility Grooming Dressing Toileting Bathing Toilet Transfers Shower Transfers Assessment Summary Pt will still benefit from going back to skilled rehab. Pt has low activity tolerance and per OT eval needing two person assist for bed mobility and transfer needs. Goals Grooming Goal Standby Assistance Dressing Goal Minimal Assistance Moderate Assistance Toileting Goal Moderate Assistance Bathing Goal Minimal Assistance Toilet Transfer Goal Moderate Assistance Bedside Commode Patient/Caregiver Education Goal Demonstrate Energy Conservation and Pacing OT-Other Goals Pt to be min assist with upper body dressing and mod assist with lower body dressing. Pt to be min assist with seated upper body sponge bath. Days to Meet Goals 7 Frequency of Treatment Frequency Of Treatment Once a Day Treatment Plan OT Treatment Plan ADL Training Functional Mobility Patient/Family Education Discharge Planning Discharge Recommendations OT Discharge Recommendations SNF Rehab
--- NOTE | 2018-11-30 16:10 | DIET.PN ---
Met w/. Pt sleeping. Per , pt has become very week r/t not eating properly at SNF and being worked w/PT. Has had GI bleeding for few weeks now per . Has been on several diets since being admitted: NPO, clears, dysphagia advanced, NPO (all within 2 days). reports pt refuses to have fluids thickened. Not tolerating the dysphagia advanced diet w/thin liquids. Dx: LGIB, CVA Diet: Full liquid Ht 6' Wt 86kg (190#) BMI: 26 UBW: 188# per was 181# on admit Assessment: Inadequate PO intake X >1wk w/estimated <50% EER. Wt change difficult to assess. reports 10# wt loss while at SNF over last month, but current wt is very 2# > usual wt; suspect fluid accumulation. Anemia r/t LGIB likely contributes to weakness. Nutrition Dx: Inadequate PO intake. High risk for further nutritional compromise. Intervention: Ensure Enlive w/meal trays - van. Suggested w/blenderize full liquids but doesn't think pt will accept that. Plan monitor PO intake, wt.
[2018-11-30] MEDS: LISINOPRIL 10 MG TABLET PO (22:29)
[2018-11-30] MEDS: ATORVASTATIN 20 MG TABLET 40 MG PO (22:30)
[2018-11-30] MEDS: ACETAMINOPHEN 325 MG TABLET 650 MG PO (23:36)
--- NOTE | 2018-11-30 23:46 | PC.NURSE ---
Pt is very weak. falls asleep in the middle of conversation. HR in 100's. poor PO intake. pt only drank his ensure. refused pudding, apple sauce or soup. q2turn. pt still having bloody stools, 3 smears.
[2018-12-01] VITALS (12 sets, daily range): BP systolic 102–141; BP diastolic 50–72; PULSE 55–77; RESP 18; TEMP 36.6–37.1; O2SAT 87–98
--- NOTE | 2018-12-01 00:28 | PC.NURSE ---
2300- Pt admit for GI Bleed, see MD notes for details. On my initial assessment noted pt felt warm, checked temp and noted 100.5 F. Pt very weak at this time; 2PA w/ turns in bed, unable to ambulate. Tele reading SR/ST w/ NS running as ordered. BG stable before bed, will recheck at 0300. PO tylenol given for fever, pt repositioned. Dysphasia diet ordered however, pt refuses to eat that way. Prompted him to take meds w/ applesauce & he complied. 0200- Pt cont to be turned and changed thru the night. Remains sleepy
[2018-12-01] MEDS: SODIUM CHLORIDE 0.9% 1,000 ML 75 ML IV (01:17)
[2018-12-01 08:01] LABS: Add Manual Diff / Slide Review NO; Basophils Absolute Auto 100 /uL (0-100); Basophils Percent Auto 0.8 % (0-2); Eosinophils Absolute Auto 100 /uL (0-450); Eosinophils Percent Auto 0.8 % (2-4); Hematocrit 27.6 % (41-53); Hemoglobin 9.1 g/dL (13.5-17.5); Lymphocytes Absolute Auto 1800 /uL (1100-4500); Lymphocytes Percent Auto 13.1 % (25-40); Mean Corpuscular Hemoglobin 28.1 PG (26-34); Mean Corpuscular Volume 85.3 fL (80-100); Monocytes Absolute Auto 800 /uL (0-900); Monocytes Percent Auto 5.7 % (3-14); Neutrophils Absolute Auto 10900 /uL (1500-7000); Neutrophils Percent Auto 79.6 % (50-75); Platelet Count 248 X10^3/uL (150-400); Red Blood Cell Count 3.23 X10^6/uL (4.5-5.9); Red Cell Distribution Width 13.6 % (11.6-14.8); White Blood Cell Count 13.6 X10^3/uL (4.5-11.0)
[2018-12-01 08:13] LABS: BUN Creatinine Ratio 21.8 (6-22); Blood Urea Nitrogen 24 mg/dL (9-20); Calcium 8.3 mg/dL (8.4-10.2); Carbon Dioxide 24 mmol/L (22-32); Chloride 108 mmol/L (98-107); Estimated Glomerular Filt Rate > 60.0 mL/min (>60); Glucose 108 mg/dL (80-110); HEMOLYSIS < 15 (0-50); Potassium 4.3 mmol/L (3.4-5.1); Sodium 140 mmol/L (137-145)
[2018-12-01 08:24] LABS: B Type Natriuretic Peptide 199 (<100)
[2018-12-01] MEDS: TAMSULOSIN 0.4 MG CAPSULE PO (09:42)
[2018-12-01] MEDS: PANTOPRAZOLE 40 MG VIAL IV (09:42)
[2018-12-01] MEDS: VIT C/E/ZN/COPPR/LUTEIN/ZEAXAN CAPSULE 1 CAP PO ×2 (09:46→20:41)
[2018-12-01] MEDS: METOPROLOL IR 25 MG TABLET 12.5 MG PO ×2 (09:46→20:40)
[2018-12-01] MEDS: CITALOPRAM 10 MG TABLET PO (09:46)
--- NOTE | 2018-12-01 11:22 | PC.NURSE ---
Addendum entered by Sobeida Sarabia R.N. 12/01/18 12:43: MS/RESP - pt becoming more alert when spouse arrived, discussed mobilization and PT an OT in, pt up to dangle, attempted stand w/fww, leaned to left slightly, had to sit back down but on 2nd try, stood with fww and was able to take few steps to chair, removed 02 and sat remained 95% ra. Original Note: AM NOTE pt lightly snoring, open mouth, 02 sat 2L 94%, does desat at times when snoring, when awake, decr 02 to 1L, bs coarse, speech is delayed, responses appropriate, generalized weakness, template fitter are strong but unble to hold up ue, le from bed for full count 10 seconds, declines po this am, just wants return to sleep, assisted with urinal this am, some small breakdown at l groin, cleaned and barrier cream applied, healed breakdown l buttock, skin intact, q2 repositioning performed.
--- NOTE | 2018-12-01 11:50 | PT.IPTN ---
Current Diagnoses Melena (11/28/18) Surgery Performed Operation Date: 11/30/18 07:45 Actual Procedures p Esophagogastroduodenoscopy - Pierce Pandya MD Physical Therapy Treatment Note M2 PT-IP Current Condition Start: 11/29/18 12:05 Freq: NEEDED Status: Active Protocol: Document 11/29/18 10:46 AB (Rec: 11/29/18 12:16 AB [id number]) Physical Therapy Current Condition Current Condition Evaluation Date 11/29/18 Treatment Diagnosis GI bleed; difficulty in walking Onset Date 11/28/18 Precautions Other Precautions Falls M3 PT-IP Subjective Start: 11/29/18 12:05 Freq: NEEDED Status: Active Protocol: Document 12/01/18 11:50 AB (Rec: 12/01/18 12:54 AB [id number]) Subjective Physical Therapy Visit Type Type Treatment Note Visit Start Time 11:50 Visit Stop Time 12:03 Total Visit Minutes 23 Number of SCREEN PRINTING SUPERVISOR Visits 0 Physical Therapy Visit Comments Patient Comments pt initially refusing but then agreed to get up. M4 PT-IP Mobility and Gait Start: 11/29/18 12:05 Freq: NEEDED Status: Active Protocol: Document 12/01/18 11:50 AB (Rec: 12/01/18 12:54 AB [id number]) PT-Bed Mobility Assessment Supine to Sit Supine to Sit Maximum Assistance 2 Person Assistance PT-Transfer Assessment Sit to and From Stand Sit to and from Stand Maximum Assistance 2 Person Assistance Use of Upper Extremities Equipment Transfer Assistive Device Gait Belt Front Wheeled Walker Orthotic/Prosthetic Devices or Brace: No Transfers Transfer Destination Chair Transfer Technique Stand Step Pivot Transfer Ability Level of Assist Maximum Assistance 2 Person Assistance Use of Upper Extremities Comments Mobility Comments required 2 attempts to complete for sit to stand max A x 2 and cues. pt required assist to stabilize LLE. M5 PT-IP Objective Assessments Start: 11/29/18 12:05 Freq: NEEDED Status: Active Protocol: Document 11/29/18 10:46 AB (Rec: 11/29/18 12:16 AB [id number]) Orientation Orientation/Cognition Level of Alertness Alert Orientation Name Place Situation Memory Description Short Term Impaired Gross Range of Motion Lower Extremity ROM Assessment Within Functional Limits Strength Lower Extremity Strength Assessment Bilaterally Impaired Comments Strength Comments LLE: 3-/5 RLE: 3+/5 Muscle Tone Muscle Tone WNL Yes M6 PT-IP Treatment Start: 11/29/18 12:05 Freq: NEEDED Status: Active Protocol: Document 11/29/18 10:46 AB (Rec: 11/29/18 12:16 AB [id number]) Physical Therapy Treatment Education Education Provided Precautions Weight Bearing Status Safety M7 PT-IP Assessment and Plan Start: 11/29/18 12:05 Freq: NEEDED Status: Active Protocol: Document 12/01/18 11:50 AB (Rec: 12/01/18 12:54 AB [id number]) PT Summary Assessment and Plan Potential Rehabilitation Potential Fair Summary Impairments Pain ROM Strength Balance Coordination Sensation Tone Cognition Bed Mobility Transfers Gait Activity Tolerance Progress Towards Goals Slow Progress due to Medical Issues Slow Progress due to Activity Tolerance Assessment Summary pt continues to require 2 person assist with mobility and has decrease activity tolerance. pt will need SNF rehab to improve strength and function. tx frequency decreasing to once a day and will increase back to 2x/day if pt is able to tolerate more activity. Goals Bed Mobility Goal Minimal Assistance Transfer Goal Minimal Assistance Front Wheeled Walker Gait Goal Minimal Assistance Front Wheel Walker Gait Distance 100 Days to Meet Goals 5 Frequency of Treatment Frequency Of Treatment Once a Day Treatment Plan Physical Therapy Treatment Plan Bed Mobility Training Transfer Training Gait Training Therapeutic Exercise Balance Retraining Discharge Planning Hot or Cold Pack Neuromuscular Re-ed Coordination Retraining Manual Therapy Recommendations To Nursing Amount of Assist Needed Mechanical Lift Discharge Recommendations PT Discharge Recommendations SNF Rehab
--- NOTE | 2018-12-01 12:41 | OT.IP.TRT ---
Current Diagnoses Melena (11/28/18) Surgery Performed Operation Date: 11/30/18 07:45 Actual Procedures p Esophagogastroduodenoscopy - Pierce Pandya MD Occupational Therapy Treatment Note M2 OT-IP Current Condition Start: 11/29/18 17:11 Freq: Status: Active Protocol: Document 11/29/18 14:52 PJM (Rec: 11/29/18 17:37 PJM [id number]) Occupational Therapy Current Condition Current Condition Evaluation Date 11/29/18 Treatment Diagnosis decreased functional mobility, self care s/p recent stroke , GI bleed Diagnosis Onset Date 11/28/18 Post Operative Precautions Other Precautions 2 PA with mobility/transfers, fall risk M3 OT- IP Subjective and Pain Start: 11/29/18 17:11 Freq: Status: Active Protocol: Document 12/01/18 12:24 [facility] (Rec: 12/01/18 12:41 [facility] [id number]) OT- Subjective Occupational Therapy Visit Type Type Treatment Note Visit Start Time 11:50 Visit Stop Time 12:20 Total Visit Minutes 30 Occupational Therapy Visit Comments Patient Comments Pt needing lots of encouragement and then agreeable to try to get up to the recliner. OT Pain Assessment Pain When Pain Assessed At Rest Pain Present Pain Present Denied Pain M4 OT- IP ADL's Start: 11/29/18 17:11 Freq: Status: Active Protocol: Document 12/01/18 12:24 [facility] (Rec: 12/01/18 12:41 [facility] [id number]) OT ADL-Grooming General Evaluation Grooming Ability Standby Assistance Areas Needing Assistance Retrieving/Set-up of Grooming Items OT ADL-Oral Care General Eval Oral Care Ability Moderate Assistance Devices Oral Care Devices Sponge/Foam Tipped Swab Comments Oral Care Comments MOD A for completeness for mouth care. OT ADL-Dressing General Eval Lower Body Dressing Ability Maximum Assistance Areas Needing Assistance Socks M5 OT- IP IADL's Start: 11/29/18 17:11 Freq: Status: Active Protocol: Document 11/29/18 14:52 PJM (Rec: 11/29/18 17:37 PJM [id number]) OT-Instrumental Activities of Daily Living Deficits IADL Deficits Identified Deficits Medication Management Medication Management Caregiver Administers Medication Management Comments total assist Money Management Money Management Caregiver Provides Assistance Money Management Comments managing finances Meal Preparation Meal Preparation Comments total assist Permastone Installer Permastone Installer Comments total assist Driving Driving Comments pt no longer drives M6 OT- IP Functional Cognition Start: 11/29/18 17:11 Freq: Status: Active Protocol: Document 12/01/18 12:24 [facility] (Rec: 12/01/18 12:41 [facility] [id number]) Cognitive Factors Limiting Selfcare Function Cognitive Ability Level of Alertness Alert Patient Orientation Name Month Date Year Place Attention Span Ability Capable of Focused Attention Unable to Sustain Attention Ability to Follow Commands Able to Follow One Step Commands Cognitive Comments Cognitive Assessment Comments Pt able to follow one step commands. Pt still insistent on not having nectar liquids. M7 OT- IP Mobility and Balance Start: 11/29/18 17:11 Freq: Status: Active Protocol: Document 12/01/18 12:24 [facility] (Rec: 12/01/18 12:41 [facility] [id number]) OT- Bed Mobility Assessment Rolling Type of Rolling Roll to Left Level of Assistance Maximum Assistance 2 Person Assistance Supine to Sit Supine to Sit Assist Maximum Assistance 2 Person Assistance Scooting Scooting to Edge of Bed Maximum Assistance 2 Person Assistance OT-Transfer Assessment Sit to and From Stand Sit to and from Stand Maximum Assistance 2 Person Assistance Transfers Transfer Ability Maximum Assistance 2 Person Assistance Technique Transfer Destination Chair Transfer Technique Stand Step Pivot Devices Transfer Assistive Devices Gait Belt Front Wheeled Walker Comments Mobility Comments Two person assist for bed mobility and transfers, assist to stand , block left knee and move FWW. OT- Balance Assessment Sitting Balance and Reactions Static Sitting Balance Ability Fair Dynamic Sitting Balance Ability Poor Standing Balance and Reactions Static Standing Balance Ability Poor Dynamic Standing Balance Ability Poor M8 OT- IP Objective Assessments Start: 11/29/18 17:11 Freq: Status: Active Protocol: Document 11/29/18 14:52 PJM (Rec: 11/29/18 17:37 PJM [id number]) OT Gross Range of Motion Upper Extremity Range of Motion Assessment Right Impaired ROM Impairments RUE active scaption limited to 45 degrees by old rotator cuff tear per pt. PROM to 90 scpation. Distal AROM WFL LUE WFL except scaption to 90 due to stiffness. OT Strength Upper Extremity Strength Assessment Bilaterally Impaired Shoulder L 3+/5 R 3-/5 Elbow L 4/5 R 4/5 flex/ext Wrist L 4-/5 R 4-/5 ext Hand L animal attendant 3+/5 R animal attendant 3+/5 Hand Linker Up Strength Hand Dominance Right Comments Strength Comments generalized weakness in BUE's OT- Coordination Assessment Comments Coordination Comments WFL in BUE OT-Muscle Tone Assessment Muscle Tone WNL Yes OT Sensation Assessment Comments Summary Comments Pt denies sensory deficits in BUE's Edema Edema Absent Edema Comments in BUE's M9 OT- IP Assessment and Plan Start: 11/29/18 17:11 Freq: Status: Active Protocol: Document 12/01/18 12:24 [facility] (Rec: 12/01/18 12:41 [facility] [id number]) OT Summary Assessment and Plan Potential Analytic Complexity at Evaluation Moderate Summary OT Impairments Strength Balance Functional Mobility Grooming Dressing Toileting Bathing Toilet Transfers Shower Transfers Progress Towards Goals Slow Progress due to Medical Issues Slow Progress due to Activity Tolerance Assessment Summary Pt when medically stable would benefit from skilled rehab. Pt needing extensive two person assist for all needs. Goals Grooming Goal Standby Assistance Dressing Goal Moderate Assistance Toileting Goal Moderate Assistance Bathing Goal Moderate Assistance Toilet Transfer Goal Moderate Assistance Bedside Commode Patient/Caregiver Education Goal Demonstrate Energy Conservation and Pacing Days to Meet Goals 7 Frequency of Treatment Frequency Of Treatment Once a Day Treatment Plan OT Treatment Plan ADL Training Functional Mobility Patient/Family Education Discharge Planning Discharge Recommendations OT Discharge Recommendations SNF Rehab
[2018-12-01] MEDS: INSULIN ASPART 100 UNIT/ML INSULN PEN SUBCUT ×2 (17:12→20:34)
--- NOTE | 2018-12-01 17:53 | PM.PN.1 ---
Subjective Date Patient Seen: 12/01/18 Interval history: Patient is 83-year-old male with recent stroke admitted due to acute GI bleed. He states he is feeling better. Nursing staff noticed cough with swallowing which is due to patient refusing to comply with thickening fluids on dysphagia diet. Exam Vital Signs (past 8 hours): - 12/01/18 10:39 12/01/18 12:37 12/01/18 17:00 Temperature 98.0 F 98.2 F Pulse Rate 55 L 58 L Respiratory Rate 18 18 Blood Pressure 102/59 L 115/50 L Pulse Oximetry 87 L 95 96 Oxygen Delivery Method Room Air Oxygen Flow Rate 2 Narrative Exam Narrative: General: Alert very pleasant male who coughs with sipping liquids Lungs: Clear to auscultation Heart: Regular rhythm Abdomen: Soft, nontender Extremities: No edema Objective Labs Result Diagrams: 12/01/18 07:48 12/01/18 07:48 Labs: Laboratory Results - last 24 hr 12/01/18 12/01/18 07:48 07:48 WBC 13.6 H D RBC 3.23 L Hgb 9.1 L Hct 27.6 L MCV 85.3 MCH 28.1 MCHC 33.0 RDW 13.6 Plt Count 248 Neut % (Auto) 79.6 H Lymph % (Auto) 13.[address] [place] % (Auto) 5.7 Eos % (Auto) 0.8 L Baso % (Auto) 0.8 Neut # (Auto) 97404 H Lymph # (Auto) 1800 [place] # (Auto) 800 Eos # (Auto) 100 Baso # (Auto) 100 Sodium 140 Potassium 4.3 Chloride 108 H Carbon Dioxide 24 BUN 24 H Creatinine 1.10 Estimated GFR > 60.0 BUN/Creatinine Ratio 21.8 Glucose 108 Calcium 8.3 L B-Natriuretic Peptide 199 H Assessment & Plan Assessment & Plan narrative: Patient is 83-year-old male with recent stroke admitted due to acute GI bleed. 1. Acute GI bleed, present on admission. Active. -patient has not needed transfusion but hemoglobin and hematocrit drifting down since admission -Patient has had melena for over a month at [facility] correction facility with a new episode of bright red blood per rectum. Previously this same issue had resolved with stopping of anticoagulant therapy of Plavix and aspirin. -Initial H&H on admission is 11.1 and 33.8. Review of medical records demonstrate slow drifting down over the last month. -EGD showed duodenitis and superficial duodenal ulcers in the bulb which is source of bleed. -Continue Protonix 40 mg daily, switched to p.o.. -hep locked IV -stopped Plavix and aspirin. However, he can probably go back on just the Plavix in 1-2 weeks if there is no signs of ongoing bleed. He should stay on Protonix indefinitely. -ordered infusion of iron sucrose 200 mg IV to help with anemia. 2. Acute on chronic generalized weakness, present on admission. Active. -Multifactorial including bitemporal and cerebellar CVA and acute dehydration. -Patient does endorse little oral fluid intake related to dysphagia and use of thickener as he does not like to use this to prevent aspiration. -Continue physical, occupational, and speech evaluation and treatment. 3. Hypertension, chronic, present on admission. Stable. -Continue home medications of lisinopril 10 mg and metoprolol 25 mg twice daily. 4. Diabetes mellitus type 2, non-insulin using, present on admission. Stable. -Hemoglobin A1c 6.0% 11/09. -Holding metformin. -Continue blood glucose checks ACHS and low-dose correctional scale insulin. -dietary consult to address food content as well as ways to improve oral fluid intake. 5. Hyperlipidemia, chronic, present on admission. Stable. -Continue atorvastatin 40 mg daily. 6. Acute leukocytosis -new elevated WBC on labs 12/01/2018 likely due to intermittent aspiration, normal chest x-ray on admit, lungs sound clear -repeat CBC in a.m., obtain repeat chest x-ray if fever or worsening WBC Patient was stabilizing hospital course and possibly can discharge back to [facility] tomorrow, Monday to continue his rehab. He should have repeat CBC in a week and consideration of restarting his Plavix if counts stable. Also he should have outpatient event monitoring for atrial fibrillation due to his recent bilateral stroke if that has not been arranged. Quality VTE Deep Vein Thrombosis/Pulmonary Embolism Present on Admission: No
--- NOTE | 2018-12-01 18:04 | P.PN_ITS ---
Subjective Date Patient Seen: 12/01/18 Interval history: Patient is 83-year-old male with recent stroke admitted due to acute GI bleed. He states he is feeling better. Nursing staff noticed cough with swallowing w hich is due to patient refusing to comply with thickening fluids on dysphagia diet. Exam Vital Signs (past 8 hours): - 12/01/18 10:39 12/01/18 12:37 12/01/18 17:00 Temperature 98.0 F 98.2 F Pulse Rate 55 L 58 L Respiratory Rate 18 18 Blood Pressure 102/59 L 115/50 L Pulse Oximetry 87 L 95 96 Oxygen Delivery Method Room Air Oxygen Flow Rate 2 Narrative Exam Narrative: General: Alert very pleasant male who coughs with sipping liquids Lungs: Clear to auscultation Heart: Regular rhythm Abdomen: Soft, nontender Extremities: No edema Objective Labs Result Diagrams: 12/01/18 07:48 12/01/18 07:48 Labs: Laboratory Results - last 24 hr 12/01/18 12/01/18 07:48 07:48 WBC 13.6 H D RBC 3.23 L Hgb 9.1 L Hct 27.6 L MCV 85.3 MCH 28.1 MCHC 33.0 RDW 13.6 Plt Count 248 Neut % (Auto) 79.6 H Lymph % (Auto) 13.1 L Ogle % (Auto) 5.7 Eos % (Auto) 0.8 L Baso % (Auto) 0.8 Neut # (Auto) 24973 H Lymph # (Auto) 1800 Ogle # (Auto) 800 Eos # (Auto) 100 Baso # (Auto) 100 Sodium 140 Potassium 4.3 Chloride 108 H Carbon Dioxide 24 BUN 24 H Creatinine 1.10 Estimated GFR > 60.0 BUN/Creatinine Ratio 21.8 Glucose 108 Calcium 8.3 L B-Natriuretic Peptide 199 H Assessment & Plan Assessment & Plan narrative: Patient is 83-year-old male with recent stroke admitted due to acute GI bleed. 1. Acute GI bleed, present on admission. Active. -patient has not needed transfusion but hemoglobin and hematocrit drifting down since admission -Patient has had melena for over a month at [facility] half-way facility with a new episode of bright red blood per rectum. Previously this same issue had resolved with stopping of anticoagulant therapy of Plavix and aspirin. -Initial H&H on admission is 11.1 and 33.8. Review of medical records d emonstrate slow drifting down over the last month. -EGD showed duodenitis and superficial duodenal ulcers in the bulb which is source of bleed. -Continue Protonix 40 mg daily, switched to p.o.. -hep locked IV -stopped Plavix and aspirin. However, he can probably go back on just the Plavix in 1-2 weeks if there is no signs of ongoing bleed. He should stay on Protonix indefinitely. -ordered infusion of iron sucrose 200 mg IV to help with anemia. 2. Acute on chronic generalized weakness, present on admission. Active. -Multifactorial including bitemporal and cerebellar CVA and acute dehydration. -Patient does endorse little oral fluid intake related to dysphagia and use of thickener as he does not like to use this to prevent aspiration. -Continue physical, occupational, and speech evaluation and treatment. 3. Hypertension, chronic, present on admission. Stable. -Continue home medications of lisinopril 10 mg and metoprolol 25 mg twice daily. 4. Diabetes mellitus type 2, non-insulin using, present on admission. Stable. -Hemoglobin A1c 6.0% 11/09. -Holding metformin. -Continue blood glucose checks ACHS and low-dose correctional scale insulin. -dietary consult to address food content as well as ways to improve oral fluid intake. 5. Hyperlipidemia, chronic, present on admission. Stable. -Continue atorvastatin 40 mg daily. 6. Acute leukocytosis -new elevated WBC on labs 12/01/2018 likely due to intermittent aspiration, normal chest x-ray on admit, lungs sound clear -repeat CBC in a.m., obtain repeat chest x-ray if fever or worsening WBC Patient was stabilizing hospital course and possibly can discharge back to [facility] tomorrow, Monday to continue his rehab. He should have repeat CBC in a week and consideration of restarting his Plavix if counts stable. Also he should have outpatient event monitoring for atrial fibrillation due to his recent bilateral stroke if that has not been arranged. Quality VTE Deep Vein Thrombosis/Pulmonary Embolism Present on Admission: No
[2018-12-01] MEDS: ATORVASTATIN 20 MG TABLET 40 MG PO (20:41)
[2018-12-01] MEDS: LISINOPRIL 10 MG TABLET PO (20:41)
--- NOTE | 2018-12-01 22:52 | PC.NURSE ---
pt more alert today. 96%RA. he ate his soup, ensure and pudding. pt calls appropriately. 1pa w/urinal. dark red stool per SENIOR STATISTICAL PROGRAMMER report. q2turn. call light in reach. bed alarm active.
[2018-12-02 01:00] VITALS: BP 142/67; PULSE 63; RESP 16; TEMP 37.1; O2SAT 95; O2SAT 97
--- NOTE | 2018-12-02 01:07 | PC.NURSE ---
2300- Pt admit for GI bleed, some bright red smears noted today. Pt eating more food through the day, his regular diet ordered to start 12/02. Lungs sound wet w/ difficulty clearing secretions. 2PA to turn in bed q2hrs w/ 2PA/kwasi lift when pt wants to move out of bed. BG checks taking place, stable at this time. 0100- VSS; pt using urinal in bed w/ dribbling noted in brief.
[2018-12-02 05:10] VITALS: BP 148/82; PULSE 66; RESP 16; TEMP 36.6; O2SAT 94
[2018-12-02 05:38] LABS: Add Manual Diff / Slide Review NO; Basophils Absolute Auto 100 /uL (0-100); Basophils Percent Auto 0.6 % (0-2); Eosinophils Absolute Auto 300 /uL (0-450); Eosinophils Percent Auto 3.1 % (2-4); Hematocrit 29.2 % (41-53); Hemoglobin 9.6 g/dL (13.5-17.5); Lymphocytes Absolute Auto 1400 /uL (1100-4500); Lymphocytes Percent Auto 13.9 % (25-40); Mean Corpuscular Hemoglobin 28.7 PG (26-34); Mean Corpuscular Volume 87.2 fL (80-100); Monocytes Absolute Auto 800 /uL (0-900); Monocytes Percent Auto 7.7 % (3-14); Neutrophils Absolute Auto 7500 /uL (1500-7000); Neutrophils Percent Auto 74.7 % (50-75); Platelet Count 246 X10^3/uL (150-400); Red Blood Cell Count 3.35 X10^6/uL (4.5-5.9); White Blood Cell Count 10.1 X10^3/uL (4.5-11.0)
[2018-12-02] MEDS: PANTOPRAZOLE 40 MG TABLET PO (06:43)
[2018-12-02] MEDS: IRON SUCROSE 200 MG in SODIUM CHLORIDE 0.9% 100 ML 110 ML IV (09:31)
[2018-12-02] MEDS: CITALOPRAM 10 MG TABLET PO (09:32)
[2018-12-02] MEDS: METOPROLOL IR 25 MG TABLET 12.5 MG PO (09:32)
[2018-12-02] MEDS: VIT C/E/ZN/COPPR/LUTEIN/ZEAXAN CAPSULE 1 CAP PO (09:32)
[2018-12-02] MEDS: TAMSULOSIN 0.4 MG CAPSULE PO (09:32)
[2018-12-02 10:00] VITALS: BP 142/70; PULSE 60; RESP 16; TEMP 36.8; O2SAT 95
--- NOTE | 2018-12-02 11:57 | PM.DS.1 ---
History of Present Illness Date Patient Seen: 11/28/18 Chief complaint: Lower GI bleed Narrative: Written by Ismael COLMENARES: Shania Mauricio is an 83-year-old male patient with a history hypertension, hyperlipidemia, diabetes, BPH, prior CVA with left hemiparesis who presents today for complaints of acute onset of bright red blood per rectum. The patient was recently discharged from [facility] to [facility] post CVA now involving both temporal lobes and cerebellum. The patient had been on aspirin and Plavix at the facility and there is a question or the patient inadvertently received double doses of Plavix. The patient further reports melena stool while taking aspirin and Plavix prior to his recent admission that has continued since. The patient reports having frequent loose stool that today contained red blood. He has also experienced increasing weakness since being at [facility]. At time of discharge he was able to walk a very short distance with a walker and now is unable to ambulate. He has a history of oral surgery which is impaired his swallowing and has been intolerant of dysphagia diet and opts not to drink water due to the thickening agent. He denies recent fevers or chills, headaches or dizziness. Does report soreness on the left side of his mouth but no change in his chewing or swallowing. Denies chest pain or palpitations, shortness of breath and has a chronic cough related to upper airway phlegm. He denies abdominal pain, nausea vomiting and has had frequent diarrhea as above. He is nonambulatory at this time. In the ER the patient is found to be afebrile with temperature 97.7?, heart rate of 57, blood pressure of 129/65, respiratory rate of 18 with a room air saturation 94%. He has a normal white count and his H&H is 11.1 and 33.8 with adequate platelets of 288. His INR is normal and he has a low APTT at 24. His electrolytes are within normal range and his renal function is consistent with dehydration with a BUN of 43 and creatinine 1.1 with a BUN creatinine ratio of 39.1:1. Dr. Pandya was called by the ER provider and he referred the patient to the medicine service. Discharge Providers Date of admission: 11/28/18 16:11 Discharge Date: 12/02/18 Primary care physician: Lex Duran MD Consults: 11/28/18 20:59 Consult to Dietitian, Adult Routine Comment: Reason For Exam: Poor dietary intake, dysphagic diet not tollerated 11/28/18 21:00 Consult to Discharge Planning Routine Comment: Consult to Occupational Therapy Evaluate & Treat Comment: B/L temporal and cerebelar infarcts, prog weakness Physician Instructions: Evaluate and treat Consult to Physical Therapy Evaluate & Treat Comment: B/L temporal and cerebelar infarcts, prog weakness Physician Instructions: Evaluate and Treat 11/28/18 21:01 Consult to Speech Therapy Evaluate & Treat Comment: B/L temporal and cerebelar CVA,Hx impaired swallow Physician Instructions: Evaluate and treat 11/28/18 21:10 Consult to General Surgery Routine Comment: Consulting Provider: Pierce Pandya Reason for consultation: Melana stool, hematochezia Has provider been notified: Yes Discharge provider: Genny Ram DO Summary Discharge Diagnosis: 1. Acute GI bleed, present on admission. Active. 2. Acute on chronic generalized weakness, present on admission. Active. 3. Hypertension, chronic, present on admission. Stable. 4. Diabetes mellitus type 2, non-insulin using, present on admission. Stable. 5. Hyperlipidemia, chronic, present on admission. Stable. 6. Acute leukocytosis, not present on admission. Resolved. Hospital Course: Shania Mauricio is an 83-year-old male patient with a past medical history significant for hypertension, hyperlipidemia, diabetes mellitus type 2, non-insulin using, BPH, prior CVA with left hemiparesis who presented for complaints of acute onset of bright red blood per rectum. 1. Acute GI bleed, present on admission. Active. -Patient has had melena for over a month at [facility] usp facility with now episode of hematochezia and bright red blood per rectum also witnessed today. Previously resolved with stopping of anticoagulant therapy of Plavix and aspirin. -Patient had left-sided abdominal pain on admitting providers exam that was not apparent today. Abdominal film demonstrated mild amount of fecal debris in the rectum with normal bowel gas pattern. May need elective outpatient colonoscopy if not up-to-date. -Possible question of receiving double dosing of clopidogrel, facility reports only 1 medication card but documentation lists clopidogrel and Plavix dosed daily. -Initial H&H on admission is 11.1 and 33.8. Review of medical records demonstrate slow drifting down over the last month. Now trending back up, current hgb 9.6. Did not require transfusion. -Received iron infusion x2 to help rebuild Fe stores. -Discontinued aspirin indefinitely. Plan to restart Plavix in 1 week on 12/10/2018. -Continued Protonix 40 mg daily and will need to be continued for at least 4 weeks to let ulcer heal completely and should likely be on this medication indefinitely. -Continued normal saline until adequately hydrated. -Dr. Pandya, of general surgery was consulted and performed EGD which demonstrated duodenitis and superficial duodenal ulcers in the bulb which is source of bleed. 2. Acute on chronic generalized weakness, present on admission. Active. -Multifactorial including bilateral temporal and cerebellar CVAs and acute dehydration. -Patient does endorse little oral fluid intake related to dysphagia and use of thickener to prevent aspiration as he does not like it. -Continued normal saline until adequately hydrated. -Continued physical, occupational, and speech evaluation and treatment. 3. Hypertension, chronic, present on admission. Stable. -Continued home medications of lisinopril 10 mg and metoprolol 25 mg twice daily. 4. Diabetes mellitus type 2, non-insulin using, present on admission. Stable. -Hemoglobin A1c 6.0% 11/09. -Held metformin and may resume at time of discharge. -Continued blood glucose checks ACHS and low-dose correctional scale insulin. -Respite Coordinator was consulted to address food content, as well as, ways to improve oral fluid intake. Recommended ensure with every meal and blenderized full liquids for meals for which patient non-compliant. 5. Hyperlipidemia, chronic, present on admission. Stable. -Continued atorvastatin 40 mg daily. 6. Acute leukocytosis, not present on admission. Resolved. -Patient developed elevated WBC on labs 12/01/2018 likely due to intermittent aspiration, normal chest x-ray on admission, lungs sound continue to be clear to auscultation bilaterally, and procalcitonin negative. WBC has resolved. Status at Discharge Functional status at discharge: uses cane/walker Overall status at discharge: patient is progressing back to baseline Exam Vital Signs (past 8 hours): - 12/02/18 05:10 Temperature 97.9 F Pulse Rate 66 Respiratory Rate 16 Blood Pressure 148/82 H Pulse Oximetry 94 Oxygen Delivery Method Room Air Oxygen Flow Rate 0 Narrative Exam Narrative: General: Elderly gentleman lying in bed and in no acute distress, well-developed, well-nourished, slow mentation likely due to stroke with flat affect but appropriately interactive. HEENT: Normocephalic, atraumatic. External ears without defect. Pupils equal, round, and reactive to light. Anicteric sclerae, moist conjunctivae, and no lid lag. Neck: Supple with full range of motion. No jugular venous distension. No bruits. No lymphadenopathy or thyromegaly. Cardiovascular: Regular rate and rhythm without murmurs, rubs, or gallops appreciated Pulmonary: Clear to auscultation bilaterally with upper airway rhonchi. No crackles or wheezes. Normal respiratory effort with no use of accessory muscles. Abdomen: Soft, bowel sounds present, nontender, nondistended. No hepatosplenomegaly or masses appreciated. Genitourinary: Mild sacral/coccyx superficial skin breakdown. Extremities: No clubbing, cyanosis, or edema. Mild left-sided hemiparesis. Skin: Normal temperature, turgor, and texture; no rash, ulcers, or subcutaneous nodules appreciated. Neurological: Cranial nerves grossly intact. Psychiatric: Flat affect with blank stare. Slow mentation. Appears alert and oriented x3. Objective Labs Result Diagrams: 12/02/18 04:40 12/01/18 07:48 Labs: Laboratory Results - last 24 hr 12/02/18 04:40 WBC 10.1 RBC 3.35 L Hgb 9.6 L Hct 29.2 L MCV 87.2 MCH 28.7 MCHC 33.0 RDW 14.0 Plt Count 246 Neut % (Auto) 74.7 Lymph % (Auto) 13.9 L Canadian % (Auto) 7.7 Eos % (Auto) 3.1 Baso % (Auto) 0.6 Neut # (Auto) 7500 H Lymph # (Auto) 1400 Canadian # (Auto) 800 Eos # (Auto) 300 Baso # (Auto) 100 Discharge Plan Discharge Plan Patient Disposition: SNF Transfer to: [facility] Transportation: Facility vehicle I certify the postop hospital usp care is medically necessary on a continuing basis for any conditions for which he/ she received care during this hospitalization.: Yes The receiving facility has agreed to accept transfer and provide medical treatment.: Yes Discharge Med Rec/Prescriptions Prescriptions: New pantoprazole 40 mg Tablet,Delayed Release (Dr/Ec) 40 mg PO 0700 Qty: 30 RF: 0 Continued metformin 500 mg Tablet 500 mg PO BID RF: 0 tamsulosin [Flomax] 0.4 mg Capsule 0.4 mg PO DAILY RF: 0 lisinopril 10 mg Tablet 10 mg PO BEDTIME RF: 0 clopidogrel [Plavix] 75 mg Tablet 75 mg PO DAILY RF: 0 atorvastatin 40 mg tablet 40 mg PO BEDTIME RF: 0 nitroglycerin 0.4 mg tablet, sublingual 0.4 mg Sublingual PRN PRN (Reason: Chest Pain) RF: 0 metoprolol tartrate 25 mg tablet 12.5 mg PO BID RF: 0 acetaminophen [Tylenol] 325 mg Tablet 650 mg PO Q6H PRN (Reason: Fever Or Pain) RF: 0 multivitamin Tablet 1 tab PO DAILY RF: 0 ascorbic acid (vitamin C) 500 mg Tablet 500 mg PO DAILY Qty: 0 RF: 0 cholecalciferol (vitamin D3) [Vitamin D3] 1,000 unit Tablet 1,000 unit PO DAILY Qty: 0 RF: 0 PreserVision AREDS-2 [id number] Capsule 1 cap PO BID RF: 0 citalopram 10 mg tablet 10 mg PO DAILY Qty: 30 RF: 0 fluoride (sodium) 1.1 % gel 1 applic Dental QPM RF: 0 sennosides [senna] 8.6 mg Tablet 8.6 mg PO BID RF: 0 loperamide 2 mg Capsule 2 mg PO Q4H PRN (Reason: Diarrhea) RF: 0 magnesium hydroxide [Milk of Magnesia] 400 mg/5 mL Suspension 30 ml PO PRN PRN (Reason: Constipation) RF: 0 bisacodyl 10 mg Suppository 10 mg MI PRN PRN (Reason: Constipation) RF: 0 Fleet Enema 19-7 gram/118 mL Enema 1 ea MI PRN PRN (Reason: Constipation) RF: 0 nystatin 100,000 unit/gram Powder 1 applic topical BID RF: 0 Lactobacillus acidophilus [Acidophilus] Capsule 1 cap PO DAILY PRN (Reason: rebuild gut stephanie) RF: 0 simethicone 80 mg Tablet,Chewable 80 mg PO BID RF: 0 bisacodyl 5 mg Tablet 5 - 10 mg PO PRN PRN (Reason: Constipation) RF: 0 Boost 0.04 gram- 1 kcal/mL Liquid 1 ea PO PC RF: 0 Discontinued aspirin 81 mg tablet,delayed release (DR/EC) 81 mg PO DAILY Qty: 30 RF: 0 omeprazole 20 mg Capsule,Delayed Release(Dr/Ec) 20 mg PO DAILY RF: 0 Follow up/Referrals: Lex Duran MD [Primary Care Provider] - Discharge Health Status Brief summary of current health status: 83-year-old male admitted for GI bleed in found to have duodenal ulcer likely related to aspirin use. Aspirin has been stopped indefinitely. Patient may restart Plavix (clopidogrel) 75 mg once daily on 12/10/2018. Patient has history of head and neck cancer and is on dysphagia mechanical diet with blenderized full liquid but does not comply with diet recommendation and understands the consequences. Multidrug resistant organism: No MDRO Precautions: Zaleski Provider Discharge Instructions Diet: Carb-consistent/Diabetic, Low-fat, Low-sodium and Low-cholesterol Diet comment: Dysphagia mechanical Discharge Data Primary Care Provider: Lex Duran Attending Provider: Genny Ram Admit Date/Time: 11/28/18 16:11 Quality VTE Deep Vein Thrombosis/Pulmonary Embolism Present on Admission: No
[2018-12-02] MEDS: INSULIN ASPART 100 UNIT/ML INSULN PEN SUBCUT (12:25)
--- NOTE | 2018-12-02 16:02 | CM.DPC ---
DCP Cont: Patient is to be discharged today to [facility]. Confirmed machine pecan picker time 1430, per December in admissions. Faxed over signed med sheets. No PASSR, since he is readmit. P: Patient is to go to [facility] today. 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 Hiwot Villagran RN/Manager Night
== END 2018-12-02 17:00 | DRG 378 ==
LOC: ED 15:43 → AC 16:12
PROVIDERS: Emergency Medicine; Internal Medicine; Nurse Practitioner Adult Health; Surgery; Admitting Provider Internal Medicine; Emergency Provider Nurse Practitioner Family; PCP Internal Medicine; Visit Provider Internal Medicine
PROC: 0DJ08ZZ Inspection of Upper Intestinal Tract, Via Natural or Artificial Opening Endoscopic (ICD-10-PCS; CPT 43235; principal; 2018-11-30 07:45)
DX: K26.0 Acute duodenal ulcer with hemorrhage (principal); I47.2 Ventricular tachycardia; D62 Acute posthemorrhagic anemia; I69.354 Hemiplegia and hemiparesis following cerebral infarction affecting left non-dominant side; K29.81 Duodenitis with bleeding; D50.0 Iron deficiency anemia secondary to blood loss (chronic); I10 Essential (primary) hypertension; E78.5 Hyperlipidemia, unspecified; E11.9 Type 2 diabetes mellitus without complications; N40.0 Benign prostatic hyperplasia without lower urinary tract symptoms; Z87.891 Personal history of nicotine dependence; Z79.84 Long term (current) use of oral hypoglycemic drugs; D72.829 Elevated white blood cell count, unspecified
CPT/HCPCS: 43235; 36415; 36591; 71045; 74018; 80048; 80053; 82962; 83735; 83880; 84145; 85014; 85018; 85025; 85610; 85730; 86850; 86900; 86901; 92610; 93005; 94760; 96374; 97162; 97166; 97530; 97535; 99232; 99283; 99284; G0378; C9113; J1756; J2704; J3010

== ENCOUNTER 2018-12-04 10:12 | Inpatient (IN) | payer MEDICARE, OTHER, SELFPAY ==
[2018-11-28 18:30] VITALS: BMI 25.7
[2018-12-04] VITALS (17 sets, daily range): BP systolic 105–154; BP diastolic 52–83; PULSE 57–139; RESP 11–22; TEMP 36.1–36.9; O2SAT 94–100; BMI 24.4
--- NOTE | 2018-12-04 10:26 | DI.RAD.S_ITS ---
PROCEDURE: XR CHEST 1V INDICATIONS: CP/SOB TECHNIQUE: One view of the chest was acquired. COMPARISON: [facility], CR, XR CHEST 1V, 11/29/2018, 11:57. FINDINGS: Surgical changes and devices: None. Lungs and pleura: Lungs are clear. No pleural effusions or pneumothorax. Mediastinum: Mediastinal contours appear normal. Heart size is normal. There is aortic atherosclerosis. Bones and chest wall: No suspicious bony lesions. Overlying soft tissues appear unremarkable. IMPRESSION: Stable chest. No acute cardiopulmonary process is evident. Dictated by: Rk Cooper M.D. on 12/04/2018 at 9:53 Approved by: Rk Cooper M.D. on 12/04/2018 at 9:54
[2018-12-04] MEDS: SODIUM CHLORIDE 0.9% 1,000 ML 150 ML IV (10:37)
[2018-12-04] MEDS: dilTIAZem 5 MG/ML SDV 10 MG IV (10:37)
[2018-12-04 10:59] LABS: Add Manual Diff / Slide Review NO; Basophils Absolute Auto 100 /uL (0-100); Basophils Percent Auto 0.8 % (0-2); Eosinophils Absolute Auto 200 /uL (0-450); Eosinophils Percent Auto 2.4 % (2-4); Hematocrit 31.1 % (41-53); Hemoglobin 10.6 g/dL (13.5-17.5); Lymphocytes Absolute Auto 1000 /uL (1100-4500); Lymphocytes Percent Auto 11.4 % (25-40); Mean Corpuscular HGB Conc 33.9 % (30-36); Mean Corpuscular Hemoglobin 28.8 PG (26-34); Mean Corpuscular Volume 84.9 fL (80-100); Monocytes Absolute Auto 700 /uL (0-900); Monocytes Percent Auto 8.3 % (3-14); Neutrophils Absolute Auto 6900 /uL (1500-7000); Neutrophils Percent Auto 77.1 % (50-75); Platelet Count 297 X10^3/uL (150-400); Red Blood Cell Count 3.66 X10^6/uL (4.5-5.9); Red Cell Distribution Width 13.6 % (11.6-14.8); White Blood Cell Count 8.9 X10^3/uL (4.5-11.0)
--- NOTE | 2018-12-04 11:04 | ED.CHESTPAIN ---
HPI - Chest Pain General Chief Complaint: Chest Pain Stated Complaint: Chest Pain, syncope Time Seen by Provider: 12/04/18 10:15 Source: patient and EMS Mode of arrival: EMS Limitations: no limitations History of Present Illness HPI narrative: 83-year-old male nonsmoker with history of hypertension, hyperlipidemia diabetes and prior stroke presents with a chief complaint of chest pain and shortness of breath this morning. EMS was activated and on arrival they found him to have a rapid irregular heart rhythm consistent with AFib. He was given nitro for his pain and had a large drop in BP and syncopal episode. By his arrival here, after 1 L of fluid he was awake, alert and oriented and was still in a rapid AFib. He was denying any ongoing pain. Patient was recently admitted into the hospital the chief diagnosis of acute upper GI bleed with acute on chronic blood loss thought perhaps related to accidental double doses Plavix. MD complaint: chest pain Duration: constant and improved Onset: during rest Pain location: substernal Severity: moderate Quality: tightness and aching Pain radiation: none Relieving factors: nothing Exacerbating factors: nothing Related Data Home Medications Medication Instructions Recorded Confirmed clopidogrel [Plavix] 75 mg PO DAILY 05/31/18 12/04/18 lisinopril 10 mg PO BEDTIME 05/31/18 12/04/18 metformin 500 mg PO BID 05/31/18 12/04/18 tamsulosin [Flomax] 0.4 mg PO DAILY 05/31/18 12/04/18 PreserVision AREDS-2 1 cap PO BID 11/09/18 12/04/18 acetaminophen [Tylenol] 650 mg PO Q6H PRN 11/09/18 12/04/18 ascorbic acid (vitamin C) 500 mg PO DAILY #0 11/09/18 12/04/18 atorvastatin 40 mg PO BEDTIME 11/09/18 12/04/18 metoprolol tartrate 12.5 mg PO BID 11/09/18 12/04/18 multivitamin 1 tab PO DAILY 11/09/18 12/04/18 nitroglycerin 0.4 mg SUBLINGUAL PRN PRN 11/09/18 12/04/18 Boost 1 ea PO PC 11/28/18 12/04/18 Fleet Enema 1 ea [place] PRN PRN 11/28/18 12/04/18 Lactobacillus acidophilus 1 cap PO DAILY PRN 11/28/18 12/04/18 [Acidophilus] bisacodyl 5 - 10 mg PO PRN PRN 11/28/18 12/04/18 bisacodyl 10 mg [place] PRN PRN 11/28/18 12/04/18 fluoride (sodium) 1 applic DENTAL QPM 11/28/18 12/04/18 loperamide 2 mg PO Q4H PRN 11/28/18 12/04/18 magnesium hydroxide [Milk of 30 ml PO PRN PRN 11/28/18 12/04/18 Magnesia] nystatin 1 applic TOPICAL BID 11/28/18 12/04/18 sennosides [senna] 8.6 mg PO BID 11/28/18 12/04/18 simethicone 80 mg PO BID 11/28/18 12/04/18 Previous Rx's Medication Instructions Recorded citalopram 10 mg PO DAILY #30 tab 11/11/18 pantoprazole 40 mg PO 0700 #30 tab 12/02/18 Allergies Allergy/AdvReac Type Severity Reaction Status Date / Time No Known Drug Allergies Allergy Verified 12/04/18 10:20 Review of Systems Constitutional Denies chills, Denies fever(s), Denies lethargy and Denies weakness Eyes Denies change in vision, Denies eye discharge, Denies irritation and Denies loss of vision ENT Ears, Nose, Mouth, and Throat: Denies change in voice, Denies neck pain and Denies sore throat Cardiovascular Denies chest pain, Denies irregular heart rhythm, Denies lightheadedness, Denies palpitations, Denies dyspnea, Denies dyspnea on exertion and Denies orthopnea Respiratory Denies cough, Denies dyspnea, Denies dyspnea on exertion and Denies wheezing Gastrointestinal Gastrointestinal: Denies abdominal pain, Denies change in bowel habits, Denies diarrhea, Denies nausea and Denies vomiting Genitourinary Denies hematuria, Denies flank pain, Denies urinary incontinence and Denies urinary urgency Musculoskeletal Denies neck pain Integumentary/Breasts Denies pruritus, Denies erythema, Denies rash and Denies wounds Neurologic Denies confusion, Denies loss of vision and Denies weakness Psychiatric Denies anxiety, Denies confusion, Denies depression, Denies homicidal ideation and Denies suicidal ideation Endocrine Denies palpitations Hematologic/Lymphatic Denies easy bruising Allergic/Immunologic Denies wheezing [facility] Social History household members: spouse Smoking Status: Never smoker alcohol intake: former Exam Narrative Exam Narrative: GENERAL: 83-year-old male in obvious distress, frail and elderly HEAD: Atraumatic. Normocephalic. No temporal or scalp tenderness. EYES: Pupils equal round and reactive. Extraocular motions intact. No scleral icterus. No injection or drainage. ENT: Nose without bleeding, purulent drainage or septal hematoma. Throat without erythema, tonsillar hypertrophy or exudate. Uvula midline. Airway patent. NECK: Trachea midline. No JVD or lymphadenopathy. Supple, nontender, no meningeal signs. CARDIOVASCULAR: Tachycardic and irregular without murmurs, gallops, or rubs. RESPIRATORY: Clear to auscultation. Breath sounds equal bilaterally. No wheezes, rales, or rhonchi. GASTROINTESTINAL: Abdomen soft, non-tender, nondistended. No hepato-splenomegaly, or palpable masses. No guarding. EXTREMITIES: No clubbing, cyanosis, or edema. No joint tenderness, effusion, or edema noted. BACK: Nontender without deformity or crepitance. No flank tenderness. NEURO: AOx3. SKIN: No rash or erythema. Initial Vital Signs Initial Vital Signs: Vital Signs Pulse Rate 139 H 12/04/18 10:20 Respiratory Rate 22 12/04/18 10:20 Blood Pressure 105/58 L 12/04/18 10:20 Pulse Oximetry 94 12/04/18 10:20 Course Orders Ordered: ED Orders 12/04/18 10:50 Basic Metabolic Panel Stat Complete Blood Count AUTO DIFF Stat Magnesium Stat Troponin & CK Cardiac Panel Stat 12/04/18 11:27 EKG-12 Lead Stat 12/04/18 11:38 Thyroid Stimulating Hormone Stat 12/04/18 12:57 Troponin I Stat 12/04/18 16:57 Hemoglobin and Hematocrit Stat Type and Screen Stat 12/04/18 17:20 Consult to General Surgery Routine Sodium Chloride (Normal Saline 0.9%) 1,000 mls @ 10 mls/hr IV CONT NAEL Last Infusion: 12/04/18 13:08 Dose: 0 mls/hr Admin: 12/04/18 10:37 Dose: 150 mls/hr Discontinued Medications Diltiazem HCl (Cardizem) 10 mg IV NOW ONE Stop: 12/04/18 10:31 Last Admin: 12/04/18 10:37 Dose: 10 mg Reevaluation(s) Reevaluation #1: Cardizem 10 mg IV push results in a conversion to a normal sinus rhythm in the 70s Reevaluation #2: Just prior to patient going upstairs he passed a large bright red bloody stool. He remained hemodynamically stable and at no point had a blood pressure drop below 1054 became tachycardic. Repeat H&H drawn and hospitalist call to be updated. She requests I consult General surgery Consultations Consultation #1: Call to Cardiology after 2nd troponin comes back even higher than the 1st. Patient has no ongoing symptoms and is hemodynamically stable but cardiology recommends admission with trending out of cardiac enzymes, echocardiogram to rule out chest pain due to reasons other than demand ischemia Consultation #2: Called to general surgery to relay hospitalist concerns regarding GI bleed in a patient who had recently been admitted and received an upper endoscopy. General surgery happy to play a role and perform colonoscopy if and when indicated Vital Signs - 8 hr 12/04/18 12:00 12/04/18 12:30 12/04/18 13:09 Temperature Pulse Rate 61 61 59 L Respiratory Rate 14 12 12 Blood Pressure Blood Pressure [Left Arm] 131/57 L 139/62 Pulse Oximetry 98 98 97 12/04/18 13:48 12/04/18 14:30 12/04/18 15:09 Temperature Pulse Rate 59 L 58 L 69 Respiratory Rate 14 17 12 Blood Pressure Blood Pressure [Left Arm] 152/64 H 140/74 142/63 H Pulse Oximetry 99 100 99 12/04/18 15:30 12/04/18 16:19 12/04/18 16:45 Temperature Pulse Rate 73 57 L 81 Respiratory Rate 11 L 12 18 Blood Pressure Blood Pressure [Left Arm] 148/60 H 154/52 H 138/72 Pulse Oximetry 96 100 100 12/04/18 17:48 Temperature 98.4 F Pulse Rate 88 Respiratory Rate 16 Blood Pressure 150/77 H Blood Pressure [Left Arm] Pulse Oximetry 97 MDM - Chest Pain Lab Data Result diagrams: 12/04/18 16:57 12/04/18 10:50 Lab Results 12/04/18 12/04/18 12/04/18 Range/Units 10:50 10:50 11:38 WBC 8.9 (4.5-11.0) X10^3/uL RBC 3.66 L (4.5-5.9) X10^6/uL Hgb 10.6 L (13.5-17.5) g/dL Hct 31.1 L (41-53) % MCV 84.9 (80-100) fL MCH 28.8 (26-34) PG MCHC 33.9 (30-36) % RDW 13.6 (11.6-14.8) % Plt Count 297 (150-400) X10^3/uL Neut % (Auto) 77.1 H (50-75) % Lymph % (Auto) 11.4 L (25-40) % [place] % (Auto) 8.3 (3-14) % Eos % (Auto) 2.4 (2-4) % Baso % (Auto) 0.8 (0-2) % Neut # (Auto) 6900 (3090-7706) /uL Lymph # (Auto) 1000 L (1861-8549) /uL [place] # (Auto) 700 (0-900) /uL Eos # (Auto) 200 (0-450) /uL Baso # (Auto) 100 (0-100) /uL Sodium 140 (137-145) mmol/L Potassium 4.7 (3.4-5.1) mmol/L Chloride 103 (98-107) mmol/L Carbon Dioxide 26 (22-32) mmol/L BUN 21 H (9-20) mg/dL Creatinine 1.00 (0.66-1.25) mg/dL Estimated GFR > 60.0 (>60) mL/min BUN/Creatinine Ratio 21.0 (6-22) Glucose 199 H (80-110) mg/dL Calcium 9.1 (8.4-10.2) mg/dL Magnesium 1.7 (1.6-2.3) mg/dL Total Creatine Kinase 71 (55-170) U/L CK-MB (CK-2) TNP CK-MB (CK-2) Rel Index TNP Troponin I 0.090 H (0.01-0.034) ng/mL TSH 1.32 (0.47-4.68) uIU/mL Blood Type Antibody Screen 12/04/18 12/04/18 12/04/18 Range/Units 12:57 16:57 16:57 WBC (4.5-11.0) X10^3/uL RBC (4.5-5.9) X10^6/uL Hgb 10.4 L (13.5-17.5) g/dL Hct 31.4 L (41-53) % MCV (80-100) fL MCH (26-34) PG MCHC (30-36) % RDW (11.6-14.8) % Plt Count (150-400) X10^3/uL Neut % (Auto) (50-75) % Lymph % (Auto) (25-40) % [place] % (Auto) (3-14) % Eos % (Auto) (2-4) % Baso % (Auto) (0-2) % Neut # (Auto) (2100-2338) /uL Lymph # (Auto) (0757-4082) /uL [place] # (Auto) (0-900) /uL Eos # (Auto) (0-450) /uL Baso # (Auto) (0-100) /uL Sodium (137-145) mmol/L Potassium (3.4-5.1) mmol/L Chloride (98-107) mmol/L Carbon Dioxide (22-32) mmol/L BUN (9-20) mg/dL Creatinine (0.66-1.25) mg/dL Estimated GFR (>60) mL/min BUN/Creatinine Ratio (6-22) Glucose (80-110) mg/dL Calcium (8.4-10.2) mg/dL Magnesium (1.6-2.3) mg/dL Total Creatine Kinase (55-170) U/L CK-MB (CK-2) CK-MB (CK-2) Rel Index Troponin I 0.193 H* (0.01-0.034) ng/mL TSH (0.47-4.68) uIU/mL Blood Type A Positive Antibody Screen Negative Discharge Plan Departure Patient Disposition: Admitted as Observation Clinical Impression: Demand ischemia, Lower GI bleed Discharge Date/Time: 12/04/18 17:37 Interventions: ED Discharge Assessment Last Done: 12/04/18 16:27 Admit Date/Time: 05/14/19 14:51 Admit Provider: Genny Ram
[2018-12-04 11:13] LABS: Blood Urea Nitrogen 21 mg/dL (9-20); Calcium 9.1 mg/dL (8.4-10.2); Carbon Dioxide 26 mmol/L (22-32); Chloride 103 mmol/L (98-107); Creatine Kinase 71 U/L (55-170); Estimated Glomerular Filt Rate > 60.0 mL/min (>60); Glucose 199 mg/dL (80-110); Magnesium 1.7 mg/dL (1.6-2.3); Potassium 4.7 mmol/L (3.4-5.1); Sodium 140 mmol/L (137-145)
[2018-12-04 11:15] LABS: HEMOLYSIS 27 (0-50)
[2018-12-04 12:44] LABS: Thyroid Stimulating Hormone 1.32 uIU/mL (0.47-4.68)
--- NOTE | 2018-12-04 12:55 | ED_ITS ---
HPI - Chest Pain General Chief Complaint: Chest Pain Stated Complaint: Chest Pain, syncope Time Seen by Provider: 12/04/18 10:15 Source: patient and EMS Mode of arrival: EMS Limitations: no limitations History of Present Illness HPI narrative: 83-year-old male nonsmoker with history of hypertension, hyperlipidemia diabetes and prior stroke presents with a chief complaint of chest pain and shortness of breath this morning. EMS was activated and on arrival they found him to have a rapid irregular heart rhythm consistent with AFib. He was given nitro for his pain and had a large drop in BP and syncopal episode. By his arrival here, after 1 L of fluid he was awake, alert and oriented and was still in a rapid AFib. He was denying any ongoing pain. Patient was recently admitted into the hospital the chief diagnosis of acute upper GI bleed with acute on chronic blood loss thought perhaps related to accidental double doses Plavix. MD complaint: chest pain Duration: constant and improved Onset: during rest Pain location: substernal Severity: moderate Quality: tightness and aching Pain radiation: none Relieving factors: nothing Exacerbating factors: nothing Related Data Home Medications Medication Instructions Recorded Confirmed clopidogrel [Plavix] 75 mg PO DAILY 05/31/18 12/04/18 lisinopril 10 mg PO BEDTIME 05/31/18 12/04/18 metformin 500 mg PO BID 05/31/18 12/04/18 tamsulosin [Flomax] 0.4 mg PO DAILY 05/31/18 12/04/18 PreserVision AREDS-2 1 cap PO BID 11/09/18 12/04/18 acetaminophen [Tylenol] 650 mg PO Q6H PRN 11/09/18 12/04/18 ascorbic acid (vitamin C) 500 mg PO DAILY #0 11/09/18 12/04/18 atorvastatin 40 mg PO BEDTIME 11/09/18 12/04/18 metoprolol tartrate 12.5 mg PO BID 11/09/18 12/04/18 multivitamin 1 tab PO DAILY 11/09/18 12/04/18 nitroglycerin 0.4 mg SUBLINGUAL PRN PRN 11/09/18 12/04/18 Boost 1 ea PO PC 11/28/18 12/04/18 Fleet Enema 1 ea [place] PRN PRN 11/28/18 12/04/18 Lactobacillus acidophilus 1 cap PO DAILY PRN 11/28/18 12/04/18 [Acidophilus] bisacodyl 5 - 10 mg PO PRN PRN 11/28/18 12/04/18 bisacodyl 10 mg [place] PRN PRN 11/28/18 12/04/18 fluoride (sodium) 1 applic DENTAL QPM 11/28/18 12/04/18 loperamide 2 mg PO Q4H PRN 11/28/18 12/04/18 magnesium hydroxide [Milk of 30 ml PO PRN PRN 11/28/18 12/04/18 Magnesia] nystatin 1 applic TOPICAL BID 11/28/18 12/04/18 sennosides [senna] 8.6 mg PO BID 11/28/18 12/04/18 simethicone 80 mg PO BID 11/28/18 12/04/18 Previous Rx's Medication Instructions Recorded citalopram 10 mg PO DAILY #30 tab 11/11/18 pantoprazole 40 mg PO 0700 #30 tab 12/02/18 Allergies Allergy/AdvReac Type Severity Reaction Status Date / Time No Known Drug Allergies Allergy Verified 12/04/18 10:20 Review of Systems Constitutional Denies chills, Denies fever(s), Denies lethargy and Denies weakness Eyes Denies change in vision, Denies eye discharge, Denies irritation and Denies loss of vision ENT Ears, Nose, Mouth, and Throat: Denies change in voice, Denies neck pain and De nies sore throat Cardiovascular Denies chest pain, Denies irregular heart rhythm, Denies lightheadedness, Denies palpitations, Denies dyspnea, Denies dyspnea on exertion and Denies orthopnea Respiratory Denies cough, Denies dyspnea, Denies dyspnea on exertion and Denies wheezing Gastrointestinal Gastrointestinal: Denies abdominal pain, Denies change in bowel habits, Denies diarrhea, Denies nausea and Denies vomiting Genitourinary Denies hematuria, Denies flank pain, Denies urinary incontinence and Denies urinary urgency Musculoskeletal Denies neck pain Integumentary/Breasts Denies pruritus, Denies erythema, Denies rash and Denies wounds Neurologic Denies confusion, Denies loss of vision and Denies weakness Psychiatric Denies anxiety, Denies confusion, Denies depression, Denies homicidal ideation and Denies suicidal ideation Endocrine Denies palpitations Hematologic/Lymphatic Denies easy bruising Allergic/Immunologic Denies wheezing [facility] Social History household members: spouse Smoking Status: Never smoker alcohol intake: former Exam Narrative Exam Narrative: GENERAL: 83-year-old male in obvious distress, frail and elderly HEAD: Atraumatic. Normocephalic. No temporal or scalp tenderness. EYES: Pupils equal round and reactive. Extraocular motions intact. No scleral icterus. No injection or drainage. ENT: Nose without bleeding, purulent drainage or septal hematoma. Throat without erythema, tonsillar hypertrophy or exudate. Uvula midline. Airway patent. NECK: Trachea midline. No JVD or lymphadenopathy. Supple, nontender, no meningeal signs. CARDIOVASCULAR: Tachycardic and irregular without murmurs, gallops, or rubs. RESPIRATORY: Clear to auscultation. Breath sounds equal bilaterally. No wheezes, rales, or rhonchi. GASTROINTESTINAL: Abdomen soft, non-tender, nondistended. No hepato-s plenomegaly, or palpable masses. No guarding. EXTREMITIES: No clubbing, cyanosis, or edema. No joint tenderness, effusion, or edema noted. BACK: Nontender without deformity or crepitance. No flank tenderness. NEURO: AOx3. SKIN: No rash or erythema. Initial Vital Signs Initial Vital Signs: Vital Signs Pulse Rate 139 H 12/04/18 10:20 Respiratory Rate 22 12/04/18 10:20 Blood Pressure 105/58 L 12/04/18 10:20 Pulse Oximetry 94 12/04/18 10:20 Course Orders Ordered: ED Orders 12/04/18 10:50 Basic Metabolic Panel Stat Complete Blood Count AUTO DIFF Stat Magnesium Stat Troponin & CK Cardiac Panel Stat 12/04/18 11:27 EKG-12 Lead Stat 12/04/18 11:38 Thyroid Stimulating Hormone Stat 12/04/18 12:57 Troponin I Stat 12/04/18 16:57 Hemoglobin and Hematocrit Stat Type and Screen Stat 12/04/18 17:20 Consult to General Surgery Routine Sodium Chloride (Normal Saline 0.9%) 1,000 mls @ 10 mls/hr IV CONT NAEL Last Infusion: 12/04/18 13:08 Dose: 0 mls/hr Admin: 12/04/18 10:37 Dose: 150 mls/hr Discontinued Medications Diltiazem HCl (Cardizem) 10 mg IV NOW ONE Stop: 12/04/18 10:31 Last Admin: 12/04/18 10:37 Dose: 10 mg Reevaluation(s) Reevaluation #1: Cardizem 10 mg IV push results in a conversion to a normal sinus rhythm in the 70s Reevaluation #2: Just prior to patient going upstairs he passed a large bright red bloody stool. He remained hemodynamically stable and at no point had a blood pressure drop below 1054 became tachycardic. Repeat H&H drawn and hospitalist call to be updated. She requests I consult General surgery Consultations Consultation #1: Call to Cardiology after 2nd troponin comes back even higher than the 1st. Patient has no ongoing symptoms and is hemodynamically stable but cardiology recommends admission with trending out of cardiac enzymes, echocardiogram to rule out chest pain due to reasons other than demand ischemia Consultation #2: Called to general surgery to relay hospitalist concerns regarding GI bleed in a patient who had recently been admitted and received an upper endoscopy. General surgery happy to play a role and perform colonoscopy if and when indicated Vital Signs - 8 hr 12/04/18 12:00 12/04/18 12:30 12/04/18 13:09 Temperature Pulse Rate 61 61 59 L Respiratory Rate 14 12 12 Blood Pressure Blood Pressure [Left Arm] 131/57 L 139/62 Pulse Oximetry 98 98 97 12/04/18 13:48 12/04/18 14:30 12/04/18 15:09 Temperature Pulse Rate 59 L 58 L 69 Respiratory Rate 14 17 12 Blood Pressure Blood Pressure [Left Arm] 152/64 H 140/74 142/63 H Pulse Oximetry 99 100 99 12/04/18 15:30 12/04/18 16:19 12/04/18 16:45 Temperature Pulse Rate 73 57 L 81 Respiratory Rate 11 L 12 18 Blood Pressure Blood Pressure [Left Arm] 148/60 H 154/52 H 138/72 Pulse Oximetry 96 100 100 12/04/18 17:48 Temperature 98.4 F Pulse Rate 88 Respiratory Rate 16 Blood Pressure 150/77 H Blood Pressure [Left Arm] Pulse Oximetry 97 MDM - Chest Pain Lab Data Result diagrams: 12/04/18 16:57 12/04/18 10:50 Lab Results 12/04/18 12/04/18 12/04/18 Range/Units 10:50 10:50 11:38 WBC 8.9 (4.5-11.0) X10^3/uL RBC 3.66 L (4.5-5.9) X10^6/uL Hgb 10.6 L (13.5-17.5) g/dL Hct 31.1 L (41-53) % MCV 84.9 (80-100) fL MCH 28.8 (26-34) PG MCHC 33.9 (30-36) % RDW 13.6 (11.6-14.8) % Plt Count 297 (150-400) X10^3/uL Neut % (Auto) 77.1 H (50-75) % Lymph % (Auto) 11.4 L (25-40) % [place] % (Auto) 8.3 (3-14) % Eos % (Auto) 2.4 (2-4) % Baso % (Auto) 0.8 (0-2) % Neut # (Auto) 6900 (9120-3951) /uL Lymph # (Auto) 1000 L (1110-0264) /uL [place] # (Auto) 700 (0-900) /uL Eos # (Auto) 200 (0-450) /uL Baso # (Auto) 100 (0-100) /uL Sodium 140 (137-145) mmol/L Potassium 4.7 (3.4-5.1) mmol/L Chloride 103 (98-107) mmol/L Carbon Dioxide 26 (22-32) mmol/L BUN 21 H (9-20) mg/dL Creatinine 1.00 (0.66-1.25) mg/dL Estimated GFR > 60.0 (>60) mL/min BUN/Creatinine Ratio 21.0 (6-22) Glucose 199 H (80-110) mg/dL Calcium 9.1 (8.4-10.2) mg/dL Magnesium 1.7 (1.6-2.3) mg/dL Total Creatine Kinase 71 (55-170) U/L CK-MB (CK-2) TNP CK-MB (CK-2) Rel Index TNP Troponin I 0.090 H (0.01-0.034) ng/mL TSH 1.32 (0.47-4.68) uIU/mL Blood Type Antibody Screen 12/04/18 12/04/18 12/04/18 Range/Units 12:57 16:57 16:57 WBC (4.5-11.0) X10^3/uL RBC (4.5-5.9) X10^6/uL Hgb 10.4 L (13.5-17.5) g/dL Hct 31.4 L (41-53) % MCV (80-100) fL MCH (26-34) PG MCHC (30-36) % RDW (11.6-14.8) % Plt Count (150-400) X10^3/uL Neut % (Auto) (50-75) % Lymph % (Auto) (25-40) % [place] % (Auto) (3-14) % Eos % (Auto) (2-4) % Baso % (Auto) (0-2) % Neut # (Auto) (4257-7412) /uL Lymph # (Auto) (0280-4341) /uL [place] # (Auto) (0-900) /uL Eos # (Auto) (0-450) /uL Baso # (Auto) (0-100) /uL Sodium (137-145) mmol/L Potassium (3.4-5.1) mmol/L Chloride (98-107) mmol/L Carbon Dioxide (22-32) mmol/L BUN (9-20) mg/dL Creatinine (0.66-1.25) mg/dL Estimated GFR (>60) mL/min BUN/Creatinine Ratio (6-22) Glucose (80-110) mg/dL Calcium (8.4-10.2) mg/dL Magnesium (1.6-2.3) mg/dL Total Creatine Kinase (55-170) U/L CK-MB (CK-2) CK-MB (CK-2) Rel Index Troponin I 0.193 H* (0.01-0.034) ng/mL TSH (0.47-4.68) uIU/mL Blood Type A Positive Antibody Screen Negative Discharge Plan Departure Patient Disposition: Admitted as Observation Clinical Impression: Demand ischemia, Lower GI bleed Discharge Date/Time: 12/04/18 17:37 Interventions: ED Discharge Assessment Last Done: 12/04/18 16:27 Admit Date/Time: 12/04/18 14:51 Admit Provider: Genny Ram
[2018-12-04 14:04] LABS: Troponin I 0.193 ng/mL (0.01-0.034)
--- NOTE | 2018-12-04 16:43 | PC.NURSE ---
Pt had large BM on bedpan, noted large amount of yang blood. Pt remains hemodynamically stable. Just d/c'd w/ GI bleed 11/29. Dr. Gamble aware. New orders recieved.
[2018-12-04 17:04] LABS: Hematocrit 31.4 % (41-53); Hemoglobin 10.4 g/dL (13.5-17.5)
--- NOTE | 2018-12-04 17:14 | PC.NURSE ---
Carmen MAHARAJ updated.
--- NOTE | 2018-12-04 18:12 | PC.NURSE ---
Pt arrived from ER at 1737. Awake/alert/ denies any discomfort. Tele in place upon arrival, NSR per ICU staff. HL in the RAC intact/patent HL in the left wrist intact/patent. Pt oriented to room & call system. Call light w/in reach/ bed alarm on for pt safety.
[2018-12-04 22:02] LABS: Troponin I 0.615 ng/mL (0.01-0.034)
[2018-12-04] MEDS: SODIUM CHLORIDE 0.45% 1,000 ML 100 ML IV (22:05)
--- NOTE | 2018-12-04 23:09 | PC.NURSE ---
Evening note: VS stable tonight. Pt awake, oriented x 3 and to situation. He is NPO as ordered. He declined to take his Metoprolol & lisinopril tonight, as he states I need a thickened diet & cant take those with a sip of water. So I held these meds tonight. CBG 109.
--- NOTE | 2018-12-04 23:27 | PM.HP.1 ---
History of Present Illness Date Patient Seen: 12/04/18 Time Patient Seen: 20:00 Chief complaint: Chest Pain, syncope Narrative: 83-year-old male nonsmoker with history of hypertension, hyperlipidemia diabetes and prior stroke presented to the ED with a complaint of chest pain and shortness of breath this morning. He has a chads Vasc 2 score of 7. EMS was called and on arrival they found him to have a rapid irregular heart rhythm consistent with AFib. He was given nitro for his pain and had a large drop in BP and syncopal episode. In the ED, he was administered 1 L of fluid and he was awoke, was alert and oriented and was still in a rapid AFib. He was denying any ongoing pain. The patient has had multiple admissions since August of this year. His last CVA was in August and apparently this has affected him bilaterally. He was DC to rehab and apparently has had melanotic stools after continuing aspirin and Plavix. He was admitted last week for melanotic stools. He underwent an upper GI series but did not undergo a lower GI series. Just before discharge, he was noted by the discharging physician that he had melanotic stools. She contacted surgery and they recommended that the patient undergo a colonoscopy on an outpatient basis. It was thought that on 1 of the patient's discharge that the patient may have been taking double doses of Plavix. It was noted on his previous admission that he was slow to progress in his rehab. The emergency department contacted Cardiology regarding his AFib with RVR and a elevated troponin. They recommended that the patient be observed for a chest pain rule-out, undergo an echocardiogram and a nuclear medicine stress test. It is at this point believed that his AFib with RVR may have been due to his bleeding, and that the elevated troponin was more likely caused by demand ischemia associated with the rapid ventricular rate. Patient History Medical History Diabetes type 2, controlled (Chronic) Acute GI bleeding (Acute) Demand ischemia (Acute) Lower GI bleed (Acute) Diabetes (Acute) Hyperlipidemia (Acute) Oral cancer (Acute) Presence of stent in coronary artery in patient with coronary artery disease (Acute) Prostate cancer (Acute) CVA (cerebral vascular accident) (Chronic) Dyslipidemia (Chronic) Hypertension (Chronic) Surgical History History of back surgery (Acute) History of prostate surgery (Acute) History of repair of aneurysm of abdominal aorta (Acute) History of surgical procedure on mouth (Acute) S/P total knee arthroplasty (Acute) Family History Father No problems noted. Mother Heart disease Daughter In good health Social History household members: spouse Smoking Status: Never smoker alcohol intake: former Family & Social History Family History Father No problems noted. Mother Heart disease Daughter In good health Social History: household members spouse Prior Living Arrangements House Safety & Behavioral: Feels Safe in Current Yes Environment Been Physically Hurt or No Threatened By a Person Suicidal Ideation Description None Suicide Plan Description No Plan Tobacco & Substance use: Smoking Status Never smoker alcohol intake former alcohol intake frequency 0-2 drinks per day Substance Use Type does not use Meds Home Medications Medication Instructions Recorded Confirmed Type clopidogrel [Plavix] 75 mg PO DAILY 05/31/18 12/04/18 History lisinopril 10 mg PO BEDTIME 05/31/18 12/04/18 History metformin 500 mg PO BID 05/31/18 12/04/18 History tamsulosin [Flomax] 0.4 mg PO DAILY 05/31/18 12/04/18 History PreserVision AREDS-2 1 cap PO BID 11/09/18 12/04/18 History acetaminophen [Tylenol] 650 mg PO Q6H PRN 11/09/18 12/04/18 History ascorbic acid (vitamin C) 500 mg PO DAILY #0 11/09/18 12/04/18 History atorvastatin 40 mg PO BEDTIME 11/09/18 12/04/18 History metoprolol tartrate 12.5 mg PO BID 11/09/18 12/04/18 History multivitamin 1 tab PO DAILY 11/09/18 12/04/18 History nitroglycerin 0.4 mg SUBLINGUAL PRN PRN 11/09/18 12/04/18 History citalopram 10 mg PO DAILY #30 tab 11/11/18 12/04/18 Rx Boost 1 ea PO PC 11/28/18 12/04/18 History Fleet Enema 1 ea [place] PRN PRN 11/28/18 12/04/18 History Lactobacillus acidophilus 1 cap PO DAILY PRN 11/28/18 12/04/18 History [Acidophilus] bisacodyl 5 - 10 mg PO PRN PRN 11/28/18 12/04/18 History bisacodyl 10 mg W[place] PRN PRN 11/28/18 12/04/18 History fluoride (sodium) 1 applic DENTAL QPM 11/28/18 12/04/18 History loperamide 2 mg PO Q4H PRN 11/28/18 12/04/18 History magnesium hydroxide [Milk of 30 ml PO PRN PRN 11/28/18 12/04/18 History Magnesia] nystatin 1 applic TOPICAL BID 11/28/18 12/04/18 History sennosides [senna] 8.6 mg PO BID 11/28/18 12/04/18 History simethicone 80 mg PO BID 11/28/18 12/04/18 History pantoprazole 40 mg PO 0700 #30 tab 12/02/18 12/04/18 Rx Allergies Allergy/AdvReac Type Severity Reaction Status Date / Time No Known Drug Allergies Allergy Verified 12/04/18 10:20 Review of Systems Review of Systems Patient states positive to having chest pain that is of a throbbing quality, that lasted for about 4 hours which is now relieved, palpitations,, bloody stool. He denies fever chills or sweats, visual changes, nausea or vomiting, shortness of breath, abdominal pain or cramping, dysuria, he does endorse being weak, denies skin lesions or rashes, denies weakness or numbing of the extremities or his face, denies depression. He does also endorse easy bleeding and bruising due to taking aspirin and Plavix. Exam Vital Signs (past 8 hours): - 12/04/18 15:30 12/04/18 16:19 12/04/18 16:45 Temperature Pulse Rate 73 57 L 81 Respiratory Rate 11 L 12 18 Blood Pressure Blood Pressure [Left Arm] 148/60 H 154/52 H 138/72 Pulse Oximetry 96 100 100 12/04/18 17:48 12/04/18 20:41 12/04/18 20:49 Temperature 98.4 F 97.0 F L Pulse Rate 88 89 Respiratory Rate 16 18 Blood Pressure 150/77 H 126/67 Blood Pressure [Left Arm] Pulse Oximetry 97 97 95 Oxygen Delivery Method Room Air Oxygen Flow Rate 2 Narrative Exam Narrative: General: Alert oriented, chronically ill-appearing 83-year-old male no distress HEENT: Head is normocephalic atraumatic, conjunctivae is clear sclera nonicteric, oral and nasal mucosa appear to be somewhat dry. Neck: Supple, no tracheal deviation or JVD Respirations: Lung sounds are clear to auscultation bilaterally no wheezes or rhonchi CV: Irregularly-irregular no murmur rubs Abdomen: Soft and nontender with positive bowel tones Skin: Thin and friable with flat bruises Neuro: Alert and oriented x4 with no focal deficits, appears quite weak Extremities: He does have some difficulty with upper extremity strength when asked to turn over Psych: Normal mood and affect Objective Labs Result Diagrams: 12/04/18 16:57 12/04/18 10:50 Labs: Laboratory Results - last 24 hr 12/04/18 12/04/18 12/04/18 10:50 10:50 11:38 WBC 8.9 RBC 3.66 L Hgb 10.6 L Hct 31.1 L MCV 84.9 MCH 28.8 MCHC 33.9 RDW 13.6 Plt Count 297 Neut % (Auto) 77.1 H Lymph % (Auto) 11.4 L [place] % (Auto) 8.3 Eos % (Auto) 2.4 Baso % (Auto) 0.8 Neut # (Auto) 6900 Lymph # (Auto) 1000 L [place] # (Auto) 700 Eos # (Auto) 200 Baso # (Auto) 100 Sodium 140 Potassium 4.7 Chloride 103 Carbon Dioxide 26 BUN 21 H Creatinine 1.00 Estimated GFR > 60.0 BUN/Creatinine Ratio 21.0 Glucose 199 H Calcium 9.1 Magnesium 1.7 Total Creatine Kinase 71 CK-MB (CK-2) TNP CK-MB (CK-2) Rel Index TNP Troponin I 0.090 H TSH 1.32 Blood Type Antibody Screen 12/04/18 12/04/18 12/04/18 12:57 16:57 16:57 WBC RBC Hgb 10.4 L Hct 31.4 L MCV MCH MCHC RDW Plt Count Neut % (Auto) Lymph % (Auto) [place] % (Auto) Eos % (Auto) Baso % (Auto) Neut # (Auto) Lymph # (Auto) [place] # (Auto) Eos # (Auto) Baso # (Auto) Sodium Potassium Chloride Carbon Dioxide BUN Creatinine Estimated GFR BUN/Creatinine Ratio Glucose Calcium Magnesium Total Creatine Kinase CK-MB (CK-2) CK-MB (CK-2) Rel Index Troponin I 0.193 H* TSH Blood Type A Positive Antibody Screen Negative 12/04/18 21:22 WBC RBC Hgb Hct MCV MCH MCHC RDW Plt Count Neut % (Auto) Lymph % (Auto) [place] % (Auto) Eos % (Auto) Baso % (Auto) Neut # (Auto) Lymph # (Auto) [place] # (Auto) Eos # (Auto) Baso # (Auto) Sodium Potassium Chloride Carbon Dioxide BUN Creatinine Estimated GFR BUN/Creatinine Ratio Glucose Calcium Magnesium Total Creatine Kinase CK-MB (CK-2) CK-MB (CK-2) Rel Index Troponin I 0.615 H* TSH Blood Type Antibody Screen Assessment & Plan Assessment & Plan narrative: Shania Mauricio is a pleasant 83-year-old male who will be admitted to the inpatient service for continued trending of his troponins and likely a probable lower GI scope to attempt to identify the source of his melena. 1. Suspected lower GI bleed present on admission -patient's CBCs will be checked Q 6 hours -surgery has been notified, consultation is appreciated -NPO after midnight -hold Plavix and aspirin for now 2. Atrial fibrillation with RVR new problem present on admission -patient will be on telemetry overnight -patient's troponins will be trended overnight, it is believed these are elevated due to the patient's bleeding -continue metoprolol 12.5 mg p.o. b.i.d. 3. Type 2 UT secondary to demand ischemia due to AFib with RVR, present on admission, now resolving -consider Cardiology consult if patient's symptoms worsen -will hold on ordering an echocardiogram and nuclear stress test unless Cardiology becomes involved 4. Hyperlipidemia, chronic, stable and present on admission -fasting lipid panel for the patient in the morning -continue atorvastatin 40 mg p.o. daily 5. Diabetes type 2, stable and present on admission -hemoglobin A1c with morning labs -basal insulin 20 units b.i.d., ?sensitive? correctional insulin scale q.6 hours while NPO. Patient is admitted inpatient service as his stay is anticipated to exceed 2 midnights. Patient will have an IV saline lock, NPO after midnight then advanced to a carb controlled diet after scope, BMP in the morning VTE Prophylaxis: Bilateral SCDs, anticoagulation has not been ordered due to the patient's bleeding risk Disposition: Eventual discharge back to patient's assisted care facility Code status: DNR/DNI Admission time: 75 minutes Meds reconciled: Partial based on current med list Scores CHADS-VASc Congestive heart failure: no Hypertension: yes Age 75 years or older: yes Diabetes mellitus: yes Stroke, TIA, or TE: yes Vascular disease: yes Age 65 to 74 years: no Sex category (female): Male CHADS-VASc Score: 7 Quality VTE Deep Vein Thrombosis/Pulmonary Embolism Present on Admission: No
[2018-12-05] VITALS (9 sets, daily range): BP systolic 143–175; BP diastolic 74–90; PULSE 53–90; RESP 15–20; TEMP 36.4–37.4; O2SAT 92–98
--- NOTE | 2018-12-05 | DI.ECHO.S_ITS ---
[facility] +---------+ [facility] +---------+ : : [address] [place] : : : : [id number] : : : : Phone: [phone] Echocardiogram Report + + :Name: SABINE SERNA Study Date: 12/05/2018 Height: 72 in : :[facility] Exam Location: IS Weight: 189 lb : : Gender: Male BSA: 2.1 m2 : :: 1935 Age: 83 yrs BP: 150/77 mmHg: :Reason For Study: Chest pain/ Elevated troponin : :Ordering Physician: Monika : :Hospitalist Performed By: Mary Page : :Referring: STEVE MONTERO : + + Interpretation Summary The left ventricle is normal in size. The ejection fraction is estimated to be 65-70%. There has been no significant change in LVEF since the previous study. There are no focal wall motion abnormalities. The right ventricle is mildly dilated. The right ventricular systolic function is normal. The aortic valve is moderately calcified. Leaflet mobility is mildly reduced. Aortic valve velocity was not performed in this study. In November 10, 2018 peak velocity 1.94 m/s and mean gradient 8.3 mmHg. There is no hemodynamically significant valvular aortic stenosis. Procedure: A two-dimensional transthoracic echocardiogram with color flow and Doppler was performed in limited views only. The study quality was technically adequate. Comparison is made with the echocardiogram of 11/10/2018. The patient was in normal sinus rhythm during the exam. Left Ventricle: The left ventricle is normal in size. Left ventricular wall thickness is mildly increased. Proximal septal thickening is noted. There is no echo evidence for significant left ventricular outflow tract obstruction. There is no thrombus. The ejection fraction is estimated to be 65-70%. There has been no significant change since the previous study. There are no focal wall motion abnormalities. Diastolic parameters suggest a relaxation abnormality of the left ventricle, consistent with probable normal filling pressures. Right Ventricle: The right ventricle is mildly dilated. The right ventricular systolic function is normal. Mitral Valve: There is mild to moderate mitral annular calcification. The mitral valve chordae are thickened and/or calcified. No significant mitral valve stenosis. There is mild mitral regurgitation. Aortic Valve: The aortic valve is not well visualized. The aortic valve is moderately calcified. Leaflet mobility is mildly reduced. Aortic valve velocity was not performed in this study. In November 10, 2018 peak velocity 1.94 m/s and mean gradient 8.3 mmHg. There is no hemodynamically significant valvular aortic stenosis. Great Vessels: The IVC is of normal diameter and collapses greater than 50% with a sniff. This suggests a low right atrial pressure of 3 mm Hg. Pericardium/ Pleura There is no pericardial effusion. MMode/2D Measurements & Calculations LVIDd: 4.3 cm IVC diam: 1.8 cm LVIDs: 3.2 cm FS: 25.4 % IVSd: 1.3 cm LVPWd: 1.4 cm LV mortensen. diameter/BSA (cm/m^2): 2.1 LV sys. diameter/BSA (cm/m^2): 1.6 RVD1 (basal): 5.1 cm Doppler Measurements & Calculations MV E max raphael: 87.0 cm/sec MV P1/2t max raphael: 87.2 cm/sec MV A max raphael: 103.6 cm/sec MVA(P1/2t): 4.1 cm2 MV E/A: 0.84 Med Peak E' Raphael: 4.4 cm/sec E/E' med: 19.6 Lat Peak E' Raphael: 6.9 cm/sec E/E' lat: 12.6 E/e' average: 16.1 MV dec time: 0.18 sec MV P1/2t: 53.5 msec Reading Physician:VEE
[2018-12-05 00:19] LABS: Add Manual Diff / Slide Review NO; Basophils Absolute Auto 100 /uL (0-100); Basophils Percent Auto 0.7 % (0-2); Eosinophils Absolute Auto 300 /uL (0-450); Eosinophils Percent Auto 3.5 % (2-4); Hematocrit 29.3 % (41-53); Lymphocytes Absolute Auto 1200 /uL (1100-4500); Lymphocytes Percent Auto 15.2 % (25-40); Mean Corpuscular Hemoglobin 28.9 PG (26-34); Monocytes Absolute Auto 700 /uL (0-900); Monocytes Percent Auto 8.5 % (3-14); Neutrophils Absolute Auto 5900 /uL (1500-7000); Neutrophils Percent Auto 72.1 % (50-75); Platelet Count 312 X10^3/uL (150-400); Red Blood Cell Count 3.44 X10^6/uL (4.5-5.9); Red Cell Distribution Width 13.5 % (11.6-14.8); White Blood Cell Count 8.2 X10^3/uL (4.5-11.0)
[2018-12-05] MEDS: SODIUM CHLORIDE 0.45% 1,000 ML 100 ML IV ×2 (02:21→20:20)
[2018-12-05 02:50] LABS: Add Manual Diff / Slide Review NO; Basophils Absolute Auto 100 /uL (0-100); Eosinophils Absolute Auto 300 /uL (0-450); Eosinophils Percent Auto 4.2 % (2-4); Hematocrit 28.8 % (41-53); Hemoglobin 9.8 g/dL (13.5-17.5); Lymphocytes Absolute Auto 1100 /uL (1100-4500); Lymphocytes Percent Auto 14.5 % (25-40); Mean Corpuscular Hemoglobin 28.7 PG (26-34); Mean Corpuscular Volume 84.5 fL (80-100); Monocytes Absolute Auto 800 /uL (0-900); Monocytes Percent Auto 10.4 % (3-14); Neutrophils Absolute Auto 5400 /uL (1500-7000); Neutrophils Percent Auto 69.9 % (50-75); Platelet Count 298 X10^3/uL (150-400); Red Blood Cell Count 3.41 X10^6/uL (4.5-5.9); Red Cell Distribution Width 13.9 % (11.6-14.8); White Blood Cell Count 7.7 X10^3/uL (4.5-11.0)
[2018-12-05 03:01] LABS: BUN Creatinine Ratio 21.1 (6-22); Blood Urea Nitrogen 19 mg/dL (9-20); Calcium 9.1 mg/dL (8.4-10.2); Carbon Dioxide 27 mmol/L (22-32); Chloride 105 mmol/L (98-107); Estimated Glomerular Filt Rate > 60.0 mL/min (>60); Glucose 101 mg/dL (80-110); HEMOLYSIS < 15 (0-50); Sodium 139 mmol/L (137-145)
[2018-12-05 03:05] LABS: Hemoglobin A1C% w Est Avg Glu 6.1 % (4.0-6.0)
[2018-12-05 03:15] LABS: Troponin I 0.503 ng/mL (0.01-0.034)
[2018-12-05 03:21] LABS: Cholesterol 100 mg/dL (140-199); HDL Cholesterol 28 mg/dL (40-60); LDL Cholesterol Calculated 41 mg/dL (<100); Triglycerides 153 mg/dL (35-150)
--- NOTE | 2018-12-05 04:05 | PC.NURSE ---
Addendum entered and electronically signed by Benita Ta R.N. 12/05/18 06:35: Blanchable Erythema Original Note: Addendum entered and electronically signed by Benita Ta R.N. 12/05/18 06:31: Erythemic area on bottom w/ rash, excoriation, and shearing. Noted on admission but not documented. Barrier cream applied, Q2 turns implemented. Pt is from [facility]. Original Note: Pt is calm and cooperative A&O x4. Pt lung sounds clear bilaterally. On Tele: NS 1st Degree AV w/ Arrhythmia, and Normal Sinus. Pt has been hypertensive 156/89 P 90, 94% on room air. Pt currently has 1/2 NS at 50ml/hr, but is NPO for scope in the A.M. Trop is trending down .503, previously it was 0.615, and H&H is 9.8, 28.8. 1200am BS was 117, no coverage given.
--- NOTE | 2018-12-05 07:03 | PM.PN.1 ---
Subjective Date Patient Seen: 12/05/18 Interval history: Shania Mauricio is an 83-year-old male patient with a past medical history significant for hypertension, hyperlipidemia, diabetes mellitus type 2, non-insulin using, BPH, prior CVA with left hemiparesis who presented for complaints of chest pain and shortness of breath due to atrial fibrillation with RVR which quickly and spontaneously resolved with diltiazem. Patient admitted for rectal bleeding and type 2 LA from demand ischemia. The patient is resting in bed comfortably. His Marissa is present. We discussed goals of care at great length which will not be determined until we know the results of the colonoscopy. The patient reports he has a poor quality of life currently. Prior to his CVAs patient was quite active and social. Due to his physical strength and residual deficit from his 3rd CVA the patient has not been to do the things he gets pleasure from. He has discussed physician assisted suicide in the past. He would either like to try rehab again and potentially return to his apartment at [place] in [facility] or be kept comfortable (location to be determined) if his condition is terminal. He has no complaints and denies headache, vision changes, lightheadedness or dizziness, chest pain, shortness of breath, abdominal pain, nausea, vomiting, fever, chills, dysuria, or constipation. He has had no recurrent hematochezia today. He is voiding and eliminating without difficulty. Patient has declined in his ambulatory status at the longterm facility and is predominantly bed bound. Exam Vital Signs (past 8 hours): - 12/05/18 00:00 12/05/18 00:58 12/05/18 04:50 Temperature 97.5 F L 98.3 F Pulse Rate 90 71 Respiratory Rate 16 20 Blood Pressure 156/89 H 155/87 H Pulse Oximetry 94 94 97 Oxygen Delivery Method Room Air Oxygen Flow Rate 2 Narrative Exam Narrative: General: Elderly gentleman lying in bed and in no acute distress, well-developed, well-nourished, slow mentation likely due to stroke with flat affect but tactful and appropriately interactive. HEENT: Normocephalic, atraumatic. External ears without defect. Pupils equal, round, and reactive to light. Anicteric sclerae, moist conjunctivae, and no lid lag. Neck: Supple with full range of motion. No jugular venous distension. No bruits. No lymphadenopathy or thyromegaly. Cardiovascular: Regular rate and rhythm without murmurs, rubs, or gallops appreciated Pulmonary: Clear to auscultation bilaterally with upper airway rhonchi. No crackles or wheezes. Normal respiratory effort with no use of accessory muscles. Abdomen: Soft, bowel sounds present, nontender, nondistended. No hepatosplenomegaly or masses appreciated. Genitourinary: Mild sacral/coccyx superficial skin breakdown. Extremities: No clubbing, cyanosis, or edema. Mild left-sided hemiparesis. Skin: Normal temperature, turgor, and texture; no rash, ulcers, or subcutaneous nodules appreciated. Neurological: Cranial nerves grossly intact. Psychiatric: Flat affect with blank stare. Slow mentation. Appears alert and oriented x3. Objective Labs Result Diagrams: 12/05/18 02:40 12/05/18 02:40 Labs: Laboratory Results - last 24 hr 12/04/18 12/04/18 12/04/18 10:50 10:50 11:38 WBC 8.9 RBC 3.66 L Hgb 10.6 L Hct 31.1 L MCV 84.9 MCH 28.8 MCHC 33.9 RDW 13.6 Plt Count 297 Neut % (Auto) 77.1 H Lymph % (Auto) 11.4 L [place] % (Auto) 8.3 Eos % (Auto) 2.4 Baso % (Auto) 0.8 Neut # (Auto) 6900 Lymph # (Auto) 1000 L [place] # (Auto) 700 Eos # (Auto) 200 Baso # (Auto) 100 Sodium 140 Potassium 4.7 Chloride 103 Carbon Dioxide 26 BUN 21 H Creatinine 1.00 Estimated GFR > 60.0 BUN/Creatinine Ratio 21.0 Glucose 199 H Hemoglobin A1c Calcium 9.1 Magnesium 1.7 Total Creatine Kinase 71 CK-MB (CK-2) TNP CK-MB (CK-2) Rel Index TNP Troponin I 0.090 H Triglycerides Cholesterol LDL Cholesterol, Calc HDL Cholesterol TSH 1.32 Blood Type Antibody Screen 12/04/18 12/04/18 12/04/18 12:57 16:57 16:57 WBC RBC Hgb 10.4 L Hct 31.4 L MCV MCH MCHC RDW Plt Count Neut % (Auto) Lymph % (Auto) [place] % (Auto) Eos % (Auto) Baso % (Auto) Neut # (Auto) Lymph # (Auto) [place] # (Auto) Eos # (Auto) Baso # (Auto) Sodium Potassium Chloride Carbon Dioxide BUN Creatinine Estimated GFR BUN/Creatinine Ratio Glucose Hemoglobin A1c Calcium Magnesium Total Creatine Kinase CK-MB (CK-2) CK-MB (CK-2) Rel Index Troponin I 0.193 H* Triglycerides Cholesterol LDL Cholesterol, Calc HDL Cholesterol TSH Blood Type A Positive Antibody Screen Negative 12/04/18 12/04/18 12/05/18 21:22 23:59 02:40 WBC 8.2 7.7 RBC 3.44 L 3.41 L Hgb 10.0 L 9.8 L Hct 29.3 L 28.8 L MCV 85.0 84.5 MCH 28.9 28.7 MCHC 34.0 34.0 RDW 13.5 13.9 Plt Count 312 298 Neut % (Auto) 72.1 69.9 Lymph % (Auto) 15.2 L 14.5 L [place] % (Auto) 8.5 10.4 Eos % (Auto) 3.5 4.2 H Baso % (Auto) 0.7 1.0 Neut # (Auto) 5900 5400 Lymph # (Auto) 1200 1100 [place] # (Auto) 700 800 Eos # (Auto) 300 300 Baso # (Auto) 100 100 Sodium Potassium Chloride Carbon Dioxide BUN Creatinine Estimated GFR BUN/Creatinine Ratio Glucose Hemoglobin A1c Calcium Magnesium Total Creatine Kinase CK-MB (CK-2) CK-MB (CK-2) Rel Index Troponin I 0.615 H* Triglycerides Cholesterol LDL Cholesterol, Calc HDL Cholesterol TSH Blood Type Antibody Screen 12/05/18 12/05/18 12/05/18 02:40 02:40 02:40 WBC RBC Hgb Hct MCV MCH MCHC RDW Plt Count Neut % (Auto) Lymph % (Auto) [place] % (Auto) Eos % (Auto) Baso % (Auto) Neut # (Auto) Lymph # (Auto) [place] # (Auto) Eos # (Auto) Baso # (Auto) Sodium 139 Potassium 4.0 Chloride 105 Carbon Dioxide 27 BUN 19 Creatinine 0.90 Estimated GFR > 60.0 BUN/Creatinine Ratio 21.1 Glucose 101 Hemoglobin A1c 6.1 H Calcium 9.1 Magnesium Total Creatine Kinase CK-MB (CK-2) CK-MB (CK-2) Rel Index Troponin I Triglycerides 153 H Cholesterol 100 L LDL Cholesterol, Calc 41 HDL Cholesterol 28 L TSH Blood Type Antibody Screen 12/05/18 02:40 WBC RBC Hgb Hct MCV MCH MCHC RDW Plt Count Neut % (Auto) Lymph % (Auto) [place] % (Auto) Eos % (Auto) Baso % (Auto) Neut # (Auto) Lymph # (Auto) Todd # (Auto) Eos # (Auto) Baso # (Auto) Sodium Potassium Chloride Carbon Dioxide BUN Creatinine Estimated GFR BUN/Creatinine Ratio Glucose Hemoglobin A1c Calcium Magnesium Total Creatine Kinase CK-MB (CK-2) CK-MB (CK-2) Rel Index Troponin I 0.503 H* Triglycerides Cholesterol LDL Cholesterol, Calc HDL Cholesterol TSH Blood Type Antibody Screen Assessment & Plan Assessment & Plan narrative: Shania Mauricio is an 83-year-old male patient with a past medical history significant for hypertension, hyperlipidemia, diabetes mellitus type 2, non-insulin using, BPH, prior CVA with left hemiparesis who presented for complaints of chest pain and shortness of breath due to atrial fibrillation with RVR which quickly and spontaneously resolved with diltiazem. Patient admitted for rectal bleeding and type 2 LA from demand ischemia. 1. Acute lower GI bleed with acute on chronic blood loss, present on admission. Active. -Patient previously had melena due to upper gastric ulcer and now recurrent hematochezia which he has not had a colonoscopy pursued as of yet. -Held Plavix for now. Aspirin has been discontinued previously. -Initial H&H on admission is 10.6 and 31.1. Discharged with stable H&H and trended up until recurrent bleed started. Transfusion goal <8.0. -Received iron infusion x2 to help rebuild Fe stores. -Continue Protonix 40 mg daily likely indefinitely. -Continue gentle IV fluid hydration with normal saline at 50 mL/hr. -Dr. Reyes, of general surgery was consulted and will perform a colonoscopy tomorrow. Previous EGD demonstrated duodenitis and superficial duodenal ulcers in the bulb which is source of bleed. 2. New onset atrial fibrillation with RVR, present on admission. Resolved. -Patient received diltiazem 10 mg IV x1 with spontaneous conversion to sinus rhythm. -Continue to monitor closely on telemetry. -Continue metoprolol as below. 3. Acute type 2 LA, secondary to demand ischemia due to atrial fibrillation with RVR, present on admission. Resolving. -Discussed with Cardiology who recommended optimizing medical therapy. Do not believe he is a interventional candidate due to significant comorbidities and GI bleeding. -Ordered echocardiogram, pending. -Increased metoprolol per cardiology from 12.5 twice daily to 25 mg every 6 hours with hold parameters. Continue lisinopril 10 mg daily at bedtime and atorvastatin 40 mg daily at bedtime. Aspirin has been discontinued due to gastric ulcer. 4. Hyperlipidemia, chronic, present on admission. Stable. -Fasting lipid panel demonstrated: Total cholesterol 100, triglycerides 153, LDL 41, and HDL 28. -Continued atorvastatin 40 mg daily. 5. Hypertension, chronic, present on admission. Stable. -Continued home medications of lisinopril 10 mg and metoprolol increased from 12.5 twice daily to 25 mg every 6 hours with hold parameters. 6. Diabetes mellitus type 2, non-insulin using, present on admission. Stable. -Hemoglobin A1c 6.0% 11/09. -Held metformin. -Continued blood glucose checks ACHS and low-dose correctional scale insulin Q6H while on clears, bowel prep, and later NPO. -[employer] was consulted on previous admission and recommended ensure with every meal and blenderized full liquids for meals for which patient is relatively non-compliant and understands the risks when not NPO. 7. Chronic generalized weakness, present on admission. Stable. -Secondary to bilateral temporal and cerebellar CVAs and continued acute blood loss. -Patient does endorse little oral fluid intake related to dysphagia and use of thickener to prevent aspiration as he does not like it. -Continue IV fluid hydration as above. -Continue physical and occupational therapy evaluation and treatment once colonoscopy has been performed. -Discussed goals of care for which quality is important to the patient and disposition will likely be determined once colonoscopy has been performed and GI bleed source has been identified. Disposition: Patient likely to discharge in several days days once colonoscopy has been performed and depending on results will determine where he will be discharged to. Quality VTE Deep Vein Thrombosis/Pulmonary Embolism Present on Admission: No
--- NOTE | 2018-12-05 07:13 | P.PN_ITS ---
Subjective Date Patient Seen: 12/05/18 Interval history: Shania Mauricio is an 83-year-old male patient with a past medical history significant for hypertension, hyperlipidemia, diabetes mellitus type 2, non-insulin using, BPH, prior CVA with left hemiparesis who presented for complaints of chest pain and shortness of breath due to atrial fibrillation with RVR which quickly and spontaneously resolved with diltiazem. Patient admitted for rectal bleeding and type 2 NV from demand ischemia. The patient is resting in bed comfortably. His Marissa is present. We discussed goals of care at great length which will not be determined until we know the results of the colonoscopy. The patient reports he has a poor quality of life currently. Prior to his CVAs patient was quite active and social. Due to his physical strength and residual deficit from his 3rd CVA the patient has not been to do the things he gets pleasure from. He has discussed physician assisted suicide in the past. He would either like to try rehab again and potentially return to his apartment at [place] in [facility] home or be kept comfortable (location to be determined) if his condition is terminal. He has no complaints and denies headache, vision changes, lightheadedness or dizziness, chest pain, shortness of breath, abdominal pain, nausea, vomiting, fever, chills, dysuria, or constipation. He has had no recurrent hematochezia today. He is voiding and eliminating without difficulty. Patient has declined in his ambulatory status at the alf facility and is predominantly bed bound. Exam Vital Signs (past 8 hours): - 12/05/18 00:00 12/05/18 00:58 12/05/18 04:50 Temperature 97.5 F L 98.3 F Pulse Rate 90 71 Respiratory Rate 16 20 Blood Pressure 156/89 H 155/87 H Pulse Oximetry 94 94 97 Oxygen Delivery Method Room Air Oxygen Flow Rate 2 Narrative Exam Narrative: General: Elderly gentleman lying in bed and in no acute distress, well- developed, well-nourished, slow mentation likely due to stroke with flat affect but tactful and appropriately interactive. HEENT: Normocephalic, atraumatic. External ears without defect. Pupils equal, round, and reactive to light. Anicteric sclerae, moist conjunctivae, and no lid lag. Neck: Supple with full range of motion. No jugular venous distension. No bruits. No lymphadenopathy or thyromegaly. Cardiovascular: Regular rate and rhythm without murmurs, rubs, or gallops appreciated Pulmonary: Clear to auscultation bilaterally with upper airway rhonchi. No crackles or wheezes. Normal respiratory effort with no use of accessory muscles. Abdomen: Soft, bowel sounds present, nontender, nondistended. No hepatosplenomegaly or masses appreciated. Genitourinary: Mild sacral/coccyx superficial skin breakdown. Extremities: No clubbing, cyanosis, or edema. Mild left-sided hemiparesis. Skin: Normal temperature, turgor, and texture; no rash, ulcers, or subcutaneous nodules appreciated. Neurological: Cranial nerves grossly intact. Psychiatric: Flat affect with blank stare. Slow mentation. Appears alert and oriented x3. Objective Labs Result Diagrams: 12/05/18 02:40 12/05/18 02:40 Labs: Laboratory Results - last 24 hr 12/04/18 12/04/18 12/04/18 10:50 10:50 11:38 WBC 8.9 RBC 3.66 L Hgb 10.6 L Hct 31.1 L MCV 84.9 MCH 28.8 MCHC 33.9 RDW 13.6 Plt Count 297 Neut % (Auto) 77.1 H Lymph % (Auto) 11.4 L [place] % (Auto) 8.3 Eos % (Auto) 2.4 Baso % (Auto) 0.8 Neut # (Auto) 6900 Lymph # (Auto) 1000 L [place] # (Auto) 700 Eos # (Auto) 200 Baso # (Auto) 100 Sodium 140 Potassium 4.7 Chloride 103 Carbon Dioxide 26 BUN 21 H Creatinine 1.00 Estimated GFR > 60.0 BUN/Creatinine Ratio 21.0 Glucose 199 H Hemoglobin A1c Calcium 9.1 Magnesium 1.7 Total Creatine Kinase 71 CK-MB (CK-2) TNP CK-MB (CK-2) Rel Index TNP Troponin I 0.090 H Triglycerides Cholesterol LDL Cholesterol, Calc HDL Cholesterol TSH 1.32 Blood Type Antibody Screen 12/04/18 12/04/18 12/04/18 12:57 16:57 16:57 WBC RBC Hgb 10.4 L Hct 31.4 L MCV MCH MCHC RDW Plt Count Neut % (Auto) Lymph % (Auto) [place] % (Auto) Eos % (Auto) Baso % (Auto) Neut # (Auto) Lymph # (Auto) [place] # (Auto) Eos # (Auto) Baso # (Auto) Sodium Potassium Chloride Carbon Dioxide BUN Creatinine Estimated GFR BUN/Creatinine Ratio Glucose Hemoglobin A1c Calcium Magnesium Total Creatine Kinase CK-MB (CK-2) CK-MB (CK-2) Rel Index Troponin I 0.193 H* Triglycerides Cholesterol LDL Cholesterol, Calc HDL Cholesterol TSH Blood Type A Positive Antibody Screen Negative 12/04/18 12/04/18 12/05/18 21:22 23:59 02:40 WBC 8.2 7.7 RBC 3.44 L 3.41 L Hgb 10.0 L 9.8 L Hct 29.3 L 28.8 L MCV 85.0 84.5 MCH 28.9 28.7 MCHC 34.0 34.0 RDW 13.5 13.9 Plt Count 312 298 Neut % (Auto) 72.1 69.9 Lymph % (Auto) 15.2 L 14.5 L [place] % (Auto) 8.5 10.4 Eos % (Auto) 3.5 4.2 H Baso % (Auto) 0.7 1.0 Neut # (Auto) 5900 5400 Lymph # (Auto) 1200 1100 [place] # (Auto) 700 800 Eos # (Auto) 300 300 Baso # (Auto) 100 100 Sodium Potassium Chloride Carbon Dioxide BUN Creatinine Estimated GFR BUN/Creatinine Ratio Glucose Hemoglobin A1c Calcium Magnesium Total Creatine Kinase CK-MB (CK-2) CK-MB (CK-2) Rel Index Troponin I 0.615 H* Triglycerides Cholesterol LDL Cholesterol, Calc HDL Cholesterol TSH Blood Type Antibody Screen 12/05/18 12/05/18 12/05/18 02:40 02:40 02:40 WBC RBC Hgb Hct MCV MCH MCHC RDW Plt Count Neut % (Auto) Lymph % (Auto) [place] % (Auto) Eos % (Auto) Baso % (Auto) Neut # (Auto) Lymph # (Auto) [place] # (Auto) Eos # (Auto) Baso # (Auto) Sodium 139 Potassium 4.0 Chloride 105 Carbon Dioxide 27 BUN 19 Creatinine 0.90 Estimated GFR > 60.0 BUN/Creatinine Ratio 21.1 Glucose 101 Hemoglobin A1c 6.1 H Calcium 9.1 Magnesium Total Creatine Kinase CK-MB (CK-2) CK-MB (CK-2) Rel Index Troponin I Triglycerides 153 H Cholesterol 100 L LDL Cholesterol, Calc 41 HDL Cholesterol 28 L TSH Blood Type Antibody Screen 12/05/18 02:40 WBC RBC Hgb Hct MCV MCH MCHC RDW Plt Count Neut % (Auto) Lymph % (Auto) [place] % (Auto) Eos % (Auto) Baso % (Auto) Neut # (Auto) Lymph # (Auto) [place] # (Auto) Eos # (Auto) Baso # (Auto) Sodium Potassium Chloride Carbon Dioxide BUN Creatinine Estimated GFR BUN/Creatinine Ratio Glucose Hemoglobin A1c Calcium Magnesium Total Creatine Kinase CK-MB (CK-2) CK-MB (CK-2) Rel Index Troponin I 0.503 H* Triglycerides Cholesterol LDL Cholesterol, Calc HDL Cholesterol TSH Blood Type Antibody Screen Assessment & Plan Assessment & Plan narrative: Shania Mauricio is an 83-year-old male patient with a past medical history significant for hypertension, hyperlipidemia, diabetes mellitus type 2, non- insulin using, BPH, prior CVA with left hemiparesis who presented for complaints of chest pain and shortness of breath due to atrial fibrillation with RVR which quickly and spontaneously resolved with diltiazem. Patient admitted for rectal bleeding and type 2 NV from demand ischemia. 1. Acute lower GI bleed with acute on chronic blood loss, present on admission. Active. -Patient previously had melena due to upper gastric ulcer and now recurrent hematochezia which he has not had a colonoscopy pursued as of yet. -Held Plavix for now. Aspirin has been discontinued previously. -Initial H&H on admission is 10.6 and 31.1. Discharged with stable H&H and trended up until recurrent bleed started. Transfusion goal <8.0. -Received iron infusion x2 to help rebuild Fe stores. -Continue Protonix 40 mg daily likely indefinitely. -Continue gentle IV fluid hydration with normal saline at 50 mL/hr. -Dr. Reyes, of general surgery was consulted and will perform a colonoscopy tomorrow. Previous EGD demonstrated duodenitis and superficial duodenal ulcers in the bulb which is source of bleed. 2. New onset atrial fibrillation with RVR, present on admission. Resolved. -Patient received diltiazem 10 mg IV x1 with spontaneous conversion to sinus rhythm. -Continue to monitor closely on telemetry. -Continue metoprolol as below. 3. Acute type 2 NV, secondary to demand ischemia due to atrial fibrillation with RVR, present on admission. Resolving. -Discussed with Cardiology who recommended optimizing medical therapy. Do not believe he is a interventional candidate due to significant comorbidities and GI bleeding. -Ordered echocardiogram, pending. -Increased metoprolol per cardiology from 12.5 twice daily to 25 mg every 6 hours with hold parameters. Continue lisinopril 10 mg daily at bedtime and atorvastatin 40 mg daily at bedtime. Aspirin has been discontinued due to gastric ulcer. 4. Hyperlipidemia, chronic, present on admission. Stable. -Fasting lipid panel demonstrated: Total cholesterol 100, triglycerides 153, LDL 41, and HDL 28. -Continued atorvastatin 40 mg daily. 5. Hypertension, chronic, present on admission. Stable. -Continued home medications of lisinopril 10 mg and metoprolol increased from 12.5 twice daily to 25 mg every 6 hours with hold parameters. 6. Diabetes mellitus type 2, non-insulin using, present on admission. Stable. -Hemoglobin A1c 6.0% 11/09. -Held metformin. -Continued blood glucose checks ACHS and low-dose correctional scale insulin Q6H while on clears, bowel prep, and later NPO. -[employer] was consulted on previous admission and recommended ensure with every meal and blenderized full liquids for meals for which patient is relatively non- compliant and understands the risks when not NPO. 7. Chronic generalized weakness, present on admission. Stable. -Secondary to bilateral temporal and cerebellar CVAs and continued acute blood loss. -Patient does endorse little oral fluid intake related to dysphagia and use of thickener to prevent aspiration as he does not like it. -Continue IV fluid hydration as above. -Continue physical and occupational therapy evaluation and treatment once colonoscopy has been performed. -Discussed goals of care for which quality is important to the patient and disposition will likely be determined once colonoscopy has been performed and GI bleed source has been identified. Disposition: Patient likely to discharge in several days days once colonoscopy has been performed and depending on results will determine where he will be discharged to. Quality VTE Deep Vein Thrombosis/Pulmonary Embolism Present on Admission: No
--- NOTE | 2018-12-05 10:01 | CM.DANOTE ---
Addendum entered by Hiwot Villagran R.N. 12/05/18 12:40: Spoke to Brie at [facility]. Patient was originally admitted there on 11/18. Stated that before they can accept patient back, will need provider to call their medical scientific officer to ensure that he is medically stable. Original Note: DCP: Case received, EMR reviewed. Obtained baseline information from spouse, Marissa. Patient was here a few days ago. DCP template completed with information currently available. Patient is an 83 year old male who admitted yesterday afternoon to the care of the hospitalist team. PCP: Dr. Duran. Payer: confirmed: Medicare/[facility]. Patient came to hospital via ambulance from [facility]. Patient was recently here for a GI bleed. Patient was sleeping, called , Marissa, for further information. Patient is not mobile, uses wheel-chair. Went to [facility] directly from discharging here recently. Patient came in with chest pain symptoms, as well as a-fib. He was also noted to have elevated troponin level. He holds diagnosis of lower GI bleed, for he has rectal bleeding in the ER. Blood thinners are now being held. Hospitalist, Dr. Ram, stated that he may be having scop tomorrow. She may also have discussion with patient's about [facility], or home on comfort care. P: DCP to follow closely. Anticipate that patient will be here for a few days. He could potentially go back to [facility] if medically stable. Hiwot Villagran RN/[employer]
--- NOTE | 2018-12-05 10:43 | PC.NURSE ---
1045 Per Tabler, Pt clear liq today. NPO at MN. Pt needs bowel prep for a scope on 12/06 at 1125. Will start prep per Dr Ram orders when written. Pt remains on mbedrest, denies pain.
[2018-12-05] MEDS: METOPROLOL IR 25 MG TABLET PO ×2 (12:37→20:23)
[2018-12-05] MEDS: DOCUSATE 100 MG CAPSULE PO (12:37)
[2018-12-05] MEDS: CITALOPRAM 10 MG TABLET PO (12:38)
[2018-12-05] MEDS: TAMSULOSIN 0.4 MG CAPSULE PO (12:39)
--- NOTE | 2018-12-05 14:09 | PM.CN ---
History of Present Illness Date Patient Seen: 12/05/18 Time Patient Seen: 11:40 Chief complaint: Chest Pain, syncope Reason for consult: rectal bleeding Narrative: 83yo M discharged a few days ago with rectal bleeding readmitted yesterday evening with new a fib and a troponin bump. He had a stroke with residual motor loss and neurologic deficits for which he has been in rehab. He was on dual anti-platelet therapy and it was charted that he may have gotten double doses of his plavix in addition to the aspirin. He has had several rectal bleeds. He underwent an EGD on his last admission with findings of superficial ulcerations around the duodenal bulb but no active bleeding. Plan was for a follow up outpatient colonoscopy. Current concern is for ongoing blood loss which may be contributing to his cardiac issues. [facility] Medical History Diabetes type 2, controlled (Chronic) Acute GI bleeding (Acute) Demand ischemia (Acute) Lower GI bleed (Acute) Diabetes (Acute) Hyperlipidemia (Acute) Oral cancer (Acute) Presence of stent in coronary artery in patient with coronary artery disease (Acute) Prostate cancer (Acute) CVA (cerebral vascular accident) (Chronic) Dyslipidemia (Chronic) Hypertension (Chronic) Surgical History History of back surgery (Acute) History of prostate surgery (Acute) History of repair of aneurysm of abdominal aorta (Acute) History of surgical procedure on mouth (Acute) S/P total knee arthroplasty (Acute) Family History Father No problems noted. Mother Heart disease Daughter In good health Social History household members: spouse Smoking Status: Never smoker alcohol intake: former Family History Father No problems noted. Mother Heart disease Daughter In good health Social History household members: spouse Smoking Status: Never smoker alcohol intake: former Meds Home Medications Medication Instructions Recorded Confirmed Type clopidogrel [Plavix] 75 mg PO DAILY 05/31/18 12/04/18 History lisinopril 10 mg PO BEDTIME 05/31/18 12/04/18 History metformin 500 mg PO BID 05/31/18 12/04/18 History tamsulosin [Flomax] 0.4 mg PO DAILY 05/31/18 12/04/18 History PreserVision AREDS-2 1 cap PO BID 11/09/18 12/04/18 History acetaminophen [Tylenol] 650 mg PO Q6H PRN 11/09/18 12/04/18 History ascorbic acid (vitamin C) 500 mg PO DAILY #0 11/09/18 12/04/18 History atorvastatin 40 mg PO BEDTIME 11/09/18 12/04/18 History metoprolol tartrate 12.5 mg PO BID 11/09/18 12/04/18 History multivitamin 1 tab PO DAILY 11/09/18 12/04/18 History nitroglycerin 0.4 mg SUBLINGUAL PRN PRN 11/09/18 12/04/18 History citalopram 10 mg PO DAILY #30 tab 11/11/18 12/04/18 Rx Boost 1 ea PO PC 11/28/18 12/04/18 History Fleet Enema 1 ea [place] PRN PRN 11/28/18 12/04/18 History Lactobacillus acidophilus 1 cap PO DAILY PRN 11/28/18 12/04/18 History [Acidophilus] bisacodyl 5 - 10 mg PO PRN PRN 11/28/18 12/04/18 History bisacodyl 10 mg [place] PRN PRN 11/28/18 12/04/18 History fluoride (sodium) 1 applic DENTAL QPM 11/28/18 12/04/18 History loperamide 2 mg PO Q4H PRN 11/28/18 12/04/18 History magnesium hydroxide [Milk of 30 ml PO PRN PRN 11/28/18 12/04/18 History Magnesia] nystatin 1 applic TOPICAL BID 11/28/18 12/04/18 History sennosides [senna] 8.6 mg PO BID 11/28/18 12/04/18 History simethicone 80 mg PO BID 11/28/18 12/04/18 History pantoprazole 40 mg PO 0700 #30 tab 12/02/18 12/04/18 Rx Allergies Allergy/AdvReac Type Severity Reaction Status Date / Time No Known Drug Allergies Allergy Verified 12/04/18 10:20 Review of Systems Constitutional Constitutional: Reports as per HPI Exam Vital Signs (past 8 hours): - 12/05/18 07:45 12/05/18 08:00 12/05/18 11:56 Temperature 99.3 F 98.8 F Pulse Rate 75 79 Respiratory Rate 16 15 Blood Pressure 153/81 H 175/90 H Pulse Oximetry 97 95 96 Oxygen Delivery Method Room Air Oxygen Flow Rate 0 Narrative Exam Narrative: AA, oriented to general situation but poor recall, NAD, male of healthy weight EOMI, MMM, no scleral icterus unlabored RA soft, nt/nd MAEW visible skin dry and intact Objective Labs Result Diagrams: 12/05/18 02:40 12/05/18 02:40 Labs: Laboratory Results - last 24 hr 12/04/18 12/04/18 12/04/18 16:57 16:57 21:22 WBC RBC Hgb 10.4 L Hct 31.4 L MCV MCH MCHC RDW Plt Count Neut % (Auto) Lymph % (Auto) [place] % (Auto) Eos % (Auto) Baso % (Auto) Neut # (Auto) Lymph # (Auto) [place] # (Auto) Eos # (Auto) Baso # (Auto) Sodium Potassium Chloride Carbon Dioxide BUN Creatinine Estimated GFR BUN/Creatinine Ratio Glucose Hemoglobin A1c Calcium Troponin I 0.615 H* Triglycerides Cholesterol LDL Cholesterol, Calc HDL Cholesterol Blood Type A Positive Antibody Screen Negative 12/04/18 12/05/18 12/05/18 23:59 02:40 02:40 WBC 8.2 7.7 RBC 3.44 L 3.41 L Hgb 10.0 L 9.8 L Hct 29.3 L 28.8 L MCV 85.0 84.5 MCH 28.9 28.7 MCHC 34.0 34.0 RDW 13.5 13.9 Plt Count 312 298 Neut % (Auto) 72.1 69.9 Lymph % (Auto) 15.2 L 14.5 L [place] % (Auto) 8.5 10.4 Eos % (Auto) 3.5 4.2 H Baso % (Auto) 0.7 1.0 Neut # (Auto) 5900 5400 Lymph # (Auto) 1200 1100 [place] # (Auto) 700 800 Eos # (Auto) 300 300 Baso # (Auto) 100 100 Sodium 139 Potassium 4.0 Chloride 105 Carbon Dioxide 27 BUN 19 Creatinine 0.90 Estimated GFR > 60.0 BUN/Creatinine Ratio 21.1 Glucose 101 Hemoglobin A1c Calcium 9.1 Troponin I Triglycerides Cholesterol LDL Cholesterol, Calc HDL Cholesterol Blood Type Antibody Screen 12/05/18 12/05/18 12/05/18 02:40 02:40 02:40 WBC RBC Hgb Hct MCV MCH MCHC RDW Plt Count Neut % (Auto) Lymph % (Auto) [place] % (Auto) Eos % (Auto) Baso % (Auto) Neut # (Auto) Lymph # (Auto) [place] # (Auto) Eos # (Auto) Baso # (Auto) Sodium Potassium Chloride Carbon Dioxide BUN Creatinine Estimated GFR BUN/Creatinine Ratio Glucose Hemoglobin A1c 6.1 H Calcium Troponin I 0.503 H* Triglycerides 153 H Cholesterol 100 L LDL Cholesterol, Calc 41 HDL Cholesterol 28 L Blood Type Antibody Screen Assessment & Plan (1) Rectal bleed: Current visit: Yes Status: Acute Assessment & Plan narrative: - plan for inpatient colonoscopy --> prep today, ok for clears --> scope tomorrow with anesthesia due to history of head and neck cancer surgery - higher risk due to anti-platelets and cardiac issues but reasonable diagnostic procedure
[2018-12-05 14:49] LABS: Troponin I 0.261 ng/mL (0.01-0.034)
--- NOTE | 2018-12-05 15:44 | PC.NURSE ---
Addendum entered by Beatriz Anguiano R.N. 12/05/18 17:01: [place] upright and taking mag citrate with daughter's assistance. Mentation and conversation appropriate. Addendum entered by Beatriz Anguiano R.N. 12/05/18 16:19: PHARMACIST PER DIEM informs this newspaper writer pt's HR in 40's. This newspaper writer observed pt with noted sleep apnea during assessment. Dr. Ram informed of both of these items. Original Note: Dr. Ram present to discuss pt's bowel prep for colonoscopy in a.m. Per dayshift report, this newspaper writer informed MD pt has issues with swallowing. Proceed per Dr. Ram. Awaiting formal orders. Dr. Ram has contacted surgeon regarding prep.
[2018-12-05] MEDS: MAGNESIUM CITRATE 300 ML SOLUTION PO (16:22)
[2018-12-05] MEDS: INSULIN ASPART 100 UNIT/ML INSULN PEN SUBCUT (17:29)
[2018-12-05 19:02] LABS: Blood Urea Nitrogen 18 mg/dL (9-20); Calcium 9.1 mg/dL (8.4-10.2); Carbon Dioxide 26 mmol/L (22-32); Chloride 102 mmol/L (98-107); Estimated Glomerular Filt Rate > 60.0 mL/min (>60); Glucose 130 mg/dL (80-110); HEMOLYSIS < 15 (0-50); Magnesium 1.8 mg/dL (1.6-2.3); Sodium 138 mmol/L (137-145)
[2018-12-05] MEDS: MAGNESIUM SULFATE 2 GM/50 ML PIGGYBACK IV (20:04)
[2018-12-05] MEDS: SODIUM CHLORIDE 0.9% FLUSH 10 ML IV (20:21)
[2018-12-05] MEDS: ATORVASTATIN 20 MG TABLET 40 MG PO (20:21)
[2018-12-05] MEDS: LISINOPRIL 10 MG TABLET PO (20:22)
[2018-12-06] VITALS (17 sets, daily range): BP systolic 110–185; BP diastolic 43–95; PULSE 50–78; RESP 13–20; TEMP 36.2–36.8; O2SAT 91–98; BMI 25.7
--- NOTE | 2018-12-06 | PATH_ITS ---
[facility] Accession Number: [id number] . 01 Material submitted: . rectum - RECTAL MASS BIOPSY . 02 Diagnosis: Biopsy, Rectal Mass: Fragments of colon mucosa with focal areas of mucosal hyperplasia, but negative for evidence of dysplasia and/or malignancy. MRV/12/10/2018 . 02 Electronically signed: . Mitul Gaines MD, Pathologist NPI- [id number] . 01 Gross description: . RECTAL MASS BIOPSY: Received in formalin are multiple fragment(s) of piper, soft tissue measuring 0.5 x 0.4 x 0.2 cm in aggregate submitted entirely in 1 cassette(s) /CKI /CKI . 02 Pathologist provided ICD-10: K62.89 . 02 CPT . 295300 Performed at: 01 [facility] [address] [id number] MD Jim Nascimento MD Phone: [phone] Performed at: 02 [facility] [address] [place], [place] [id number] MD Sheridan Francisco MD Phone: [phone]
--- NOTE | 2018-12-06 00:05 | PC.NURSE ---
2300- Pt admit for blood in stool & cardiac changes. Troponin trending down, SR w/ 1st degree AVB on telemetry. BA in place; pt is wheelchair bound at baseline; moving 2PA in bed and to BSC. Bowel prep in process for planned colonscopy; NPO at midnight. Q6hr BG checks taking place w/ insulin coverage as needed. L hand periph IV running 1/2 NS as ordered. Lung sounds coarse however VSS on RA. 0000- BG stable, no need for insulin coverage.
[2018-12-06] MEDS: INSULIN ASPART 100 UNIT/ML INSULN PEN SUBCUT (06:56)
--- NOTE | 2018-12-06 07:32 | PM.DS.1 ---
History of Present Illness Date Patient Seen: 11/13/18 Chief complaint: Confusion Narrative: Shania Mauricio is an 83-year-old male patient with a history hypertension, hyperlipidemia, diabetes, BPH, prior CVA with left hemiparesis who presents today for complaints of acute onset of weakness. The patient reports that he got up this morning sat in a chair when he became diaphoretic and felt weak and was unable to speak. He reports associated shortness of breath at rest but denies chest pain or palpitations. Does acknowledge that he had had some left chest discomfort last night that reports as related to indigestion for which he does not typically take his nitroglycerin. The patient has had prior CVA 1 year ago with resultant left leg weakness followed by recurrent episodes of neurological deficits in May of 2018 and then again last month. He has had intermittent shortness of breath and has a known history dysphagia and has had recent swallow evaluation demonstrating motility dysfunction and will cough when eating and on liquids. Patient has been using thickener at home which he does not like using and therefore consumes little liquid. He reports a poor appetite. He currently is receiving care from [facility]. Patient denies headaches or dizziness and has no visual changes. Denies cold or flu symptoms and has had no fevers how ever he will report episodic episodes of diaphoresis. Denies complaints of chest pain or palpitations and does not report dyspnea on exertion ambulates minimally using a walker. He can all edges heartburn which he takes Tums but reports no nausea or vomiting. Denies diarrhea but it currently has constipation not having a bowel movement for the last 2-3 days. Reports no difficulty urinating in the ER the patient underwent CT exam weight was negative demonstrating cerebral atrophy without hemorrhage or mass. His chest x-ray was negative and described as normal for age without evidence of aspiration pneumonia. His CBC is unremarkable as is his electrolytes. On renal function has a BUN of 43 and a creatinine of 1.4 with an EGFR of 48.6 and BUN creatinine ratio of 30.7. The patient is admitted for further evaluation and neurological and physiological monitoring. Discharge Providers Date of admission: 12/04/18 14:51 Discharge Date: 12/13/18 Primary care physician: Lex Duran MD Consults: 12/04/18 17:20 Consult to General Surgery Routine Comment: Consulting Provider: Rocio Reyes Reason for consultation: GI bleed Has provider been notified: Yes 12/05/18 16:05 Consult to Dietitian, Adult Routine Comment: Reason For Exam: H/o CVA Discharge provider: Bronwyn Dodson MD Summary Discharge Diagnosis: Bilateral CVA, Multifocal Acute Kidney Injury Hypertension Diabetes Depression Hospital Course: Patient was admitted to the hospital for evaluation of confusion. He underwent Head MRI which revealed multiple acute CVA's. Given the multiple events it was discussed with Teleneurology the need for further work up. They recommended arranging for an event monitor and WAGNER. Unfortunately, we were unable to arrange for the WAGNER but discharged the patient to follow up with Cardiology for the event monitor. The patient had improvement in his clinical symptoms and was deemed appropriate for discharge home. Status at Discharge Cognitive/behavioral status at discharge: oriented Functional status at discharge: uses cane/walker Overall status at discharge: patient is back to baseline Time Spent with Patient Less than 30 minutes Exam Vital Signs (past 8 hours): - 12/06/18 00:08 12/06/18 06:20 Temperature 97.7 F 97.9 F Pulse Rate 50 L 78 Respiratory Rate 16 16 Blood Pressure 130/68 185/95 H Pulse Oximetry 95 92 Oxygen Delivery Method Room Air Oxygen Flow Rate 0 Narrative Exam Narrative: pleasant male Lungs: clear to auscultation CV: RRR nl Sl S2 2/6 MARGRET Abd: Soft/ non tender/ non distended Ext: no edema Objective Labs Result Diagrams: 12/05/18 02:40 12/05/18 18:45 Labs: Laboratory Results - last 24 hr 12/05/18 12/05/18 14:05 18:45 Sodium 138 Potassium 4.0 Chloride 102 Carbon Dioxide 26 BUN 18 Creatinine 0.90 Estimated GFR > 60.0 BUN/Creatinine Ratio 20.0 Glucose 130 H Calcium 9.1 Magnesium 1.8 Troponin I 0.261 H* Discharge Plan Discharge Med Rec/Prescriptions Prescriptions: No Action metformin 500 mg Tablet 500 mg PO BID RF: 0 tamsulosin [Flomax] 0.4 mg Capsule 0.4 mg PO DAILY RF: 0 lisinopril 10 mg Tablet 10 mg PO BEDTIME RF: 0 clopidogrel [Plavix] 75 mg Tablet 75 mg PO DAILY RF: 0 atorvastatin 40 mg tablet 40 mg PO BEDTIME RF: 0 nitroglycerin 0.4 mg tablet, sublingual 0.4 mg Sublingual PRN PRN (Reason: Chest Pain) RF: 0 metoprolol tartrate 25 mg tablet 12.5 mg PO BID RF: 0 acetaminophen [Tylenol] 325 mg Tablet 650 mg PO Q6H PRN (Reason: Fever Or Pain) RF: 0 multivitamin Tablet 1 tab PO DAILY RF: 0 ascorbic acid (vitamin C) 500 mg Tablet 500 mg PO DAILY Qty: 0 RF: 0 PreserVision AREDS-2 [id number] Capsule 1 cap PO BID RF: 0 citalopram 10 mg tablet 10 mg PO DAILY Qty: 30 RF: 0 fluoride (sodium) 1.1 % gel 1 applic Dental QPM RF: 0 sennosides [senna] 8.6 mg Tablet 8.6 mg PO BID RF: 0 loperamide 2 mg Capsule 2 mg PO Q4H PRN (Reason: Diarrhea) RF: 0 magnesium hydroxide [Milk of Magnesia] 400 mg/5 mL Suspension 30 ml PO PRN PRN (Reason: Constipation) RF: 0 bisacodyl 10 mg Suppository 10 mg DE PRN PRN (Reason: Constipation) RF: 0 Fleet Enema 19-7 gram/118 mL Enema 1 ea DE PRN PRN (Reason: Constipation) RF: 0 nystatin 100,000 unit/gram Powder 1 applic topical BID RF: 0 Lactobacillus acidophilus [Acidophilus] Capsule 1 cap PO DAILY PRN (Reason: rebuild gut stephanie) RF: 0 simethicone 80 mg Tablet,Chewable 80 mg PO BID RF: 0 bisacodyl 5 mg Tablet 5 - 10 mg PO PRN PRN (Reason: Constipation) RF: 0 Boost 0.04 gram- 1 kcal/mL Liquid 1 ea PO PC RF: 0 pantoprazole 40 mg Tablet,Delayed Release (Dr/Ec) 40 mg PO 0700 Qty: 30 RF: 0 Follow up/Referrals: Lex Duran MD [Primary Care Provider] - Discharge Orders: Discharge (Order); Ordered 12/06/18 Ordered By: Bronwyn Dodson Discharge Data Primary Care Provider: Lex Duran Attending Provider: Genny Ram Admit Date/Time: 12/04/18 14:51 Quality VTE Deep Vein Thrombosis/Pulmonary Embolism Present on Admission: No
[2018-12-06] MEDS: SODIUM CHLORIDE 0.9% FLUSH 10 ML IV ×2 (09:50→21:33)
[2018-12-06] MEDS: PANTOPRAZOLE 40 MG VIAL IV (09:50)
[2018-12-06] MEDS: METOPROLOL IR 25 MG TABLET PO ×2 (10:30→21:33)
[2018-12-06] MEDS: CITALOPRAM 10 MG TABLET PO (10:30)
--- NOTE | 2018-12-06 11:16 | CM.DPC ---
DCP Cont: Noted discharge orders this morning. Patient is supposed to have colonoscopy today. Discussed at team rounds. Prior to rounds, called [facility] regarding accepting patient back. December stated that their rn medical inpatient services would need to be called, Dr. Zaidi, before they could accept him for readmit. Let Dr. Dodson know this, and gave her his cell number. Met with , Marissa. Stated, I want to really make sure that he is medically ready before he goes back there, because this has happened a couple of times. She stated that she had a lengthy conversation with Dr. Ram yesterday regarding his possible prognosis. She is concerned that he is no longer mobile. Encouraged her to discuss her concerns today with Dr. Dodson. Dr. Dodson will also update this case management social worker regarding conversation with their rn medical inpatient services so plan can go forward. P: DCP to follow closely. Plan is for patient to return to [facility]. May depend upon test today, and facility accepting patient. Hiwot Villagran RN/Insurance Healthcare Consultant
--- NOTE | 2018-12-06 11:22 | PM.PN.1 ---
Subjective Date Patient Seen: 12/06/18 Interval history: Patient is an 83-year-old male readmitted to the hospital for rectal bleeding. Patient will be taken down to the operating room today for colonoscopy. His speech is slurred. He has no complaints he does not appear to be short of breath. Exam Vital Signs (past 8 hours): - 12/06/18 06:20 12/06/18 08:00 Temperature 97.9 F 97.9 F Pulse Rate 78 74 Respiratory Rate 16 16 Blood Pressure 185/95 H 148/77 H Pulse Oximetry 92 93 Oxygen Delivery Method Room Air Oxygen Flow Rate 0 Narrative Exam Narrative: Elderly ill-appearing male lying in bed Lungs: Clear to auscultation Cardiac exam: Regular rate and rhythm normal S1-S2 with a 2/6 systolic ejection Abdomen: Soft and nontender Extremities: No edema Objective Labs Result Diagrams: 12/05/18 02:40 12/05/18 18:45 Labs: Laboratory Results - last 24 hr 12/05/18 12/05/18 14:05 18:45 Sodium 138 Potassium 4.0 Chloride 102 Carbon Dioxide 26 BUN 18 Creatinine 0.90 Estimated GFR > 60.0 BUN/Creatinine Ratio 20.0 Glucose 130 H Calcium 9.1 Magnesium 1.8 Troponin I 0.261 H* Assessment & Plan (1) Rectal bleed: Problem details: Patient is going for colonoscopy today Current visit: Yes Status: Acute (2) History of CVA (cerebrovascular accident): Problem details: History of CVA, chronic Current visit: Yes Status: Chronic (3) Essential hypertension: Problem details: Hypertension, chronic Current visit: Yes Status: Chronic (4) Diabetes type 2, controlled: Problem details: Type 2 diabetes, chronic Current visit: Yes Status: Chronic (5) Demand ischemia: Current visit: Yes Status: Acute Assessment & Plan narrative: Further recommendations pending the results of the colonoscopy today. Quality VTE Deep Vein Thrombosis/Pulmonary Embolism Present on Admission: No
[2018-12-06] MEDS: LACTATED RINGERS 1,000 ML 42 ML IV (15:30)
--- NOTE | 2018-12-06 16:00 | PM.PREOP ---
Pre-operative Note Interval Note History & Physical reviewed/Exam performed by Physician: Yes Changes to H&P: No ASA Class (for procedural sedation): III
[2018-12-06] MEDS: DOCUSATE 100 MG CAPSULE PO (21:32)
[2018-12-06] MEDS: LISINOPRIL 10 MG TABLET PO (21:32)
[2018-12-06] MEDS: ATORVASTATIN 20 MG TABLET 40 MG PO (21:32)
[2018-12-07] VITALS (10 sets, daily range): BP systolic 139–179; BP diastolic 62–91; PULSE 50–77; RESP 16–18; TEMP 36.4–37; O2SAT 85–98; BMI 25.7
[2018-12-07] MEDS: METOPROLOL IR 25 MG TABLET PO ×2 (08:49→20:59)
[2018-12-07] MEDS: CITALOPRAM 10 MG TABLET PO (08:50)
[2018-12-07] MEDS: TAMSULOSIN 0.4 MG CAPSULE PO (08:50)
[2018-12-07] MEDS: PANTOPRAZOLE 40 MG VIAL IV (08:50)
[2018-12-07] MEDS: INSULIN GLARGINE 100 UNIT/ML 3ML PEN 20 UNIT SUBCUT ×2 (08:53→21:01)
[2018-12-07] MEDS: SODIUM CHLORIDE 0.9% FLUSH 10 ML IV (09:00)
--- NOTE | 2018-12-07 09:21 | PM.OP.ENDO ---
Operative Date/Time/Diagnoses Date of procedure: 12/06/18 Time of procedure: 16:40 Pre-op diagnosis: Rectal Bleeding Post-op diagnosis: same Procedure & Clinicians Study performed: Diagnostic Colonoscopy Same procedure as scheduled: Yes Indications: 83yo M with intermittent rectal bleeding, on dual anti-platelet therapy with possible overdosing of Plavix. Has had an EGD showing gastritis and is now undergoing a diagnostic colonoscopy. He has recently been on Plavix so we will defer unnecessary biopsies. All risks, benefits, and alternatives discussed. Surgeon: Rocio Reyes Procedure Notes SCOAP/Timeout: 1609 Procedure in detail: After obtaining informed consent, the patient was brought to the GI suite and placed in the left lateral decubitus position in his hospital bed. After placement of appropriate monitors, the patient was given propofol by anesthesia for sedation. A time out was held per SCOAP protocol. A digital rectal examination was performed and a hard ridge along the posterior rectum was noted concerning for a mass. The colonoscope was gently passed into the patient's anus and the entire colon navigated to the level of the cecum with minimal difficulty. Prep was adequate. Once in the cecum, the scope was slowly withdrawn being sure to go before and beyond all mucosal folds and prominences as able to get a thorough examination. Two small (2-3mm) polyps were noted in the transverse colon at approximtely 100cm and a similar polyp in the left colon around 60cm. These were left in place given his anti-platelet use and life expectancy being such that these should not become problematic. Other findings include scattered diverticulosis. At the level of the rectal vault, the scope was retroflexed and the internal anal canal was examined, revealing the 4-5 rectal mass palpated on KAMILA. This was biopsied as it is concerning for cancer. The scope was straightened and air aspirated from the colon. The instrument was removed from the patient's body and the procedure was concluded. The patient was allowed to awaken from sedation without difficulty and taken to the post-anesthesia care unit in good condition. Scope withdrawal time: 9 Sedation minutes: 27 Findings: diverticulosis, polyp and possible cancer Impression: 1. Diverticulosis- scattered 2. Three tiny polyps in transverse colon and left colon 3. Rectal mass- biopsies pending, concerning for cancer Recommendations: High fiber diet and Other recommendation (will discuss pending biopsy results) Plan for aftercare: return to floor for ongoing care Disposition: PACU
--- NOTE | 2018-12-07 10:08 | PM.PN.1 ---
Subjective Date Patient Seen: 12/07/18 Time Patient Seen: 10:08 Interval history: He is seen in his room today to follow-up the lower GI bleed, probable rectal cancer on colonoscopy, atrial fibrillation, hypertension, post stroke weakness, dysphagia and diabetes mellitus. He remains very very weak. During my visit he appears to be aspirating as he eats, which at his insistence is not following speech therapy's recommendations for texture. His and various friends are visiting. His hemoglobin of 9.8 on the was stable. The blood pressure was 179/76. Exam Vital Signs (past 8 hours): - 12/07/18 04:00 12/07/18 08:30 Temperature 97.7 F Pulse Rate 62 Respiratory Rate 18 Blood Pressure 179/76 H Pulse Oximetry 98 85 L Oxygen Delivery Method Room Air,Nasal Cannula Oxygen Flow Rate 1 Narrative Exam Narrative: On exam he is alert, oriented x3, and says that he recognizes me from prior visits. Heart is regular rate and rhythm without murmur. Lungs are clear to auscultation bilaterally. Extremities have no ankle edema. He is weak and appears to be aspirating. Objective Labs Result Diagrams: 12/05/18 02:40 12/05/18 18:45 Assessment & Plan Assessment & Plan narrative: 1. Acute lower GI bleed with acute on chronic blood loss, present on admission. Active. -Patient previously had melena due to upper gastric ulcer and now recurrent hematochezia with a new diagnosis of rectal mass, suspicious for rectal cancer. -Plavix and aspirin have been stopped. -Initial H&H on admission is 10.6 and 31.1. Repeat CBC tomorrow -Received iron infusion x2 to help rebuild Fe stores. -Continue Protonix 40 mg daily likely indefinitely. -Previous EGD demonstrated duodenitis and superficial duodenal ulcers in the bulb which so far is the only source of bleed. No bleeding was seen on colonoscopy. 2. New onset atrial fibrillation with RVR, present on admission. Resolved. -Patient received diltiazem 10 mg IV x1 with spontaneous conversion to sinus rhythm. -Continue to monitor closely on telemetry. -Continue metoprolol as below. 3. Acute type 2 [place], secondary to demand ischemia due to atrial fibrillation with RVR, present on admission. Resolving. -Discussed with Cardiology who recommended optimizing medical therapy. He is not an interventional candidate due to significant comorbidities and GI bleeding. -Increased metoprolol per cardiology from 12.5 twice daily to 25 mg every 6 hours with hold parameters. Continue lisinopril 10 mg daily at bedtime and atorvastatin 40 mg daily at bedtime. Aspirin has been discontinued due to gastric ulcer. 4. Hyperlipidemia, chronic, present on admission. Stable. -Fasting lipid panel demonstrated: Total cholesterol 100, triglycerides 153, LDL 41, and HDL 28. -Continued atorvastatin 40 mg daily. 5. Hypertension, chronic, present on admission. Stable. -Continued home medications of lisinopril 10 mg and metoprolol increased from 12.5 twice daily to 25 mg every 6 hours with hold parameters. 6. Diabetes mellitus type 2, non-insulin using, present on admission. Stable. -Hemoglobin A1c 6.0% 11/09. -metformin was stopped. -Continued blood glucose checks ACHS and low-dose correctional scale insulin -Software Clerk was consulted on previous admission and recommended ensure with every meal and blenderized full liquids for meals for which patient is relatively non-compliant and understands the risks when not NPO. 7. Chronic generalized weakness, present on admission. Stable. -Secondary to bilateral temporal and cerebellar CVAs and continued acute blood loss. -Patient does endorse little oral fluid intake related to dysphagia and use of thickener to prevent aspiration as he does not like it. -Continue physical and occupational therapy evaluation and treatment with discharge planning. -Discussed goals of care for which quality is important to the patient and disposition is probably [facility] for further [facility] tomorrow. Disposition: Back to [facility] tomorrow? Quality VTE Deep Vein Thrombosis/Pulmonary Embolism Present on Admission: No
[2018-12-07] MEDS: INSULIN ASPART 100 UNIT/ML INSULN PEN SUBCUT ×3 (11:38→21:00)
--- NOTE | 2018-12-07 11:43 | PC.NURSE ---
General weakness: Spouse here, concerned because her is getting weaker daily, has not eaten in 3-4 days, worried about him in general, he got weak because of stool softners, her comments approp and she was reassured everything would be done to help her to feel more comfortable. When Dr. Calhoun here she relayed her concerns to him and he also reassured her he would order a diet after speaking with the surgeon. She will also see the RD because pt has many food concerns, has been on a [facility] dysphagia diet in past, thin liquids, needs assist with eating, ect. he did receive clear ensure with bkft and to get meds down he did get vanilla pudding which is his favorite and that made both pt and spouse happy. He was finally able to rest after that and take a nap. Resting quietly at the moment. Cont w/poc.
--- NOTE | 2018-12-07 11:58 | PM.PN.1 ---
Subjective Date Patient Seen: 12/07/18 Time Patient Seen: 10:58 Interval history: Reviewed findings from scope with patient and as well as their visiting retail visual merchandiser, including my concern that this rectal mass will be malignant. Pt mostly wants ice cream. Exam Vital Signs (past 8 hours): - 12/07/18 04:00 12/07/18 08:00 12/07/18 08:30 Temperature 97.7 F 98.4 F Pulse Rate 62 64 Respiratory Rate 18 16 Blood Pressure 179/76 H 153/91 H Pulse Oximetry 98 93 85 L 12/07/18 11:03 Temperature Pulse Rate 55 L Respiratory Rate 16 Blood Pressure Pulse Oximetry 97 Oxygen Delivery Method Nasal Cannula Oxygen Flow Rate 3 Narrative Exam Narrative: AAO to immediate situation but limited global comprehension, NAD, male of healthy weight EOMI, MMM, no scleral icterus unlabored RA soft, nt/nd motor deficits visible skin dry and intact Objective Labs Result Diagrams: 12/05/18 02:40 12/05/18 18:45 Assessment & Plan Assessment & Plan narrative: - ongoing rectal bleeding, pt on dual anti-platelet therapy for MIs and CVAs --> held for now but pt high risk for above - concern for malignant rectal mass, biopsies pending --> while pt is unlikely a candidate for full treatment protocols, XRT may help palliate the bleeding and prevent growth so avoiding diverting colostomy; will discuss with med onc pending biopsy results - would recommend starting anti-platelets back while patient in hospital to monitor - diet per primary, no restrictions from surgery standpoint other than as per ST rec Quality VTE Deep Vein Thrombosis/Pulmonary Embolism Present on Admission: No
--- NOTE | 2018-12-07 12:04 | P.PN_ITS ---
Subjective Date Patient Seen: 12/07/18 Time Patient Seen: 10:58 Interval history: Reviewed findings from scope with patient and as well as their visiting acute care registered nurse, including my concern that this rectal mass will be malignant. Pt mostly wants ice cream. Exam Vital Signs (past 8 hours): - 12/07/18 04:00 12/07/18 08:00 12/07/18 08:30 Temperature 97.7 F 98.4 F Pulse Rate 62 64 Respiratory Rate 18 16 Blood Pressure 179/76 H 153/91 H Pulse Oximetry 98 93 85 L 12/07/18 11:03 Temperature Pulse Rate 55 L Respiratory Rate 16 Blood Pressure Pulse Oximetry 97 Oxygen Delivery Method Nasal Cannula Oxygen Flow Rate 3 Narrative Exam Narrative: AAO to immediate situation but limited global comprehension, NAD, male of healthy weight EOMI, MMM, no scleral icterus unlabored RA soft, nt/nd motor deficits visible skin dry and intact Objective Labs Result Diagrams: 12/05/18 02:40 12/05/18 18:45 Assessment & Plan Assessment & Plan narrative: - ongoing rectal bleeding, pt on dual anti-platelet therapy for MIs and CVAs --> held for now but pt high risk for above - concern for malignant rectal mass, biopsies pending --> while pt is unlikely a candidate for full treatment protocols, XRT may help palliate the bleeding and prevent growth so avoiding diverting colostomy; will discuss with med onc pending biopsy results - would recommend starting anti-platelets back while patient in hospital to monitor - diet per primary, no restrictions from surgery standpoint other than as per ST rec Quality VTE Deep Vein Thrombosis/Pulmonary Embolism Present on Admission: No
--- NOTE | 2018-12-07 14:25 | PC.NURSE ---
Cardiac: Dr. Calhoun notified heart rate to the upper 40's, low 50's after metoprolol. Have been able to titrate O2 down to 1L, sats are 95-97%. Will try on RA later today.
--- NOTE | 2018-12-07 16:05 | PC.NURSE ---
Dietary: out to see this food writer, she is concerned about nutritional status even after seeing RD and reviewing diet concerns with her. She wants to speak with Dr. Calhoun in person. made aware. he will go and see pt and spouse.
[2018-12-07] MEDS: SODIUM CHLORIDE 0.9% 1,000 ML 125 ML IV (17:14)
--- NOTE | 2018-12-07 20:07 | PC.NURSE ---
@1700 Pt. and refused 1st set of Q4 vital signs for the evening shift. PERFUME AND TOILET WATER MAKER will get 2nd set later this evening.
[2018-12-07] MEDS: LISINOPRIL 10 MG TABLET PO (20:59)
[2018-12-07] MEDS: ATORVASTATIN 20 MG TABLET 40 MG PO (20:59)
[2018-12-08] VITALS (9 sets, daily range): BP systolic 135–179; BP diastolic 59–81; PULSE 54–98; RESP 15–18; TEMP 36.3–37.1; O2SAT 92–98
[2018-12-08] MEDS: SODIUM CHLORIDE 0.9% 1,000 ML 125 ML IV ×2 (01:58→09:46)
[2018-12-08 06:17] LABS: Add Manual Diff / Slide Review NO; Basophils Absolute Auto 100 /uL (0-100); Basophils Percent Auto 0.7 % (0-2); Eosinophils Absolute Auto 400 /uL (0-450); Eosinophils Percent Auto 4.2 % (2-4); Hematocrit 28.5 % (41-53); Hemoglobin 9.8 g/dL (13.5-17.5); Lymphocytes Absolute Auto 1200 /uL (1100-4500); Lymphocytes Percent Auto 12.5 % (25-40); Mean Corpuscular HGB Conc 34.4 % (30-36); Mean Corpuscular Hemoglobin 28.9 PG (26-34); Monocytes Absolute Auto 1000 /uL (0-900); Monocytes Percent Auto 10.3 % (3-14); Neutrophils Absolute Auto 6800 /uL (1500-7000); Neutrophils Percent Auto 72.3 % (50-75); Platelet Count 309 X10^3/uL (150-400); Red Blood Cell Count 3.39 X10^6/uL (4.5-5.9); Red Cell Distribution Width 13.6 % (11.6-14.8); White Blood Cell Count 9.4 X10^3/uL (4.5-11.0)
[2018-12-08 06:29] LABS: BUN Creatinine Ratio 21.1 (6-22); Blood Urea Nitrogen 19 mg/dL (9-20); Calcium 8.3 mg/dL (8.4-10.2); Carbon Dioxide 28 mmol/L (22-32); Chloride 102 mmol/L (98-107); Estimated Glomerular Filt Rate > 60.0 mL/min (>60); Glucose 110 mg/dL (80-110); HEMOLYSIS < 15 (0-50); Potassium 3.7 mmol/L (3.4-5.1); Sodium 138 mmol/L (137-145)
[2018-12-08] MEDS: SODIUM CHLORIDE 0.9% FLUSH 10 ML IV ×2 (09:38→22:15)
[2018-12-08] MEDS: CITALOPRAM 10 MG TABLET PO (09:39)
[2018-12-08] MEDS: METOPROLOL IR 25 MG TABLET PO ×2 (09:39→22:15)
[2018-12-08] MEDS: DOCUSATE 100 MG CAPSULE PO ×2 (09:39→21:37)
[2018-12-08] MEDS: TAMSULOSIN 0.4 MG CAPSULE PO (09:39)
[2018-12-08] MEDS: INSULIN GLARGINE 100 UNIT/ML 3ML PEN 20 UNIT SUBCUT ×2 (09:39→21:41)
[2018-12-08] MEDS: PANTOPRAZOLE 40 MG VIAL IV (09:39)
--- NOTE | 2018-12-08 10:31 | P.PN_ITS ---
Subjective Date Patient Seen: 12/08/18 Time Patient Seen: 10:31 Interval history: He is seen in his room today to follow-up the lower GI bleed, probable rectal cancer on colonoscopy, atrial fibrillation, hypertension, post stroke weakness, dysphagia and diabetes mellitus. He remains very very weak but definitely more alert and interactive than yesterday. The hemoglobin is stable at 9.8. Last night he ate his clam chowder, some ice cream and so is smiling and says he feels well today. The blood pressure is 154/77. His is quite worried about a 2 week period of time where she says he was getting stool softeners despite having diarrhea at the senior living facility. I am not familiar with those details. His BMP is normal. He is not prerenal. Exam Vital Signs (past 8 hours): - 12/08/18 04:04 12/08/18 07:29 12/08/18 08:27 Temperature 97.3 F L 97.9 F Pulse Rate 55 L 57 L Respiratory Rate 18 16 Blood Pressure 154/79 H 154/77 H Pulse Oximetry 92 95 96 Oxygen Delivery Method Room Air Oxygen Flow Rate 0 Narrative Exam Narrative: Alert and orient x3. Smiling and noticeably improved. Heart is regular irregularly irregular. There is no murmur. Lungs are clear to ausculta tion bilaterally. Extremities no ankle edema. Objective Labs Result Diagrams: 12/08/18 06:01 12/08/18 06:01 Labs: Laboratory Results - last 24 hr 12/08/18 12/08/18 06:01 06:01 WBC 9.4 RBC 3.39 L Hgb 9.8 L Hct 28.5 L MCV 84.0 MCH 28.9 MCHC 34.4 RDW 13.6 Plt Count 309 Neut % (Auto) 72.3 Lymph % (Auto) 12.5 L [place] % (Auto) 10.3 Eos % (Auto) 4.2 H Baso % (Auto) 0.7 Neut # (Auto) 6800 Lymph # (Auto) 1200 [place] # (Auto) 1000 H Eos # (Auto) 400 Baso # (Auto) 100 Sodium 138 Potassium 3.7 Chloride 102 Carbon Dioxide 28 BUN 19 Creatinine 0.90 Estimated GFR > 60.0 BUN/Creatinine Ratio 21.1 Glucose 110 Calcium 8.3 L Assessment & Plan Assessment & Plan narrative: 1. Acute lower GI bleed with acute on chronic blood loss, present on admission. Active. -He has a new diagnosis of rectal mass, suspicious for rectal cancer. -Plavix and aspirin were stopped. The Plavix will be resumed, per General surgery recommendations, after their observation of the rectal mass, with interest in assuring that it is relatively safe and does not quickly return to a bleeding point. -Initial H&H on admission is 10.6 and 31.1. Repeat CBC today with a hemoglobin of 9.8. -Received iron infusion x2 to help rebuild Fe stores. -Continue Protonix 40 mg daily likely indefinitely. -Previous EGD demonstrated duodenitis and superficial duodenal ulcers in the bulb which so far is the only source of bleed. No bleeding was seen on col onoscopy, before or after the mass was biopsied.. 2. New onset atrial fibrillation with RVR, present on admission. Resolved. -Patient received diltiazem 10 mg IV x1 with spontaneous conversion to sinus rhythm. -Continue to monitor closely on telemetry. -Continue metoprolol as below. 3. Acute type 2 [place], secondary to demand ischemia due to atrial fibrillation with RVR, present on admission. Resolving. -Discussed with Cardiology who recommended optimizing medical therapy. He is not an interventional candidate due to significant comorbidities and GI bleeding. -Increased metoprolol per cardiology from 12.5 twice daily to 25 mg every 6 hours with hold parameters. Continue lisinopril 10 mg daily at bedtime and atorvastatin 40 mg daily at bedtime. Aspirin has been discontinued due to gastric ulcer. 4. Hyperlipidemia, chronic, present on admission. Stable. -Fasting lipid panel demonstrated: Total cholesterol 100, triglycerides 153, LDL 41, and HDL 28. -Continued atorvastatin 40 mg daily. 5. Hypertension, chronic, present on admission. Stable. -Continued home medications of lisinopril 10 mg and metoprolol increased from 12.5 twice daily to 25 mg every 6 hours with hold parameters. 6. Diabetes mellitus type 2, non-insulin using, present on admission. Stable. -Hemoglobin A1c 6.0% 11/09. -metformin was stopped. -Continued blood glucose checks ACHS and low-dose correctional scale insulin -Nut Former was consulted on previous admission and recommended ensure with every meal and blenderized full liquids for meals for which patient is relatively non- compliant and understands the risks when not NPO. 7. Chronic generalized weakness, present on admission. Stable. -Secondary to bilateral temporal and cerebellar CVAs and chronic anemia. -Patient does endorse little oral fluid intake related to dysphagia and use of thickener to prevent aspiration as he does not like it. -Continue physical and occupational therapy evaluation and treatment with discharge planning. -discussed with his senior living facility physician today. He will be transferring back there once the Plavix trial has presumably gone well and the biopsy path report has returned. Quality VTE Deep Vein Thrombosis/Pulmonary Embolism Present on Admission: No
[2018-12-08] MEDS: INSULIN ASPART 100 UNIT/ML INSULN PEN SUBCUT ×3 (12:25→21:37)
[2018-12-08] MEDS: CLOPIDOGREL 75 MG TABLET PO (12:34)
--- NOTE | 2018-12-08 12:44 | PM.PN.1 ---
Subjective Date Patient Seen: 12/08/18 Time Patient Seen: 11:17 Interval history: No changes, pt comfortable. Ate breakfast, needs assistance for feeding. Exam Vital Signs (past 8 hours): - 12/08/18 07:29 12/08/18 08:27 Temperature 97.9 F Pulse Rate 57 L Respiratory Rate 16 Blood Pressure 154/77 H Pulse Oximetry 95 96 Oxygen Delivery Method Room Air Oxygen Flow Rate 0 Narrative Exam Narrative: AA, NAD, male of healthy weight EOMI, MMM, no scleral icterus unlabored RA soft, nt/nd MAEW, motor deficits visible skin dry and intact Objective Labs Result Diagrams: 12/08/18 06:01 12/08/18 06:01 Labs: Laboratory Results - last 24 hr 12/08/18 12/08/18 06:01 06:01 WBC 9.4 RBC 3.39 L Hgb 9.8 L Hct 28.5 L MCV 84.0 MCH 28.9 MCHC 34.4 RDW 13.6 Plt Count 309 Neut % (Auto) 72.3 Lymph % (Auto) 12.5 L [place] % (Auto) 10.3 Eos % (Auto) 4.2 H Baso % (Auto) 0.7 Neut # (Auto) 6800 Lymph # (Auto) 1200 [place] # (Auto) 1000 H Eos # (Auto) 400 Baso # (Auto) 100 Sodium 138 Potassium 3.7 Chloride 102 Carbon Dioxide 28 BUN 19 Creatinine 0.90 Estimated GFR > 60.0 BUN/Creatinine Ratio 21.1 Glucose 110 Calcium 8.3 L Assessment & Plan Assessment & Plan narrative: - admitted for ongoing rectal bleeding, pt was on dual anti-platelet therapy for MIs and CVAs --> Hg stable at 9.8 --> restarted plavix to monitor response in house - concern for malignant rectal mass, biopsies pending --> while pt is unlikely a candidate for full treatment protocols, XRT may help palliate the bleeding and prevent growth so avoiding diverting colostomy; will discuss with med onc pending biopsy results --> need to clarify goals of care with family - diet per primary, no restrictions from surgery standpoint other than as per [facility] Quality VTE Deep Vein Thrombosis/Pulmonary Embolism Present on Admission: No
--- NOTE | 2018-12-08 12:45 | CM.DPC ---
Addendum entered by Olga Rodriguez LPN 12/08/18 13:19: Discussed POC again now with Dr. Calhoun. He has now reviewed Dr. Reyes's note from yesterday evening and says he agrees with her POC recommendations. He remains uncertain when pt will be stable for SNF d/c but agrees that it will be best for the physician team to discuss the d/c plan with Marissa the day before the d/c is expected. Original Note: DCP: continued: case received and discussed in Team Rounds. Dr. Calhoun was alerted to need to call [facility] medical doctor md: Dr. Zaidi: cell: [phone] Reyes is consulting and, per pt's Marissa, has told Marissa today that pt will not be discharged from the hospital until the results of the biopy of colon mass are back. Dr. Calhoun is updated re this (Dr. Reyes's note for today is not yet available) and he plans to call her for a further discussion. Met at length with Marissa in pt's room. Marissa confirms plan for a return to [facility] when pt is ready for that setting. She continues to pay for a pvt room there (confirmed by [facility]/Brie. She states Marissa spends lots of time at the bedside at [facility], as she does here). Marissa also is continuing to pay for an apt at [facility] although pt has never admitted here. She is pd up through the month but does not wish to release the apt even though she says she cannot see how pt could ever manage in that setting. Marissa says that even if the results of the biopsy show a diagnosis and treatment plan that pt would not wish to pursue she would like him to return to [facility]. Did go over the POLST from found in [employer] Chart and that was sent over from [facility]. This shows: DNAR and Medical Interventions: Comfort Measure Only. Marissa acknowledges that at this point more is being done for pt that the directive states but she says I am the POA and so I know these decisions can change. I am just trying to do the best for him with the information and recommendations that the physicians are giving me. Have discussed this with Brie/[facility] and she is very aware of issues and options. She states that [facility] is poised to transition pt to a comfort care pathway as appropriate and knows that pt has been too weak and medically fragile to do active rehab. (pt is not getting PT here in the hospital). She states Medicare would provide about 5 days of a [facility] POC and that [facility] could certainly follow at that point. P: at this point: [facility] is planned but it is unclear when. [facility] said they had not expected pt to d/c this weekend but if order is in for same they will make it happen. [place]#2: will be issued now to Marissa in anticipation of possible d/c in next 48 hours.
[2018-12-08] MEDS: ATORVASTATIN 20 MG TABLET 40 MG PO (21:37)
[2018-12-08] MEDS: LISINOPRIL 10 MG TABLET PO (22:15)
[2018-12-09] VITALS (9 sets, daily range): BP systolic 133–185; BP diastolic 64–79; PULSE 54–71; RESP 16–18; TEMP 36.3–37; O2SAT 92–96
--- NOTE | 2018-12-09 06:22 | PC.NURSE ---
Addendum entered by Zuri Quigley R.N. 12/09/18 07:04: Tylenol given for 5/10 chronic back pain. Coughing noted on administration with sip of water. This travel writer offered thickened water, pt reports I will not drink thickened water or take meds with applesauce. Original Note: Assumed care of pt at 2300 on 12/08/18. Pt sleeping during bedside hand-off. Denies pain this shift. Repositioning q 2 hrs per pressure injury protocol. Appropriate with care. Bed alarm on for safety.
[2018-12-09] MEDS: ACETAMINOPHEN 325 MG TABLET 650 MG PO (06:59)
--- NOTE | 2018-12-09 08:56 | P.PN_ITS ---
Subjective Date Patient Seen: 12/09/18 Interval history: Shania Mauricio is an 83-year-old male patient with a past medical history significant for hypertension, hyperlipidemia, diabetes mellitus type 2, non-insulin using, BPH, prior CVA with left hemiparesis who presented for complaints of chest pain and shortness of breath due to atrial fibrillation with RVR which quickly and spontaneously resolved with diltiazem. Patient admitted for rectal bleeding and type 2 UT from demand ischemia. The patient is resting in bed comfortably. His Marissa is present. We discussed goals of care at great length. The patient has made it quite obvious that he would like comfort care only. He reports he lives in [facility] and he requests physician assisted suicide today. I informed the patient that I am unable to provide physician assisted suicide but offered the patient increased pain management for his back discomfort which he would like. He has been on acetaminophen only. The patient reports he would like quality over quantity and is currently actively suffering. His Marissa, however, does not not want the patient to give up and wants to give him ?hope?. She believes that he has been unsuccessful in rehabilitation due to stool softener and stooling often and believes he is ?wiped out? due to recent colonoscopy and not eating while prepping for the colonoscopy. Discussed rectal mass and likelihood of this being cancer for which the patient reports he believes it is and he is terminal. The patient appears imminent for which I informed his who is having difficulty grasping reality that her is dying. Plan of care is to continue pain management and reinstitution of Plavix/Plavix challenge. Await biopsy results the next several days. Exam Vital Signs (past 8 hours): - 12/09/18 01:00 12/09/18 04:00 12/09/18 08:12 Temperature 98.1 F Pulse Rate 67 Respiratory Rate 16 Blood Pressure 185/77 H Pulse Oximetry 94 92 96 Oxygen Delivery Method Room Air Oxygen Flow Rate 0 Narrative Exam Narrative: General: Elderly gentleman lying in bed, appears mildly uncomfortable, chroni altaf ill, emaciated and appears to be actively dying, slow mentation likely due to stroke with flat affect but tactful and appropriately interactive. HEENT: Normocephalic, atraumatic. External ears without defect. Pupils equal, round, and reactive to light. Anicteric sclerae, moist conjunctivae, and no lid lag. Neck: Supple with full range of motion. No jugular venous distension. No bruits. No lymphadenopathy or thyromegaly. Cardiovascular: Regular rate and rhythm without murmurs, rubs, or gallops appreciated Pulmonary: Clear to auscultation bilaterally with upper airway rhonchi. No crac kles or wheezes. Normal respiratory effort with no use of accessory muscles. Abdomen: Soft, bowel sounds present, nontender, nondistended. No hepatosplenomegaly or masses appreciated. Genitourinary: Mild sacral/coccyx superficial skin breakdown. Extremities: No clubbing, cyanosis, or edema. Mild left-sided hemiparesis. Skin: Normal temperature, turgor, and texture; no rash, ulcers, or subcutaneous nodules appreciated. Neurological: Cranial nerves grossly intact. Psychiatric: Flat affect with blank stare. Slow mentation. Alert and oriented x3. Objective Labs Result Diagrams: 12/08/18 06:01 12/08/18 06:01 Assessment & Plan Assessment & Plan narrative: Shania Mauricio is an 83-year-old male patient with a past medical history significant for hypertension, hyperlipidemia, diabetes mellitus type 2, non- insulin using, BPH, prior CVA with left hemiparesis who presented for complaints of chest pain and shortness of breath due to atrial fibrillation with RVR which quickly and spontaneously resolved with diltiazem. Patient admitted for rectal bleeding and type 2 UT from demand ischemia. 1. Acute lower GI bleed with acute on chronic blood loss, secondary to rectal mass, present on admission. Active. -He now has a new diagnosis of rectal mass, suspicious for rectal cancer. P atient previously had melena due to upper gastric ulcer. -Held Plavix for now. Aspirin has been discontinued due to GI ulcer previously. -Initial H&H on admission is 10.6 and 31.1 and stable. Transfusion goal <8.0. -Received iron infusion x2 to help rebuild iron stores. -Continue Protonix 40 mg daily likely indefinitely. -Continued IV fluid hydration until adequately hydrated. -Ordered hydrocodone 5-325 mg every 6 hours as needed for pain. -Dr. Reyes, of general surgery was consulted who performed colonoscopy and found new rectal mass concerning for cancer. Previous EGD demonstrated duod enitis and superficial duodenal ulcers in the bulb which is source of bleed. 2. New onset atrial fibrillation with RVR, present on admission. Resolved. -Patient received diltiazem 10 mg IV x1 with spontaneous conversion to sinus rhythm. -Continue to monitor closely on telemetry. -Continue metoprolol as below. 3. Acute type 2 UT, secondary to demand ischemia due to atrial fibrillation with RVR, present on admission. Resolving. -Discussed with Cardiology who recommended optimizing medical therapy and informed that patient is not an interventional candidate due to significant comorbidities and GI bleeding. -Increased metoprolol tartrate per cardiology from 12.5 to 25 mg twice daily with hold parameters. Continue lisinopril 10 mg daily at bedtime and atorvastatin 40 mg daily at bedtime. Aspirin has been discontinued indefinitely due to gastric ulcer. 4. Hyperlipidemia, chronic, present on admission. Stable. -Fasting lipid panel demonstrated: Total cholesterol 100, triglycerides 153, LDL 41, and HDL 28. -Continued atorvastatin 40 mg daily. 5. Hypertension, chronic, present on admission. Stable. -Continued home medications of lisinopril 10 mg and metoprolol tartrate increased from 12.5 to 25 mg twice daily with hold parameters. 6. Diabetes mellitus type 2, non-insulin using, present on admission. Stable. -Hemoglobin A1c 6.0% 11/09. -Restarted metformin at request of patient's spouse and discontinued all insulin. -Continue blood glucose checks ACHS. -Test Technician was consulted on previous admission and recommended ensure with every meal and blenderized full liquids for meals for which patient is relatively non- compliant and understands the risks when not NPO. 7. Chronic generalized weakness, present on admission. Stable. -Secondary to bilateral temporal and cerebellar CVAs and continued acute blood loss. -Patient does endorse little oral fluid intake related to dysphagia and use of thickener to prevent aspiration as he does not like it. -Continued IV fluid hydration until adequately hydrated. -Continue physical and occupational therapy evaluation and treatment. -Discussed goals of care for which quality is important to the patient and disposition will likely be determined once colonoscopy has been performed and GI bleed source has been identified. Disposition: Patient likely to discharge back to [facility] facility tomorrow with instructions to discontinue plavix indefinitely if patient bleeds again or goes completely comfort care. Await biopsy results of rectal mass. Patient appears to be more imminent but patient's spouse would like him to try rehab. Will re-evaluate tomorrow. Quality VTE Deep Vein Thrombosis/Pulmonary Embolism Present on Admission: No
[2018-12-09] MEDS: CITALOPRAM 10 MG TABLET PO (09:16)
[2018-12-09] MEDS: CLOPIDOGREL 75 MG TABLET PO (09:16)
[2018-12-09] MEDS: DOCUSATE 100 MG CAPSULE PO ×2 (09:16→20:35)
[2018-12-09] MEDS: INSULIN GLARGINE 100 UNIT/ML 3ML PEN 20 UNIT SUBCUT (09:17)
[2018-12-09] MEDS: PANTOPRAZOLE 40 MG VIAL IV (09:17)
[2018-12-09] MEDS: TAMSULOSIN 0.4 MG CAPSULE PO (09:17)
[2018-12-09] MEDS: METOPROLOL IR 25 MG TABLET PO ×2 (09:17→20:37)
[2018-12-09] MEDS: SODIUM CHLORIDE 0.9% FLUSH 10 ML IV ×2 (09:18→20:38)
--- NOTE | 2018-12-09 10:42 | PM.PN.1 ---
Subjective Date Patient Seen: 12/09/18 Time Patient Seen: 09:43 Interval history: No acute changes, pt asleep and no family in room this AM. Exam Vital Signs (past 8 hours): - 12/09/18 04:00 12/09/18 08:00 12/09/18 08:12 Temperature 98.1 F 97.4 F L Pulse Rate 67 63 Respiratory Rate 16 16 Blood Pressure 185/77 H 170/79 H Pulse Oximetry 92 93 96 Oxygen Delivery Method Room Air Oxygen Flow Rate 0 Narrative Exam Narrative: resting comfortably Objective Labs Result Diagrams: 12/08/18 06:01 12/08/18 06:01 Assessment & Plan Assessment & Plan narrative: - admitted for ongoing rectal bleeding, pt was on dual anti-platelet therapy for MIs and CVAs --> Hg stable at 9.8 --> restarted plavix to monitor response in house - concern for malignant rectal mass, biopsies pending --> while pt is unlikely a candidate for full treatment protocols, XRT may help palliate the bleeding and prevent growth so avoiding diverting colostomy; will discuss with med onc pending biopsy results --> need to clarify goals of care with family - diet per primary, no restrictions from surgery standpoint other than as per ST recs Quality VTE Deep Vein Thrombosis/Pulmonary Embolism Present on Admission: No
--- NOTE | 2018-12-09 11:35 | PC.NURSE ---
Day shift: Pt refused to have his BG checked for lunch today. Pt reports that he is terminal. He may refuse more interventions. Will continue to monitor.
--- NOTE | 2018-12-09 11:45 | PC.NURSE ---
Patient refused to have Blood Glucose check, states that he is terminal it's no longer necessary.
[2018-12-09] MEDS: HYDROCODONE/ACET 5/325 TABLET 1 TAB PO ×2 (13:21→20:35)
[2018-12-09] MEDS: ATORVASTATIN 20 MG TABLET 40 MG PO (20:34)
[2018-12-09] MEDS: LISINOPRIL 10 MG TABLET PO (20:37)
--- NOTE | 2018-12-09 23:54 | PC.NURSE ---
PAINTLESS DENT REPAIR TECHNICIAN note: tilted Cherie bed to right side, and readjusted his pillows.
[2018-12-10] VITALS (7 sets, daily range): BP systolic 131–163; BP diastolic 52–93; PULSE 48–76; RESP 17–20; TEMP 36.3–37.1; O2SAT 93–97
--- NOTE | 2018-12-10 01:13 | PC.NURSE ---
2300- Pt admit for GI Bleed; POD#3 colonoscopy--see MD notes for details. Pt remains bed bound, refusing PT, w/ Q2hr turns taking place. 1:1 feeds w/ mechanical soft foods. BG checks taking place, insulin has been DC'd. Pt is refusing new IV's at this time, will check w/ MD as to if pt still needs [address] PO [place] for pain control 0020- Pt turned onto L side, denies any pain.
[2018-12-10 05:53] LABS: Add Manual Diff / Slide Review NO; Basophils Absolute Auto 100 /uL (0-100); Basophils Percent Auto 1.2 % (0-2); Eosinophils Absolute Auto 400 /uL (0-450); Eosinophils Percent Auto 4.8 % (2-4); Hematocrit 29.9 % (41-53); Hemoglobin 10.1 g/dL (13.5-17.5); Lymphocytes Absolute Auto 1400 /uL (1100-4500); Lymphocytes Percent Auto 15.2 % (25-40); Mean Corpuscular Hemoglobin 28.6 PG (26-34); Monocytes Absolute Auto 900 /uL (0-900); Monocytes Percent Auto 9.7 % (3-14); Neutrophils Absolute Auto 6300 /uL (1500-7000); Neutrophils Percent Auto 69.1 % (50-75); Platelet Count 368 X10^3/uL (150-400); Red Blood Cell Count 3.55 X10^6/uL (4.5-5.9); Red Cell Distribution Width 13.6 % (11.6-14.8); White Blood Cell Count 9.2 X10^3/uL (4.5-11.0)
[2018-12-10 06:01] LABS: Alanine Aminotransferase 56 IU/L (21-72); Albumin 3.2 g/dL (3.5-5.0); Alkaline Phosphatase 321 U/L (38-126); Aspartate Aminotransferase 55 IU/L (17-59); Bilirubin Total 0.7 mg/dL (0.2-1.3); Blood Urea Nitrogen 18 mg/dL (9-20); Calcium 8.9 mg/dL (8.4-10.2); Carbon Dioxide 31 mmol/L (22-32); Chloride 99 mmol/L (98-107); Estimated Glomerular Filt Rate > 60.0 mL/min (>60); Globulin 3.1 g/dL (1.7-4.1); Glucose 95 mg/dL (80-110); HEMOLYSIS < 15 (0-50); Magnesium 1.9 mg/dL (1.6-2.3); Sodium 136 mmol/L (137-145); Total Protein 6.3 g/dL (6.3-8.2)
[2018-12-10] MEDS: HYDROCODONE/ACET 5/325 TABLET 1 TAB PO (08:13)
[2018-12-10] MEDS: DOCUSATE 100 MG CAPSULE PO ×2 (08:17→20:08)
[2018-12-10] MEDS: METOPROLOL IR 25 MG TABLET PO ×2 (08:17→20:09)
[2018-12-10] MEDS: CITALOPRAM 10 MG TABLET PO (08:17)
[2018-12-10] MEDS: TAMSULOSIN 0.4 MG CAPSULE PO (08:17)
[2018-12-10] MEDS: PANTOPRAZOLE 40 MG VIAL IV (08:17)
[2018-12-10] MEDS: CLOPIDOGREL 75 MG TABLET PO (08:17)
[2018-12-10] MEDS: SODIUM CHLORIDE 0.9% FLUSH 10 ML IV ×2 (08:18→20:09)
--- NOTE | 2018-12-10 11:39 | P.PN_ITS ---
Subjective Date Patient Seen: 12/10/18 Time Patient Seen: 11:36 Interval history: No changes, has not bled on Plavix restart. Pt is quite depressed, he now thinks he is imminently terminal and does not want to eat. Apparently he was told by someone that if he stops eating his body will just shut down. is upset at how some information has been presented. They are on the same page that goals of care are to be focused on quality of life and he does not want significant interventions. She also understands that given his history, a new CVA or IL could occur at any time and would likely be fatal. Exam Vital Signs (past 8 hours): - 12/10/18 06:00 12/10/18 06:54 12/10/18 08:00 Temperature 98.7 F 97.6 F Pulse Rate 69 60 Respiratory Rate 18 18 18 Blood Pressure 156/93 H 149/91 H Pulse Oximetry 93 94 Oxygen Delivery Method Room Air Oxygen Flow Rate 0 Narrative Exam Narrative: asleep but awakens, oriented to situation and self but does not process well, NAD, male of healthy weight EOMI, MMM, no scleral icterus unlabored RA soft, nt/nd motor deficits visible skin dry and intact Objective Labs Result Diagrams: 12/10/18 05:40 12/10/18 05:40 Labs: Laboratory Results - last 24 hr 12/10/18 12/10/18 05:40 05:40 WBC 9.2 RBC 3.55 L Hgb 10.1 L Hct 29.9 L MCV 84.0 MCH 28.6 MCHC 34.0 RDW 13.6 Plt Count 368 Neut % (Auto) 69.1 Lymph % (Auto) 15.2 L [place] % (Auto) 9.7 Eos % (Auto) 4.8 H Baso % (Auto) 1.2 Neut # (Auto) 6300 Lymph # (Auto) 1400 [place] # (Auto) 900 Eos # (Auto) 400 Baso # (Auto) 100 Sodium 136 L Potassium 4.0 Chloride 99 Carbon Dioxide 31 BUN 18 Creatinine 0.90 Estimated GFR > 60.0 BUN/Creatinine Ratio 20.0 Glucose 95 Calcium 8.9 Magnesium 1.9 Total Bilirubin 0.7 AST 55 ALT 56 Alkaline Phosphatase 321 H Total Protein 6.3 Albumin 3.2 L Globulin 3.1 Albumin/Globulin Ratio 1.0 Assessment & Plan Assessment & Plan narrative: - admitted for ongoing rectal bleeding, pt was on dual anti-platelet therapy for MIs and CVAs --> Hg stable at 9.8 --> restarted plavix to monitor response in house; apparently his previous strokes occurred while on Plavix, thus prompting the addition of ASA, so may be futile attempt - concern for malignant rectal mass, biopsies pending- no prelim results as of today --> while pt is unlikely a candidate for full treatment protocols, XRT may help palliate the bleeding and prevent growth so avoiding diverting colostomy; may see if med onc will do a courtesy visit without path to discuss with family before patient goes to [place] - pt and agree goals of care are quality of life and no significant interventions - diet per primary, no restrictions from surgery standpoint other than as per ST recs Quality VTE Deep Vein Thrombosis/Pulmonary Embolism Present on Admission: No
--- NOTE | 2018-12-10 12:39 | PC.NURSE ---
Addendum entered by Rj Villalobos R.N. 12/10/18 15:31: VOIDED TWICE TOTAL THIS SHIFT. NO BLOOD FROM RECTUM AT ALL. REFUSED LUNCH. GIVEN BED BATH AND LINENS/GOWN CHANGED THIS AFTERNOON. FRIEND BROUGHT IN A SNACK THAT PATIENT IS SITTING UP IN BED TO EAT AT THIS TIME. Original Note: PATIENT DROWSY AT TIMES. MAKES NEEDS KNOWN. ALERT AND ORIENTED. INCONT X1 OF URINE ONLY THIS AM. REPOSITIONING Q2HRS SIDE TO SIDE. DID SIT UP AND EAT BREAKFAST W/ 1:1 ASSIST FROM SPOUSE. INTERMITT COUGHING. SPOUSE STATES HE HAS DONE THAT FOR YEARS AND SHE IS USED TO THAT. SWALLOWED HIS PILLS ONE AT A TIME WITH TINY SIPS OF WATER. TOLERATED WELL. REFUSING LUNCH AT THIS TIME. SPOUSE HAS STEPPED OUT BRIEFLY AND WILL BE COMING BACK SOON. PERHAPS HE WILL EAT FOR HER. HE C/O BACK PAIN 5/10 THIS AM, WAS GIVEN 1 TAB VICODIN W/ IMPROVEMENT. HAS HAD VISITORS THROUGHOUT THE DAY. BED ALARM ON.
--- NOTE | 2018-12-10 13:20 | P.PN_ITS ---
Subjective Date Patient Seen: 12/10/18 Interval history: Shania Mauricio is an 83-year-old male patient with a past medical history significant for hypertension, hyperlipidemia, diabetes mellitus type 2, non-insulin using, BPH, prior CVA with left hemiparesis who presented for complaints of chest pain and shortness of breath due to atrial fibrillation with RVR which quickly and spontaneously resolved with diltiazem. Patient admitted for rectal bleeding and type 2 TN from demand ischemia. The patient is resting in bed comfortably. He is somnolent due to narcotic medication but reports he is in no pain. He appears the most comfortable I have seen him. His mentation is slower due to narcotics. He reports his appetite today is poor. He is able to recall his breakfast. His and 2 daughters are at bedside. Discussed patient's care in detail. Continue to await pathology report and will request an Oncology consultation to discuss treatment options if any. The patient has stated he does not want radiation and he is a poor surgical candidate due to significant comorbidities. Exam Vital Signs (past 8 hours): - 12/10/18 06:00 12/10/18 06:54 12/10/18 08:00 Temperature 98.7 F 97.6 F Pulse Rate 69 60 Respiratory Rate 18 18 18 Blood Pressure 156/93 H 149/91 H Pulse Oximetry 93 94 12/10/18 11:54 Temperature 97.8 F Pulse Rate 48 L Respiratory Rate 17 Blood Pressure 131/52 L Pulse Oximetry 97 Oxygen Delivery Method Room Air Oxygen Flow Rate 0 Narrative Exam Narrative: General: Elderly gentleman lying in bed and appears comfortable, chronically ill, emaciated and appears to be actively dying, somnolent with slowed mentation due to stroke and now narcotics. HEENT: Normocephalic, atraumatic. External ears without defect. Pupils equal, round, and reactive to light. Anicteric sclerae, moist conjunctivae, and no lid lag. Neck: Supple with full range of motion. No lymphadenopathy or thyromegaly. Cardiovascular: Regular rate and rhythm without murmurs, rubs, or gallops appreciated Pulmonary: Clear to auscultation bilaterally with upper airway coarse rhonchi. No crackles or wheezes. Normal respiratory effort with no use of accessory muscles. Abdomen: Soft, bowel sounds present, nontender, nondistended. No hepatosplenomegaly or masses appreciated. Genitourinary: Mild sacral/coccyx superficial skin breakdown with dressing in place. Extremities: No clubbing, cyanosis, or edema. Mild left-sided hemiparesis. Skin: Normal temperature, turgor, and texture; no rash, ulcers, or subcutaneous nodules appreciated. Neurological: Cranial nerves grossly intact. Psychiatric: Somnolent but easily arousable. Flat affect with blank stare. Slow mentation. Objective Labs Result Diagrams: 12/10/18 05:40 12/10/18 05:40 Labs: Laboratory Results - last 24 hr 12/10/18 12/10/18 05:40 05:40 WBC 9.2 RBC 3.55 L Hgb 10.1 L Hct 29.9 L MCV 84.0 MCH 28.6 MCHC 34.0 RDW 13.6 Plt Count 368 Neut % (Auto) 69.1 Lymph % (Auto) 15.2 L [place] % (Auto) 9.7 Eos % (Auto) 4.8 H Baso % (Auto) 1.2 Neut # (Auto) 6300 Lymph # (Auto) 1400 [place] # (Auto) 900 Eos # (Auto) 400 Baso # (Auto) 100 Sodium 136 L Potassium 4.0 Chloride 99 Carbon Dioxide 31 BUN 18 Creatinine 0.90 Estimated GFR > 60.0 BUN/Creatinine Ratio 20.0 Glucose 95 Calcium 8.9 Magnesium 1.9 Total Bilirubin 0.7 AST 55 ALT 56 Alkaline Phosphatase 321 H Total Protein 6.3 Albumin 3.2 L Globulin 3.1 Albumin/Globulin Ratio 1.0 Assessment & Plan Assessment & Plan narrative: Shania Mauricio is an 83-year-old male patient with a past medical history significant for hypertension, hyperlipidemia, diabetes mellitus type 2, non- insulin using, BPH, prior CVA with left hemiparesis who presented for complaints of chest pain and shortness of breath due to atrial fibrillation with RVR which quickly and spontaneously resolved with diltiazem. Patient admitted for rectal bleeding and type 2 TN from demand ischemia. 1. Acute lower GI bleed with acute on chronic blood loss, secondary to rectal mass, present on admission. Active. -He now has a new diagnosis of rectal mass, suspicious for rectal cancer. Patient previously had melena due to upper gastric ulcer. -Plavix was to be held until 12/10. Restarted after colonoscopy on 12/08 without recurrent bleeding thus far. Aspirin has been discontinued indefinitely due to GI ulcer previously. -Initial H&H on admission is 10.6 and 31.1 and stable. Transfusion goal <8.0. -Received iron infusion x2 to help rebuild iron stores. -Continue Protonix 40 mg daily likely indefinitely. -Continued IV fluid hydration until adequately hydrated. -Ordered hydrocodone and decreased from 5-325 mg to 2.5-325 mg every 6 hours as needed for pain to help him be more awake with pain control. -Dr. Reyes, of general surgery was consulted who performed colonoscopy and found new rectal mass concerning for cancer. Previous EGD demonstrated duodeniti s and superficial duodenal ulcers in the bulb which is source of bleed. -Await pathology results which should be back today or tomorrow and have placed and discussed an oncology consult to discuss treatment options if any tomorrow. 2. New onset atrial fibrillation with RVR, present on admission. Resolved. -Patient received diltiazem 10 mg IV x1 with spontaneous conversion to sinus rhythm. -Continue metoprolol as below. 3. Acute type 2 TN, secondary to demand ischemia due to atrial fibrillation with RVR, present on admission. Resolving. -Discussed with Cardiology who recommended optimizing medical therapy and informed that patient is not an interventional candidate due to significant com orbidities and GI bleeding. -Increased metoprolol tartrate per cardiology from 12.5 to 25 mg twice daily with hold parameters. Continue lisinopril 10 mg daily at bedtime and atorvastatin 40 mg daily at bedtime. Aspirin has been discontinued indefinitely due to gastric ulcer. 4. Hyperlipidemia, chronic, present on admission. Stable. -Fasting lipid panel demonstrated: Total cholesterol 100, triglycerides 153, LDL 41, and HDL 28. -Continued atorvastatin 40 mg daily. 5. Hypertension, chronic, present on admission. Stable. -Continued home medications of lisinopril 10 mg and metoprolol tartrate increased from 12.5 to 25 mg twice daily with hold parameters. 6. Diabetes mellitus type 2, non-insulin using, present on admission. Stable. -Hemoglobin A1c 6.0% 11/09. -Restarted metformin at request of patient's spouse and discontinued all insulin. -Continue blood glucose checks ACHS. -Aids Social Worker was consulted on previous admission and recommended ensure with every meal and blenderized full liquids for meals for which patient is relatively non- compliant and understands the risks when not NPO. 7. Chronic generalized weakness, present on admission. Stable. -Secondary to bilateral temporal and cerebellar CVAs and continued acute blood loss. -Patient does endorse little oral fluid intake related to dysphagia and use of thickener to prevent aspiration as he does not like it. -Continued IV fluid hydration until adequately hydrated. -Continue physical and occupational therapy evaluation and treatment. -Discussed goals of care for which quality is important to the patient and disposition will likely be to nursing home facility with comfort vs. rehab. Disposition: Patient likely to discharge back to nursing home facility in 1- 2 days with instructions to discontinue plavix indefinitely if patient bleeds again or goes completely comfort care. Await biopsy results of rectal mass. Patient appears to be more imminent but patient's spouse would like him to try rehab. Will continue to re-evaluate. Quality VTE Deep Vein Thrombosis/Pulmonary Embolism Present on Admission: No
--- NOTE | 2018-12-10 17:46 | PC.NURSE ---
Addendum entered by Madeline Delgado R.N. 12/10/18 20:59: Pt had relatively uneventful evening. Taking po ensure when encouraged, HL intact/patent. HS CBG = 118. Med @ 1840 w/half [place] for back dioscomfort w/good relief. Call light w/in reach, bed alarm on for pt safety. Continue w/plan of care. Original Note: Pt visiting w/family. Denies any discomfort when asked. Refused to eat more that two bites of dinner. CBG = 132, HL LFA intact/patent. SpO2 94% RA Call light w/in reach, bed alarm on for pt safety.
[2018-12-10] MEDS: HYDROCODONE/ACET 5/325 TABLET 0.5 TAB PO (18:40)
[2018-12-10] MEDS: LISINOPRIL 10 MG TABLET PO (20:08)
[2018-12-10] MEDS: ATORVASTATIN 20 MG TABLET 40 MG PO (20:08)
[2018-12-10] MEDS: METFORMIN HCL 500 MG TABLET PO (20:17)
[2018-12-11] VITALS (10 sets, daily range): BP systolic 144–185; BP diastolic 83–98; PULSE 78–100; RESP 18–20; TEMP 36.2–36.9; O2SAT 92–96
[2018-12-11] MEDS: HYDROCODONE/ACET 5/325 TABLET 0.5 TAB PO ×3 (03:15→22:19)
--- NOTE | 2018-12-11 03:38 | PC.NURSE ---
Addendum entered by Juani Andrews R.N. 12/11/18 06:19: Has slept most of shift between repositioning. Currently asleep with no signs of pain/discomfort. Original Note: Patient is oriented except to month/day of month. BS coarse with expiratory rhonchi in right lobes and has diminished breath sounds in left lobes; RA sat currently 96%. Has moist, congested sounding cough and coughs when given any liquids. HRR. BP elevated earlier at 185/89. Denies nausea. BT present and states he is passing flatus but has not had BM since 12/06 despite use of Colace BID. Incontinent of urine. Gluteal folds and posterior scrotum are reddened but no skin breakdown noted. Weakness of all extremites reported by patient although hand grasps are equal; limited ROM of bilateral UE. Has only minimal movement of left LE. Needing assist to reposition q2h. Does complain of 6/10 back pain so medicated with Vicodin. Wearing calf SCD's. Fall risk score is high and bed alarm is activated.
[2018-12-11] MEDS: CLOPIDOGREL 75 MG TABLET PO (10:13)
[2018-12-11] MEDS: DOCUSATE 100 MG CAPSULE PO ×2 (10:13→22:13)
[2018-12-11] MEDS: CITALOPRAM 10 MG TABLET PO (10:13)
[2018-12-11] MEDS: METOPROLOL IR 25 MG TABLET PO ×2 (10:13→22:13)
[2018-12-11] MEDS: SODIUM CHLORIDE 0.9% FLUSH 10 ML IV ×2 (10:14→22:14)
[2018-12-11] MEDS: PANTOPRAZOLE 40 MG VIAL IV (10:14)
[2018-12-11] MEDS: TAMSULOSIN 0.4 MG CAPSULE PO (10:15)
--- NOTE | 2018-12-11 11:20 | PM.PN.1 ---
Subjective Date Patient Seen: 12/11/18 Time Patient Seen: 10:22 Interval history: No changes in patient, he remains depressed. Exam Vital Signs (past 8 hours): - 12/11/18 05:00 12/11/18 08:00 12/11/18 10:28 Temperature 97.5 F L 97.2 F L Pulse Rate 90 100 H Respiratory Rate 19 18 Blood Pressure 149/96 H 154/98 H Pulse Oximetry 96 93 94 Oxygen Delivery Method Room Air Oxygen Flow Rate 0 Narrative Exam Narrative: Awake but not alert, oriented, NAD, male of healthy weight EOMI, dry mucous membranes, no scleral icterus unlabored RA soft, nt/nd visible skin dry and intact Objective Labs Result Diagrams: 12/10/18 05:40 12/10/18 05:40 Assessment & Plan Assessment & Plan narrative: - had a long discussion with and patient regarding the negative biopsy results. I believe it to be a sampling error and they understand that. Our options include having onc speak about potential options (pt is not a candidate for much and does not want significant intervention), we could get a bedside sample with local anesthesia (uncomfortable, anticipate bleeding issues), or we can take the report at face value and do nothing as it is not problematic now and will not likely become a problem in his limited life expectancy. The only caveat would be ongoing bleeding issues which may benefit from radiation. and currently opt for the latter and I agree that it is more than reasonable to leave this alone unless other issues arise. - he remains depressed and his energy is extremely low, likely a culmination of all the past events over several months as well as the acute blood loss and hospital stay which lends itself to laying around. Has not been working with ST or PT and has increasing difficulty swallowing due to this low energy. While moving to comfort measures is reasonable, basic therapies to maintain some strength is reasonable and this may help him by improving some small measure of quality of life. Quality VTE Deep Vein Thrombosis/Pulmonary Embolism Present on Admission: No
--- NOTE | 2018-12-11 12:30 | CM.DPC ---
DCP Cont: Patient will be seen here by oncology, Dr. Oconnor. Patient was originally going to go to [facility] yesterday, but has been reluctant to discharge him until biopsy is in. At this point, she is not ready to discuss comfort care, although patient states, he does not want to go through with any further treatment. Patient is not a candidate for any type of chemo, or surgery. Spoke to Dr. Ram, hospitalist, today. She stated that he will be discharged back to [facility] tomorrow, not on comfort, but rehab. is thinking that he may benefit from this, although patient is not bearing weight, or able to work with physical therapy here. P: DCP to continue to follow closely. Patient should be discharged back to [facility] tomorrow. Left a message with December in admissions. Hiwot Villagran, CAROL ANN/Kitchen Runner
--- NOTE | 2018-12-11 17:17 | ONC.CONS ---
History of Present Illness - Data of Consult Consult date: 12/11/18 Primary Care Provider: Lex Duran MD - Consult Narrative Narrative: Diagnosis: Rectal cancer, not yet staged History of present illness: Shania Mauricio is a 83 year old male who is evaluated for newly discovered rectal mass. the patient had recent CVA and had been in rehab. He was making some progress there and was able to walk with a walker. He was anticoagulated with Plavix and was having some rectal bleeding. he then developed some rapid AFib and was found to have an SD. He underwent a colonoscopy that found a hard 5 cm mass in the rectum. Biopsies were obtained. Pathology showed mucosal hyperplasia but did not confirm invasive adenocarcinoma. He has not had any abdominal imaging. The patient believes that he has been having some blood in the stool intermittently for quite some time although he is not really able to quantify. He denies any pain. he has not noticed any adenopathy. 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 He had surgical excision and adjuvant radiation. He apparently had a lot of difficulty with the radiation and felt that he had too high of a dose. He has had difficulty swallowing ever since. He has had recent CVA. He has had atrial fibrillation and recent SD. He also has a history of diabetes and hypertension. He has had prostatectomy for prostate cancer. Social history: He is . He had been at a rehab facility before his prior admission. He does not smoke. CC: Genny Ram DO - Pain Details Pain Intensity: 5 Pain Scale Used: Numeric (1 - 10) Home Medications and Allergies Home Medications Medication Instructions Recorded Confirmed Type clopidogrel [Plavix] 75 mg PO DAILY 05/31/18 12/04/18 History lisinopril 10 mg PO BEDTIME 05/31/18 12/04/18 History metformin 500 mg PO BID 05/31/18 12/04/18 History tamsulosin [Flomax] 0.4 mg PO DAILY 05/31/18 12/04/18 History PreserVision AREDS-2 1 cap PO BID 11/09/18 12/04/18 History acetaminophen [Tylenol] 650 mg PO Q6H PRN 11/09/18 12/04/18 History ascorbic acid (vitamin C) 500 mg PO DAILY #0 11/09/18 12/04/18 History atorvastatin 40 mg PO BEDTIME 11/09/18 12/04/18 History metoprolol tartrate 12.5 mg PO BID 11/09/18 12/04/18 History multivitamin 1 tab PO DAILY 11/09/18 12/04/18 History nitroglycerin 0.4 mg SUBLINGUAL PRN PRN 11/09/18 12/04/18 History citalopram 10 mg PO DAILY #30 tab 11/11/18 12/04/18 Rx Boost 1 ea PO PC 11/28/18 12/04/18 History Fleet Enema 1 ea OH PRN PRN 11/28/18 12/04/18 History Lactobacillus acidophilus 1 cap PO DAILY PRN 11/28/18 12/04/18 History [Acidophilus] bisacodyl 5 - 10 mg PO PRN PRN 11/28/18 12/04/18 History bisacodyl 10 mg OH PRN PRN 11/28/18 12/04/18 History fluoride (sodium) 1 applic DENTAL QPM 11/28/18 12/04/18 History loperamide 2 mg PO Q4H PRN 11/28/18 12/04/18 History magnesium hydroxide [Milk of 30 ml PO PRN PRN 11/28/18 12/04/18 History Magnesia] nystatin 1 applic TOPICAL BID 11/28/18 12/04/18 History sennosides [senna] 8.6 mg PO BID 11/28/18 12/04/18 History simethicone 80 mg PO BID 11/28/18 12/04/18 History pantoprazole 40 mg PO 0700 #30 tab 12/02/18 12/04/18 Rx Allergies Allergy/AdvReac Type Severity Reaction Status Date / Time No Known Drug Allergies Allergy Verified 12/04/18 10:20 Medical History - Medical, Surgical, Family History Medical History: Medical History (Updated 12/11/18 @ 17:21 by Tucker Oconnor MD) Diabetes type 2, controlled (Chronic) Acute GI bleeding (Acute) Demand ischemia (Acute) Lower GI bleed (Acute) Diabetes Hyperlipidemia Oral cancer Presence of stent in coronary artery in patient with coronary artery disease Prostate cancer CVA (cerebral vascular accident) Dyslipidemia Hypertension Surgical History: Surgical History (Updated 12/11/18 @ 17:21 by Tucker Oconnor MD) History of back surgery History of prostate surgery History of repair of aneurysm of abdominal aorta History of surgical procedure on mouth S/P total knee arthroplasty Family History: Family History (Updated 11/09/18 @ 23:42 by DEDRA Alfaro) Father No problems noted. Mother Heart disease Daughter In good health - Social History Smoking Status: Never smoker Exam Vital signs: Vital Signs Temp Pulse Resp BP Pulse Ox 12/11/18 16:03 98.0 F 98 H 20 144/83 H 94 12/11/18 12:00 97.8 F 82 20 152/87 H 92 12/11/18 11:34 96 12/11/18 10:28 94 12/11/18 08:00 97.2 F L 100 H 18 154/98 H 93 12/11/18 05:00 97.5 F L 90 19 149/96 H 96 12/11/18 01:00 97.7 F 78 19 185/89 H 92 12/10/18 20:25 98.1 F 76 18 140/90 95 Intake and Output 12/11/18 12/11/18 12/11/18 07:59 15:59 23:59 Intake Total 170 / 170 Output Total 350 / 350 Balance -180 / -180 Intake: Oral 170 / 170 Output: Urine 350 / 350 Other: Percent Meal Consumed 30 # Incontinent Voids 1 1 Weight 83.7 kg Patient Weight 12/11/18 23:59 Weight 83.7 kg - Constitutional positive no acute distress, positive average body habitus, positive chronically ill appearing - Routine HEENT Exam Head: Present: normocephalic, atraumatic Eye: Present: EOMI, PERRL. Absent: conjunctival icterus ENT: Present: mucous membranes moist - Routine Neck Exam Present: supple Comments: He has postoperative and radiation changes to the neck but no palpable masses or adenopathy. - Routine Respiratory Exam Present: Clear to auscultation bilaterally. Absent: rales, wheezes - Routine Cardiovascular Exam Present: RRR, S1, S2, murmur Comments: He has a 2/6 systolic murmur. - Routine Abdominal Exam Present: soft, normoactive bowel sounds. Absent: tenderness, organomegaly, mass - Routine Extremities Exam Absent: edema - Routine Skin Exam Present: intact. Absent: petechiae, rash - Routine Neurological Exam Present: alert, oriented X3 His speech is slow but clear. He does have some weakness of the left upper and lower extremity. Results - Labs Laboratory Last Values WBC 9.2 X10^3/uL (4.5-11.0) 12/10/18 05:40 RBC 3.55 X10^6/uL (4.5-5.9) L 12/10/18 05:40 Hgb 10.1 g/dL (13.5-17.5) L 12/10/18 05:40 Hct 29.9 % (41-53) L 12/10/18 05:40 MCV 84.0 fL (80-100) 12/10/18 05:40 MCH 28.6 PG (26-34) 12/10/18 05:40 MCHC 34.0 % (30-36) 12/10/18 05:40 RDW 13.6 % (11.6-14.8) 12/10/18 05:40 Plt Count 368 X10^3/uL (150-400) 12/10/18 05:40 Neut % (Auto) 69.1 % (50-75) 12/10/18 05:40 Lymph % (Auto) 15.2 % (25-40) L 12/10/18 05:40 Lasalle % (Auto) 9.7 % (3-14) 12/10/18 05:40 Eos % (Auto) 4.8 % (2-4) H 12/10/18 05:40 Baso % (Auto) 1.2 % (0-2) 12/10/18 05:40 Neut # (Auto) 6300 /uL (2560-8817) 12/10/18 05:40 Lymph # (Auto) 1400 /uL (5384-9091) 12/10/18 05:40 Lasalle # (Auto) 900 /uL (0-900) 12/10/18 05:40 Eos # (Auto) 400 /uL (0-450) 12/10/18 05:40 Baso # (Auto) 100 /uL (0-100) 12/10/18 05:40 Sodium 136 mmol/L (137-145) L 12/10/18 05:40 Potassium 4.0 mmol/L (3.4-5.1) 12/10/18 05:40 Chloride 99 mmol/L (98-107) 12/10/18 05:40 Carbon Dioxide 31 mmol/L (22-32) 12/10/18 05:40 BUN 18 mg/dL (9-20) 12/10/18 05:40 Creatinine 0.90 mg/dL (0.66-1.25) 12/10/18 05:40 Estimated GFR > 60.0 mL/min (>60) 12/10/18 05:40 BUN/Creatinine Ratio 20.0 (6-22) 12/10/18 05:40 Glucose 95 mg/dL (80-110) 12/10/18 05:40 Hemoglobin A1c 6.1 % (4.0-6.0) H 12/05/18 02:40 Calcium 8.9 mg/dL (8.4-10.2) 12/10/18 05:40 Magnesium 1.9 mg/dL (1.6-2.3) 12/10/18 05:40 Total Bilirubin 0.7 mg/dL (0.2-1.3) 12/10/18 05:40 AST 55 IU/L (17-59) 12/10/18 05:40 ALT 56 IU/L (21-72) 12/10/18 05:40 Alkaline Phosphatase 321 U/L (38-126) H 12/10/18 05:40 Total Creatine Kinase 71 U/L (55-170) 12/04/18 10:50 CK-MB (CK-2) TNP 12/04/18 10:50 CK-MB (CK-2) Rel Index TNP 12/04/18 10:50 Troponin I 0.261 ng/mL (0.01-0.034) H* 12/05/18 14:05 Total Protein 6.3 g/dL (6.3-8.2) 12/10/18 05:40 Albumin 3.2 g/dL (3.5-5.0) L 12/10/18 05:40 Globulin 3.1 g/dL (1.7-4.1) 12/10/18 05:40 Albumin/Globulin Ratio 1.0 (1.0-2.8) 12/10/18 05:40 Triglycerides 153 mg/dL (35-150) H 12/05/18 02:40 Cholesterol 100 mg/dL (140-199) L 12/05/18 02:40 LDL Cholesterol, Calc 41 mg/dL (<100) 12/05/18 02:40 HDL Cholesterol 28 mg/dL (40-60) L 12/05/18 02:40 TSH 1.32 uIU/mL (0.47-4.68) 12/04/18 11:38 Blood Type A Positive 12/04/18 16:57 Antibody Screen Negative 12/04/18 16:57 - Imaging Additional studies: Procedures Excision of Rectum, Via Natural or Artificial Opening Endoscopic, Diagnostic (12/04/18) Injection or infusion of other therapeutic or prophylactic substance (04/10/14) Inspection of Upper Intestinal Tract, Via Natural or Artificial Opening Endoscopic (11/29/18) Assessment and Plan (1) Rectal bleed Problem details: Patient is going for colonoscopy today Current visit: Yes Status: Acute 83-year-old man with newly discovered rectal mass. His biopsy was nondiagnostic but I believe that this likely does represent cancer. He has not had any staging evaluation. His performance status is quite limited in his recent health has been complicated by CVA and AFib with rapid ventricular response and SD. He is not currently I think surgical candidate. Likewise I do not think that he is strong enough at this point to consider definitive treatment. I doubt that he would tolerate any form of chemotherapy in his current condition. One could consider palliative radiation to the rectum with the goal of decreasing bleeding and preventing local progression or obstruction. I think without treatment, those complications are likely to occur although the time frame is difficult to estimate. Given his other significant underlying comorbidity, it is quite possible that he might from a cardiovascular event before he became increasingly symptomatic from rectal cancer. After discussing the situation with the patient and his , they would like to continue with rehabilitation and try and get his strength back. If he improves from a cardiovascular standpoint and nutrition standpoint, he may be open to consider some therapy in the future. With that in mind, I think it is reasonable for him to follow-up in clinic in 4-6 week time frame to reassess his performance status and consider additional staging and treatment. If he were strong enough to consider therapy, he would need a repeat biopsy. However if he is not going to pursue any therapy, biopsy may not be necessary at this time.
--- NOTE | 2018-12-11 18:54 | PC.NURSE ---
Addendum entered by Irish Pringle R.N. 12/11/18 22:38: Talked with patient about order for suppository, he refused suppository at this time. He denies abdomen pain or nausea, abd soft and flat. Brief wet with mod amt of urine. Estela-care given, small amt of dried blood wiped from perianal region. Barrier creme applied to few small redenned areas to inner buttocks, reports that patient has had pressure areas there for a while. Repositioned to back with his waffle cushion under buttocks, HOB 30 degrees. PO meds given one at-a-time with bites of yogurt, oral care given post-med pass. Pt denies other needs tonight, fall precautions in place. Original Note: Evening note: Patient awake, oriented to situation. at side assisting him with his dinner. Pt reports poor appetite, drank all of smoothie but refused rest of meal. Denies chest pain or SOB. VS are stable. Repositioned for comfort to relieve pressure area to buttocks. Fall precautions in place, bed alarm active for safety.
--- NOTE | 2018-12-11 19:54 | PM.PN.1 ---
Subjective Date Patient Seen: 12/11/18 Interval history: Shania Mauricio is an 83-year-old male patient with a past medical history significant for hypertension, hyperlipidemia, diabetes mellitus type 2, non-insulin using, BPH, prior CVA with left hemiparesis who presented for complaints of chest pain and shortness of breath due to atrial fibrillation with RVR which quickly and spontaneously resolved with diltiazem. Patient admitted for rectal bleeding and type 2 GA from demand ischemia. The patient is resting in bed comfortably. The patient is awake and alert this morning. He denies pain. He reports he is not hungry. Continue to discuss the possibility of rehabilitation. The patient stated today that he will never walk again. Discussed likelihood of rehabilitation and informed the patient that only he can control whether we pursue rehabilitation. Updated the patient and his of plan going forward today which is to obtain pathology report regarding rectal mass biopsy and to meet with Oncology to discuss treatment options. The patient has stated he does not want radiation and he is a poor surgical candidate due to significant comorbidities. He is eating and drinking without difficulty. He is voiding without difficulty. He has not had a bowel movement in several days. Exam Vital Signs (past 8 hours): - 12/11/18 12:00 12/11/18 16:03 12/11/18 18:30 Temperature 97.8 F 98.0 F Pulse Rate 82 98 H Respiratory Rate 20 20 Blood Pressure 152/87 H 144/83 H Pulse Oximetry 92 94 95 Oxygen Delivery Method Room Air Oxygen Flow Rate 0 Narrative Exam Narrative: General: Elderly gentleman lying in bed and appears comfortable, chronically ill, emaciated and appears to be actively dying, somnolent with slowed mentation due to stroke and now narcotics. HEENT: Normocephalic, atraumatic. External ears without defect. Pupils equal, round, and reactive to light. Anicteric sclerae, moist conjunctivae, and no lid lag. Neck: Supple with full range of motion. No lymphadenopathy or thyromegaly. Cardiovascular: Regular rate and rhythm without murmurs, rubs, or gallops appreciated Pulmonary: Clear to auscultation bilaterally with upper airway coarse rhonchi. No crackles or wheezes. Normal respiratory effort with no use of accessory muscles. Abdomen: Soft, bowel sounds present, nontender, nondistended. No hepatosplenomegaly or masses appreciated. Genitourinary: Mild sacral/coccyx superficial skin breakdown with dressing in place. Extremities: No clubbing, cyanosis, or edema. Mild left-sided hemiparesis. Skin: Normal temperature, turgor, and texture; no rash, ulcers, or subcutaneous nodules appreciated. Neurological: Cranial nerves grossly intact. Psychiatric: Somnolent but easily arousable. Flat affect with blank stare. Slow mentation. Objective Labs Result Diagrams: 12/10/18 05:40 12/10/18 05:40 Assessment & Plan Assessment & Plan narrative: Shania Mauricio is an 83-year-old male patient with a past medical history significant for hypertension, hyperlipidemia, diabetes mellitus type 2, non-insulin using, BPH, prior CVA with left hemiparesis who presented for complaints of chest pain and shortness of breath due to atrial fibrillation with RVR which quickly and spontaneously resolved with diltiazem. Patient admitted for rectal bleeding and type 2 GA from demand ischemia. 1. Acute lower GI bleed with acute on chronic blood loss, secondary to rectal mass, present on admission. Active. -He now has a new diagnosis of rectal mass, suspicious for rectal cancer. Patient previously had melena due to upper gastric ulcer. -Plavix was to be held until 12/10. Restarted after colonoscopy on 12/08 without recurrent bleeding thus far. Aspirin has been discontinued indefinitely due to GI ulcer previously. -Initial H&H on admission is 10.6 and 31.1 and stable. Transfusion goal <8.0. -Received iron infusion x2 to help rebuild iron stores. -Continue Protonix 40 mg daily likely indefinitely. -Continued IV fluid hydration until adequately hydrated. -Ordered hydrocodone and decreased from 5-325 mg to 2.5-325 mg every 6 hours as needed for pain to help him be more awake with pain control. -Dr. Reyes, of general surgery was consulted who performed colonoscopy and found new rectal mass concerning for cancer. Previous EGD demonstrated duodenitis and superficial duodenal ulcers in the bulb which is source of bleed. -Await pathology results which should be back today and Dr. Oconnor of oncology plans to discuss rectal mass and treatment options if any today. 2. New onset atrial fibrillation with RVR, present on admission. Resolved. -Patient received diltiazem 10 mg IV x1 with spontaneous conversion to sinus rhythm. -Continue metoprolol as below. 3. Acute type 2 GA, secondary to demand ischemia due to atrial fibrillation with RVR, present on admission. Resolving. -Discussed with Cardiology who recommended optimizing medical therapy and informed that patient is not an interventional candidate due to significant comorbidities and GI bleeding. -Increased metoprolol tartrate per cardiology from 12.5 to 25 mg twice daily with hold parameters. Continue lisinopril 10 mg daily at bedtime and atorvastatin 40 mg daily at bedtime. Aspirin has been discontinued indefinitely due to gastric ulcer. 4. Hyperlipidemia, chronic, present on admission. Stable. -Fasting lipid panel demonstrated: Total cholesterol 100, triglycerides 153, LDL 41, and HDL 28. -Continued atorvastatin 40 mg daily. 5. Hypertension, chronic, present on admission. Stable. -Continued home medications of lisinopril 10 mg and metoprolol tartrate increased from 12.5 to 25 mg twice daily with hold parameters. 6. Diabetes mellitus type 2, non-insulin using, present on admission. Stable. -Hemoglobin A1c 6.0% 11/09. -Restarted metformin at request of patient's spouse and discontinued all insulin. -Continue blood glucose checks ACHS. -Photovoltaic Technician was consulted on previous admission and recommended ensure with every meal and blenderized full liquids for meals for which patient is relatively non-compliant and understands the risks when not NPO. 7. Chronic generalized weakness, present on admission. Stable. -Secondary to bilateral temporal and cerebellar CVAs and continued acute blood loss. -Patient does endorse little oral fluid intake related to dysphagia and use of thickener to prevent aspiration as he does not like it. -Continued IV fluid hydration until adequately hydrated. -Continue physical and occupational therapy evaluation and treatment. -Discussed goals of care for which quality is important to the patient and disposition will likely be to care home facility with comfort vs. rehab. Disposition: Patient likely to discharge back to care home facility tomorrow with instructions to discontinue plavix indefinitely if patient bleeds again or goes completely comfort care. Await biopsy results of rectal mass. Patient appears to be more imminent but patient's spouse would like him to try rehab. Quality VTE Deep Vein Thrombosis/Pulmonary Embolism Present on Admission: No
--- NOTE | 2018-12-11 20:01 | P.PN_ITS ---
Subjective Date Patient Seen: 12/11/18 Interval history: Shania Mauricio is an 83-year-old male patient with a past medical history significant for hypertension, hyperlipidemia, diabetes mellitus type 2, non-insulin using, BPH, prior CVA with left hemiparesis who presented for complaints of chest pain and shortness of breath due to atrial fibrillation with RVR which quickly and spontaneously resolved with diltiazem. Patient admitted for rectal bleeding and type 2 CT from demand ischemia. The patient is resting in bed comfortably. The patient is awake and alert this morning. He denies pain. He reports he is not hungry. Continue to discuss the possibility of rehabilitation. The patient stated today that he will never walk again. Discussed likelihood of rehabilitation and informed the patient that only he can control whether we pursue rehabilitation. Updated the patient and his of plan going forward today which is to obtain pathology report regarding rectal mass biopsy and to meet with Oncology to discuss treatment options. The patient has stated he does not want radiation and he is a poor surgical candidate due to significant comorbidities. He is eating and drinking without difficulty. He is voiding without difficulty. He has not had a bowel movement in several days. Exam Vital Signs (past 8 hours): - 12/11/18 12:00 12/11/18 16:03 12/11/18 18:30 Temperature 97.8 F 98.0 F Pulse Rate 82 98 H Respiratory Rate 20 20 Blood Pressure 152/87 H 144/83 H Pulse Oximetry 92 94 95 Oxygen Delivery Method Room Air Oxygen Flow Rate 0 Narrative Exam Narrative: General: Elderly gentleman lying in bed and appears comfortable, chronically ill, emaciated and appears to be actively dying, somnolent with slowed mentation due to stroke and now narcotics. HEENT: Normocephalic, atraumatic. External ears without defect. Pupils equal, round, and reactive to light. Anicteric sclerae, moist conjunctivae, and no lid lag. Neck: Supple with full range of motion. No lymphadenopathy or thyromegaly. Cardiovascular: Regular rate and rhythm without murmurs, rubs, or gallops appreciated Pulmonary: Clear to auscultation bilaterally with upper airway coarse rhonchi. No crackles or wheezes. Normal respiratory effort with no use of accessory muscles. Abdomen: Soft, bowel sounds present, nontender, nondistended. No hepatosplenomegaly or masses appreciated. Genitourinary: Mild sacral/coccyx superficial skin breakdown with dressing in place. Extremities: No clubbing, cyanosis, or edema. Mild left-sided hemiparesis. Skin: Normal temperature, turgor, and texture; no rash, ulcers, or subcutaneous nodules appreciated. Neurological: Cranial nerves grossly intact. Psychiatric: Somnolent but easily arousable. Flat affect with blank stare. Slow mentation. Objective Labs Result Diagrams: 12/10/18 05:40 12/10/18 05:40 Assessment & Plan Assessment & Plan narrative: Shania Mauricio is an 83-year-old male patient with a past medical history significant for hypertension, hyperlipidemia, diabetes mellitus type 2, non- insulin using, BPH, prior CVA with left hemiparesis who presented for complaints of chest pain and shortness of breath due to atrial fibrillation with RVR which quickly and spontaneously resolved with diltiazem. Patient admitted for rectal bleeding and type 2 CT from demand ischemia. 1. Acute lower GI bleed with acute on chronic blood loss, secondary to rectal mass, present on admission. Active. -He now has a new diagnosis of rectal mass, suspicious for rectal cancer. Patient previously had melena due to upper gastric ulcer. -Plavix was to be held until 12/10. Restarted after colonoscopy on 12/08 without recurrent bleeding thus far. Aspirin has been discontinued indefinitely due to GI ulcer previously. -Initial H&H on admission is 10.6 and 31.1 and stable. Transfusion goal <8.0. -Received iron infusion x2 to help rebuild iron stores. -Continue Protonix 40 mg daily likely indefinitely. -Continued IV fluid hydration until adequately hydrated. -Ordered hydrocodone and decreased from 5-325 mg to 2.5-325 mg every 6 hours as needed for pain to help him be more awake with pain control. -Dr. Reyes, of general surgery was consulted who performed colonoscopy and found new rectal mass concerning for cancer. Previous EGD demonstrated duodenitis and superficial duodenal ulcers in the bulb which is source of bleed. -Await pathology results which should be back today and Dr. Oconnor of oncology plans to discuss rectal mass and treatment options if any today. 2. New onset atrial fibrillation with RVR, present on admission. Resolved. -Patient received diltiazem 10 mg IV x1 with spontaneous conversion to sinus rhythm. -Continue metoprolol as below. 3. Acute type 2 CT, secondary to demand ischemia due to atrial fibrillation with RVR, present on admission. Resolving. -Discussed with Cardiology who recommended optimizing medical therapy and informed that patient is not an interventional candidate due to significant comorbidities and GI bleeding. -Increased metoprolol tartrate per cardiology from 12.5 to 25 mg twice daily with hold parameters. Continue lisinopril 10 mg daily at bedtime and atorvastatin 40 mg daily at bedtime. Aspirin has been discontinued indefinitely due to gastric ulcer. 4. Hyperlipidemia, chronic, present on admission. Stable. -Fasting lipid panel demonstrated: Total cholesterol 100, triglycerides 153, LD L 41, and HDL 28. -Continued atorvastatin 40 mg daily. 5. Hypertension, chronic, present on admission. Stable. -Continued home medications of lisinopril 10 mg and metoprolol tartrate increased from 12.5 to 25 mg twice daily with hold parameters. 6. Diabetes mellitus type 2, non-insulin using, present on admission. Stable. -Hemoglobin A1c 6.0% 11/09. -Restarted metformin at request of patient's spouse and discontinued all insulin. -Continue blood glucose checks ACHS. -[facility] was consulted on previous admission and recommended ensure with every meal and blenderized full liquids for meals for which patient is relatively non- compliant and understands the risks when not NPO. 7. Chronic generalized weakness, present on admission. Stable. -Secondary to bilateral temporal and cerebellar CVAs and continued acute blood loss. -Patient does endorse little oral fluid intake related to dysphagia and use of thickener to prevent aspiration as he does not like it. -Continued IV fluid hydration until adequately hydrated. -Continue physical and occupational therapy evaluation and treatment. -Discussed goals of care for which quality is important to the patient and disposition will likely be to detention facility with comfort vs. rehab. Disposition: Patient likely to discharge back to detention facility tomorrow with instructions to discontinue plavix indefinitely if patient bleeds again or goes completely comfort care. Await biopsy results of rectal mass. Patient appears to be more imminent but patient's spouse would like him to try rehab. Quality VTE Deep Vein Thrombosis/Pulmonary Embolism Present on Admission: No
[2018-12-11] MEDS: LISINOPRIL 10 MG TABLET PO (22:13)
[2018-12-11] MEDS: ATORVASTATIN 20 MG TABLET 40 MG PO (22:13)
[2018-12-11] MEDS: METFORMIN HCL 500 MG TABLET PO (22:13)
[2018-12-12] VITALS (12 sets, daily range): BP systolic 90–146; BP diastolic 52–80; PULSE 52–136; RESP 12–24; TEMP 36.3–36.9; O2SAT 88–98
--- NOTE | 2018-12-12 01:11 | PC.NURSE ---
Addendum entered by Juani Andrews R.N. 12/12/18 06:49: BP now 104/52 following bolus. Had small amount bright red blood from rectum in incontinent brief this morning. Addendum entered by Juani Andrews R.N. 12/12/18 05:38: DEDRA Ayers, informed of last BP of 90/64. Verbal order to bolus 250cc over next hour using current NS bag infusing; rate increased as ordered. Addendum entered by Juani Andrews R.N. 12/12/18 05:19: Per PRINT LINE FEEDER, Varsha, patient has converted to SR. Current BP is 90/64 with HR of 78 and sat of 97%. Addendum entered by Juani Andrews R.N. 12/12/18 04:47: At 0404 when vital signs checked SURGICAL SERVICES COORDINATOR noted patient's HR was 136 with BP of 130/77. Patient skin warm and dry and is afebrile. States heart hurts and rates pain as 4/10. O2 sat dropping down to 88% so oxygen started at 2L/min per NC with sat returning to 95%. DEDRA Ayers, notified and came to examine patient. 12 lead EKG done and reviewed. Order received for IV Lopressor so patient was started on telemetry for monitoring as in afib RVR. BP prior to Lopressor administration was 113/72 with HR still fluctuating 120-130 range. After Lopressor administration BP was 105/58 with HR of 105. Patient states heart pain has resolved. Morning dose of po Lopressor given with applesauce per TRAFFIC ATTENDANT order. Remains on telemetry with sat of 97%. Original Note: Patient is oriented except to day of month. Affect is flat and responses are more delayed and speech mumbles and more difficult to understand tonight. Breath sounds are coarse; RA sat 95%. Has chronic congested sounding cough and coughs with any fluid intake. HRR. BP still slightly elevated at 146/80. Denies nausea but has reportedly but refusing most food/fluid intake. BT present and states he is passing flatus but has not had a BM since 12/06; refusing suppository tonight. Incontinent of urine. Is repositioned and brief changed q2h as not able to turn himself although tries to help. Coccyx/gluteal folds and scrotum remain red but without open areas. Limited ROM in bilateral UE and unable to move left leg; only wiggles toes slightly. Denies pain at present time. Fall risk score is high and bed alarm is activated.
[2018-12-12] MEDS: METOPROLOL TARTRATE 5 MG/5 ML INJ IV (04:29)
[2018-12-12] MEDS: SODIUM CHLORIDE 0.9% FLUSH 10 ML IV ×3 (04:29→19:57)
[2018-12-12] MEDS: METOPROLOL IR 25 MG TABLET PO (04:39)
[2018-12-12] MEDS: SODIUM CHLORIDE 0.9% 1,000 ML 50 ML IV (04:39)
[2018-12-12] MEDS: CITALOPRAM 10 MG TABLET PO (08:59)
[2018-12-12] MEDS: CLOPIDOGREL 75 MG TABLET PO (08:59)
[2018-12-12] MEDS: POLYETHYLENE GLYCOL 3350 17 GM POWD.PACK PO (08:59)
[2018-12-12] MEDS: METFORMIN HCL 500 MG TABLET PO (08:59)
[2018-12-12] MEDS: DOCUSATE 100 MG CAPSULE PO (08:59)
[2018-12-12] MEDS: PANTOPRAZOLE 40 MG VIAL IV (08:59)
[2018-12-12] MEDS: TAMSULOSIN 0.4 MG CAPSULE PO (09:00)
--- NOTE | 2018-12-12 11:20 | PM.PN.1 ---
Subjective Date Patient Seen: 12/12/18 Time Patient Seen: 10:21 Interval history: No sig change, pt more comfortable and clear this morning. Exam Vital Signs (past 8 hours): - 12/12/18 04:00 12/12/18 04:04 12/12/18 04:20 Temperature 97.4 F L Pulse Rate 132 H 136 H 108 H Respiratory Rate 19 Blood Pressure 130/77 130/77 113/72 Pulse Oximetry 94 88 L 96 12/12/18 04:34 12/12/18 04:39 12/12/18 05:20 Temperature Pulse Rate 127 H 105 H 78 Respiratory Rate Blood Pressure 115/70 105/58 L 90/64 Pulse Oximetry 95 97 97 12/12/18 06:47 12/12/18 08:25 12/12/18 08:45 Temperature Pulse Rate 52 L Respiratory Rate 12 Blood Pressure 104/52 L Pulse Oximetry 98 98 94 12/12/18 09:00 Temperature 97.8 F Pulse Rate 61 Respiratory Rate 16 Blood Pressure 132/66 Pulse Oximetry 94 Fraction of Inspired Oxygen 21 Oxygen Delivery Method Room Air Oxygen Flow Rate 0 Narrative Exam Narrative: intermittently awake and alert, oriented, NAD, male of healthy weight EOMI, MMM, no scleral icterus unlabored RA soft, nt/nd visible skin dry and intact Objective Labs Result Diagrams: 12/10/18 05:40 12/10/18 05:40 Assessment & Plan Assessment & Plan narrative: - Onc graciously visited and concurs with only realistic option would be palliative XRT if bleeding ongoing and strength improves; pt and understand and agree --> tentative appointment to revisit this down the line --> would need another biopsy - we discussed again that his course may well continue to spiral down slowly, excepting a cardiac or neuro event, given his severe deconditioning after his several month and now recent hospital course; understandably contributing to depression and lack of motivation. if this proceeds, he will likely continue to shut down in the near future. If rehab gives him some measure of strength and will back, he may have a longer near future. They seem at peace with this realization. - some reported streaks of blood wiping today, no large volume. stopping plavix worth considering sooner than later if he has another true bleed. - our service will remain available while in house or via phone as outpatient Quality VTE Deep Vein Thrombosis/Pulmonary Embolism Present on Admission: No
--- NOTE | 2018-12-12 13:34 | CM.DPC ---
Addendum entered by Olga Rodriguez LPN 12/12/18 14:03: Was updated by Dr. Ram a few minutes ago. She reports that she is transitioning pt to end of life symptom management after further discussion with pt and Marissa. She stated she expected he would likely pass in a couple of days. Went in to check with Marissa who was assisting pt with a peach milkshake. He appeared to be taking this with andrew. Marissa agrees that for now the bed at [facility] will continue to be held as pt may need to transition there to continue this now defined palliative treatment pathway. P: follow up tomorrow. Dr. Ram will be here tomorrow and agrees to same. Original Note: DCP: continued: Case received, discussed in Team Rounds. Met with pt and his Marissa, at bedside. Plan had been identified as a dc to [facility] today after a physician discussion with [facility] medical pathology teacher and with a plan to rehab,recovery if possible and continued consideration of symptom management. [facility] is very aware of this and this dc internet media planner has discussed this with Marissa several times during this stay. POLST is again discussed and Marissa agrees that if her does improve she understands what his wishes are and knows it is her responsibility to support those. At that point Marissa was just waiting to see Dr. Ram.
--- NOTE | 2018-12-12 14:30 | DIET.PN ---
Pt now comfort care only. Suggest giving him whatever foods he wants.
[2018-12-12] MEDS: SCOPOLAMINE 1 PATCH TOP (14:45)
--- NOTE | 2018-12-12 17:39 | PM.PN.1 ---
Subjective Date Patient Seen: 12/12/18 Interval history: Shania Mauricio is an 83-year-old male patient with a past medical history significant for hypertension, hyperlipidemia, diabetes mellitus type 2, non-insulin using, BPH, prior CVA with left hemiparesis who presented for complaints of chest pain and shortness of breath due to atrial fibrillation with RVR which quickly and spontaneously resolved with diltiazem. Patient admitted for rectal bleeding and type 2 CT from demand ischemia. The patient is resting in bed and appears comfortable. He is rather somnolent and appears to be declining rapidly. He is unable to speak or project his voice very loudly due to weakness. His upper airway rhonchi are increasing. The patient's reports that she believes he may actively today. Discussed possible transfer to detention facility for comfort care and believe that the patient is rather imminent, therefore, decided to continue to keep him in hospital to actively rather than transfer him while he is unstable and may pass during transfer. Exam Vital Signs (past 8 hours): - 12/12/18 15:20 Temperature 98.4 F Pulse Rate 73 Respiratory Rate 24 Blood Pressure 127/54 L Fraction of Inspired Oxygen 21 Oxygen Delivery Method Room Air Oxygen Flow Rate 0 Narrative Exam Narrative: General: Elderly gentleman lying in bed and appears comfortable, chronically ill, emaciated, somnolent, appears to be actively dying. HEENT: Normocephalic, atraumatic. External ears without defect. Pupils equal, round, and reactive to light. Anicteric sclerae, moist conjunctivae, and no lid lag. Neck: Supple with full range of motion. No lymphadenopathy or thyromegaly. Cardiovascular: Regular rate and rhythm without murmurs, rubs, or gallops appreciated Pulmonary: Increasing upper airway rhonchi. No crackles or wheezes. Normal respiratory effort with no use of accessory muscles. Abdomen: Soft, bowel sounds present, nontender, nondistended. No hepatosplenomegaly or masses appreciated. Genitourinary: Mild sacral/coccyx superficial skin breakdown with dressing in place. Extremities: No clubbing, cyanosis, or edema. Mild left-sided hemiparesis. Skin: Normal temperature, turgor, and texture; no rash, ulcers, or subcutaneous nodules appreciated. Neurological: Cranial nerves grossly intact. Psychiatric: Somnolent. Delayed mentation and in able to communicate due to weakness. Objective Labs Result Diagrams: 12/10/18 05:40 12/10/18 05:40 Assessment & Plan Assessment & Plan narrative: Shania Mauricio is an 83-year-old male patient with a past medical history significant for hypertension, hyperlipidemia, diabetes mellitus type 2, non-insulin using, BPH, prior CVA with left hemiparesis who presented for complaints of chest pain and shortness of breath due to atrial fibrillation with RVR which quickly and spontaneously resolved with diltiazem. Patient admitted for rectal bleeding and type 2 CT from demand ischemia. 1. Comfort care. -Discussed patient's goals of care again this morning and the has come to realize that she believes her is dying and believes he may likely today. Again visited comfort care only and have decided to keep the patient in the hospital while he is actively dying rather than transfer him to a detention facility if unstable and could possibly during the transfer. -Ordered morphine 2 mg every 4 hours as needed for pain, lorazepam 0.5 mg IV every 6 hours as needed for anxiety, scopolamine patch. -Allow to eat for comfort. 2. Acute lower GI bleed with acute on chronic blood loss, secondary to rectal mass, present on admission. Active. -He now has a new diagnosis of rectal mass, suspicious for rectal cancer. Patient previously had melena due to upper gastric ulcer. -Initial H&H on admission is 10.6 and 31.1 and stable. Transfusion goal <8.0. -Received iron infusion x2 to help rebuild iron stores. -Dr. Reyes, of general surgery was consulted who performed colonoscopy and found new rectal mass concerning for cancer. Previous EGD demonstrated duodenitis and superficial duodenal ulcers in the bulb which is source of bleed. -Rectal mass biopsy results did not demonstrate carcinoma, however, per surgery and Oncology this is likely sales promotion representative of a rectal carcinoma and results reflective of a sampling error. Due to patient's poor performance status and multiple comorbidities he is not a chemotherapy or surgical candidate. Possibility for XRT which the patient has made clear he is not interested in. -The patient appears to be actively dying, therefore, comfort care pathway has been initiated and all unnecessary medications have been discontinued. 3. New onset paroxysmal atrial fibrillation with RVR, present on admission. Resolved. -On admission patient received diltiazem 10 mg IV x1 with spontaneous conversion to sinus rhythm. -Ordered metoprolol 5 mg IV as needed for heart rate greater than 120 for comfort as patient is very symptomatic of atrial fibrillation. 4. Acute type 2 CT, secondary to demand ischemia due to atrial fibrillation with RVR, present on admission. Resolving. -Discussed with Cardiology who recommended optimizing medical therapy and informed that patient is not an interventional candidate due to significant comorbidities and GI bleeding. -Ordered metoprolol 5 mg IV as needed for heart rate greater than 120 for comfort as patient is very symptomatic of atrial fibrillation. . 5. Hyperlipidemia, chronic, present on admission. Stable. -Fasting lipid panel demonstrated: Total cholesterol 100, triglycerides 153, LDL 41, and HDL 28. -The patient appears to be actively dying, therefore, comfort care pathway has been initiated and all unnecessary medications have been discontinued. 6. Hypertension, chronic, present on admission. Stable. -The patient appears to be actively dying, therefore, comfort care pathway has been initiated and all unnecessary medications have been discontinued. 7. Diabetes mellitus type 2, non-insulin using, present on admission. Stable. -Hemoglobin A1c 6.0% 11/09. -The patient appears to be actively dying, therefore, comfort care pathway has been initiated and all unnecessary medications have been discontinued. 8. Chronic generalized weakness with acute possibly on chronic protein calorie malnutrition, present on admission. Stable. -Secondary to chronic bilateral temporal and cerebellar CVAs and continued acute blood loss. -Patient does endorse little oral fluid intake related to dysphagia and use of thickener to prevent aspiration as he does not like it. -The patient appears to be actively dying, therefore, comfort care pathway has been initiated. Will allow patient to eat for comfort. Disposition: Patient continues to decline and continues to appear imminent. Likely to in the next 24-48 hours. Quality VTE Deep Vein Thrombosis/Pulmonary Embolism Present on Admission: No
--- NOTE | 2018-12-12 17:44 | P.PN_ITS ---
Subjective Date Patient Seen: 12/12/18 Interval history: Shania Mauricio is an 83-year-old male patient with a past medical history significant for hypertension, hyperlipidemia, diabetes mellitus type 2, non-insulin using, BPH, prior CVA with left hemiparesis who presented for complaints of chest pain and shortness of breath due to atrial fibrillation with RVR which quickly and spontaneously resolved with diltiazem. Patient admitted for rectal bleeding and type 2 IN from demand ischemia. The patient is resting in bed and appears comfortable. He is rather somnolent and appears to be declining rapidly. He is unable to speak or project his voice very loudly due to weakness. His upper airway rhonchi are increasing. The patient's reports that she believes he may actively today. Discussed possible transfer to [facility] facility for comfort care and believe that the patient is rather imminent, therefore, decided to continue to keep him in hospital to actively rather than transfer him while he is unstable and may pass during transfer. Exam Vital Signs (past 8 hours): - 12/12/18 15:20 Temperature 98.4 F Pulse Rate 73 Respiratory Rate 24 Blood Pressure 127/54 L Fraction of Inspired Oxygen 21 Oxygen Delivery Method Room Air Oxygen Flow Rate 0 Narrative Exam Narrative: General: Elderly gentleman lying in bed and appears comfortable, chronically ill, emaciated, somnolent, appears to be actively dying. HEENT: Normocephalic, atraumatic. External ears without defect. Pupils equal, round, and reactive to light. Anicteric sclerae, moist conjunctivae, and no lid lag. Neck: Supple with full range of motion. No lymphadenopathy or thyromegaly. Cardiovascular: Regular rate and rhythm without murmurs, rubs, or gallops appreciated Pulmonary: Increasing upper airway rhonchi. No crackles or wheezes. Normal r espiratory effort with no use of accessory muscles. Abdomen: Soft, bowel sounds present, nontender, nondistended. No hepatosplenomegaly or masses appreciated. Genitourinary: Mild sacral/coccyx superficial skin breakdown with dressing in place. Extremities: No clubbing, cyanosis, or edema. Mild left-sided hemiparesis. Skin: Normal temperature, turgor, and texture; no rash, ulcers, or subcutaneous nodules appreciated. Neurological: Cranial nerves grossly intact. Psychiatric: Somnolent. Delayed mentation and in able to communicate due to weakness. Objective Labs Result Diagrams: 12/10/18 05:40 12/10/18 05:40 Assessment & Plan Assessment & Plan narrative: Shania Mauricio is an 83-year-old male patient with a past medical history significant for hypertension, hyperlipidemia, diabetes mellitus type 2, non- insulin using, BPH, prior CVA with left hemiparesis who presented for complaints of chest pain and shortness of breath due to atrial fibrillation with RVR which quickly and spontaneously resolved with diltiazem. Patient admitted for rectal bleeding and type 2 IN from demand ischemia. 1. Comfort care. -Discussed patient's goals of care again this morning and the has come to realize that she believes her is dying and believes he may likely today. Again visited comfort care only and have decided to keep the patient in the hospital while he is actively dying rather than transfer him to a [facility] facility if unstable and could possibly during the transfer. -Ordered morphine 2 mg every 4 hours as needed for pain, lorazepam 0.5 mg IV every 6 hours as needed for anxiety, scopolamine patch. -Allow to eat for comfort. 2. Acute lower GI bleed with acute on chronic blood loss, secondary to rectal mass, present on admission. Active. -He now has a new diagnosis of rectal mass, suspicious for rectal cancer. Patient previously had melena due to upper gastric ulcer. -Initial H&H on admission is 10.6 and 31.1 and stable. Transfusion goal <8.0. -Received iron infusion x2 to help rebuild iron stores. -Dr. Reyes, of general surgery was consulted who performed colonoscopy and found new rectal mass concerning for cancer. Previous EGD demonstrated duodenitis and superficial duodenal ulcers in the bulb which is source of bleed. -Rectal mass biopsy results did not demonstrate carcinoma, however, per surgery and Oncology this is likely procurement representative of a rectal carcinoma and results reflective of a sampling error. Due to patient's poor performance status and multiple comorbidities he is not a chemotherapy or surgical candidate. Poss ibility for XRT which the patient has made clear he is not interested in. -The patient appears to be actively dying, therefore, comfort care pathway has been initiated and all unnecessary medications have been discontinued. 3. New onset paroxysmal atrial fibrillation with RVR, present on admission. Resolved. -On admission patient received diltiazem 10 mg IV x1 with spontaneous conversion to sinus rhythm. -Ordered metoprolol 5 mg IV as needed for heart rate greater than 120 for comfort as patient is very symptomatic of atrial fibrillation. 4. Acute type 2 IN, secondary to demand ischemia due to atrial fibrillation with RVR, present on admission. Resolving. -Discussed with Cardiology who recommended optimizing medical therapy and informed that patient is not an interventional candidate due to significant comorbidities and GI bleeding. -Ordered metoprolol 5 mg IV as needed for heart rate greater than 120 for comfort as patient is very symptomatic of atrial fibrillation. . 5. Hyperlipidemia, chronic, present on admission. Stable. -Fasting lipid panel demonstrated: Total cholesterol 100, triglycerides 153, LDL 41, and HDL 28. -The patient appears to be actively dying, therefore, comfort care pathway has been initiated and all unnecessary medications have been discontinued. 6. Hypertension, chronic, present on admission. Stable. -The patient appears to be actively dying, therefore, comfort care pathway has been initiated and all unnecessary medications have been discontinued. 7. Diabetes mellitus type 2, non-insulin using, present on admission. Stable. -Hemoglobin A1c 6.0% 11/09. -The patient appears to be actively dying, therefore, comfort care pathway has been initiated and all unnecessary medications have been discontinued. 8. Chronic generalized weakness with acute possibly on chronic protein calorie malnutrition, present on admission. Stable. -Secondary to chronic bilateral temporal and cerebellar CVAs and continued acute blood loss. -Patient does endorse little oral fluid intake related to dysphagia and use of thickener to prevent aspiration as he does not like it. -The patient appears to be actively dying, therefore, comfort care pathway has been initiated. Will allow patient to eat for comfort. Disposition: Patient continues to decline and continues to appear imminent. Likely to in the next 24-48 hours. Quality VTE Deep Vein Thrombosis/Pulmonary Embolism Present on Admission: No
[2018-12-12] MEDS: MORPHINE 2 MG/ML INJ IV (19:56)
[2018-12-13] VITALS: BP 140/76; PULSE 94; RESP 18; TEMP 37.1; O2SAT 94
[2018-12-13] MEDS: SODIUM CHLORIDE 0.9% FLUSH 10 ML IV ×4 (01:09→20:10)
[2018-12-13] MEDS: MORPHINE 2 MG/ML INJ IV ×6 (01:09→22:40)
--- NOTE | 2018-12-13 02:06 | PC.NURSE ---
Addendum entered by Juani Andrews R.N. 12/13/18 06:16: Making frequent moaning type noises so assessed FLACC as 2/10; medicated with Morphine. Addendum entered by Juani Andrews R.N. 12/13/18 05:14: Has been incontinent but what appears to be in small amounts of urine but taking nothing po. Continues with Jacob-Caldwell respirations with RR of 12 with 30 second periods of apnea/min. Did open eyes when repositioned but no verbal communication. Original Note: Patient here now on comfort care. Vitals checked earlier were stable with BP of 140/76 and HR of 94. Responds by opening eyes and did state yes when asked if having pain but could not elaborate on location/severity of pain. Was medicated with Morphine and currently has a FLACC of 0 (was 3 prior to Morphine administration). Breath sounds are coarse and still with intermittent congested/gurgly sounding cough but has good cough and able to clear throat with cough. RA sat earlier was 94% but while asleep sat was at 89%. Is having Jacob-Caldwell respirations with apnea lasting approximately 25 seconds q1 min. HRR. BT present and abdomen is soft. Incontinent of urine. Needs repositioning q2h along with po care. No mottling noted. Fall risk score has been high and bed alarm is activated although patient is not moving on his own.
[2018-12-13 02:11] VITALS: O2SAT 89
[2018-12-13 05:12] VITALS: PULSE 85; RESP 12; O2SAT 92
--- NOTE | 2018-12-13 09:05 | P.PN_ITS ---
Subjective Date Patient Seen: 12/13/18 Interval history: Shania Mauricio is an 83-year-old male patient with a past medical history significant for hypertension, hyperlipidemia, diabetes mellitus type 2, non-insulin using, BPH, prior CVA with left hemiparesis who presented for complaints of chest pain and shortness of breath due to atrial fibrillation with RVR which quickly and spontaneously resolved with diltiazem. Patient admitted for rectal bleeding and type 2 IN from demand ischemia. The patient is quiet somnolent, periodically opens his eyes, and says a few words here and there. He exhibits Jacob-Caldwell breathing pattern. The patient is now comfort care only and is actively dying. His Marissa is present at bedside. She is very thankful for our care and is reminiscent of Dawit's life. Plan is to let patient actively in the hospital. Exam Vital Signs (past 8 hours): - 12/13/18 02:11 12/13/18 05:12 Pulse Rate 85 Respiratory Rate 12 Pulse Oximetry 89 L 92 Fraction of Inspired Oxygen 21 Oxygen Delivery Method Room Air Oxygen Flow Rate 0 Narrative Exam Narrative: General: Elderly gentleman lying in bed and appears very comfortable, chronically ill, emaciated, somnolent, Jacob-Caldwell breathing, appears to be actively dying. HEENT: Normocephalic, atraumatic. External ears without defect. Pupils equal, round, and reactive to light. Anicteric sclerae, moist conjunctivae, and no lid lag. Neck: Supple with full range of motion. No lymphadenopathy or thyromegaly. Cardiovascular: Regular rate and rhythm without murmurs, rubs, or gallops appreciated. Pulmonary: Increasing upper airway rhonchi. Jacob-Caldwell breathing. Abdomen: Soft, bowel sounds present, nontender, nondistended. No hepatosplenomegaly or masses appreciated. Genitourinary: Mild sacral/coccyx superficial skin breakdown with dressing in place. Extremities: No clubbing, cyanosis, or edema. Mild left-sided hemiparesis. Skin: Normal temperature, turgor, and texture; no rash, ulcers, or subcutaneous nodules appreciated. Neurological: Cranial nerves grossly intact. Psychiatric: Somnolent. Intermittently opens eyes and will say a few words. Jacob-Caldwell breathing. Objective Labs Result Diagrams: 12/10/18 05:40 12/10/18 05:40 Assessment & Plan Assessment & Plan narrative: Shania Mauricio is an 83-year-old male patient with a past medical history significant for hypertension, hyperlipidemia, diabetes mellitus type 2, non- insulin using, BPH, prior CVA with left hemiparesis who presented for complaints of chest pain and shortness of breath due to atrial fibrillation with RVR which quickly and spontaneously resolved with diltiazem. Patient admitted for rectal bleeding and type 2 IN from demand ischemia. 1. Comfort care. -The patient's and DPLIAM Mauricio would like the patient to be comfort care only at this time. He is actively dying and plan is to let patient in the hospital. -Ordered morphine 2 mg every 4 hours as needed for pain, lorazepam 0.5 mg IV every 6 hours as needed for anxiety, and scopolamine patch for secretions. -Allow to eat for comfort. 2. Acute lower GI bleed with acute on chronic blood loss, secondary to rectal mass, present on admission. Active. -He now has a new diagnosis of rectal mass, suspicious for rectal cancer. Patient previously had melena due to upper gastric ulcer. -Initial H&H on admission is 10.6 and 31.1 and stable. Transfusion goal <8.0. -Received iron infusion x2 to help rebuild iron stores. -Dr. Reyes, of general surgery was consulted who performed colonoscopy and found new rectal mass concerning for cancer. Previous EGD demonstrated duod enitis and superficial duodenal ulcers in the bulb which is source of bleed. -Rectal mass biopsy results did not demonstrate carcinoma, however, per surgery and Oncology this is likely service center representative of a rectal carcinoma and results reflective of a sampling error. Due to patient's poor performance status and multiple comorbidities he is not a chemotherapy or surgical candidate. Possibility for XRT which the patient has made clear he is not interested in. -The patient appears to be actively dying, therefore, comfort care pathway has been initiated and all unnecessary medications have been discontinued. 3. New onset paroxysmal atrial fibrillation with RVR, present on admission. Resolved. -On admission patient received diltiazem 10 mg IV x1 with spontaneous conversion to sinus rhythm. -Ordered metoprolol 5 mg IV as needed for heart rate greater than 120 for comfort as patient is very symptomatic of atrial fibrillation. 4. Acute type 2 IN, secondary to demand ischemia due to atrial fibrillation with RVR, present on admission. Resolving. -Discussed with Cardiology who recommended optimizing medical therapy and informed that patient is not an interventional candidate due to significant comorbidities and GI bleeding. -Ordered metoprolol 5 mg IV as needed for heart rate greater than 120 for comfort as patient is very symptomatic of atrial fibrillation. . 5. Hyperlipidemia, chronic, present on admission. Stable. -Fasting lipid panel demonstrated: Total cholesterol 100, triglycerides 153, LDL 41, and HDL 28. -The patient appears to be actively dying, therefore, comfort care pathway has been initiated and all unnecessary medications have been discontinued. 6. Hypertension, chronic, present on admission. Stable. -The patient appears to be actively dying, therefore, comfort care pathway has been initiated and all unnecessary medications have been discontinued. 7. Diabetes mellitus type 2, non-insulin using, present on admission. Stable. -Hemoglobin A1c 6.0% 11/09. -The patient appears to be actively dying, therefore, comfort care pathway has been initiated and all unnecessary medications have been discontinued. 8. Chronic generalized weakness with acute possibly on chronic protein calorie malnutrition, present on admission. Stable. -Secondary to chronic bilateral temporal and cerebellar CVAs and continued acute blood loss. -Patient does endorse little oral fluid intake related to dysphagia and use of thickener to prevent aspiration as he does not like it. -The patient appears to be actively dying, therefore, comfort care pathway has been initiated. Will allow patient to eat for comfort. Disposition: Plan is to have patient in the hospital as he is actively dying. Patient will likely in the next 24-48 hours. Quality VTE Deep Vein Thrombosis/Pulmonary Embolism Present on Admission: No
[2018-12-13 09:35] VITALS: BP 120/70; PULSE 82; RESP 24; TEMP 36.3; O2SAT 93
--- NOTE | 2018-12-13 13:21 | CM.DPC ---
DCP: continued: Case discussed in Team Rounds with Dr. Ram reporting now that pt's appears immenent and she has assured pt and his that he will remain in the hospital for this process. Checked in with pt and Marissa. Pt is found lying with eyes closed, appears comfortable. Assured Marissa that the DCP team had been updated by Dr. Ram re the plan for pt to remain here. Conferred with CAROL ANN Chaparro, assigned to pt for the day shift. She confirms above, says that the vice president talent management has been supporting pt and Marissa. DCP team will continue to follow for advocacy and support and will discuss tomorrow with the hospitalist taking over from Dr. Rma. RN coordinator Remedios Vega is supportive of above plan.
[2018-12-13 16:14] VITALS: BP 139/79; PULSE 143; RESP 17; TEMP 36.6; O2SAT 93
[2018-12-13] MEDS: LORazepam 2 MG/ML INJ 0.5 MG IV (20:10)
[2018-12-14] MEDS: MORPHINE 2 MG/ML INJ IV ×8 (00:26→21:01)
[2018-12-14] MEDS: SODIUM CHLORIDE 0.9% FLUSH 10 ML IV ×5 (00:27→20:21)
[2018-12-14 00:34] VITALS: PULSE 108; RESP 11; O2SAT 88
--- NOTE | 2018-12-14 00:42 | PC.NURSE ---
Addendum entered by Juani Andrews R.N. 12/14/18 05:19: Was given Morphine at 0307 for FLACC of 4/10 and has slept peacefully since that time. Currently is lying next to patient and requests he receive more Morphine as states she feels he is having some difficulty breathing and will intermittently cry out. While in room respirations appear unchanged and FLACC was 0 but medicated with Morphine as requested to maintain patient/family comfort. Not repositioned at this time as in bed with patient. Original Note: Patient did open eyes spontaneously when being repositioned, but does not focus and unable to answer any questions. Has been intermittently moaning and FLACC score is 2 so medicated with Morphine. Breath sounds with expiratory rhonchi anteriorly. Is mouth breathing with RR of 11; having 20-30 seconds of apnea each minute. RA sat is 88%. HRR but tachy at 108 bpm. Has had very little urine output and is currently dry. Repositioned onto left side; waffle cushion under. Skin is pale but no mottling noted. at bedside. Remains on comfort care.
[2018-12-14 08:15] VITALS: BP 111/60; PULSE 108; TEMP 37.4
[2018-12-14 11:00] VITALS: O2SAT 75
--- NOTE | 2018-12-14 12:21 | P.PN_ITS ---
Subjective Date Patient Seen: 12/14/18 Time Patient Seen: 12:14 Interval history: Follow-up on rectal bleeding, type 2 VA from demand ischemia, and comfort care Patient seen at bedside. No acute overnight events. Breathing has stabilized. He is saturating 75% on room air. Minimally responsive. Patient seems to be comfortable, with no anxiety. Exam Vital Signs (past 8 hours): - 12/14/18 08:15 Temperature 99.3 F Pulse Rate 108 H Blood Pressure 111/60 Fraction of Inspired Oxygen 21 Oxygen Delivery Method Room Air Oxygen Flow Rate 0 Narrative Exam Narrative: General: Elderly gentleman lying in bed and appears comfortable, chronically ill, emaciated, somnolent. HEENT: Normocephalic, atraumatic. External ears without defect. Pupils equal, round, and reactive to light. Anicteric sclerae, moist conjunctivae, and no lid lag. Neck: Supple with full range of motion. No lymphadenopathy or thyromegaly. Cardiovascular: Regular rate and rhythm without murmurs, rubs, or gallops appreciated. Pulmonary: Increasing upper airway rhonchi. Frequent coughing, but no Jacob- Caldwell breathing at this time. Abdomen: Soft, bowel sounds present, nontender, nondistended. No hepatosplenomegaly or masses appreciated. Genitourinary: Mild sacral/coccyx superficial skin breakdown with dressing in place. Extremities: No clubbing, cyanosis, or edema. Mild left-sided hemiparesis. Skin: Normal temperature, turgor, and texture; no rash, ulcers, or subcutaneous nodules appreciated. Neurological: Withdraws to painful stimuli Psychiatric: Somnolent. Intermittently opens eyes and will say a few words. Objective Labs Result Diagrams: 12/10/18 05:40 12/10/18 05:40 Assessment & Plan Assessment & Plan narrative: 83-year-old male patient with a past medical history significant for hypertension, hyperlipidemia, diabetes mellitus type 2, non-insulin using, BPH, prior CVA with left hemiparesis who presented for complaints of chest pain and shortness of breath due to atrial fibrillation with RVR which quickly and spontaneously resolved with diltiazem. Patient admitted for rectal bleeding and type 2 VA from demand ischemia. Now on hospice/comfort care measures only, as patient is actively dying. 1. Comfort care. -The patient's and DPLIAM Mauricio would like the patient to be comfort care only at this time. He is actively dying and plan is to let patient in the hospital. -continue 2 mg every 4 hours as needed for pain, lorazepam 0.5 mg IV every 6 hours as needed for anxiety, and scopolamine patch for secretions. -continue pleasure feeds 2. Acute lower GI bleed with acute on chronic blood loss, secondary to rectal mass, present on admission. Active. -He now has a new diagnosis of rectal mass, suspicious for rectal cancer. Patient previously had melena due to upper gastric ulcer. -Initial H&H on admission is 10.6 and 31.1 and stable. Transfusion goal <8.0. -Received iron infusion x2 to help rebuild iron stores. -Dr. Reyes, of general surgery was consulted who performed colonoscopy and found new rectal mass concerning for cancer. Previous EGD demonstrated duodenitis and superficial duodenal ulcers in the bulb which is source of bleed. -Rectal mass biopsy results did not demonstrate carcinoma, however, per surgery and Oncology this is likely leather goods sales representative of a rectal carcinoma and results reflective of a sampling error. Due to patient's poor performance status and multiple comorbidities he is not a chemotherapy or surgical candidate. Possibility for XRT which the patient has made clear he is not interested in. -The patient appears to be actively dying, therefore, comfort care pathway has been initiated and all unnecessary medications have been discontinued. 3. New onset paroxysmal atrial fibrillation with RVR, present on admission. Resolved. -On admission patient received diltiazem 10 mg IV x1 with spontaneous conversion to sinus rhythm. -continue metoprolol tartrate 5 mg IV q.6 hours as needed for symptomatic treatment only 4. Acute type 2 VA, secondary to demand ischemia due to atrial fibrillation with RVR, present on admission. Resolving. -continue metoprolol tartrate 5 mg IV q.6 hours as needed for symptomatic treatment only 5. Hyperlipidemia, chronic, present on admission. Stable. -atorvastatin discontinued due to comfort measures only 6. Hypertension, chronic, present on admission. Stable. -comfort measures only. No more blood pressure checks 7. Diabetes mellitus type 2, non-insulin using, present on admission. Stable. -Hemoglobin A1c 6.0% 11/09. -comfort care measures only. No more glucose checks or anti glycemic administration 8. Chronic generalized weakness with acute possibly on chronic protein calorie malnutrition, present on admission. Stable. -Secondary to chronic bilateral temporal and cerebellar CVAs and continued acute blood loss. -continue pleasure feeds as patient is actively dying. Disposition: Patient is becoming progressively unresponsive. Actively dying Quality VTE Deep Vein Thrombosis/Pulmonary Embolism Present on Admission: No
[2018-12-14] MEDS: LORazepam 2 MG/ML INJ 0.5 MG IV (19:09)
[2018-12-15 02:48] VITALS: BP 92/48; PULSE 110; RESP 20; TEMP 36.9; O2SAT 79
[2018-12-15] MEDS: MORPHINE 2 MG/ML INJ IV ×2 (04:37→13:52)
[2018-12-15 10:00] VITALS: BP 98/57; PULSE 135; RESP 39; TEMP 39.2; O2SAT 72
[2018-12-15 10:43] VITALS: TEMP 39.1
[2018-12-15] MEDS: SODIUM CHLORIDE 0.9% FLUSH 10 ML IV (10:43)
[2018-12-15] MEDS: ACETAMINOPHEN 650 MG SUPP PR (10:43)
[2018-12-15] MEDS: MORPHINE 10 MG/0.5 ML ORAL SYRINGE PO (11:29)
--- NOTE | 2018-12-15 11:40 | CM.DPC ---
DCP Cont: Met briefly with Marissa in room, daughter also in room. Patient is on comfort care, sleeping. Discussed having him go back to [facility] on comfort care, and explained the process of coverage there with Medicare for 5 days. is aware that she would have to pay room and board after that. Also, discussed hospice, and what they do. They feel that if he is over there on comfort meds, he won't really need hospice. Stated that they can still determine if he needs hospice after 5 days that he is over there. also unsure if she wants him to be discharged today due to his fever. She is wanting to speak to hospitalist. Called Brie at [facility]. Attempted to see if they could accept him today. Originally they stated that they may be able to. After calling them back, they stated that they could not accept him until tomorrow, due to the amount of admits. Updated Dr. Doty, who had planned on today. At this time, he is on comfort care here in hospital. Spoke to his nurse, Haydee, who stated that he will be getting some routine comfort meds. Tylenol given for his fever. and daughter continue to be at bedside. P:DCP to continue to follow and offer support with family. Patient could potentially be discharged to [facility] tomorrow, if he does not here. Hiwot Villagran RN/Shopper
[2018-12-15] MEDS: LORazepam 2 MG/ML INJ 1 MG IV (12:17)
[2018-12-15] MEDS: MORPHINE 50 MG in DEXTROSE 5 % IN WATER 50 ML IV (12:34)
--- NOTE | 2018-12-15 12:57 | PM.PN.1 ---
Subjective Date Patient Seen: 12/15/18 Time Patient Seen: 12:57 Interval history: Follow-up on rectal bleeding, type 2 NJ from demand ischemia, and comfort care. Patient seen at bedside. He is still alive, however is becoming febrile with temperature of 103? F. He is also tachycardic. Seems to be a lot more uncomfortable now in breathing is shallow and rapid. Exam Vital Signs (past 8 hours): - 12/15/18 10:00 12/15/18 10:43 Temperature 102.6 F H 102.4 F H Pulse Rate 135 H Respiratory Rate 39 H Blood Pressure 98/57 L Pulse Oximetry 72 L Fraction of Inspired Oxygen 21 Oxygen Delivery Method Room Air Oxygen Flow Rate 0 Narrative Exam Narrative: General: Elderly gentleman lying in bed diaphoretic, uncomfortable, mild respiratory distress. HEENT: Normocephalic, atraumatic. External ears without defect. Pupils equal, round, and reactive to light. Anicteric sclerae, moist conjunctivae, and no lid lag. Neck: Supple with full range of motion. No lymphadenopathy or thyromegaly. Cardiovascular: Tachycardia with irregular rhythm without murmurs, rubs, or gallops appreciated. Pulmonary: Increasing upper airway rhonchi. Frequent coughing Abdomen: Soft, bowel sounds present, nontender, nondistended. No hepatosplenomegaly or masses appreciated. Genitourinary: Mild sacral/coccyx superficial skin breakdown with dressing in place. Extremities: No clubbing, cyanosis, or edema. Mild left-sided hemiparesis. Skin: Normal temperature, turgor, and texture; no rash, ulcers, or subcutaneous nodules appreciated. Neurological: Withdraws to painful stimuli Psychiatric: Somnolent. Minimally responsive Objective Labs Result Diagrams: 12/10/18 05:40 12/10/18 05:40 Assessment & Plan Assessment & Plan narrative: 83-year-old male patient with a past medical history significant for hypertension, hyperlipidemia, diabetes mellitus type 2, non-insulin using, BPH, prior CVA with left hemiparesis who presented for complaints of chest pain and shortness of breath due to atrial fibrillation with RVR which quickly and spontaneously resolved with diltiazem. Patient admitted for rectal bleeding and type 2 NJ from demand ischemia. Now on hospice/comfort care measures only, as patient is actively dying. 1. Comfort care. -The patient's and DPOA Marissa Mauricio would like the patient to be comfort care only at this time. He is actively dying and plan is to let patient in the hospital. -given patient's discomfort, switch patient to morphine drip and scheduled lorazepam 1 mg IV q.6 hours -Tylenol suppository for fever, scopolamine patch for secretions, eye socket ill for bowel regimen -continue pleasure feeds, however patient is not tolerating any p.o. intake at this time 2. Acute lower GI bleed with acute on chronic blood loss, secondary to rectal mass, present on admission. Active. -He now has a new diagnosis of rectal mass, suspicious for rectal cancer. Patient previously had melena due to upper gastric ulcer. -Initial H&H on admission is 10.6 and 31.1 and stable. Transfusion goal <8.0. -Received iron infusion x2 to help rebuild iron stores. -Dr. Reyes, of general surgery was consulted who performed colonoscopy and found new rectal mass concerning for cancer. Previous EGD demonstrated duodenitis and superficial duodenal ulcers in the bulb which is source of bleed. -Rectal mass biopsy results did not demonstrate carcinoma, however, per surgery and Oncology this is likely assisted sales representative of a rectal carcinoma and results reflective of a sampling error. Due to patient's poor performance status and multiple comorbidities he is not a chemotherapy or surgical candidate. Possibility for XRT which the patient has made clear he is not interested in. -The patient appears to be actively dying, therefore, comfort care pathway has been initiated and all unnecessary medications have been discontinued. 3. New onset paroxysmal atrial fibrillation with RVR, present on admission. Resolved. -On admission patient received diltiazem 10 mg IV x1 with spontaneous conversion to sinus rhythm. -continue metoprolol tartrate 5 mg IV q.6 hours as needed for symptomatic treatment only 4. Acute type 2 NJ, secondary to demand ischemia due to atrial fibrillation with RVR, present on admission. Resolving. -continue metoprolol tartrate 5 mg IV q.6 hours as needed for symptomatic treatment only 5. Hyperlipidemia, chronic, present on admission. Stable. -atorvastatin discontinued due to comfort measures only 6. Hypertension, chronic, present on admission. Stable. -comfort measures only. No more blood pressure checks 7. Diabetes mellitus type 2, non-insulin using, present on admission. Stable. -Hemoglobin A1c 6.0% 11/09. -comfort care measures only. No more glucose checks or anti glycemic administration 8. Chronic generalized weakness with acute possibly on chronic protein calorie malnutrition, present on admission. Stable. -Secondary to chronic bilateral temporal and cerebellar CVAs and continued acute blood loss. -continue pleasure feeds as patient is actively dying. Disposition: Patient is becoming progressively unresponsive. Actively dying. If he is still alive by tomorrow, he will be transitioned to [facility]. Quality VTE Deep Vein Thrombosis/Pulmonary Embolism Present on Admission: No
--- NOTE | 2018-12-15 13:03 | P.PN_ITS ---
Subjective Date Patient Seen: 12/15/18 Time Patient Seen: 12:57 Interval history: Follow-up on rectal bleeding, type 2 MO from demand ischemia, and comfort care. Patient seen at bedside. He is still alive, however is becoming febrile with temperature of 103? F. He is also tachycardic. Seems to be a lot more uncomfortable now in breathing is shallow and rapid. Exam Vital Signs (past 8 hours): - 12/15/18 10:00 12/15/18 10:43 Temperature 102.6 F H 102.4 F H Pulse Rate 135 H Respiratory Rate 39 H Blood Pressure 98/57 L Pulse Oximetry 72 L Fraction of Inspired Oxygen 21 Oxygen Delivery Method Room Air Oxygen Flow Rate 0 Narrative Exam Narrative: General: Elderly gentleman lying in bed diaphoretic, uncomfortable, mild respiratory distress. HEENT: Normocephalic, atraumatic. External ears without defect. Pupils equal, round, and reactive to light. Anicteric sclerae, moist conjunctivae, and no lid lag. Neck: Supple with full range of motion. No lymphadenopathy or thyromegaly. Cardiovascular: Tachycardia with irregular rhythm without murmurs, rubs, or gallops appreciated. Pulmonary: Increasing upper airway rhonchi. Frequent coughing Abdomen: Soft, bowel sounds present, nontender, nondistended. No hepatos plenomegaly or masses appreciated. Genitourinary: Mild sacral/coccyx superficial skin breakdown with dressing in place. Extremities: No clubbing, cyanosis, or edema. Mild left-sided hemiparesis. Skin: Normal temperature, turgor, and texture; no rash, ulcers, or subcutaneous nodules appreciated. Neurological: Withdraws to painful stimuli Psychiatric: Somnolent. Minimally responsive Objective Labs Result Diagrams: 12/10/18 05:40 12/10/18 05:40 Assessment & Plan Assessment & Plan narrative: 83-year-old male patient with a past medical history significant for hypertension, hyperlipidemia, diabetes mellitus type 2, non-insulin using, BPH, prior CVA with left hemiparesis who presented for compla ints of chest pain and shortness of breath due to atrial fibrillation with RVR which quickly and spontaneously resolved with diltiazem. Patient admitted for rectal bleeding and type 2 MO from demand ischemia. Now on hospice/comfort care measures only, as patient is actively dying. 1. Comfort care. -The patient's and DPLIAM Mauricio would like the patient to be comfort care only at this time. He is actively dying and plan is to let patient in the hospital. -given patient's discomfort, switch patient to morphine drip and scheduled lorazepam 1 mg IV q.6 hours -Tylenol suppository for fever, scopolamine patch for secretions, eye socket ill for bowel regimen -continue pleasure feeds, however patient is not tolerating any p.o. intake at this time 2. Acute lower GI bleed with acute on chronic blood loss, secondary to rectal mass, present on admission. Active. -He now has a new diagnosis of rectal mass, suspicious for rectal cancer. Patient previously had melena due to upper gastric ulcer. -Initial H&H on admission is 10.6 and 31.1 and stable. Transfusion goal <8.0. -Received iron infusion x2 to help rebuild iron stores. -Dr. Reyes, of general surgery was consulted who performed colonoscopy and found new rectal mass concerning for cancer. Previous EGD demonstrated duodenitis and superficial duodenal ulcers in the bulb which is source of bleed. -Rectal mass biopsy results did not demonstrate carcinoma, however, per surgery and Oncology this is likely sales representative printing of a rectal carcinoma and results reflective of a sampling error. Due to patient's poor performance status and multiple comorbidities he is not a chemotherapy or surgical candidate. Possibility for XRT which the patient has made clear he is not interested in. -The patient appears to be actively dying, therefore, comfort care pathway has been initiated and all unnecessary medications have been discontinued. 3. New onset paroxysmal atrial fibrillation with RVR, present on admission. Resolved. -On admission patient received diltiazem 10 mg IV x1 with spontaneous conversion to sinus rhythm. -continue metoprolol tartrate 5 mg IV q.6 hours as needed for symptomatic treatment only 4. Acute type 2 MO, secondary to demand ischemia due to atrial fibrillation with RVR, present on admission. Resolving. -continue metoprolol tartrate 5 mg IV q.6 hours as needed for symptomatic treatment only 5. Hyperlipidemia, chronic, present on admission. Stable. -atorvastatin discontinued due to comfort measures only 6. Hypertension, chronic, present on admission. Stable. -comfort measures only. No more blood pressure checks 7. Diabetes mellitus type 2, non-insulin using, present on admission. Stable. -Hemoglobin A1c 6.0% 04/19. -comfort care measures only. No more glucose checks or anti glycemic administration 8. Chronic generalized weakness with acute possibly on chronic protein calorie malnutrition, present on admission. Stable. -Secondary to chronic bilateral temporal and cerebellar CVAs and continued acute blood loss. -continue pleasure feeds as patient is actively dying. Disposition: Patient is becoming progressively unresponsive. Actively dying. If he is still alive by tomorrow, he will be transitioned to [facility]. Quality VTE Deep Vein Thrombosis/Pulmonary Embolism Present on Admission: No
[2018-12-15] MEDS: MORPHINE 4 MG/ML INJ IV (15:39)
--- NOTE | 2018-12-15 16:13 | PC.NURSE ---
Day shift pt moaning and had elevated RR this AM, spoke with MD and started pt on continuous morphine gtt at 2mg/hr. gave pt scheduled ativan as well and moaning stopped however RR still at 40. Spoke with MD again and gave 2mg IV morphine. This made his breathing appear less labored however not a lower rate, spoke wtih again and increased gtt to 5mg/hr and gave 4mg morphine bolus. RR now down to 20 and pt appears much more comfortable.
--- NOTE | 2018-12-15 16:47 | PC.NURSE ---
Addendum entered by Daly Matthews R.N. 12/15/18 18:32: Time of 1827. falily informed to stay in room with pt as long as needed. Original Note: 1630- Pt appears comfortable, no moaning, lying still. Agonal breathing since shift change, with pauses lasting from 20 to 45 sec long. , Marissa and daughter, Swapna in room. LFA morphine drip with a 50mg/50mL @ 20/hr. RR- 8, unable to get a HR or SpO2 with any oximeters Upper airway with increasing moisture, left ear scopolamine ptch, changed now @ 1819. WCTM.
[2018-12-15 17:43] VITALS: RESP 8; TEMP 36.4
[2018-12-15] MEDS: SCOPOLAMINE 1 PATCH TOP (18:22)
--- NOTE | 2018-12-15 19:00 | PM.DS.1 ---
History of Present Illness Chief complaint: Confusion Discharge Providers Date of admission: 12/04/18 14:51 Discharge Date: 12/15/18 Primary care physician: Lex Duran MD Consults: 12/04/18 17:20 Consult to General Surgery Routine Comment: Consulting Provider: Rocio Reyes Reason for consultation: GI bleed Has provider been notified: Yes 12/05/18 16:05 Consult to Dietitian, Adult Routine Comment: Reason For Exam: H/o CVA 12/07/18 09:41 Consult to Respiratory Therapy Evaluate & Treat Comment: Placed back on O2, sats are now 92-94% on 3L Physician Instructions: Evaluate and treat 12/10/18 13:17 Consult to Oncology Routine Comment: Consulting Provider: Tucker Oconnor Reason for consultation: rectal mass Has provider been notified: Yes Discharge provider: DEDRA Alfaro Summary Discharge Diagnosis: 1. Comfort care. -The patient's and RAFAEL Mauricio would like the patient to be comfort care. He is actively dying and plan is to let patient in the hospital. -given patient's discomfort, switch patient to morphine drip and scheduled lorazepam 1 mg IV q.6 hours -Tylenol suppository for fever, scopolamine patch for secretions -the patient is unresponsive and no longer eating. 2. Acute lower GI bleed with acute on chronic blood loss, secondary to rectal mass, present on admission. Active. -He has a diagnosis of rectal mass, suspicious for rectal cancer. Patient previously had melena due to upper gastric ulcer. -Initial H&H on admission is 10.6 and 31.1 and stable. -Received iron infusion x2 to help rebuild iron stores. -Dr. Reyes, of general surgery was consulted who performed colonoscopy and found new rectal mass concerning for cancer. Previous EGD demonstrated duodenitis and superficial duodenal ulcers in the bulb which is source of bleed. -Rectal mass biopsy results did not demonstrate carcinoma, however, per surgery and Oncology this is likely customer loyalty representative of a rectal carcinoma and results reflective of a sampling error. Due to patient's poor performance status and multiple comorbidities he is not a chemotherapy or surgical candidate. Possibility for XRT which the patient has made clear he is not interested in. -The patient appears to be actively dying, therefore, comfort care pathway has been initiated and all unnecessary medications have been discontinued. 3. New onset paroxysmal atrial fibrillation with RVR, present on admission. Resolved. -On admission patient received diltiazem 10 mg IV x1 with spontaneous conversion to sinus rhythm. -continue metoprolol tartrate 5 mg IV q.6 hours as needed for symptomatic treatment only 4. Acute type 2 MN, secondary to demand ischemia due to atrial fibrillation with RVR, present on admission. Resolving. -continue metoprolol tartrate 5 mg IV q.6 hours as needed for symptomatic treatment only 5. Hyperlipidemia, chronic, present on admission. Stable. -atorvastatin discontinued due to comfort measures only 6. Hypertension, chronic, present on admission. Stable. -comfort measures only. No more blood pressure checks 7. Diabetes mellitus type 2, non-insulin using, present on admission. Stable. -Hemoglobin A1c 6.0% 11/09. -comfort care measures only. No more glucose checks or anti glycemic administration 8. Chronic generalized weakness with acute possibly on chronic protein calorie malnutrition, present on admission. Stable. -Secondary to chronic bilateral temporal and cerebellar CVAs and continued acute blood loss. -continue pleasure feeds as patient is actively dying. Hospital Course: Mr. Shania Mauricio is an 83-year-old male patient with a past medical history significant for hypertension, hyperlipidemia, diabetes mellitus type 2, non-insulin using, BPH, prior CVA with left hemiparesis who presented for complaints of chest pain and shortness of breath due to atrial fibrillation with RVR which quickly and spontaneously resolved with diltiazem. He has had failed rehabilitation at a SNF since his last discharge with progressive weakness and cognitive deterioration. Patient admitted for rectal bleeding and type 2 MN from demand ischemia. The patient has no sustained multiple strokes and is unable to tolerate anticoagulant therapy due to gastrointestinal bleeding. He also is found to have rectal mass on colonoscopy with a biopsy that returned as inconclusive. 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 The patient's vital signs ceased at 6:28 p.m. Status at Discharge Overall status at discharge: other (Patient ) Time Spent with Patient Less than 30 minutes Exam Vital Signs (past 8 hours): - 12/15/18 17:43 Temperature 97.6 F Respiratory Rate 8 L Fraction of Inspired Oxygen 21 Oxygen Delivery Method Room Air Oxygen Flow Rate 0 Objective Labs Result Diagrams: 12/10/18 05:40 12/10/18 05:40 Discharge Plan Discharge Plan Patient Disposition: Discharge Data Primary Care Provider: Lex Duran Attending Provider: Genny Ram Admit Date/Time: 12/04/18 14:51 Quality VTE Deep Vein Thrombosis/Pulmonary Embolism Present on Admission: No
--- NOTE | 2018-12-15 20:00 | P.DS_ITS ---
History of Present Illness Chief complaint: Confusion Discharge Providers Date of admission: 12/04/18 14:51 Discharge Date: 12/15/18 Primary care physician: Lex Duran MD Consults: 12/04/18 17:20 Consult to General Surgery Routine Comment: Consulting Provider: Rocio Reyes Reason for consultation: GI bleed Has provider been notified: Yes 12/05/18 16:05 Consult to Dietitian, Adult Routine Comment: Reason For Exam: H/o CVA 12/07/18 09:41 Consult to Respiratory Therapy Evaluate & Treat Comment: Placed back on O2, sats are now 92-94% on 3L Physician Instructions: Evaluate and treat 12/10/18 13:17 Consult to Oncology Routine Comment: Consulting Provider: Tucker Oconnor Reason for consultation: rectal mass Has provider been notified: Yes Discharge provider: DEDRA Alfaro Summary Discharge Diagnosis: 1. Comfort care. -The patient's and RAFAEL Mauricio would like the patient to be comfort care. He is actively dying and plan is to let patient in the hospital. -given patient's discomfort, switch patient to morphine drip and scheduled lorazepam 1 mg IV q.6 hours -Tylenol suppository for fever, scopolamine patch for secretions -the patient is unresponsive and no longer eating. 2. Acute lower GI bleed with acute on chronic blood loss, secondary to rectal mass, present on admission. Active. -He has a diagnosis of rectal mass, suspicious for rectal cancer. Patient previously had melena due to upper gastric ulcer. -Initial H&H on admission is 10.6 and 31.1 and stable. -Received iron infusion x2 to help rebuild iron stores. -Dr. Reyes, of general surgery was consulted who performed colonoscopy and found new rectal mass concerning for cancer. Previous EGD demonstrated duodenitis and superficial duodenal ulcers in the bulb which is source of bleed. -Rectal mass biopsy results did not demonstrate carcinoma, however, per surgery and Oncology this is likely patient admitting representative of a rectal carcinoma and results reflective of a sampling error. Due to patient's poor performance status and multiple comorbidities he is not a chemotherapy or surgical candidate. Possibility for XRT which the patient has made clear he is not interested in. -The patient appears to be actively dying, therefore, comfort care pathway has been initiated and all unnecessary medications have been discontinued. 3. New onset paroxysmal atrial fibrillation with RVR, present on admission. Resolved. -On admission patient received diltiazem 10 mg IV x1 with spontaneous conversion to sinus rhythm. -continue metoprolol tartrate 5 mg IV q.6 hours as needed for symptomatic treatment only 4. Acute type 2 MD, secondary to demand ischemia due to atrial fibrillation with RVR, present on admission. Resolving. -continue metoprolol tartrate 5 mg IV q.6 hours as needed for symptomatic treatment only 5. Hyperlipidemia, chronic, present on admission. Stable. -atorvastatin discontinued due to comfort measures only 6. Hypertension, chronic, present on admission. Stable. -comfort measures only. No more blood pressure checks 7. Diabetes mellitus type 2, non-insulin using, present on admission. Stable. -Hemoglobin A1c 6.0% 11/09. -comfort care measures only. No more glucose checks or anti glycemic administ ration 8. Chronic generalized weakness with acute possibly on chronic protein calorie malnutrition, present on admission. Stable. -Secondary to chronic bilateral temporal and cerebellar CVAs and continued acute blood loss. -continue pleasure feeds as patient is actively dying. Hospital Course: Mr. Shania Mauricio is an 83-year-old male patient with a past medical history significant for hypertension, hyperlipidemia, diabetes mellitus type 2, non-insulin using, BPH, prior CVA with left hemiparesis who presented for complaints of chest pain and shortness of breath due to atrial fibrillation with RVR which quickly and spontaneously resolved with diltiazem. He has had failed rehabilitation at a SNF since his last discharge with progressive weak ness and cognitive deterioration. Patient admitted for rectal bleeding and type 2 MD from demand ischemia. The patient has no sustained multiple strokes and is unable to tolerate anticoagulant therapy due to gastrointestinal bleeding. He also is found to have rectal mass on colonoscopy with a biopsy that returned as inconclusive. 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 The patient's vital signs ceased at 6:28 p.m. Status at Discharge Overall status at discharge: other (Patient ) Time Spent with Patient Less than 30 minutes Exam Vital Signs (past 8 hours): - 12/15/18 17:43 Temperature 97.6 F Respiratory Rate 8 L Fraction of Inspired Oxygen 21 Oxygen Delivery Method Room Air Oxygen Flow Rate 0 Objective Labs Result Diagrams: 12/10/18 05:40 12/10/18 05:40 Discharge Plan Discharge Plan Patient Disposition: Discharge Data Primary Care Provider: Lex Duran Attending Provider: Genny Ram Admit Date/Time: 12/04/18 14:51 Quality VTE Deep Vein Thrombosis/Pulmonary Embolism Present on Admission: No
== END 2018-12-15 21:30 | disposition expired ==
LOC: ED 12:06 → AC 16:28
PROVIDERS: Family Medicine; Nurse Practitioner Family; Surgery; Admitting Provider Internal Medicine; Emergency Provider Emergency Medicine; PCP Internal Medicine; Visit Provider Internal Medicine
PROC: 0DJD8ZZ Inspection of Lower Intestinal Tract, Via Natural or Artificial Opening Endoscopic (ICD-10-PCS; CPT 45378; principal; 2018-12-06 11:45)
DX: I21.A1 Myocardial infarction type 2 (principal); K92.1 Melena; I69.354 Hemiplegia and hemiparesis following cerebral infarction affecting left non-dominant side; I48.91 Unspecified atrial fibrillation; L98.421 Non-pressure chronic ulcer of back limited to breakdown of skin; K62.89 Other specified diseases of anus and rectum; I10 Essential (primary) hypertension; E78.5 Hyperlipidemia, unspecified; E11.9 Type 2 diabetes mellitus without complications; Z66 Do not resuscitate; R00.1 Bradycardia, unspecified; Z51.5 Encounter for palliative care; R53.1 Weakness
CPT/HCPCS: 36415; 45378; 45380; 71045; 80048; 80053; 80061; 82550; 82962; 83036; 83735; 84443; 84484; 85014; 85018; 85025; 86850; 86900; 86901; 88305; 93005; 93010; 93307; 94760; 94762; 96361; 96374; 99152; 99231; 99232; 99285; 99291; C9113; J2060; J2270; J2704; J7050